=== PATIENT | male | born 1960 | race Caucasian/White ===

== ENCOUNTER 2016-12-31 12:49 | Inpatient (IN) | payer OTHER ==
[2016-12-31 15:49] VITALS: BMI 31.4
--- NOTE | 2016-12-31 18:25 | HP ---
CIWA Score - CIWA Score Nausea/Vomitin-Mild Nausea/No Vomiting Muscle Tremors: 4-Moderate,w/Arms Extend Anxiety: 4-Mod. Anxious/Guarded Agitation: 4-Moderately Restless Paroxysmal Sweats: 1-Minimal Palms Moist Orientation: 0-Oriented Tacttile Disturbances: 0-None Auditory Disturbances: 0-None Visual Disturbances: 0-None Headache: 1-Very Mild CIWA-Ar Total Score: 15 Admission ROS BHS - HPI Chief Complaint: WITHDRAWAL SX Allergies/Adverse Reactions: Allergies Allergy/AdvReac Type Severity Reaction Status Date / Time Penicillins Allergy Severe Rash Verified 12/31/16 17:27 History of Present Illness: 56 YEARS OLD MALE WITH LONG HISTORY OF ALCOHOL NICOTINE DEPENDENCE HAS CHRONIC EARS INFECTION SINCE CHILD, METHADONE 20 MG DAILY, DENTURE UPPER AND LOWER AT HOME, LOST LOWER DENTURE AND DEPRESSION IS ADMITTED TO DETOX Exam Limitations: No Limitations - Ebola screening Have you traveled outside of the country in the last 21 days: No Have you had contact with anyone from an Ebola affected area: No Have you been sick,other than usual withdrawal symptoms: No Do you have a fever: No - Review of Systems Constitutional: Chills, Changes in sleep, Weight Stable EENT: reports: Hearing Loss (BOTH EARS SINCE CHILD), Dental Problems Respiratory: reports: No Symptoms reported Cardiac: reports: No Symptoms Reported GI: reports: Nausea, Poor Fluid Intake, Abdominal cramping : reports: No Symptoms Reported Musculoskeletal: reports: No Symptoms Reported Integumentary: reports: No Symptoms Reported Neuro: reports: Tremors Endocrine: reports: No Symptoms Reported Hematology: reports: No Symptoms Reported Psychiatric: reports: Judgement Intact, Orientated x3, Depressed Other Systems: Reviewed and Negative Patient History - Patient Medical History Hx Anemia: No Hx Asthma: No Hx Chronic Obstructive Pulmonary Disease (COPD): No Hx Cancer: No Hx Cardiac Disorders: No Hx Hypertension: Yes (not on meds.) Hx Hypercholesterolemia: No Hx Pacemaker: No HX Cerebrovascular Accident: No Hx Seizures: No Hx Dementia: No Hx Diabetes: No Hx Gastrointestinal Disorders: No Hx Liver Disease: No Hx Genitourinary Disorders: No Hx Sexually Transmitted Disorders: No Hx Renal Disease (ESRD): No Hx Thyroid Disease: No Hx Human Immunodeficiency Virus (HIV): No Hx Hepatitis C: No Hx Depression: Yes Hx Suicide Attempt: No Hx Bipolar Disorder: No Hx Schizophrenia: No - Patient Surgical History Past Surgical History: Yes Hx Neurologic Surgery: No Hx Cataract Extraction: No Hx Cardiac Surgery: No Hx Lung Surgery: No Hx Breast Surgery: No Hx Breast Biopsy: No Hx Abdominal Surgery: No Hx Appendectomy: No Hx Cholecystectomy: No Hx Genitourinary Surgery: No Hx Orthopedic Surgery: No Other Surgical History: MULTIPLE SX BOTH EARS. Anesthesia Reaction: No - PPD History Previous Implant?: Yes Documented Results: Negative w/o proof Implanted On Prior [facility] Admission?: No PPD to be Administered?: Yes - Smoking Cessation Smoking history: Current every day smoker Have you smoked in the past 12 months: Yes Aproximately how many cigarettes per day: 10 Cigars Per Day: 0 Hx Chewing Tobacco Use: No Initiated information on smoking cessation: Yes 'Breaking Loose' booklet given: 12/31/16 - Substance & Tx. History Hx Alcohol Use: Yes Hx Substance Use: No Substance Use Type: Alcohol Hx Substance Use Treatment: No - Substances Abused Alcohol Route: Oral Frequency: Daily Amount used: 1 PINT RUM/ 2 6PKS BEER Age of first use: 13 Date of Last Use: 12/31/16 Family Disease History - Family Disease History Family Disease History: Diabetes: Brother, Heart Disease: Sister, [place]: Mother ( ), Other: Father () Admission Physical Exam S - Vital Signs Vital Signs: Vital Signs - 24 hr 12/31/16 15:39 Temperature 97.0 F L Pulse Rate 79 Respiratory 20 Rate Blood Pressure 146/81 - Physical General Appearance: Yes: Appropriately Dressed, Mild Distress, Obese, Tremorous , Irritable, Sweating, Anxious HEENTM: Yes: Hearing grossly Normal, Normal ENT Inspection, Normocephalic, Normal Voice, Hearing Decreased (RIGHT EAR), TM Dull Respiratory: Yes: Chest Non-Tender, Lungs Clear, Normal Breath Sounds, No Respiratory Distress, No Accessory Muscle Use Neck: Yes: Supple, Trachea in good position Breast: Yes: Breasts Symetrical Cardiology: Yes: Regular Rhythm, Regular Rate, S1, S2 Abdominal: Yes: Non Tender, Soft Genitourinary: Yes: Within Normal Limits Back: Yes: Normal Inspection Musculoskeletal: Yes: full range of Motion, Gait Steady Extremities: Yes: Normal Inspection, Normal Range of Motion, Non-Tender, Tremors Neurological: Yes: Fully Oriented, Alert, Motor Strength 5/5, Normal Response, Depressed Affect Integumentary: Yes: Warm Lymphatic: Yes: Within Normal Limits - Diagnostic (1) Alcohol dependence with uncomplicated withdrawal Current Visit: Yes Status: Acute (2) Methadone maintenance therapy patient Current Visit: Yes Status: Chronic Comment: 20 MG VERIFICATION PENDING (3) Chronic otitis externa of both ears Current Visit: Yes Status: Chronic Qualifiers: Otitis externa type: other infective Qualified Code(s): H60.393 - Other infective otitis externa, bilateral (4) Nicotine dependence Current Visit: Yes Status: Acute Qualifiers: Nicotine product type: cigarettes Substance use status: in withdrawal Qualified Code(s): F17.213 - Nicotine dependence, cigarettes, with withdrawal (5) Depression (emotion) Current Visit: Yes Status: Resolved Qualifiers: Depression Type: dysthymia Qualified Code(s): F34.1 - Dysthymic disorder Cleared for Admission BHS - Detox or Rehab [facility] Level of Care: Medically Managed Detox Regimen/Protocol: Librium [facility] Breath Alcohol Content Breath Alcohol Content: 0.041 Urine Drug Screen - Results Drug Screen Negative: No Urine Drug Screen Results: MTD-Methadone
[2016-12-31] MEDS ORDERED: guaiFENesin/D-METHORPHAN HB 10 ML UNIT-DOSE CUPS PO PRN (18:32)
[2016-12-31] MEDS ORDERED: LOPERAMIDE HCL 2 MG CAPSULE PO PRN (18:32)
[2016-12-31] MEDS ORDERED: MAGNESIUM HYDROX 2400MG/30ML ORAL SUSPENSION 30 ML CUP PO PRN (18:32)
[2016-12-31] MEDS ORDERED: NICOTINE POLACRILEX 2 MG GUM BC PRN (18:32)
[2016-12-31] MEDS ORDERED: P-EPHED 60MG/TRIPROLIDI 2.5MG TABLET PO PRN (18:32)
[2016-12-31] MEDS ORDERED: MAGNESIUM CITRATE 300 ML BOTTLE PO PRN (18:32)
[2016-12-31] MEDS ORDERED: MAG HYDROX/AL HYDROX/SIMETH 30 ML UNIT-DOSE CUP PO PRN (18:32)
[2016-12-31] MEDS ORDERED: MENTHOL/PHENOL 1 EACH UD MM PRN (18:32)
[2016-12-31] MEDS ORDERED: chlordiazePOXIDE HCL 25 MG CAPSULE PO ONE (19:15)
[2016-12-31] MEDS: ACETAMINOPHEN 325 MG TABLET (FP) PO PRN (21:00)
[2016-12-31] MEDS: chlordiazePOXIDE HCL 25 MG CAPSULE PO SCH (22:10)
[2016-12-31] MEDS: THIAMINE HCL 100 MG TABLET (FP) PO SCH (22:10)
[2016-12-31] MEDS: diphenhydrAMINE HCL 50 MG CAPSULE PO PRN (22:11)
[2016-12-31 23:17] LABS: URINE APPEARANCE CLEAR; URINE BILIRUBIN NEGATIVE (NEGATIVE); URINE BLOOD NEGATIVE (NEGATIVE); URINE COLOR YELLOW; URINE GLUCOSE (UA) NEGATIVE (NEGATIVE); URINE KETONE NEGATIVE (NEGATIVE); URINE LEUK ESTERASE NEGATIVE (NEGATIVE); URINE NITRITE NEGATIVE (NEGATIVE); URINE PROTEIN NEGATIVE (NEGATIVE); URINE UROBILINOGEN NEGATIVE E.U./dl (0.2-1.0)
[2016-12-31] MEDS: CLINDAMYCIN HCL 150 MG CAPSULE (FP) PO SCH (23:24)
[2017-01-01] MEDS ORDERED: CEPHALEXIN MONOHYDRATE 250 MG CAPSULE (FP) PO SCH
[2017-01-01] MEDS: CLINDAMYCIN HCL 150 MG CAPSULE (FP) PO SCH ×4 (05:55→23:25)
[2017-01-01] MEDS: chlordiazePOXIDE HCL 25 MG CAPSULE PO SCH ×4 (05:55→22:02)
[2017-01-01] MEDS ORDERED: METHADONE HCL 10 MG TABLET PO ONE (08:50)
[2017-01-01] MEDS: PRENATAL VITAMINS W/ FOLIC ACID TABLET (FP) PO SCH (09:29)
[2017-01-01] MEDS: NICOTINE 14 MG/24 HOURS TOPICAL PATCH TD SCH (09:43)
[2017-01-01 09:51] LABS: MCH 32.1 pg (25.7-33.7); MCHC 32.7 g/dl (32.0-35.9); MEAN CELL VOLUME 98.1 fl (80-96); MEAN PLT VOLUME 11.3 fl (7.5-11.1); PLATELET COUNT 199 K/MM3 (134-434); RDW 14.8 % (11.9-15.9)
--- NOTE | 2017-01-01 10:09 | CONSULT ---
[facility] Psychiatric Consult - Data Date of interview: 01/01/17 Admission source: [facility] Identifying data: This is 56 years old male with no psychiqatric hospitalization history intoxicated with: Alcohol, Opioids and Nicotine Substance Abuse History: Smoking history: Current every day smoker. Have you smoked in the past 12 months: Yes. Aproximately how many cigarettes per day: 10. Cigars Per Day: 0. Hx Chewing Tobacco Use: No. Initiated information on smoking cessation: Yes. 'Breaking Loose' booklet given: 12/31/16. - Substance & Tx. History. Hx Alcohol Use: Yes. Hx Substance Use: No. Substance Use Type : Alcohol. Hx Substance Use Treatment: No. - Substances Abused. Alcohol. Route: Oral. Frequency: Daily. Amount used: 1 PINT RUM/ 2 6PKS BEER. Age of first use: 13. Date of Last Use: 12/31/16 Medical History: MMJTP 20mg per day, Chronic Otitis history Psychiatric History: Patient reports history of depression, reports long history of Opioid abuse, denies any psychiatric medications usage prior to admission Physical/Sexual Abuse/Trauma History: Denies Additional Comment: Observation. Detox Unit Care Protocol Mental Status Exam - Mental Status Exam Alert and Oriented to: Person Cognitive Function: Fair Patient Appearance: Unkempt Mood: Sad Affect: Flat Patient Behavior: Sedated Speech Pattern: Delayed Voice Loudness: Mildly Soft/Quiet Thought Process: Circumstantial Thought Disorder: Being Controlled Hallucinations: Denies Suicidal Ideation: Denies Homicidal Ideation: Denies Insight/Judgement: Fair Sleep: Difficulty falling asleep Appetite: Weight gain Muscle strength/Tone: Normal Gait/Station: Shuffling Additional Comments: Observation. Detox Unit Care Protocol Psychiatric Findings - Problem List ([place] 1, 2,3) (1) Alcohol dependence with uncomplicated withdrawal Current Visit: Yes Status: Acute (2) Nicotine dependence Current Visit: Yes Status: Acute Qualifiers: Nicotine product type: cigarettes Substance use status: in withdrawal Qualified Code(s): F17.213 - Nicotine dependence, cigarettes, with withdrawal (3) Methadone maintenance therapy patient Current Visit: Yes Status: Chronic Comment: 20 MG VERIFICATION PENDING (4) Drug-induced mood disorder Current Visit: Yes Status: Acute - Initial Treatment Plan Initial Treatment Plan: Observation. Detox Unit Care Protocol
[2017-01-01 10:26] LABS: ALBUMIN 4.2 g/dl (3.4-5.0); ALK PHOS 60 U/L (45-117); ANION GAP 10 (8-16); BILIRUBIN,TOTAL 0.7 mg/dL (0.2-1.0); CALCIUM 9.3 mg/dL (8.5-10.1); CO2 26 mmol/L (21-32); CREATININE 0.7 mg/dL (0.7-1.3); GLUCOSE,RANDOM 135 mg/dL (74-106); SGOT/AST 21 U/L (15-37); SGPT/ALT 24 U/L (12-78); TOT PROT 7.8 g/dl (6.4-8.2)
[2017-01-01 10:48] LABS: HIV 1 & 2 AB NEGATIVE; HIV 1 AGp24 NEGATIVE
[2017-01-01] MEDS: IBUPROFEN 400 MG TABLET (FP) PO PRN (11:21)
--- NOTE | 2017-01-01 14:47 | EKG ---
Test Reason : Blood Pressure : / mmHG Vent. Rate : 056 BPM Atrial Rate : 056 BPM P-R Int : 146 ms QRS Dur : 140 ms QT Int : 432 ms P-R-T Axes : 059 059 047 degrees QTc Int : 416 ms SINUS BRADYCARDIA RIGHT BUNDLE BRANCH BLOCK VOLTAGE CRITERIA FOR LEFT VENTRICULAR HYPERTROPHY ABNORMAL ECG NO PREVIOUS ECGS AVAILABLE Confirmed by CAMI ALBERTS MD ([id number]) on 01/01/2017 2:46:57 PM Referred By: Confirmed By:CAMI ALBERTS MD
--- NOTE | 2017-01-01 14:59 | PN ---
S CIWA - CIWA Score Nausea/Vomitin-No Nausea/No Vomiting Muscle Tremors: 4-Moderate,w/Arms Extend Anxiety: 3 Agitation: 3 Paroxysmal Sweats: 3 Orientation: 0-Oriented Tacttile Disturbances: 0-None Auditory Disturbances: 0-None Visual Disturbances: 0-None Headache: 0-None Present CIWA-Ar Total Score: 13 BHS Progress Note (SOAP) Subjective: Anxiety,tremors,sweating,interrupted sleep,restless.C/O of earache Objective: 01/01/17 14:58 Vital Signs - 8 hr 01/01/17 01/01/17 09:17 13:10 Temperature 96.8 F L 97.1 F L Pulse Rate 58 L 68 Respiratory 18 18 Rate Blood Pressure 146/83 129/83 Laboratory Tests 12/31/16 12/31/16 01/01/17 06:00 23:05 06:00 WBC 7.0 RBC 4.33 Hgb 13.9 Hct 42.5 MCV 98.1 H MCHC 32.7 RDW 14.8 Plt Count 199 MPV 11.3 H Sodium Potassium Chloride Carbon Dioxide Anion Gap BUN Creatinine Creat Clearance w eGFR Random Glucose Calcium Total Bilirubin AST ALT Alkaline Phosphatase Total Protein Albumin Urine Color Yellow Urine Appearance Clear Urine pH 5.0 Ur Specific [place] 1.020 Urine Protein Negative Urine Glucose (UA) Negative Urine Ketones Negative Urine Blood Negative Urine Nitrite Negative Urine Bilirubin Negative Urine Urobilinogen Negative Ur Leukocyte Esterase Negative RPR Titer HIV 1&2 Antibody Screen Negative HIV P24 Antigen Negative 01/01/17 01/01/17 06:00 06:00 WBC RBC Hgb Hct MCV MCHC RDW Plt Count MPV Sodium 139 Potassium 4.3 Chloride 103 Carbon Dioxide 26 Anion Gap 10 BUN 10 Creatinine 0.7 Creat Clearance w eGFR > 60 Random Glucose 135 H Calcium 9.3 Total Bilirubin 0.7 AST 21 ALT 24 Alkaline Phosphatase 60 Total Protein 7.8 Albumin 4.2 Urine Color Urine Appearance Urine pH Ur Specific [place] Urine Protein Urine Glucose (UA) Urine Ketones Urine Blood Urine Nitrite Urine Bilirubin Urine Urobilinogen Ur Leukocyte Esterase RPR Titer Nonreactive HIV 1&2 Antibody Screen HIV P24 Antigen labs noted Ears : External canals are inflamed and hyperemic Assessment: 01/01/17 14:58 Withdrawal sx. Plan: Continue detox Otitis externa start cortisporin otic bee qid
[2017-01-01] MEDS: ACETAMINOPHEN 325 MG TABLET (FP) PO PRN (15:06)
[2017-01-01] MEDS: NEOMYCIN/POLYMYXN/HC OTIC SUSPENSION 10 ML BOTTLE AU SCH ×2 (17:19→22:01)
[2017-01-01] MEDS: THIAMINE HCL 100 MG TABLET (FP) PO SCH (22:01)
[2017-01-01] MEDS: diphenhydrAMINE HCL 50 MG CAPSULE PO PRN (22:02)
[2017-01-02] MEDS: chlordiazePOXIDE HCL 25 MG CAPSULE PO SCH ×3 (05:45→17:15)
[2017-01-02] MEDS: METHADONE HCL 10 MG TABLET PO SCH (05:45)
[2017-01-02] MEDS: CLINDAMYCIN HCL 150 MG CAPSULE (FP) PO SCH ×4 (05:45→23:47)
[2017-01-02] MEDS: NEOMYCIN/POLYMYXN/HC OTIC SUSPENSION 10 ML BOTTLE AU SCH ×4 (10:07→22:47)
[2017-01-02] MEDS: NICOTINE 14 MG/24 HOURS TOPICAL PATCH TD SCH (10:07)
[2017-01-02] MEDS: PRENATAL VITAMINS W/ FOLIC ACID TABLET (FP) PO SCH (10:07)
--- NOTE | 2017-01-02 11:39 | PN ---
S CIWA - CIWA Score Nausea/Vomitin Muscle Tremors: 3 Anxiety: 4-Mod. Anxious/Guarded Agitation: 0-Normal Activity Paroxysmal Sweats: 3 Orientation: 4Disoriented Place/Person Tacttile Disturbances: 0-None Auditory Disturbances: 0-None Visual Disturbances: 0-None Headache: 2-Mild CIWA-Ar Total Score: 21 S Progress Note (SOAP) Subjective: Vomiting, Tremors, H/A, Interrupted sleep, Body Aches, Tremors. Objective: PT. A & O X 2 (DISORIENTED ABOUT DAY/ DATE AND ABOUT CURRENT LOCATION). NO ACUTE DISTRESS. PATIENT DENIES CHEST PAIN. 01/02/17 11:36 Vital Signs Temperature 98.2 F 01/02/17 09:35 Pulse Rate 81 01/02/17 09:35 Respiratory Rate 20 01/02/17 09:35 Blood Pressure 123/77 01/02/17 09:35 O2 Sat by Pulse Oximetry (%) Laboratory Tests 12/31/16 12/31/16 12/31/16 06:00 06:00 23:05 WBC RBC Hgb Hct MCV MCHC RDW Plt Count MPV Sodium Potassium Chloride Carbon Dioxide Anion Gap BUN Creatinine Creat Clearance w eGFR Random Glucose Calcium Total Bilirubin AST ALT Alkaline Phosphatase Total Protein Albumin Urine Color Yellow Urine Appearance Clear Urine pH 5.0 Ur Specific [place] 1.020 Urine Protein Negative Urine Glucose (UA) Negative Urine Ketones Negative Urine Blood Negative Urine Nitrite Negative Urine Bilirubin Negative Urine Urobilinogen Negative Ur Leukocyte Esterase Negative RPR Titer Hepatitis C Antibody 0.1 HIV 1&2 Antibody Screen Negative HIV P24 Antigen Negative 01/01/17 01/01/17 01/01/17 06:00 06:00 06:00 WBC 7.0 RBC 4.33 Hgb 13.9 Hct 42.5 MCV 98.1 H MCHC 32.7 RDW 14.8 Plt Count 199 MPV 11.3 H Sodium 139 Potassium 4.3 Chloride 103 Carbon Dioxide 26 Anion Gap 10 BUN 10 Creatinine 0.7 Creat Clearance w eGFR > 60 Random Glucose 135 H Calcium 9.3 Total Bilirubin 0.7 AST 21 ALT 24 Alkaline Phosphatase 60 Total Protein 7.8 Albumin 4.2 Urine Color Urine Appearance Urine pH Ur Specific [place] Urine Protein Urine Glucose (UA) Urine Ketones Urine Blood Urine Nitrite Urine Bilirubin Urine Urobilinogen Ur Leukocyte Esterase RPR Titer Nonreactive Hepatitis C Antibody HIV 1&2 Antibody Screen HIV P24 Antigen LABS NOTED. Assessment: 01/02/17 11:37 WITHDRAWAL SYMPTOMS. Plan: CONTINUE DETOX.
[2017-01-02] MEDS: chlordiazePOXIDE HCL 25 MG CAPSULE PO PRN (15:40)
[2017-01-02] MEDS: IBUPROFEN 400 MG TABLET (FP) PO PRN (19:12)
[2017-01-02] MEDS: THIAMINE HCL 100 MG TABLET (FP) PO SCH (22:11)
[2017-01-02] MEDS: diphenhydrAMINE HCL 50 MG CAPSULE PO PRN (22:11)
[2017-01-02] MEDS: chlordiazePOXIDE 5 MG CAPSULE PO SCH (22:11)
[2017-01-03] MEDS: CLINDAMYCIN HCL 150 MG CAPSULE (FP) PO SCH ×4 (06:00→23:07)
[2017-01-03] MEDS: METHADONE HCL 10 MG TABLET PO SCH (06:01)
[2017-01-03] MEDS: chlordiazePOXIDE 5 MG CAPSULE PO SCH ×3 (06:01→17:28)
[2017-01-03] MEDS: NEOMYCIN/POLYMYXN/HC OTIC SUSPENSION 10 ML BOTTLE AU SCH ×4 (10:09→22:12)
[2017-01-03] MEDS: PRENATAL VITAMINS W/ FOLIC ACID TABLET (FP) PO SCH (10:09)
[2017-01-03] MEDS: NICOTINE 14 MG/24 HOURS TOPICAL PATCH TD SCH (10:10)
[2017-01-03] MEDS: chlordiazePOXIDE HCL 25 MG CAPSULE PO PRN (12:13)
--- NOTE | 2017-01-03 13:05 | PN ---
BHS Progress Note (SOAP) Subjective: Tremors, anxious, H/A, Interrupted sleep. Objective: PT. A & O X 1 (DISORIENTED ABOUT DAY/ DATE AND ABOUT CURRENT LOCATION). PT. OBSERVED AMBULATING ON UNIT. NO ACUTE DISTRESS. 01/03/17 13:01 Vital Signs Temperature 97.7 F 01/03/17 09:43 Pulse Rate 97 H 01/03/17 09:43 Respiratory Rate 18 01/03/17 09:43 Blood Pressure 136/93 01/03/17 09:43 O2 Sat by Pulse Oximetry (%) Laboratory Tests 12/31/16 12/31/16 12/31/16 06:00 06:00 23:05 WBC RBC Hgb Hct MCV MCHC RDW Plt Count MPV Sodium Potassium Chloride Carbon Dioxide Anion Gap BUN Creatinine Creat Clearance w eGFR Random Glucose Calcium Total Bilirubin AST ALT Alkaline Phosphatase Total Protein Albumin Urine Color Yellow Urine Appearance Clear Urine pH 5.0 Ur Specific [place] 1.020 Urine Protein Negative Urine Glucose (UA) Negative Urine Ketones Negative Urine Blood Negative Urine Nitrite Negative Urine Bilirubin Negative Urine Urobilinogen Negative Ur Leukocyte Esterase Negative RPR Titer Hepatitis C Antibody 0.1 HIV 1&2 Antibody Screen Negative HIV P24 Antigen Negative 01/01/17 01/01/17 01/01/17 06:00 06:00 06:00 WBC 7.0 RBC 4.33 Hgb 13.9 Hct 42.5 MCV 98.1 H MCHC 32.7 RDW 14.8 Plt Count 199 MPV 11.3 H Sodium 139 Potassium 4.3 Chloride 103 Carbon Dioxide 26 Anion Gap 10 BUN 10 Creatinine 0.7 Creat Clearance w eGFR > 60 Random Glucose 135 H Calcium 9.3 Total Bilirubin 0.7 AST 21 ALT 24 Alkaline Phosphatase 60 Total Protein 7.8 Albumin 4.2 Urine Color Urine Appearance Urine pH Ur Specific [place] Urine Protein Urine Glucose (UA) Urine Ketones Urine Blood Urine Nitrite Urine Bilirubin Urine Urobilinogen Ur Leukocyte Esterase RPR Titer Nonreactive Hepatitis C Antibody HIV 1&2 Antibody Screen HIV P24 Antigen LABS NOTED. Assessment: 01/03/17 13:02 WITHDRAWAL SYMPTOMS. Plan: CONTINUE DETOX. ADVISED PATIENT TO FOLLOW-UP WITH DISTRIBUTION AGENT / ENT SPECIALIST AFTER DISCHARGE FROM DETOX FOR GENERAL MEDICAL ASSESSMENT AND FOR REPORTED HISTORY OF CHRONIC HEADACHES AND EAR INFECTIONS AND FOR HISTORY OF SURGERY TO EARS.
[2017-01-03] MEDS ORDERED: hydrOXYzine PAMOATE 50 MG CAPSULE (FP) PO ONE (19:03)
[2017-01-03] MEDS: IBUPROFEN 400 MG TABLET (FP) PO PRN (19:09)
[2017-01-03] MEDS: THIAMINE HCL 100 MG TABLET (FP) PO SCH (22:12)
[2017-01-03] MEDS: chlordiazePOXIDE HCL 10 MG CAPSULE PO SCH (22:12)
[2017-01-03] MEDS: diphenhydrAMINE HCL 50 MG CAPSULE PO PRN (22:13)
[2017-01-04] MEDS: METHADONE HCL 10 MG TABLET PO SCH (06:02)
[2017-01-04] MEDS: CLINDAMYCIN HCL 150 MG CAPSULE (FP) PO SCH ×3 (06:02→17:14)
[2017-01-04] MEDS: chlordiazePOXIDE HCL 10 MG CAPSULE PO SCH ×3 (06:02→17:14)
[2017-01-04] MEDS: NICOTINE 14 MG/24 HOURS TOPICAL PATCH TD SCH (10:08)
[2017-01-04] MEDS: PRENATAL VITAMINS W/ FOLIC ACID TABLET (FP) PO SCH (10:09)
[2017-01-04] MEDS: NEOMYCIN/POLYMYXN/HC OTIC SUSPENSION 10 ML BOTTLE AU SCH ×3 (10:09→17:14)
--- NOTE | 2017-01-04 11:48 | DS ---
[facility] Detox Discharge Summary Admission Date: 12/31/16 Discharge Date: 01/04/17 - History Present History: Alcohol Dependence Additional Comments: ADVISED PATIENT TO FOLLOW-UP WITH CAREER MANAGER / REHAB MEDICAL PROVIDER AFTER DISCHARGE FROM DETOX FOR GENERAL MEDICAL ASSESSMENT AND FOR HISTORY OF CHRONIC EAR INFECTIONS AND EAR SURGERY. Pertinent Past History: HTN, Depression, Chronic Ear Infections, History of Ear Surgery, MMTP. - Physical Exam Results Vital Signs: Vital Signs Temperature 98.5 F 01/04/17 09:46 Pulse Rate 83 01/04/17 09:46 Respiratory Rate 16 01/04/17 09:46 Blood Pressure 124/84 01/04/17 09:46 O2 Sat by Pulse Oximetry (%) Pertinent Admission Physical Exam Findings: WITHDRAWAL SYMPTOMS. Laboratory Tests 12/31/16 12/31/16 12/31/16 06:00 06:00 23:05 WBC RBC Hgb Hct MCV MCHC RDW Plt Count MPV Sodium Potassium Chloride Carbon Dioxide Anion Gap BUN Creatinine Creat Clearance w eGFR Random Glucose Calcium Total Bilirubin AST ALT Alkaline Phosphatase Total Protein Albumin Urine Color Yellow Urine Appearance Clear Urine pH 5.0 Ur Specific [place] 1.020 Urine Protein Negative Urine Glucose (UA) Negative Urine Ketones Negative Urine Blood Negative Urine Nitrite Negative Urine Bilirubin Negative Urine Urobilinogen Negative Ur Leukocyte Esterase Negative RPR Titer Hepatitis C Antibody 0.1 HIV 1&2 Antibody Screen Negative HIV P24 Antigen Negative 01/01/17 01/01/17 01/01/17 06:00 06:00 06:00 WBC 7.0 RBC 4.33 Hgb 13.9 Hct 42.5 MCV 98.1 H MCHC 32.7 RDW 14.8 Plt Count 199 MPV 11.3 H Sodium 139 Potassium 4.3 Chloride 103 Carbon Dioxide 26 Anion Gap 10 BUN 10 Creatinine 0.7 Creat Clearance w eGFR > 60 Random Glucose 135 H Calcium 9.3 Total Bilirubin 0.7 AST 21 ALT 24 Alkaline Phosphatase 60 Total Protein 7.8 Albumin 4.2 Urine Color Urine Appearance Urine pH Ur Specific [place] Urine Protein Urine Glucose (UA) Urine Ketones Urine Blood Urine Nitrite Urine Bilirubin Urine Urobilinogen Ur Leukocyte Esterase RPR Titer Nonreactive Hepatitis C Antibody HIV 1&2 Antibody Screen HIV P24 Antigen LABS NOTED. - Treatment Hospital Course: Detox Protocol Followed, Detoxed Safely, Responded well, Discharged Condition Good, Rehab Referral Accepted Patient has Accepted a Rehab Referral to: [facility]. - Medication Discharge Medications: Ambulatory Orders NK [No Known Home Medication] 12/31/16 - Diagnosis (1) Alcohol dependence with uncomplicated withdrawal Current Visit: Yes Status: Acute (2) Drug-induced mood disorder Current Visit: Yes Status: Acute (3) Nicotine dependence Current Visit: Yes Status: Chronic Qualifiers: Nicotine product type: cigarettes Substance use status: in withdrawal Qualified Code(s): F17.213 - Nicotine dependence, cigarettes, with withdrawal (4) Chronic otitis externa of both ears Current Visit: Yes Status: Chronic Qualifiers: Otitis externa type: other infective Qualified Code(s): H60.393 - Other infective otitis externa, bilateral (5) Methadone maintenance therapy patient Current Visit: Yes Status: Chronic (6) Depression (emotion) Current Visit: Yes Status: Resolved Qualifiers: Depression Type: dysthymia Qualified Code(s): F34.1 - Dysthymic disorder - AMA Did Patient Leave Against Medical Advice: No
[2017-01-04 17:06] VITALS: BP 107/67; PULSE 64; TEMP 95.8
== END 2017-01-04 18:33 | disposition other institution (70) | DRG 773 ==
LOC: YASAS 12:49 → Y3N 18:45 → UNDODISIN 01-04 18:33 → Y3N 01-04 18:43 → Y5N 01-04 18:43
PROVIDERS: ADMIT Internal Medicine; ATTEND Internal Medicine
PROC: HZ2ZZZZ Detoxification Services for Substance Abuse Treatment (ICD-10-PCS; principal; 2017-01-04)
DX: F11.20 Opioid dependence, uncomplicated (principal); F10.230 Alcohol dependence with withdrawal, uncomplicated; F17.213 Nicotine dependence, cigarettes, with withdrawal; F19.24 Other psychoactive substance dependence with psychoactive substance-induced mood disorder; F34.1 Dysthymic disorder; H60.593 Other noninfective acute otitis externa, bilateral; Z59.0 Homelessness
CPT/HCPCS: 36415; 80053; 81003; 85027; 86593; 86803; 87389; 93005; 93010

== ENCOUNTER 2017-01-04 19:35 | Inpatient (IN) | payer OTHER ==
[2017-01-04] MEDS ORDERED: MAG HYDROX/AL HYDROX/SIMETH 30 ML UNIT-DOSE CUP PO PRN (19:43)
[2017-01-04] MEDS ORDERED: LOPERAMIDE HCL 2 MG CAPSULE PO PRN (19:43)
[2017-01-04] MEDS ORDERED: MENTHOL/PHENOL 1 EACH UD MM PRN (19:43)
[2017-01-04] MEDS ORDERED: MAGNESIUM CITRATE 300 ML BOTTLE PO PRN (19:43)
[2017-01-04] MEDS ORDERED: guaiFENesin/D-METHORPHAN HB 10 ML UNIT-DOSE CUPS PO PRN (19:43)
[2017-01-04] MEDS ORDERED: MAGNESIUM HYDROX 2400MG/30ML ORAL SUSPENSION 30 ML CUP PO PRN (19:43)
[2017-01-04] MEDS ORDERED: NICOTINE 14 MG/24 HOURS TOPICAL PATCH TD PRN (19:43)
[2017-01-04] MEDS ORDERED: NICOTINE POLACRILEX 2 MG GUM BUC PRN (19:43)
--- NOTE | 2017-01-04 19:43 | HP ---
[facility] Rehab Assess/Revision - Admission History Admitted to Rehab from: [facility] Date of Admission to Rehab: 01/04/17 - Findings Detox History & Physical reviewed: Yes Concur with findings: Yes Comments/Additional Findings: transferred from detox to rehab admission as per protocol
[2017-01-04] MEDS: THIAMINE HCL 100 MG TABLET (FP) PO SCH (21:34)
[2017-01-04] MEDS: P-EPHED 60MG/TRIPROLIDI 2.5MG TABLET PO PRN (22:45)
[2017-01-04] MEDS: NEOMYCIN/POLYMYXN/HC OTIC SUSPENSION 10 ML BOTTLE AU SCH (23:15)
[2017-01-04] MEDS: CLINDAMYCIN HCL 150 MG CAPSULE (FP) PO SCH (23:15)
[2017-01-05] MEDS: CLINDAMYCIN HCL 150 MG CAPSULE (FP) PO SCH ×3 (06:42→18:53)
[2017-01-05] MEDS: NEOMYCIN/POLYMYXN/HC OTIC SUSPENSION 10 ML BOTTLE AU SCH ×3 (06:43→18:53)
[2017-01-05] MEDS: METHADONE HCL 10 MG TABLET PO SCH (09:07)
[2017-01-05] MEDS: PRENATAL VITAMINS W/ FOLIC ACID TABLET (FP) PO SCH (09:08)
[2017-01-05] MEDS: P-EPHED 60MG/TRIPROLIDI 2.5MG TABLET PO PRN (17:45)
[2017-01-05] MEDS: ACETAMINOPHEN 325 MG TABLET (FP) PO PRN (17:46)
[2017-01-05] MEDS: THIAMINE HCL 100 MG TABLET (FP) PO SCH (21:31)
[2017-01-05] MEDS: diphenhydrAMINE HCL 50 MG CAPSULE PO PRN (21:32)
[2017-01-06] MEDS: NEOMYCIN/POLYMYXN/HC OTIC SUSPENSION 10 ML BOTTLE AU SCH ×5 (00:50→23:40)
[2017-01-06] MEDS: CLINDAMYCIN HCL 150 MG CAPSULE (FP) PO SCH ×5 (00:50→23:40)
[2017-01-06] MEDS: METHADONE HCL 10 MG TABLET PO SCH (06:36)
[2017-01-06] MEDS: PRENATAL VITAMINS W/ FOLIC ACID TABLET (FP) PO SCH (10:46)
[2017-01-06] MEDS: IBUPROFEN 400 MG TABLET (FP) PO PRN (17:42)
[2017-01-06] MEDS: diphenhydrAMINE HCL 50 MG CAPSULE PO PRN (21:12)
[2017-01-06] MEDS: THIAMINE HCL 100 MG TABLET (FP) PO SCH (21:12)
[2017-01-07] MEDS: NEOMYCIN/POLYMYXN/HC OTIC SUSPENSION 10 ML BOTTLE AU SCH ×4 (05:44→23:06)
[2017-01-07] MEDS: METHADONE HCL 10 MG TABLET PO SCH (05:44)
[2017-01-07] MEDS: CLINDAMYCIN HCL 150 MG CAPSULE (FP) PO SCH ×4 (05:44→23:06)
[2017-01-07] MEDS: PRENATAL VITAMINS W/ FOLIC ACID TABLET (FP) PO SCH (10:21)
--- NOTE | 2017-01-07 14:12 | HP ---
Psychiatrist Admission - Data Date of interview: 01/07/17 Admission source: 6N Identifying data: This is the first 5N inpatient rehabilitation admission for this 56 year old single hispnaic male father of 4, unemployed and currently homeless. Medical History: Chronic otitis. On MMTP 20 mg/daily. Psychiatric History: Patient ruddy was seen by a psychiatrist about 20 years ago in the clinic to address depressed mood, states he saw him only once and no treatment recommended. Physical/Sexual Abuse/Trauma History: Patient denies history of sexual, physical and verbal abuse. Vital Signs: Vital Signs - 24 hr 01/07/17 01/07/17 01/07/17 00:30 03:30 06:35 Temperature 97.7 F Pulse Rate 61 Respiratory 18 18 16 Rate Blood Pressure 124/80 Allergies/Adverse Reactions: Allergies Allergy/AdvReac Type Severity Reaction Status Date / Time Penicillins Allergy Severe Rash Verified 12/31/16 17:27 Date of last physical exam: 12/31/16 Concur with the findings of this exam: Yes - Substance Abuse/Tx History Hx Alcohol Use: Yes (1 pint of rum and 2 6pks of beer.) Hx Substance Use: Yes (in the past was using heroin, on MMTP ) Hx Substance Use Treatment: Yes - Admission Criteria Previous failed treatment: Yes Poor recovery environment: Yes Comorbidities: Yes Lacks judgement: Yes Mental Status Exam - Mental Status Exam Alert and Oriented to: Time, Place, Person Cognitive Function: Grossly Intact Patient Appearance: Well Groomed Mood: Sad Affect: Mood Congruent Patient Behavior: Appropriate, Cooperative Speech Pattern: Clear, Appropriate Voice Loudness: Normal Thought Process: Intact Thought Disorder: Not Present Hallucinations: Denies Suicidal Ideation: Denies Homicidal Ideation: Denies Insight/Judgement: Fair Sleep: Fair Appetite: Good Muscle strength/Tone: Normal Gait/Station: Normal Psychiatric Findings - Problem List ([place] 1, 2,3) (1) Chronic otitis externa of both ears Current Visit: No Status: Chronic Qualifiers: Otitis externa type: other infective Qualified Code(s): H60.393 - Other infective otitis externa, bilateral (2) Methadone maintenance therapy patient Current Visit: No Status: Chronic Comment: 20 MG VERIFICATION PENDING (3) Nicotine dependence Current Visit: No Status: Chronic Qualifiers: Nicotine product type: cigarettes Substance use status: in withdrawal Qualified Code(s): F17.213 - Nicotine dependence, cigarettes, with withdrawal (4) Alcohol dependence Current Visit: Yes Status: Acute (5) Alcohol-induced mood disorder Current Visit: Yes Status: Acute - Initial Treatment Plan Initial Treatment Plan: Will monitor progress as needed.
[2017-01-07] MEDS: diphenhydrAMINE HCL 50 MG CAPSULE PO PRN (21:25)
[2017-01-07] MEDS: THIAMINE HCL 100 MG TABLET (FP) PO SCH (21:25)
[2017-01-08] MEDS: CLINDAMYCIN HCL 150 MG CAPSULE (FP) PO SCH ×4 (06:08→23:16)
[2017-01-08] MEDS: METHADONE HCL 10 MG TABLET PO SCH (06:08)
[2017-01-08] MEDS: NEOMYCIN/POLYMYXN/HC OTIC SUSPENSION 10 ML BOTTLE AU SCH ×5 (06:09→23:17)
--- NOTE | 2017-01-08 08:53 | PN ---
BHS Progress Note Note: CHRONIC LOW BACK PAIN,WEARING BACK BRACE ,STATED LEFT BACK BRACE AT HOME,WILL TRY TO OBTAIN BACK BRACE FOR PATIENT ALSO HAS A RASH ON FACE CONTACT DERMATITIS HYDROCORTISONE CREAM 1% BID
--- NOTE | 2017-01-08 09:46 | PN ---
S Progress Note Note: PLEASE DISREGARD THE NOTE ON 01/08/17 08.49 AM,REASON BELONG TO OTHER PATIENT
[2017-01-08] MEDS: PRENATAL VITAMINS W/ FOLIC ACID TABLET (FP) PO SCH (10:09)
[2017-01-08] MEDS: HYDROCORTISONE 0.5% TOPICAL CREAM 30 GM TUBE TP SCH ×2 (10:10→21:10)
--- NOTE | 2017-01-08 12:43 | PN ---
Psychiatric Progress Note Vital Signs: Vital Signs Period Temp Pulse Resp BP Sys/Easley Pulse Ox Last 24 Hr 98.8 F 63 18-18 125/76 Date of Session: 01/08/17 Chief Complaint:: "depressed" HPI: Patient is addressing alcohol , nicotine dependence comorbid Alcohol induced mood disorder. ROS: Chronic otitis medically managed. Current Medications: Active Medications Generic Name Dose Route Start Last Admin Trade Name Freq PRN Reason Stop Dose Admin Acetaminophen 650 mg 01/04/17 19:43 01/05/17 17:46 Tylenol - PO 650 mg Q4H PRN Administration FEVER OR PAIN Al Hydroxide/Mg Hydroxide 30 ml 01/04/17 19:43 Mylanta Oral Suspension - PO Q6H PRN DYSPEPSIA Clindamycin HCl 300 mg 01/05/17 00:00 01/08/17 06:08 Cleocin - PO 01/10/17 00:00 300 mg Q6HPO JESUS Administration Diphenhydramine HCl 50 mg 01/04/17 19:43 01/07/17 21:25 Benadryl - PO 50 mg HSMR1 PRN Administration FOR ITCHING Eucalyptus/Menthol/Phenol/Sorbitol 1 each 01/04/17 19:43 Cepastat Lozenge - MM Q4H PRN SORE THROAT Guaifenesin 10 ml 01/04/17 19:43 Robitussin Dm - PO Q6H PRN COUGH Hydrocortisone 1 applic 01/08/17 10:00 01/08/17 10:10 Hytone 0.5% Cream - TP Not Given BID JESUS Ibuprofen 400 mg 01/04/17 19:43 01/06/17 17:42 Motrin - PO 400 mg Q6H PRN Administration PAIN Loperamide HCl 4 mg 01/04/17 19:43 Imodium - PO Q6H PRN DIARRHEA Magnesium Hydroxide 30 ml 01/04/17 19:43 Milk Of Magnesia - PO DAILY PRN CONSTIPATION Methadone HCl 20 mg 01/05/17 07:30 01/08/17 06:08 Dolophine - PO 20 mg DAILY@0600 JESUS Administration Neomycin/Polymyxin/Hydrocortisone 4 drop 01/05/17 00:00 01/08/17 07:29 Cortisporin Otic Suspenstion - AU 01/12/17 00:00 Not Given Q6HPO JESUS Nicotine 14 mg 01/04/17 19:43 Nicoderm Patch - TD DAILY PRN WITHDRAWAL(CONT SUBST) Nicotine Polacrilex 2 mg 01/04/17 19:43 Nicorette Gum - BUC Q2H PRN NICOTINE REPLACEMENT RX Multivit/Folic Acid/Iron 1 tab 01/05/17 10:00 01/08/17 10:09 Vitamins (Sjr) - PO 1 tab DAILY JESUS Administration Pseudoephedrine/Triprolidine 1 combo 01/04/17 19:43 01/05/17 17:45 Actifed - PO 1 combo TID PRN Administration NASAL CONGESTION Thiamine HCl 100 mg 01/04/17 22:00 01/07/17 21:25 Vitamin B1 - PO 100 mg HS JESUS Administration Current Side Effect: No Lab tests ordered: No Lab tests reviewed: Yes Provider note:: Patient reports he feels depressed, "being lone[place], all family far away, lost apartment, and being homeless", states he drinks beer "to forget all my problems", states has been felling like this a couple of months. Patient reports that his chronic ear pain makes him more depressed and sad. Emotional supports provided, discussed indications and properties of Lexapro and Remeron with the patient, he agreed to start medications. Will add Lexapro 10 mg po am and Remeron 15 mg po hs, continue to monitor progress. Mental Status Exam - Mental Status Exam Alert and Oriented to: Time, Place, Person Cognitive Function: Grossly Intact Patient Appearance: Well Groomed Mood: Depressed, Sad, Anxious Affect: Appropriate, Mood Congruent Patient Behavior: Appropriate, Cooperative Speech Pattern: Clear, Appropriate Voice Loudness: Normal Thought Process: Intact, Goal Oriented Thought Disorder: Not Present Hallucinations: Denies Suicidal Ideation: Denies Homicidal Ideation: Denies Insight/Judgement: Fair Sleep: Poorly, Difficulty falling asleep Appetite: Fair Muscle strength/Tone: Normal Gait/Station: Normal Psychiatric Treatment Plan - Problem List (1) Chronic otitis externa of both ears Current Visit: No Qualifiers: Otitis externa type: other infective Qualified Code(s): H60.393 - Other infective otitis externa, bilateral (2) Methadone maintenance therapy patient Current Visit: No Comment: 20 MG VERIFICATION PENDING (3) Nicotine dependence Current Visit: No Qualifiers: Nicotine product type: cigarettes Substance use status: in withdrawal Qualified Code(s): F17.213 - Nicotine dependence, cigarettes, with withdrawal (4) Alcohol dependence Current Visit: Yes (5) Alcohol-induced mood disorder Current Visit: Yes
[2017-01-08] MEDS: IBUPROFEN 400 MG TABLET (FP) PO PRN (13:17)
[2017-01-08] MEDS: diphenhydrAMINE HCL 50 MG CAPSULE PO PRN (21:09)
[2017-01-08] MEDS: THIAMINE HCL 100 MG TABLET (FP) PO SCH (21:12)
[2017-01-08] MEDS: MIRTAZAPINE 15 MG TABLET (FP) PO SCH (21:12)
[2017-01-09] MEDS: NEOMYCIN/POLYMYXN/HC OTIC SUSPENSION 10 ML BOTTLE AU SCH ×4 (06:23→23:01)
[2017-01-09] MEDS: METHADONE HCL 10 MG TABLET PO SCH (06:23)
[2017-01-09] MEDS: CLINDAMYCIN HCL 150 MG CAPSULE (FP) PO SCH ×4 (06:23→23:01)
[2017-01-09] MEDS: HYDROCORTISONE 0.5% TOPICAL CREAM 30 GM TUBE TP SCH ×2 (09:56→21:17)
[2017-01-09] MEDS: ESCITALOPRAM OXALATE 10 MG TABLET (FP) PO SCH (09:56)
[2017-01-09] MEDS: PRENATAL VITAMINS W/ FOLIC ACID TABLET (FP) PO SCH (09:56)
[2017-01-09] MEDS: THIAMINE HCL 100 MG TABLET (FP) PO SCH (21:17)
[2017-01-09] MEDS: MIRTAZAPINE 15 MG TABLET (FP) PO SCH (21:17)
[2017-01-10] MEDS: METHADONE HCL 10 MG TABLET PO SCH (06:29)
[2017-01-10] MEDS: NEOMYCIN/POLYMYXN/HC OTIC SUSPENSION 10 ML BOTTLE AU SCH ×4 (06:29→23:48)
--- NOTE | 2017-01-10 09:53 | PN ---
[facility] Progress Note (SOAP) Subjective: pain in both ears and hard of hearing left more than right ear wax both ears on examination no erythema both ear drum not visualized due to wax nasal congestion,mucosa impression ear wax both ears nasal congestion treatment ceruminex ear drop flonase nasal spray i spray bid Objective: 01/10/17 09:52 01/10/17 09:52 Vital Signs Temperature 97.9 F 01/10/17 06:15 Pulse Rate 57 L 01/10/17 06:15 Respiratory Rate 16 01/10/17 06:15 Blood Pressure 127/83 01/10/17 06:15 O2 Sat by Pulse Oximetry (%) Assessment: 01/10/17 09:53 ear wax both ears nasal congestion Plan: debrox ear drop,flonase nasal spray
[2017-01-10] MEDS: HYDROCORTISONE 0.5% TOPICAL CREAM 30 GM TUBE TP SCH ×2 (10:06→21:24)
[2017-01-10] MEDS: ESCITALOPRAM OXALATE 10 MG TABLET (FP) PO SCH (10:06)
[2017-01-10] MEDS: PRENATAL VITAMINS W/ FOLIC ACID TABLET (FP) PO SCH (10:06)
[2017-01-10] MEDS: FLUTICASONE PROP 0.05% 16 GM NASAL SPRAY NS SCH ×2 (11:06→21:23)
[2017-01-10] MEDS: CARBAMIDE PEROXIDE 6.5% OTIC 15 ML BOTTLE AU SCH ×2 (11:06→21:23)
[2017-01-10] MEDS: MIRTAZAPINE 15 MG TABLET (FP) PO SCH (21:24)
[2017-01-10] MEDS: THIAMINE HCL 100 MG TABLET (FP) PO SCH (21:24)
[2017-01-10] MEDS: ACETAMINOPHEN 325 MG TABLET (FP) PO PRN (22:16)
[2017-01-11] MEDS: NEOMYCIN/POLYMYXN/HC OTIC SUSPENSION 10 ML BOTTLE AU SCH ×3 (06:33→21:42)
[2017-01-11] MEDS: METHADONE HCL 10 MG TABLET PO SCH (06:34)
[2017-01-11] MEDS: ESCITALOPRAM OXALATE 10 MG TABLET (FP) PO SCH (10:25)
[2017-01-11] MEDS: PRENATAL VITAMINS W/ FOLIC ACID TABLET (FP) PO SCH (10:25)
[2017-01-11] MEDS: FLUTICASONE PROP 0.05% 16 GM NASAL SPRAY NS SCH ×2 (10:25→21:43)
[2017-01-11] MEDS: CARBAMIDE PEROXIDE 6.5% OTIC 15 ML BOTTLE AU SCH ×2 (10:26→21:42)
[2017-01-11] MEDS: HYDROCORTISONE 0.5% TOPICAL CREAM 30 GM TUBE TP SCH ×2 (10:26→21:43)
[2017-01-11] MEDS: MIRTAZAPINE 15 MG TABLET (FP) PO SCH (21:41)
[2017-01-11] MEDS: THIAMINE HCL 100 MG TABLET (FP) PO SCH (21:41)
[2017-01-12] MEDS: NEOMYCIN/POLYMYXN/HC OTIC SUSPENSION 10 ML BOTTLE AU SCH (00:34)
[2017-01-12] MEDS: METHADONE HCL 10 MG TABLET PO SCH (05:47)
[2017-01-12] MEDS: CARBAMIDE PEROXIDE 6.5% OTIC 15 ML BOTTLE AU SCH ×2 (09:11→22:16)
[2017-01-12] MEDS: PRENATAL VITAMINS W/ FOLIC ACID TABLET (FP) PO SCH (09:12)
[2017-01-12] MEDS: FLUTICASONE PROP 0.05% 16 GM NASAL SPRAY NS SCH ×2 (09:12→21:22)
[2017-01-12] MEDS: ESCITALOPRAM OXALATE 10 MG TABLET (FP) PO SCH (09:12)
[2017-01-12] MEDS: IBUPROFEN 400 MG TABLET (FP) PO PRN (09:13)
[2017-01-12] MEDS: HYDROCORTISONE 0.5% TOPICAL CREAM 30 GM TUBE TP SCH ×2 (09:15→22:16)
[2017-01-12] MEDS: THIAMINE HCL 100 MG TABLET (FP) PO SCH (21:21)
[2017-01-12] MEDS: MIRTAZAPINE 15 MG TABLET (FP) PO SCH (21:22)
[2017-01-13] MEDS: METHADONE HCL 10 MG TABLET PO SCH (06:14)
[2017-01-13] MEDS: HYDROCORTISONE 0.5% TOPICAL CREAM 30 GM TUBE TP SCH ×2 (09:47→21:27)
[2017-01-13] MEDS: FLUTICASONE PROP 0.05% 16 GM NASAL SPRAY NS SCH ×2 (09:47→21:26)
[2017-01-13] MEDS: CARBAMIDE PEROXIDE 6.5% OTIC 15 ML BOTTLE AU SCH ×2 (09:48→21:26)
[2017-01-13] MEDS: PRENATAL VITAMINS W/ FOLIC ACID TABLET (FP) PO SCH (09:48)
[2017-01-13] MEDS: ESCITALOPRAM OXALATE 10 MG TABLET (FP) PO SCH (09:48)
[2017-01-13] MEDS: MIRTAZAPINE 15 MG TABLET (FP) PO SCH (21:25)
[2017-01-13] MEDS: THIAMINE HCL 100 MG TABLET (FP) PO SCH (21:26)
[2017-01-14] MEDS: METHADONE HCL 10 MG TABLET PO SCH (06:21)
[2017-01-14] MEDS ORDERED: PT OWN MED DRAWER 7, Y5N ONE (08:28)
[2017-01-14] MEDS: FLUTICASONE PROP 0.05% 16 GM NASAL SPRAY NS SCH ×2 (10:18→21:16)
[2017-01-14] MEDS: PRENATAL VITAMINS W/ FOLIC ACID TABLET (FP) PO SCH (10:18)
[2017-01-14] MEDS: ESCITALOPRAM OXALATE 10 MG TABLET (FP) PO SCH (10:18)
[2017-01-14] MEDS: CARBAMIDE PEROXIDE 6.5% OTIC 15 ML BOTTLE AU SCH ×2 (10:19→21:16)
[2017-01-14] MEDS: HYDROCORTISONE 0.5% TOPICAL CREAM 30 GM TUBE TP SCH ×2 (10:19→21:16)
[2017-01-14] MEDS: hydrOXYzine PAMOATE 50 MG CAPSULE (FP) PO PRN (18:36)
[2017-01-14] MEDS: THIAMINE HCL 100 MG TABLET (FP) PO SCH (21:16)
[2017-01-14] MEDS: MIRTAZAPINE 15 MG TABLET (FP) PO SCH (21:16)
[2017-01-15] MEDS: METHADONE HCL 10 MG TABLET PO SCH (06:08)
[2017-01-15] MEDS: CARBAMIDE PEROXIDE 6.5% OTIC 15 ML BOTTLE AU SCH ×2 (09:51→21:34)
[2017-01-15] MEDS: PRENATAL VITAMINS W/ FOLIC ACID TABLET (FP) PO SCH (09:52)
[2017-01-15] MEDS: ESCITALOPRAM OXALATE 10 MG TABLET (FP) PO SCH (09:52)
[2017-01-15] MEDS: HYDROCORTISONE 0.5% TOPICAL CREAM 30 GM TUBE TP SCH ×2 (09:52→21:35)
[2017-01-15] MEDS: hydrOXYzine PAMOATE 50 MG CAPSULE (FP) PO PRN (09:52)
[2017-01-15] MEDS: FLUTICASONE PROP 0.05% 16 GM NASAL SPRAY NS SCH ×2 (09:52→21:35)
[2017-01-15] MEDS: MIRTAZAPINE 15 MG TABLET (FP) PO SCH (21:19)
[2017-01-15] MEDS: THIAMINE HCL 100 MG TABLET (FP) PO SCH (21:19)
[2017-01-15] MEDS: diphenhydrAMINE HCL 50 MG CAPSULE PO PRN (21:19)
[2017-01-16] MEDS: METHADONE HCL 10 MG TABLET PO SCH (06:19)
[2017-01-16] MEDS: PRENATAL VITAMINS W/ FOLIC ACID TABLET (FP) PO SCH (09:47)
[2017-01-16] MEDS: FLUTICASONE PROP 0.05% 16 GM NASAL SPRAY NS SCH ×2 (09:47→21:17)
[2017-01-16] MEDS: hydrOXYzine PAMOATE 50 MG CAPSULE (FP) PO PRN ×2 (09:47→17:39)
[2017-01-16] MEDS: HYDROCORTISONE 0.5% TOPICAL CREAM 30 GM TUBE TP SCH ×2 (09:48→21:16)
[2017-01-16] MEDS: CARBAMIDE PEROXIDE 6.5% OTIC 15 ML BOTTLE AU SCH ×2 (09:48→21:16)
[2017-01-16] MEDS: ESCITALOPRAM OXALATE 10 MG TABLET (FP) PO SCH (09:48)
[2017-01-16] MEDS: THIAMINE HCL 100 MG TABLET (FP) PO SCH (21:15)
[2017-01-16] MEDS: MIRTAZAPINE 15 MG TABLET (FP) PO SCH (21:15)
[2017-01-17] MEDS: METHADONE HCL 10 MG TABLET PO SCH (06:22)
[2017-01-17] MEDS: ESCITALOPRAM OXALATE 10 MG TABLET (FP) PO SCH (09:40)
[2017-01-17] MEDS: PRENATAL VITAMINS W/ FOLIC ACID TABLET (FP) PO SCH (09:40)
[2017-01-17] MEDS: FLUTICASONE PROP 0.05% 16 GM NASAL SPRAY NS SCH ×2 (09:42→21:17)
[2017-01-17] MEDS: HYDROCORTISONE 0.5% TOPICAL CREAM 30 GM TUBE TP SCH ×2 (09:43→21:15)
[2017-01-17] MEDS: CARBAMIDE PEROXIDE 6.5% OTIC 15 ML BOTTLE AU SCH ×2 (09:43→21:17)
[2017-01-17] MEDS: hydrOXYzine PAMOATE 50 MG CAPSULE (FP) PO PRN (17:29)
[2017-01-17] MEDS: THIAMINE HCL 100 MG TABLET (FP) PO SCH (21:15)
[2017-01-17] MEDS: MIRTAZAPINE 15 MG TABLET (FP) PO SCH (21:15)
[2017-01-17] MEDS: diphenhydrAMINE HCL 50 MG CAPSULE PO PRN (21:18)
[2017-01-18] MEDS: IBUPROFEN 400 MG TABLET (FP) PO PRN (06:57)
[2017-01-18] MEDS: METHADONE HCL 10 MG TABLET PO SCH (06:58)
[2017-01-18] MEDS: ACETAMINOPHEN 325 MG TABLET (FP) PO PRN (10:34)
[2017-01-18] MEDS: PRENATAL VITAMINS W/ FOLIC ACID TABLET (FP) PO SCH (10:34)
[2017-01-18] MEDS: hydrOXYzine PAMOATE 50 MG CAPSULE (FP) PO PRN (10:34)
[2017-01-18] MEDS: ESCITALOPRAM OXALATE 10 MG TABLET (FP) PO SCH (10:34)
[2017-01-18] MEDS: FLUTICASONE PROP 0.05% 16 GM NASAL SPRAY NS SCH ×2 (10:34→21:25)
[2017-01-18] MEDS: CARBAMIDE PEROXIDE 6.5% OTIC 15 ML BOTTLE AU SCH ×2 (10:37→21:25)
[2017-01-18] MEDS: HYDROCORTISONE 0.5% TOPICAL CREAM 30 GM TUBE TP SCH (10:37)
[2017-01-18] MEDS: THIAMINE HCL 100 MG TABLET (FP) PO SCH (21:25)
[2017-01-18] MEDS: MIRTAZAPINE 15 MG TABLET (FP) PO SCH (21:25)
[2017-01-19] MEDS: HYDROCORTISONE 0.5% TOPICAL CREAM 30 GM TUBE TP SCH ×3 (00:03→21:09)
[2017-01-19] MEDS: METHADONE HCL 10 MG TABLET PO SCH (06:24)
[2017-01-19] MEDS: CARBAMIDE PEROXIDE 6.5% OTIC 15 ML BOTTLE AU SCH ×2 (09:18→21:09)
[2017-01-19] MEDS: PRENATAL VITAMINS W/ FOLIC ACID TABLET (FP) PO SCH (09:18)
[2017-01-19] MEDS: FLUTICASONE PROP 0.05% 16 GM NASAL SPRAY NS SCH ×2 (09:18→21:08)
[2017-01-19] MEDS: ESCITALOPRAM OXALATE 10 MG TABLET (FP) PO SCH (09:19)
[2017-01-19] MEDS: MIRTAZAPINE 15 MG TABLET (FP) PO SCH (21:08)
[2017-01-19] MEDS: THIAMINE HCL 100 MG TABLET (FP) PO SCH (21:08)
[2017-01-19] MEDS: diphenhydrAMINE HCL 50 MG CAPSULE PO PRN (21:10)
[2017-01-20] MEDS: METHADONE HCL 10 MG TABLET PO SCH (07:00)
[2017-01-20] MEDS: ESCITALOPRAM OXALATE 10 MG TABLET (FP) PO SCH (09:37)
[2017-01-20] MEDS: CARBAMIDE PEROXIDE 6.5% OTIC 15 ML BOTTLE AU SCH ×2 (09:37→21:07)
[2017-01-20] MEDS: PRENATAL VITAMINS W/ FOLIC ACID TABLET (FP) PO SCH (09:37)
[2017-01-20] MEDS: FLUTICASONE PROP 0.05% 16 GM NASAL SPRAY NS SCH ×2 (09:37→21:06)
[2017-01-20] MEDS: HYDROCORTISONE 0.5% TOPICAL CREAM 30 GM TUBE TP SCH ×2 (09:38→21:07)
[2017-01-20] MEDS: THIAMINE HCL 100 MG TABLET (FP) PO SCH (21:06)
[2017-01-20] MEDS: MIRTAZAPINE 15 MG TABLET (FP) PO SCH (21:06)
[2017-01-20] MEDS: diphenhydrAMINE HCL 50 MG CAPSULE PO PRN (21:06)
[2017-01-21] MEDS: METHADONE HCL 10 MG TABLET PO SCH (07:25)
--- NOTE | 2017-01-21 08:57 | PN ---
Psychiatric Progress Note Vital Signs: Vital Signs Period Temp Pulse Resp BP Sys/Easley Pulse Ox Last 24 Hr 98.5 F 57 18-18 124/87 Date of Session: 01/21/17 Chief Complaint:: Cepression and anxiety HPI: Patient reporots insomnia, reports on and off difficulties to fall asleep, reports compliance with medications, reports Remeron intake improved his sleep hyhiene Current Medications: Active Medications Generic Name Dose Route Start Last Admin Trade Name Freq PRN Reason Stop Dose Admin Acetaminophen 650 mg 01/04/17 19:43 01/18/17 10:34 Tylenol - PO 650 mg Q4H PRN Administration FEVER OR PAIN Al Hydroxide/Mg Hydroxide 30 ml 01/04/17 19:43 Mylanta Oral Suspension - PO Q6H PRN DYSPEPSIA Carbamide Perox/Anhydrous Glycerin 5 drop 01/10/17 10:00 01/20/17 21:07 Debrox - AU 5 drop BID JESUS Administration Diphenhydramine HCl 50 mg 01/04/17 19:43 01/20/17 21:06 Benadryl - PO 50 mg HSMR1 PRN Administration FOR ITCHING Escitalopram Oxalate 10 mg 01/09/17 10:00 01/20/17 09:37 Lexapro - PO 10 mg DAILY JESUS Administration Eucalyptus/Menthol/Phenol/Sorbitol 1 each 01/04/17 19:43 Cepastat Lozenge - MM Q4H PRN SORE THROAT Fluticasone Propionate 1 spray 01/10/17 10:00 01/20/17 21:06 Flonase - NS 1 spray BID JESUS Administration Guaifenesin 10 ml 01/04/17 19:43 Robitussin Dm - PO Q6H PRN COUGH Hydrocortisone 1 applic 01/08/17 10:00 01/20/17 21:07 Hytone 0.5% Cream - TP Not Given BID JESUS Hydroxyzine Pamoate 50 mg 01/14/17 18:19 01/18/17 10:34 Vistaril - PO 50 mg Q4H PRN Administration ANXIETY Ibuprofen 400 mg 01/04/17 19:43 01/18/17 06:57 Motrin - PO 400 mg Q6H PRN Administration PAIN Loperamide HCl 4 mg 01/04/17 19:43 Imodium - PO Q6H PRN DIARRHEA Magnesium Hydroxide 30 ml 01/04/17 19:43 Milk Of Magnesia - PO DAILY PRN CONSTIPATION Methadone HCl 20 mg 01/18/17 07:30 01/21/17 07:25 Dolophine - PO 20 mg DAILY@0600 JESUS Administration Mirtazapine 15 mg 01/08/17 22:00 01/20/17 21:06 Remeron - PO 15 mg HS JESUS Administration Nicotine 14 mg 01/04/17 19:43 Nicoderm Patch - TD DAILY PRN WITHDRAWAL(CONT SUBST) Nicotine Polacrilex 2 mg 01/04/17 19:43 Nicorette Gum - BUC Q2H PRN NICOTINE REPLACEMENT RX Multivit/Folic Acid/Iron 1 tab 01/05/17 10:00 01/20/17 09:37 Vitamins (Sjr) - PO 1 tab DAILY JESUS Administration Pseudoephedrine/Triprolidine 1 combo 01/04/17 19:43 01/05/17 17:45 Actifed - PO 1 combo TID PRN Administration NASAL CONGESTION Thiamine HCl 100 mg 01/04/17 22:00 01/20/17 21:06 Vitamin B1 - PO 100 mg HS JESUS Administration Medication(s) Change(s): Continue current treatment plan Provider note:: Patient engaged in supportive psychotherapy, alcohol abuse issues discussed with patient, patient motivated to continue treatment plan, cooperative and redirectional Mental Status Exam - Mental Status Exam Alert and Oriented to: Time, Place, Person Cognitive Function: Fair Patient Appearance: Well Groomed Mood: Euthymic Affect: Mood Congruent Patient Behavior: Appropriate, Cooperative Speech Pattern: Appropriate Voice Loudness: Mildly Soft/Quiet Thought Process: Goal Oriented Thought Disorder: Being Controlled Hallucinations: Denies Suicidal Ideation: Denies Homicidal Ideation: Denies Insight/Judgement: Fair Sleep: Difficulty falling asleep Appetite: Fair Muscle strength/Tone: Normal Gait/Station: Normal Additional Comments: Observation. Continue tretment plan Psychiatric Treatment Plan - Problem List (1) Alcohol dependence Current Visit: Yes (2) Alcohol-induced mood disorder Current Visit: Yes (3) Low back pain Current Visit: Yes (4) Alcohol dependence with uncomplicated withdrawal Current Visit: No (5) Drug-induced mood disorder Current Visit: No (6) Methadone maintenance therapy patient Current Visit: No Comment: 20 MG VERIFICATION PENDING (7) Nicotine dependence Current Visit: No Qualifiers: Nicotine product type: cigarettes Substance use status: in withdrawal Qualified Code(s): F17.213 - Nicotine dependence, cigarettes, with withdrawal Initial treatment plan: Observation. Continue tretment plan
[2017-01-21] MEDS: CARBAMIDE PEROXIDE 6.5% OTIC 15 ML BOTTLE AU SCH ×2 (09:15→21:31)
[2017-01-21] MEDS: PRENATAL VITAMINS W/ FOLIC ACID TABLET (FP) PO SCH (09:15)
[2017-01-21] MEDS: FLUTICASONE PROP 0.05% 16 GM NASAL SPRAY NS SCH ×2 (09:15→21:32)
[2017-01-21] MEDS: ESCITALOPRAM OXALATE 10 MG TABLET (FP) PO SCH (09:15)
[2017-01-21] MEDS: HYDROCORTISONE 0.5% TOPICAL CREAM 30 GM TUBE TP SCH ×2 (09:16→21:32)
[2017-01-21] MEDS: IBUPROFEN 400 MG TABLET (FP) PO PRN (18:20)
[2017-01-21] MEDS: MIRTAZAPINE 15 MG TABLET (FP) PO SCH (21:31)
[2017-01-21] MEDS: THIAMINE HCL 100 MG TABLET (FP) PO SCH (21:31)
[2017-01-22] MEDS: METHADONE HCL 10 MG TABLET PO SCH (07:01)
[2017-01-22] MEDS: FLUTICASONE PROP 0.05% 16 GM NASAL SPRAY NS SCH ×2 (10:23→21:25)
[2017-01-22] MEDS: ESCITALOPRAM OXALATE 10 MG TABLET (FP) PO SCH (10:23)
[2017-01-22] MEDS: CARBAMIDE PEROXIDE 6.5% OTIC 15 ML BOTTLE AU SCH ×2 (10:23→21:05)
[2017-01-22] MEDS: PRENATAL VITAMINS W/ FOLIC ACID TABLET (FP) PO SCH (10:23)
[2017-01-22] MEDS: HYDROCORTISONE 0.5% TOPICAL CREAM 30 GM TUBE TP SCH ×2 (10:29→21:26)
[2017-01-22] MEDS ORDERED: PT OWN MED DRAWER 7, Y5N ONE (20:27)
[2017-01-22] MEDS: THIAMINE HCL 100 MG TABLET (FP) PO SCH (21:05)
[2017-01-22] MEDS: MIRTAZAPINE 15 MG TABLET (FP) PO SCH (21:05)
[2017-01-22] MEDS: IBUPROFEN 400 MG TABLET (FP) PO PRN (21:06)
[2017-01-23] MEDS: METHADONE HCL 10 MG TABLET PO SCH (06:10)
[2017-01-23] MEDS: FLUTICASONE PROP 0.05% 16 GM NASAL SPRAY NS SCH ×2 (09:33→21:19)
[2017-01-23] MEDS: CARBAMIDE PEROXIDE 6.5% OTIC 15 ML BOTTLE AU SCH (09:34)
[2017-01-23] MEDS: HYDROCORTISONE 0.5% TOPICAL CREAM 30 GM TUBE TP SCH ×2 (09:34→21:20)
[2017-01-23] MEDS: hydrOXYzine PAMOATE 50 MG CAPSULE (FP) PO PRN (09:34)
[2017-01-23] MEDS: ESCITALOPRAM OXALATE 10 MG TABLET (FP) PO SCH (09:34)
[2017-01-23] MEDS: PRENATAL VITAMINS W/ FOLIC ACID TABLET (FP) PO SCH (09:34)
[2017-01-23] MEDS: ACETAMINOPHEN 325 MG TABLET (FP) PO PRN (09:35)
[2017-01-23] MEDS: THIAMINE HCL 100 MG TABLET (FP) PO SCH (21:19)
[2017-01-23] MEDS: MIRTAZAPINE 15 MG TABLET (FP) PO SCH (21:19)
[2017-01-24] MEDS: METHADONE HCL 10 MG TABLET PO SCH (06:17)
--- NOTE | 2017-01-24 07:49 | PN ---
[facility] Progress Note Note: complained of pain in both ears,history of chroinic infection and ear wax both ear with loss of hearing left ear redness of external ear canal right ear ear wax less redness of external ear canal impression otitis externa both earwax right hearing loss chronic s/p multiple surgry both ears treatment cortisporin otic susp both ears advise follow up with dr messina at [facility] after discharge for referral for ent evaluation
[2017-01-24] MEDS: ACETAMINOPHEN 325 MG TABLET (FP) PO PRN (09:40)
[2017-01-24] MEDS: hydrOXYzine PAMOATE 50 MG CAPSULE (FP) PO PRN (09:40)
[2017-01-24] MEDS: ESCITALOPRAM OXALATE 10 MG TABLET (FP) PO SCH ×2 (09:40→11:38)
[2017-01-24] MEDS: PRENATAL VITAMINS W/ FOLIC ACID TABLET (FP) PO SCH (09:40)
[2017-01-24] MEDS: FLUTICASONE PROP 0.05% 16 GM NASAL SPRAY NS SCH ×2 (09:41→21:18)
[2017-01-24] MEDS: HYDROCORTISONE 0.5% TOPICAL CREAM 30 GM TUBE TP SCH ×2 (09:42→21:20)
--- NOTE | 2017-01-24 10:23 | PN ---
Psychiatric Progress Note Vital Signs: Vital Signs Period Temp Pulse Resp BP Sys/Easley Pulse Ox Last 24 Hr 98.6 F 54 18-18 140/83 Date of Session: 01/24/17 Chief Complaint:: "depressed" HPI: Patient is addressing alcohol , nicotine dependence comorbid Alcohol induced mood disorder, MDD(revised). ROS: chronic ears infection medically managed. Current Medications: Active Medications Generic Name Dose Route Start Last Admin Trade Name Freq PRN Reason Stop Dose Admin Acetaminophen 650 mg 01/04/17 19:43 01/24/17 09:40 Tylenol - PO 650 mg Q4H PRN Administration FEVER OR PAIN Al Hydroxide/Mg Hydroxide 30 ml 01/04/17 19:43 Mylanta Oral Suspension - PO Q6H PRN DYSPEPSIA Aripiprazole 2 mg 01/24/17 10:15 Abilify PO DAILY JESUS Diphenhydramine HCl 50 mg 01/04/17 19:43 01/20/17 21:06 Benadryl - PO 50 mg HSMR1 PRN Administration FOR ITCHING Escitalopram Oxalate 20 mg 01/24/17 10:05 Lexapro - PO DAILY JESUS Eucalyptus/Menthol/Phenol/Sorbitol 1 each 01/04/17 19:43 Cepastat Lozenge - MM Q4H PRN SORE THROAT Fluticasone Propionate 1 spray 01/10/17 10:00 01/24/17 09:41 Flonase - NS Not Given BID JESUS Guaifenesin 10 ml 01/04/17 19:43 Robitussin Dm - PO Q6H PRN COUGH Hydrocortisone 1 applic 01/08/17 10:00 01/24/17 09:42 Hytone 0.5% Cream - TP Not Given BID JESUS Hydroxyzine Pamoate 50 mg 01/14/17 18:19 01/24/17 09:40 Vistaril - PO 50 mg Q4H PRN Administration ANXIETY Ibuprofen 400 mg 01/04/17 19:43 01/22/17 21:06 Motrin - PO 400 mg Q6H PRN Administration PAIN Loperamide HCl 4 mg 01/04/17 19:43 Imodium - PO Q6H PRN DIARRHEA Magnesium Hydroxide 30 ml 01/04/17 19:43 Milk Of Magnesia - PO DAILY PRN CONSTIPATION Methadone HCl 20 mg 01/25/17 06:00 Dolophine - PO DAILY@0600 JESUS Mirtazapine 15 mg 01/08/17 22:00 01/23/17 21:19 Remeron - PO 15 mg HS JESUS Administration Neomycin/Polymyxin/Hydrocortisone 4 drop 01/24/17 12:00 Cortisporin Otic Suspenstion - AU 02/03/17 11:59 Q6HPO JESUS Nicotine 14 mg 01/04/17 19:43 Nicoderm Patch - TD DAILY PRN WITHDRAWAL(CONT SUBST) Nicotine Polacrilex 2 mg 01/04/17 19:43 Nicorette Gum - BUC Q2H PRN NICOTINE REPLACEMENT RX Multivit/Folic Acid/Iron 1 tab 01/05/17 10:00 01/24/17 09:40 Vitamins (Sjr) - PO 1 tab DAILY JESUS Administration Pseudoephedrine/Triprolidine 1 combo 01/04/17 19:43 01/05/17 17:45 Actifed - PO 1 combo TID PRN Administration NASAL CONGESTION Thiamine HCl 100 mg 01/04/17 22:00 01/23/17 21:19 Vitamin B1 - PO 100 mg HS JESUS Administration Current Side Effect: No Lab tests ordered: No Lab tests reviewed: Yes Provider note:: Patient was seen today in team meeting and 1:1, due to increased depression as well as anxiety. He reports his is anxious to leave this place and be himself outside, states he feels safe in the hospital and denies any suicidal thoughts or plans, states he has a difficult time to cope with his medical issues, being homeless, reports that drinking alcohol "the way to survive". This session the therapuetic focus was on facilitating communication of feelings. Patient was urged to ask for help and support from the staff or psychiatrist when feeling depressed. Patient was encouraged to ventilate, ways to reduce stress were also discussed with the patient. Will increase Lexapro 20 mg po daily, add Abilify, indications and properties discussed with the patient, will continue to monitor progress. Total face to face time:: 45 Mental Status Exam - Mental Status Exam Alert and Oriented to: Time, Place, Person Cognitive Function: Good Patient Appearance: Well Groomed Mood: Depressed, Sad, Anxious Affect: Appropriate, Mood Congruent Patient Behavior: Appropriate, Cooperative Speech Pattern: Clear, Appropriate Voice Loudness: Normal Thought Process: Intact, Goal Oriented Thought Disorder: Not Present Hallucinations: Denies Suicidal Ideation: Denies Homicidal Ideation: Denies Insight/Judgement: Fair Sleep: Fair Appetite: Fair Muscle strength/Tone: Normal Gait/Station: Normal Psychiatric Treatment Plan - Problem List (1) Chronic otitis externa of both ears Current Visit: No Qualifiers: Otitis externa type: other infective Qualified Code(s): H60.393 - Other infective otitis externa, bilateral (2) Methadone maintenance therapy patient Current Visit: No Comment: 20 MG VERIFICATION PENDING (3) Nicotine dependence Current Visit: No Qualifiers: Nicotine product type: cigarettes Substance use status: in withdrawal Qualified Code(s): F17.213 - Nicotine dependence, cigarettes, with withdrawal (4) Alcohol dependence Current Visit: Yes (5) Alcohol-induced mood disorder Current Visit: Yes (6) MDD (major depressive disorder), recurrent episode Current Visit: Yes
[2017-01-24] MEDS: ARIPiprazole 2 MG TABLET PO SCH (11:38)
[2017-01-24] MEDS: NEOMYCIN/POLYMYXN/HC OTIC SUSPENSION 10 ML BOTTLE AU SCH ×2 (12:50→17:58)
[2017-01-24] MEDS: IBUPROFEN 400 MG TABLET (FP) PO PRN (18:43)
[2017-01-24] MEDS: THIAMINE HCL 100 MG TABLET (FP) PO SCH (21:18)
[2017-01-24] MEDS: MIRTAZAPINE 15 MG TABLET (FP) PO SCH (21:18)
[2017-01-25] MEDS: NEOMYCIN/POLYMYXN/HC OTIC SUSPENSION 10 ML BOTTLE AU SCH ×3 (00:44→11:19)
[2017-01-25] MEDS: METHADONE HCL 10 MG TABLET PO SCH (06:21)
[2017-01-25] MEDS: ACETAMINOPHEN 325 MG TABLET (FP) PO PRN ×2 (08:02→23:14)
[2017-01-25] MEDS: LEVOFLOXACIN 500 MG TABLET (FP) PO SCH (09:50)
[2017-01-25] MEDS: ARIPiprazole 2 MG TABLET PO SCH (09:50)
[2017-01-25] MEDS: ESCITALOPRAM OXALATE 10 MG TABLET (FP) PO SCH (09:50)
[2017-01-25] MEDS: PRENATAL VITAMINS W/ FOLIC ACID TABLET (FP) PO SCH (09:50)
[2017-01-25] MEDS: hydrOXYzine PAMOATE 50 MG CAPSULE (FP) PO PRN (09:50)
[2017-01-25] MEDS: FLUTICASONE PROP 0.05% 16 GM NASAL SPRAY NS SCH ×2 (09:51→21:41)
[2017-01-25] MEDS: HYDROCORTISONE 0.5% TOPICAL CREAM 30 GM TUBE TP SCH ×2 (09:52→21:40)
[2017-01-25] MEDS: THIAMINE HCL 100 MG TABLET (FP) PO SCH (21:40)
[2017-01-25] MEDS: MIRTAZAPINE 15 MG TABLET (FP) PO SCH (21:40)
[2017-01-26] MEDS: LEVOFLOXACIN 500 MG TABLET (FP) PO SCH (06:39)
[2017-01-26] MEDS: METHADONE HCL 10 MG TABLET PO SCH (06:39)
[2017-01-26] MEDS: ESCITALOPRAM OXALATE 10 MG TABLET (FP) PO SCH (09:30)
[2017-01-26] MEDS: hydrOXYzine PAMOATE 50 MG CAPSULE (FP) PO PRN (09:31)
[2017-01-26] MEDS: HYDROCORTISONE 0.5% TOPICAL CREAM 30 GM TUBE TP SCH ×2 (09:31→21:37)
[2017-01-26] MEDS: ARIPiprazole 2 MG TABLET PO SCH (09:31)
[2017-01-26] MEDS: FLUTICASONE PROP 0.05% 16 GM NASAL SPRAY NS SCH ×2 (09:31→21:36)
[2017-01-26] MEDS: PRENATAL VITAMINS W/ FOLIC ACID TABLET (FP) PO SCH (09:31)
[2017-01-26] MEDS: MIRTAZAPINE 15 MG TABLET (FP) PO SCH (21:36)
[2017-01-26] MEDS: THIAMINE HCL 100 MG TABLET (FP) PO SCH (21:36)
[2017-01-27] MEDS: METHADONE HCL 10 MG TABLET PO SCH (06:18)
[2017-01-27] MEDS: LEVOFLOXACIN 500 MG TABLET (FP) PO SCH (06:18)
[2017-01-27] MEDS: hydrOXYzine PAMOATE 50 MG CAPSULE (FP) PO PRN (09:41)
[2017-01-27] MEDS: PRENATAL VITAMINS W/ FOLIC ACID TABLET (FP) PO SCH (09:41)
[2017-01-27] MEDS: HYDROCORTISONE 0.5% TOPICAL CREAM 30 GM TUBE TP SCH ×2 (09:42→21:29)
[2017-01-27] MEDS: ESCITALOPRAM OXALATE 10 MG TABLET (FP) PO SCH (09:42)
[2017-01-27] MEDS: ARIPiprazole 2 MG TABLET PO SCH (09:42)
[2017-01-27] MEDS: FLUTICASONE PROP 0.05% 16 GM NASAL SPRAY NS SCH ×2 (09:42→21:29)
[2017-01-27] MEDS: ACETAMINOPHEN 325 MG TABLET (FP) PO PRN (16:13)
[2017-01-27] MEDS: MIRTAZAPINE 15 MG TABLET (FP) PO SCH (21:28)
[2017-01-27] MEDS: THIAMINE HCL 100 MG TABLET (FP) PO SCH (21:28)
[2017-01-28] MEDS: LEVOFLOXACIN 500 MG TABLET (FP) PO SCH (06:19)
[2017-01-28] MEDS: METHADONE HCL 10 MG TABLET PO SCH (06:19)
[2017-01-28] MEDS: PRENATAL VITAMINS W/ FOLIC ACID TABLET (FP) PO SCH (09:40)
[2017-01-28] MEDS: FLUTICASONE PROP 0.05% 16 GM NASAL SPRAY NS SCH ×2 (09:40→21:10)
[2017-01-28] MEDS: ARIPiprazole 2 MG TABLET PO SCH (09:40)
[2017-01-28] MEDS: ESCITALOPRAM OXALATE 10 MG TABLET (FP) PO SCH (09:40)
[2017-01-28] MEDS: HYDROCORTISONE 0.5% TOPICAL CREAM 30 GM TUBE TP SCH ×2 (09:41→21:08)
[2017-01-28] MEDS: NEOMYCIN/POLYMYXN/HC OTIC SUSPENSION 10 ML BOTTLE AU SCH ×3 (12:30→23:23)
[2017-01-28] MEDS: MIRTAZAPINE 15 MG TABLET (FP) PO SCH (21:07)
[2017-01-28] MEDS: THIAMINE HCL 100 MG TABLET (FP) PO SCH (21:07)
[2017-01-29] MEDS: LEVOFLOXACIN 500 MG TABLET (FP) PO SCH (06:16)
[2017-01-29] MEDS: NEOMYCIN/POLYMYXN/HC OTIC SUSPENSION 10 ML BOTTLE AU SCH ×3 (06:16→18:18)
[2017-01-29] MEDS: METHADONE HCL 10 MG TABLET PO SCH (06:16)
[2017-01-29] MEDS: FLUTICASONE PROP 0.05% 16 GM NASAL SPRAY NS SCH ×2 (09:32→21:28)
[2017-01-29] MEDS: HYDROCORTISONE 0.5% TOPICAL CREAM 30 GM TUBE TP SCH ×2 (09:33→21:28)
[2017-01-29] MEDS: ARIPiprazole 2 MG TABLET PO SCH (09:33)
[2017-01-29] MEDS: ESCITALOPRAM OXALATE 10 MG TABLET (FP) PO SCH (09:33)
[2017-01-29] MEDS: PRENATAL VITAMINS W/ FOLIC ACID TABLET (FP) PO SCH (09:33)
[2017-01-29] MEDS: MIRTAZAPINE 15 MG TABLET (FP) PO SCH (21:27)
[2017-01-29] MEDS: THIAMINE HCL 100 MG TABLET (FP) PO SCH (21:27)
[2017-01-30] MEDS: NEOMYCIN/POLYMYXN/HC OTIC SUSPENSION 10 ML BOTTLE AU SCH ×5 (00:35→23:24)
[2017-01-30] MEDS: LEVOFLOXACIN 500 MG TABLET (FP) PO SCH (06:15)
[2017-01-30] MEDS: METHADONE HCL 10 MG TABLET PO SCH (06:15)
[2017-01-30] MEDS: hydrOXYzine PAMOATE 50 MG CAPSULE (FP) PO PRN (09:44)
[2017-01-30] MEDS: PRENATAL VITAMINS W/ FOLIC ACID TABLET (FP) PO SCH (09:44)
[2017-01-30] MEDS: ESCITALOPRAM OXALATE 10 MG TABLET (FP) PO SCH (09:44)
[2017-01-30] MEDS: ARIPiprazole 2 MG TABLET PO SCH (09:44)
[2017-01-30] MEDS: FLUTICASONE PROP 0.05% 16 GM NASAL SPRAY NS SCH ×2 (09:45→21:54)
[2017-01-30] MEDS: HYDROCORTISONE 0.5% TOPICAL CREAM 30 GM TUBE TP SCH ×2 (09:46→21:52)
[2017-01-30] MEDS: MIRTAZAPINE 15 MG TABLET (FP) PO SCH (21:52)
[2017-01-30] MEDS: THIAMINE HCL 100 MG TABLET (FP) PO SCH (21:52)
[2017-01-30] MEDS: diphenhydrAMINE HCL 50 MG CAPSULE PO PRN (21:53)
[2017-01-31] MEDS: NEOMYCIN/POLYMYXN/HC OTIC SUSPENSION 10 ML BOTTLE AU SCH ×4 (06:14→23:16)
[2017-01-31] MEDS: LEVOFLOXACIN 500 MG TABLET (FP) PO SCH (06:14)
[2017-01-31] MEDS: METHADONE HCL 10 MG TABLET PO SCH (06:14)
[2017-01-31] MEDS: ESCITALOPRAM OXALATE 10 MG TABLET (FP) PO SCH (09:41)
[2017-01-31] MEDS: PRENATAL VITAMINS W/ FOLIC ACID TABLET (FP) PO SCH (09:41)
[2017-01-31] MEDS: hydrOXYzine PAMOATE 50 MG CAPSULE (FP) PO PRN (09:41)
[2017-01-31] MEDS: ARIPiprazole 2 MG TABLET PO SCH (09:41)
[2017-01-31] MEDS: FLUTICASONE PROP 0.05% 16 GM NASAL SPRAY NS SCH ×2 (09:42→21:26)
[2017-01-31] MEDS: HYDROCORTISONE 0.5% TOPICAL CREAM 30 GM TUBE TP SCH ×2 (09:42→21:26)
[2017-01-31] MEDS: THIAMINE HCL 100 MG TABLET (FP) PO SCH (21:26)
[2017-01-31] MEDS: MIRTAZAPINE 15 MG TABLET (FP) PO SCH (21:26)
[2017-02-01] MEDS ORDERED: METHADONE HCL 10 MG TABLET PO SCH (06:00)
[2017-02-01] MEDS: METHADONE HCL 10 MG TABLET PO SCH (06:23)
[2017-02-01] MEDS: LEVOFLOXACIN 500 MG TABLET (FP) PO SCH (06:24)
[2017-02-01] MEDS: NEOMYCIN/POLYMYXN/HC OTIC SUSPENSION 10 ML BOTTLE AU SCH (06:25)
[2017-02-01 06:42] VITALS: BP 133/87; PULSE 54; TEMP 98.1
[2017-02-01] MEDS: ESCITALOPRAM OXALATE 10 MG TABLET (FP) PO SCH (09:56)
[2017-02-01] MEDS: HYDROCORTISONE 0.5% TOPICAL CREAM 30 GM TUBE TP SCH (09:56)
[2017-02-01] MEDS: PRENATAL VITAMINS W/ FOLIC ACID TABLET (FP) PO SCH (09:56)
[2017-02-01] MEDS: FLUTICASONE PROP 0.05% 16 GM NASAL SPRAY NS SCH (09:57)
[2017-02-01] MEDS: ARIPiprazole 2 MG TABLET PO SCH (09:58)
--- NOTE | 2017-02-01 12:50 | PN ---
Psychiatric Progress Note Vital Signs: Vital Signs Period Temp Pulse Resp BP Sys/Easley Pulse Ox Last 24 Hr 98.1 F 54 16-18 133/87 Date of Session: 02/01/17 Chief Complaint:: discharge visit HPI: Patient is addressing alcohol , nicotine dependence comorbid Alcohol induced mood disorder, MDD(revised). ROS: chronic ears infection medically managed. Current Side Effect: No Lab tests ordered: No Lab tests reviewed: Yes Provider note:: Patient has completed his treat,ment today and met his goals, will continue to address hi issues at the next level of care as well referral to housing at [place] [address]. Patient reports has been feeling much better, he verbalized his resolution to continue maintain abstieince and stay away from "people, places and things". Medications well tolerated, patient more hopefull, deneis suicidal and homicidal thoughts, Patient was encouraged to utilize all supports available to prevent relapses. Patient is stable for discharge today. MSE completed. Total face to face time:: 35 Mental Status Exam - Mental Status Exam Alert and Oriented to: Time, Place, Person Cognitive Function: Good Patient Appearance: Well Groomed Mood: Hopeful Affect: Appropriate, Mood Congruent Patient Behavior: Appropriate, Cooperative Speech Pattern: Clear, Appropriate Voice Loudness: Normal Thought Process: Intact, Goal Oriented Thought Disorder: Not Present Hallucinations: Denies Suicidal Ideation: Denies Homicidal Ideation: Denies Insight/Judgement: Fair Sleep: Fair Appetite: Good Muscle strength/Tone: Normal Gait/Station: Normal Psychiatric Treatment Plan - Problem List (1) Chronic otitis externa of both ears Qualifiers: Otitis externa type: other infective Qualified Code(s): H60.393 - Other infective otitis externa, bilateral (2) Methadone maintenance therapy patient Comment: 20 MG VERIFICATION PENDING (3) Nicotine dependence Qualifiers: Nicotine product type: cigarettes Substance use status: in withdrawal Qualified Code(s): F17.213 - Nicotine dependence, cigarettes, with withdrawal
== END 2017-02-01 10:40 | disposition home or self-care (01) | DRG 772 ==
LOC: YASAS 19:35 → UNDOADMIN 19:36 → Y5N 19:36
PROVIDERS: ADMIT Psychiatry & Neurology Psychiatry; ATTEND Psychiatry & Neurology Psychiatry
PROC: HZ42ZZZ Group Counseling for Substance Abuse Treatment, Cognitive-Behavioral (ICD-10-PCS; principal; 2017-02-01)
DX: F10.230 Alcohol dependence with withdrawal, uncomplicated (principal); F17.213 Nicotine dependence, cigarettes, with withdrawal; F10.24 Alcohol dependence with alcohol-induced mood disorder; F33.9 Major depressive disorder, recurrent, unspecified; H60.393 Other infective otitis externa, bilateral; M54.5 Low back pain; Z59.0 Homelessness

== ENCOUNTER 2017-03-27 12:39 | Inpatient (IN) | payer OTHER ==
[2017-03-27 14:36] VITALS: BMI 33.0
--- NOTE | 2017-03-27 17:20 | HP ---
CIWA Score - CIWA Score Nausea/Vomitin Muscle Tremors: 4-Moderate,w/Arms Extend Anxiety: 4-Mod. Anxious/Guarded Agitation: 3 Paroxysmal Sweats: 3 Orientation: 0-Oriented Tacttile Disturbances: 1-Very Mild Itch/Numbness Auditory Disturbances: 2-Mild Harshness/Frighten Visual Disturbances: 0-None Headache: 3-Moderate CIWA-Ar Total Score: 22 Admission ROS [facility] - HPI Chief Complaint: Withdrawal sx. Allergies/Adverse Reactions: Allergies Allergy/AdvReac Type Severity Reaction Status Date / Time Penicillins Allergy Severe Rash Verified 03/27/17 14:45 History of Present Illness: 56 y/o man with a long hx. of alcoholism is admitted for detox. Pt. has been in previous detox, reports significant sobriety while attending drug free program. Exam Limitations: No Limitations - Ebola screening Have you traveled outside of the country in the last 21 days: No Have you had contact with anyone from an Ebola affected area: No Have you been sick,other than usual withdrawal symptoms: No Do you have a fever: No - Review of Systems Constitutional: Diaphoresis EENT: reports: No Symptoms Reported Respiratory: reports: No Symptoms reported Cardiac: reports: No Symptoms Reported GI: reports: Nausea, Abdominal cramping : reports: No Symptoms Reported Musculoskeletal: reports: Back Pain Integumentary: reports: Sweating Neuro: reports: Headache, Tingling, Tremors Endocrine: reports: No Symptoms Reported Hematology: reports: No Symptoms Reported Psychiatric: reports: No Sypmtoms Reported Other Systems: Reviewed and Negative Patient History - Patient Medical History Hx Anemia: No Hx Asthma: No Hx Chronic Obstructive Pulmonary Disease (COPD): No Hx Cancer: No Hx Cardiac Disorders: No Hx Hypertension: No Hx Hypercholesterolemia: No Hx Pacemaker: No HX Cerebrovascular Accident: No Hx Seizures: No Hx Dementia: No Hx Diabetes: No Hx Gastrointestinal Disorders: No Hx Liver Disease: No Hx Genitourinary Disorders: No Hx Sexually Transmitted Disorders: No Hx Renal Disease (ESRD): No Hx Thyroid Disease: No Hx Human Immunodeficiency Virus (HIV): No Hx Hepatitis C: No Hx Depression: Yes Hx Suicide Attempt: No Hx Bipolar Disorder: Yes Hx Schizophrenia: No (not sure) - Patient Surgical History Past Surgical History: Yes Hx Neurologic Surgery: No Hx Cataract Extraction: No Hx Cardiac Surgery: No Hx Lung Surgery: No Hx Breast Surgery: No Hx Breast Biopsy: No Hx Abdominal Surgery: No Hx Appendectomy: No Hx Cholecystectomy: No Hx Genitourinary Surgery: No Hx Orthopedic Surgery: No Other Surgical History: multiple sx on both ears Anesthesia Reaction: No - PPD History Previous Implant?: Yes Documented Results: Negative w/proof Implanted On Prior [facility] Admission?: Yes Date: 01/02/17 Results: 0 mm PPD to be Administered?: No - Smoking Cessation Smoking history: Current every day smoker Have you smoked in the past 12 months: Yes Aproximately how many cigarettes per day: 10 Cigars Per Day: 0 Hx Chewing Tobacco Use: No Initiated information on smoking cessation: Yes 'Breaking Loose' booklet given: 03/27/17 - Substance & Tx. History Hx Alcohol Use: Yes Hx Substance Use: Yes Substance Use Type: Alcohol Hx Substance Use Treatment: Yes (Detox & Rehab at [facility] in 12/2016, OTP) - Substances Abused Alcohol-beer Route: Oral Frequency: Daily Amount used: 1-6 pk. Age of first use: 14 Date of Last Use: 03/27/17 Family Disease History - Family Disease History Family Disease History: Diabetes: Brother, Heart Disease: Sister, [place]: Mother ( ), Other: Father () Admission Physical Exam [facility] - Vital Signs Vital Signs: Vital Signs - 24 hr 03/27/17 14:33 Temperature 96.5 F L Pulse Rate 98 H Respiratory 20 Rate Blood Pressure 128/83 - Physical General Appearance: Yes: Alcohol on Breath, Tremorous, Sweating, Anxious HEENTM: Yes: Within Normal Limits Respiratory: Yes: Chest Non-Tender, Lungs Clear, Normal Breath Sounds Neck: Yes: Supple Breast: Yes: Breast Exam Deferred Cardiology: Yes: Regular Rhythm, Regular Rate, S1, S2 Abdominal: Yes: Normal Bowel Sounds, Non Tender, Soft Genitourinary: Yes: Within Normal Limits Back: Yes: Within Normal Limits Musculoskeletal: Yes: Within Normal Limits Extremities: Yes: Tremors Neurological: Yes: Fully Oriented, Alert Integumentary: Yes: Diaphoresis Lymphatic: Yes: Within Normal Limits - Diagnostic (1) Alcohol dependence with uncomplicated withdrawal Current Visit: No Status: Acute (2) Methadone maintenance therapy patient Current Visit: No Status: Chronic Comment: 20 MG VERIFICATION PENDING Cleared for Admission [facility] - Detox or Rehab [facility] Level of Care: Medically Managed Detox Regimen/Protocol: Librium [facility] Breath Alcohol Content Breath Alcohol Content: 0.234 Urine Drug Screen - Results Drug Screen Negative: Yes Urine Drug Screen Results: MTD-Methadone
[2017-03-27] MEDS ORDERED: MAGNESIUM CITRATE 300 ML BOTTLE PO PRN (17:27)
[2017-03-27] MEDS ORDERED: MENTHOL/PHENOL 1 EACH UD MM PRN (17:27)
[2017-03-27] MEDS ORDERED: MAG HYDROX/AL HYDROX/SIMETH 30 ML UNIT-DOSE CUP PO PRN (17:27)
[2017-03-27] MEDS ORDERED: MAGNESIUM HYDROX 2400MG/30ML ORAL SUSPENSION 30 ML CUP PO PRN (17:27)
[2017-03-27] MEDS ORDERED: chlordiazePOXIDE HCL 25 MG CAPSULE PO PRN (17:27)
[2017-03-27] MEDS ORDERED: ACETAMINOPHEN 325 MG TABLET (FP) PO PRN (17:27)
[2017-03-27] MEDS ORDERED: P-EPHED 60MG/TRIPROLIDI 2.5MG TABLET PO PRN (17:27)
[2017-03-27] MEDS ORDERED: guaiFENesin/D-METHORPHAN HB 10 ML UNIT-DOSE CUPS PO PRN (17:27)
[2017-03-27] MEDS ORDERED: IBUPROFEN 400 MG TABLET (FP) PO PRN (17:27)
[2017-03-27] MEDS ORDERED: LOPERAMIDE HCL 2 MG CAPSULE PO PRN (17:27)
[2017-03-27] MEDS ORDERED: NICOTINE POLACRILEX 2 MG GUM BC PRN (17:27)
[2017-03-27] MEDS ORDERED: chlordiazePOXIDE HCL 25 MG CAPSULE PO ONE (18:00)
[2017-03-27] MEDS: NICOTINE 21 MG/24 HOURS TOPICAL PATCH TD SCH (18:33)
[2017-03-27] MEDS ORDERED: risperiDONE 2 MG TABLET PO ONE (22:00)
[2017-03-27] MEDS: THIAMINE HCL 100 MG TABLET (FP) PO SCH (22:07)
[2017-03-27] MEDS: chlordiazePOXIDE HCL 25 MG CAPSULE PO SCH (22:07)
[2017-03-27] MEDS: diphenhydrAMINE HCL 50 MG CAPSULE PO PRN (22:08)
[2017-03-28 01:33] LABS: URINE APPEARANCE CLEAR; URINE BILIRUBIN NEGATIVE (NEGATIVE); URINE BLOOD NEGATIVE (NEGATIVE); URINE COLOR LTYELLOW; URINE GLUCOSE (UA) NEGATIVE (NEGATIVE); URINE KETONE NEGATIVE (NEGATIVE); URINE LEUK ESTERASE NEGATIVE (NEGATIVE); URINE NITRITE NEGATIVE (NEGATIVE); URINE PROTEIN NEGATIVE (NEGATIVE); URINE UROBILINOGEN NEGATIVE mg/dL (0.2-1.0)
[2017-03-28] MEDS: chlordiazePOXIDE HCL 25 MG CAPSULE PO SCH ×4 (05:26→22:23)
--- NOTE | 2017-03-28 08:39 | CONSULT ---
[facility] Psychiatric Consult - Data Date of interview: 03/28/17 Admission source: [facility] Identifying data: This is 56n years old male with history of psychiatric hospitalization, hisotry of MDD, intoxicated with: Alcohol, Opioids and Nicotine Substance Abuse History: - Smoking Cessation. Smoking history: Current every day smoker. Have you smoked in the past 12 months: Yes. Aproximately how many cigarettes per day: 10. Cigars Per Day: 0. Hx Chewing Tobacco Use: No. Initiated information on smoking cessation: Yes. 'Breaking Loose' booklet given : 03/27/17. - Substance & Tx. History. Hx Alcohol Use: Yes. Hx Substance Use : Yes. Substance Use Type: Alcohol. Hx Substance Use Treatment: Yes (Detox & Rehab at [facility] in 12/2016, OTP). - Substances Abused. Alcohol-beer. Route: Oral. Frequency: Daily. Amount used: 1-6 pk. Age of first use: 14. Date of Last Use: 03/27/17 Medical History: Chronic External Otitis history, LBP, MMTP History Psychiatric History: Patient reports history of depression [facility] most recent psychiatric admission on 2015 at [facility] with depressed mood for safety , denies suicidal history, reports taking prior to admission: Abilify 2mg poqd. Lexapro 20mg poqd. Rispedal 2mg po bid. Remeron 15mg po qhs Physical/Sexual Abuse/Trauma History: Denies Additional Comment: Abilify 2mg poqd. Lexapro 20mg poqd. Rispedal 2mg po bid. Remeron 15mg po qhs Mental Status Exam - Mental Status Exam Alert and Oriented to: Person Cognitive Function: Fair Patient Appearance: Unkempt Mood: Sad Affect: Flat Patient Behavior: Sedated Speech Pattern: Appropriate Voice Loudness: Mildly Soft/Quiet Thought Process: Circumstantial Thought Disorder: Being Controlled Hallucinations: Denies Suicidal Ideation: Denies Homicidal Ideation: Denies Insight/Judgement: Fair Sleep: Difficulty falling asleep Appetite: Fair Muscle strength/Tone: Mild Hypotonicity Gait/Station: Shuffling Additional Comments: Abilify 2mg poqd. Lexapro 20mg poqd. Rispedal 2mg po bid. Remeron 15mg po qhs Psychiatric Findings - Problem List ([place] 1, 2,3) (1) Alcohol dependence with uncomplicated withdrawal Current Visit: Yes Status: Acute (2) Methadone maintenance therapy patient Current Visit: Yes Status: Chronic Comment: 20 MG VERIFICATION PENDING (3) Alcohol dependence Current Visit: No Status: Acute (4) Alcohol-induced mood disorder Current Visit: No Status: Acute (5) Drug-induced mood disorder Current Visit: No Status: Acute (6) MDD (major depressive disorder), recurrent episode Current Visit: No Status: Acute (7) Nicotine dependence Current Visit: No Status: Chronic Qualifiers: Nicotine product type: cigarettes Substance use status: in withdrawal Qualified Code(s): F17.213 - Nicotine dependence, cigarettes, with withdrawal (8) Opioid dependence Current Visit: Yes Status: Acute - Initial Treatment Plan Initial Treatment Plan: Abilify 2mg poqd. Lexapro 20mg poqd. Rispedal 2mg po bid. Remeron 15mg po qhs
[2017-03-28] MEDS: METHADONE HCL 10 MG TABLET PO SCH (08:57)
[2017-03-28 09:44] LABS: MCH 32.1 pg (25.7-33.7); MEAN PLT VOLUME 10.2 fl (7.5-11.1); PLATELET COUNT 220 K/MM3 (134-434); RDW 16.6 % (11.9-15.9); WHITE BLOOD COUNT 8.3 K/mm3 (4.0-10.0)
[2017-03-28 10:10] LABS: ALBUMIN 4.3 g/dl (3.4-5.0); ALK PHOS 72 U/L (45-117); ANION GAP 9 (8-16); BILIRUBIN,TOTAL 0.8 mg/dL (0.2-1.0); CALCIUM 8.9 mg/dL (8.5-10.1); CO2 27 mmol/L (21-32); CREATININE 0.8 mg/dL (0.7-1.3); GLUCOSE,RANDOM 100 mg/dL (74-106); SGOT/AST 29 U/L (15-37); SGPT/ALT 39 U/L (12-78)
[2017-03-28] MEDS: PRENATAL VITAMINS W/ FOLIC ACID TABLET (FP) PO SCH (10:23)
[2017-03-28] MEDS: NICOTINE 21 MG/24 HOURS TOPICAL PATCH TD SCH (10:23)
[2017-03-28] MEDS: ESCITALOPRAM OXALATE 20 MG TABLET (FP) PO SCH (10:25)
[2017-03-28] MEDS: ARIPiprazole 2 MG TABLET PO SCH (10:25)
[2017-03-28] MEDS: risperiDONE 2 MG TABLET PO SCH ×2 (10:26→22:24)
--- NOTE | 2017-03-28 10:42 | PN ---
[facility] CIWA - CIWA Score Nausea/Vomitin-No Nausea/No Vomiting Muscle Tremors: 4-Moderate,w/Arms Extend Anxiety: 4-Mod. Anxious/Guarded Agitation: 4-Moderately Restless Paroxysmal Sweats: 1-Minimal Palms Moist Orientation: 0-Oriented Tacttile Disturbances: 3-Moderate Itch/Numb/Burn Auditory Disturbances: 0-None Visual Disturbances: 0-None Headache: 0-None Present CIWA-Ar Total Score: 16 BHS Progress Note (SOAP) Subjective: TREMORS,SWEATS, INTERMITTENT SLEEP. Objective: 03/28/17 10:40 Vital Signs Temperature 97.1 F L 03/28/17 09:54 Pulse Rate 69 03/28/17 09:54 Respiratory Rate 18 03/28/17 09:54 Blood Pressure 136/89 03/28/17 09:54 O2 Sat by Pulse Oximetry (%) Laboratory Last Values WBC 8.3 K/mm3 (4.0-10.0) 03/28/17 06:15 RBC 4.15 M/mm3 (4.00-5.60) 03/28/17 06:15 Hgb 13.3 GM/dL (11.7-16.9) 03/28/17 06:15 Hct 40.2 % (35.4-49) 03/28/17 06:15 MCV 97.0 fl (80-96) H 03/28/17 06:15 MCH 32.1 pg (25.7-33.7) 03/28/17 06:15 MCHC 33.0 g/dl (32.0-35.9) 03/28/17 06:15 RDW 16.6 % (11.9-15.9) H D 03/28/17 06:15 Plt Count 220 K/MM3 (134-434) 03/28/17 06:15 MPV 10.2 fl (7.5-11.1) 03/28/17 06:15 Sodium 140 mmol/L (136-145) 03/28/17 06:15 Potassium 3.9 mmol/L (3.5-5.1) 03/28/17 06:15 Chloride 104 mmol/L (98-107) 03/28/17 06:15 Carbon Dioxide 27 mmol/L (21-32) 03/28/17 06:15 Anion Gap 9 (8-16) 03/28/17 06:15 BUN 6 mg/dL (7-18) L D 03/28/17 06:15 Creatinine 0.8 mg/dL (0.7-1.3) 03/28/17 06:15 Creat Clearance w eGFR > 60 (>60) 03/28/17 06:15 Random Glucose 100 mg/dL (74-106) D 03/28/17 06:15 Calcium 8.9 mg/dL (8.5-10.1) 03/28/17 06:15 Total Bilirubin 0.8 mg/dL (0.2-1.0) 03/28/17 06:15 AST 29 U/L (15-37) D 03/28/17 06:15 ALT 39 U/L (12-78) D 03/28/17 06:15 Alkaline Phosphatase 72 U/L (45-117) 03/28/17 06:15 Total Protein 8.0 g/dl (6.4-8.2) 03/28/17 06:15 Albumin 4.3 g/dl (3.4-5.0) 03/28/17 06:15 Urine Color Ltyellow 03/27/17 23:37 Urine Appearance Clear 03/27/17 23:37 Urine pH 5.0 (5.0-8.0) 03/27/17 23:37 Ur Specific [place] 1.010 (1.005-1.025) 03/27/17 23:37 Urine Protein Negative (NEGATIVE) 03/27/17 23:37 Urine Glucose (UA) Negative (NEGATIVE) 03/27/17 23:37 Urine Ketones Negative (NEGATIVE) 03/27/17 23:37 Urine Blood Negative (NEGATIVE) 03/27/17 23:37 Urine Nitrite Negative (NEGATIVE) 03/27/17 23:37 Urine Bilirubin Negative (NEGATIVE) 03/27/17 23:37 Urine Urobilinogen Negative mg/dL (0.2-1.0) 03/27/17 23:37 Assessment: 03/28/17 10:41 WITHDRAWAL SX Plan: CONTINUE DETOX
--- NOTE | 2017-03-28 13:25 | EKG ---
Test Reason : Blood Pressure : / mmHG Vent. Rate : 077 BPM Atrial Rate : 077 BPM P-R Int : 144 ms QRS Dur : 144 ms QT Int : 386 ms P-R-T Axes : 067 064 054 degrees QTc Int : 436 ms NORMAL SINUS RHYTHM RIGHT BUNDLE BRANCH BLOCK MODERATE VOLTAGE CRITERIA FOR LVH, MAY BE NORMAL VARIANT ABNORMAL ECG WHEN COMPARED WITH ECG OF 31-DEC-2016 18:56, NO SIGNIFICANT CHANGE WAS FOUND Confirmed by MANJULA ALAN, FLAVIO ([id number]) on 03/28/2017 1:25:29 PM Referred By: Ismael Valle Confirmed By:FLAVIO FAIR MD
[2017-03-28] MEDS: THIAMINE HCL 100 MG TABLET (FP) PO SCH (22:23)
[2017-03-28] MEDS: MIRTAZAPINE 15 MG TABLET (FP) PO SCH (22:23)
[2017-03-28] MEDS: diphenhydrAMINE HCL 50 MG CAPSULE PO PRN (22:24)
[2017-03-29] MEDS: chlordiazePOXIDE HCL 25 MG CAPSULE PO SCH ×3 (05:35→17:21)
[2017-03-29] MEDS: METHADONE HCL 10 MG TABLET PO SCH (05:35)
[2017-03-29 08:47] LABS: HIV 1 & 2 AB NEGATIVE; HIV 1 AGp24 NEGATIVE
[2017-03-29] MEDS: ARIPiprazole 2 MG TABLET PO SCH (10:15)
[2017-03-29] MEDS: PRENATAL VITAMINS W/ FOLIC ACID TABLET (FP) PO SCH (10:16)
[2017-03-29] MEDS: ESCITALOPRAM OXALATE 20 MG TABLET (FP) PO SCH (10:16)
[2017-03-29] MEDS: risperiDONE 2 MG TABLET PO SCH ×2 (10:16→22:13)
[2017-03-29] MEDS: NICOTINE 21 MG/24 HOURS TOPICAL PATCH TD SCH (10:17)
--- NOTE | 2017-03-29 11:08 | PN ---
S CIWA - CIWA Score Nausea/Vomitin-No Nausea/No Vomiting Muscle Tremors: 3 Anxiety: 4-Mod. Anxious/Guarded Agitation: 3 Paroxysmal Sweats: 3 Orientation: 0-Oriented Tacttile Disturbances: 0-None Auditory Disturbances: 0-None Visual Disturbances: 0-None Headache: 0-None Present CIWA-Ar Total Score: 13 BHS Progress Note (SOAP) Subjective: Still c/o anxiety, psych meds started. Tremors,sweating,interrupted sleep, restless Objective: 03/29/17 11:07 Vital Signs - 8 hr 03/29/17 03/29/17 03/29/17 03:30 06:19 10:25 Temperature 98.9 F 98.9 F Pulse Rate 67 120 H Respiratory 20 18 18 Rate Blood Pressure 151/94 125/85 Laboratory Tests 03/27/17 03/28/17 03/28/17 23:37 06:15 06:15 WBC 8.3 RBC 4.15 Hgb 13.3 Hct 40.2 MCV 97.0 H MCH 32.1 MCHC 33.0 RDW 16.6 H D Plt Count 220 MPV 10.2 Sodium 140 Potassium 3.9 Chloride 104 Carbon Dioxide 27 Anion Gap 9 BUN 6 L D Creatinine 0.8 Creat Clearance w eGFR > 60 Random Glucose 100 D Calcium 8.9 Total Bilirubin 0.8 AST 29 D ALT 39 D Alkaline Phosphatase 72 Total Protein 8.0 Albumin 4.3 Urine Color Ltyellow Urine Appearance Clear Urine pH 5.0 Ur Specific [place] 1.010 Urine Protein Negative Urine Glucose (UA) Negative Urine Ketones Negative Urine Blood Negative Urine Nitrite Negative Urine Bilirubin Negative Urine Urobilinogen Negative RPR Titer HIV 1&2 Antibody Screen HIV P24 Antigen 03/28/17 03/28/17 06:15 09:45 WBC RBC Hgb Hct MCV MCH MCHC RDW Plt Count MPV Sodium Potassium Chloride Carbon Dioxide Anion Gap BUN Creatinine Creat Clearance w eGFR Random Glucose Calcium Total Bilirubin AST ALT Alkaline Phosphatase Total Protein Albumin Urine Color Urine Appearance Urine pH Ur Specific [place] Urine Protein Urine Glucose (UA) Urine Ketones Urine Blood Urine Nitrite Urine Bilirubin Urine Urobilinogen RPR Titer Nonreactive HIV 1&2 Antibody Screen Negative HIV P24 Antigen Negative labs noted Assessment: 03/29/17 11:08 Withdrawal sx. Plan: Continue detox
[2017-03-29] MEDS: chlordiazePOXIDE 5 MG CAPSULE PO SCH (22:13)
[2017-03-29] MEDS: MIRTAZAPINE 15 MG TABLET (FP) PO SCH (22:13)
[2017-03-29] MEDS: THIAMINE HCL 100 MG TABLET (FP) PO SCH (22:13)
[2017-03-29] MEDS: diphenhydrAMINE HCL 50 MG CAPSULE PO PRN (22:13)
[2017-03-30] MEDS: chlordiazePOXIDE 5 MG CAPSULE PO SCH ×3 (05:38→16:53)
[2017-03-30] MEDS: METHADONE HCL 10 MG TABLET PO SCH (05:38)
[2017-03-30] MEDS: NICOTINE 21 MG/24 HOURS TOPICAL PATCH TD SCH (10:14)
[2017-03-30] MEDS: PRENATAL VITAMINS W/ FOLIC ACID TABLET (FP) PO SCH (10:14)
[2017-03-30] MEDS: ESCITALOPRAM OXALATE 20 MG TABLET (FP) PO SCH (10:14)
[2017-03-30] MEDS: risperiDONE 2 MG TABLET PO SCH ×2 (10:14→22:08)
[2017-03-30] MEDS: ARIPiprazole 2 MG TABLET PO SCH (10:14)
--- NOTE | 2017-03-30 13:58 | PN ---
BHS Progress Note (SOAP) Subjective: Tremors, Interrupted sleep, Body Aches, Sweating, stomach cramping, Diarrhea. Objective: PT. A & O X 1 (DISORIENTED ABOUT DAY / DATE AND ABOUT CURRENT LOCATION). PT. OBSERVED AMBULATING ON UNIT. NO ACUTE DISTRESS. PT. DENIES CHEST PAIN. 03/30/17 13:56 Vital Signs Temperature 97.0 F L 03/30/17 10:25 Pulse Rate 87 03/30/17 10:25 Respiratory Rate 20 03/30/17 10:25 Blood Pressure 121/80 03/30/17 10:25 O2 Sat by Pulse Oximetry (%) Laboratory Tests 03/27/17 03/28/17 03/28/17 23:37 06:15 06:15 WBC 8.3 RBC 4.15 Hgb 13.3 Hct 40.2 MCV 97.0 H MCH 32.1 MCHC 33.0 RDW 16.6 H D Plt Count 220 MPV 10.2 Sodium 140 Potassium 3.9 Chloride 104 Carbon Dioxide 27 Anion Gap 9 BUN 6 L D Creatinine 0.8 Creat Clearance w eGFR > 60 Random Glucose 100 D Calcium 8.9 Total Bilirubin 0.8 AST 29 D ALT 39 D Alkaline Phosphatase 72 Total Protein 8.0 Albumin 4.3 Urine Color Ltyellow Urine Appearance Clear Urine pH 5.0 Ur Specific [place] 1.010 Urine Protein Negative Urine Glucose (UA) Negative Urine Ketones Negative Urine Blood Negative Urine Nitrite Negative Urine Bilirubin Negative Urine Urobilinogen Negative RPR Titer HIV 1&2 Antibody Screen HIV P24 Antigen 03/28/17 03/28/17 06:15 09:45 WBC RBC Hgb Hct MCV MCH MCHC RDW Plt Count MPV Sodium Potassium Chloride Carbon Dioxide Anion Gap BUN Creatinine Creat Clearance w eGFR Random Glucose Calcium Total Bilirubin AST ALT Alkaline Phosphatase Total Protein Albumin Urine Color Urine Appearance Urine pH Ur Specific [place] Urine Protein Urine Glucose (UA) Urine Ketones Urine Blood Urine Nitrite Urine Bilirubin Urine Urobilinogen RPR Titer Nonreactive HIV 1&2 Antibody Screen Negative HIV P24 Antigen Negative LABS NOTED. Assessment: 03/30/17 13:57 WITHDRAWAL SYMPTOMS. Plan: CONTINUE DETOX.
[2017-03-30] MEDS: THIAMINE HCL 100 MG TABLET (FP) PO SCH (22:08)
[2017-03-30] MEDS: MIRTAZAPINE 15 MG TABLET (FP) PO SCH (22:08)
[2017-03-30] MEDS: chlordiazePOXIDE HCL 10 MG CAPSULE PO SCH (22:08)
[2017-03-30] MEDS: diphenhydrAMINE HCL 50 MG CAPSULE PO PRN (22:09)
[2017-03-31] MEDS: METHADONE HCL 10 MG TABLET PO SCH (06:21)
[2017-03-31] MEDS: chlordiazePOXIDE HCL 10 MG CAPSULE PO SCH ×2 (06:21→10:26)
[2017-03-31 07:03] VITALS: BP 141/94; PULSE 81; TEMP 98.8
[2017-03-31] MEDS: ARIPiprazole 2 MG TABLET PO SCH (10:09)
[2017-03-31] MEDS: ESCITALOPRAM OXALATE 20 MG TABLET (FP) PO SCH (10:09)
[2017-03-31] MEDS: risperiDONE 2 MG TABLET PO SCH (10:09)
[2017-03-31] MEDS: NICOTINE 21 MG/24 HOURS TOPICAL PATCH TD SCH (10:09)
[2017-03-31] MEDS: PRENATAL VITAMINS W/ FOLIC ACID TABLET (FP) PO SCH (10:09)
--- NOTE | 2017-03-31 13:32 | DS ---
[facility] Detox Discharge Summary Admission Date: 03/27/17 Discharge Date: 03/31/17 - History Present History: Alcohol Dependence, Opioid Dependence, MMTP Additional Comments: Noted with elevated b/p 141/94 most likely due to anxiety/excitement of being discharged. Encouraged to relax. F/U with PCP in 1-2 weeks. Pertinent Past History: Denies - Physical Exam Results Vital Signs: Vital Signs Temperature 98.8 F 03/31/17 06:00 Pulse Rate 81 03/31/17 06:00 Respiratory Rate 18 03/31/17 06:00 Blood Pressure 141/94 03/31/17 06:00 O2 Sat by Pulse Oximetry (%) Pertinent Admission Physical Exam Findings: Withdrawal symptoms Laboratory Tests 03/27/17 03/28/17 03/28/17 23:37 06:15 06:15 WBC 8.3 RBC 4.15 Hgb 13.3 Hct 40.2 MCV 97.0 H MCH 32.1 MCHC 33.0 RDW 16.6 H D Plt Count 220 MPV 10.2 Sodium 140 Potassium 3.9 Chloride 104 Carbon Dioxide 27 Anion Gap 9 BUN 6 L D Creatinine 0.8 Creat Clearance w eGFR > 60 Random Glucose 100 D Calcium 8.9 Total Bilirubin 0.8 AST 29 D ALT 39 D Alkaline Phosphatase 72 Total Protein 8.0 Albumin 4.3 Urine Color Ltyellow Urine Appearance Clear Urine pH 5.0 Ur Specific [place] 1.010 Urine Protein Negative Urine Glucose (UA) Negative Urine Ketones Negative Urine Blood Negative Urine Nitrite Negative Urine Bilirubin Negative Urine Urobilinogen Negative RPR Titer HIV 1&2 Antibody Screen HIV P24 Antigen 03/28/17 03/28/17 06:15 09:45 WBC RBC Hgb Hct MCV MCH MCHC RDW Plt Count MPV Sodium Potassium Chloride Carbon Dioxide Anion Gap BUN Creatinine Creat Clearance w eGFR Random Glucose Calcium Total Bilirubin AST ALT Alkaline Phosphatase Total Protein Albumin Urine Color Urine Appearance Urine pH Ur Specific [place] Urine Protein Urine Glucose (UA) Urine Ketones Urine Blood Urine Nitrite Urine Bilirubin Urine Urobilinogen RPR Titer Nonreactive HIV 1&2 Antibody Screen Negative HIV P24 Antigen Negative Labs noted - Treatment Hospital Course: Detox Protocol Followed, Detoxed Safely, Responded well, Discharged Condition Good - Medication Discharge Medications: Ambulatory Orders Aripiprazole [Abilify -] 2 mg PO DAILY #30 tablet 02/01/17 Escitalopram Oxalate [Lexapro -] 20 mg PO DAILY #30 tablet 02/01/17 Mirtazapine [Remeron -] 15 mg PO HS #30 tablet 02/01/17 Risperidone [Risperidone] 2 mg PO BID 03/27/17 Aripiprazole [Abilify -] 2 mg PO DAILY #30 tablet 03/28/17 Escitalopram Oxalate [Lexapro -] 20 mg PO DAILY #30 tablet 03/28/17 Mirtazapine [Remeron -] 15 mg PO HS #30 tablet 03/28/17 Risperidone [Risperdal -] 2 mg PO BID #60 tablet 03/28/17 - Diagnosis (1) Alcohol dependence with uncomplicated withdrawal Status: Acute (2) MDD (major depressive disorder), recurrent episode Status: Chronic (3) Opioid dependence Status: Chronic (4) Methadone maintenance therapy patient Status: Chronic (5) Nicotine dependence Status: Chronic Qualifiers: Nicotine product type: cigarettes Substance use status: in withdrawal Qualified Code(s): F17.213 - Nicotine dependence, cigarettes, with withdrawal - AMA Did Patient Leave Against Medical Advice: No
== END 2017-03-31 12:41 | disposition home or self-care (01) | DRG 773 ==
LOC: YASAS 12:39 → Y3N 16:22
PROVIDERS: ADMIT Internal Medicine; ATTEND Internal Medicine
PROC: HZ2ZZZZ Detoxification Services for Substance Abuse Treatment (ICD-10-PCS; principal; 2017-03-27)
DX: F11.20 Opioid dependence, uncomplicated (principal); F10.230 Alcohol dependence with withdrawal, uncomplicated; F17.213 Nicotine dependence, cigarettes, with withdrawal; F33.1 Major depressive disorder, recurrent, moderate; F10.24 Alcohol dependence with alcohol-induced mood disorder; F19.24 Other psychoactive substance dependence with psychoactive substance-induced mood disorder; Z59.0 Homelessness
CPT/HCPCS: 36415; 80053; 81003; 85027; 86593; 87389; 93005; 93010

== ENCOUNTER 2017-05-11 13:45 | Inpatient (IN) | payer OTHER ==
[2017-05-11 14:01] VITALS: BMI 33.4
--- NOTE | 2017-05-11 14:04 | HP ---
CIWA Score - CIWA Score Nausea/Vomitin-No Nausea/No Vomiting Muscle Tremors: 4-Moderate,w/Arms Extend Anxiety: 4-Mod. Anxious/Guarded Agitation: 1-Slight > Activity Paroxysmal Sweats: 1-Minimal Palms Moist Orientation: 1-Uncertain about Date Tacttile Disturbances: 1-Very Mild Itch/Numbness Auditory Disturbances: 1-Very Mild Visual Disturbances: 1-Very Mild Sensitivity Headache: 1-Very Mild CIWA-Ar Total Score: 15 Admission ROS BHS - HPI Chief Complaint: I want detox Allergies/Adverse Reactions: Allergies Allergy/AdvReac Type Severity Reaction Status Date / Time Penicillins Allergy Severe Rash Verified 03/27/17 14:45 History of Present Illness: 57 yo gentleman here for detox from alcohol, no seizures but does have black outs. Previously here in march. Interested in halfway rehab after detox. Reports being in [facility] last night and given something for his nerves (urine tox + benzo) and sent for detox. In [facility] [place] Methadone Program - 20mg - was dosed today and brought in bottle. Exam Limitations: Clinical Condition - Ebola screening Have you traveled outside of the country in the last 21 days: No Have you had contact with anyone from an Ebola affected area: No Have you been sick,other than usual withdrawal symptoms: No Do you have a fever: No - Review of Systems Constitutional: Loss of Appetite, Malaise, Changes in sleep EENT: reports: Blurred Vision, Nose Congestion Respiratory: reports: No Symptoms reported Cardiac: reports: Chest Tightness GI: reports: No Symptoms Reported : reports: Frequency Musculoskeletal: reports: Back Pain, Muscle Pain Integumentary: reports: No Symptoms Reported Neuro: reports: Headache Endocrine: reports: No Symptoms Reported Hematology: reports: No Symptoms Reported Psychiatric: reports: Judgement Intact, Mood/Affect Appropiate, Anxious Other Systems: Reviewed and Negative Patient History - Patient Medical History Hx Anemia: No Hx Asthma: No Hx Chronic Obstructive Pulmonary Disease (COPD): No Hx Cancer: No Hx Cardiac Disorders: No Hx Hypertension: No Hx Hypercholesterolemia: No Hx Pacemaker: No HX Cerebrovascular Accident: No Hx Seizures: No Hx Dementia: No Hx Diabetes: No Hx Gastrointestinal Disorders: No Hx Liver Disease: No Hx Genitourinary Disorders: No Hx Sexually Transmitted Disorders: No Hx Renal Disease (ESRD): No Hx Thyroid Disease: No Hx Human Immunodeficiency Virus (HIV): No Hx Hepatitis C: No Hx Depression: Yes Hx Suicide Attempt: Yes (march 2017 tried to jump off an overpass) Hx Bipolar Disorder: Yes Hx Schizophrenia: No (not sure) - Patient Surgical History Past Surgical History: Yes Hx Neurologic Surgery: No Hx Cataract Extraction: No Hx Cardiac Surgery: No Hx Lung Surgery: No Hx Breast Surgery: No Hx Breast Biopsy: No Hx Abdominal Surgery: No Hx Appendectomy: No Hx Cholecystectomy: No Hx Genitourinary Surgery: No Hx Orthopedic Surgery: No Other Surgical History: multiple sx on both ears Anesthesia Reaction: No - PPD History Previous Implant?: Yes Documented Results: Negative w/proof Date: 01/02/17 Results: 0 mm PPD to be Administered?: No - Reproductive History Patient is a Female of Child Bearing Age (11 -55 yrs old): No (male) - Smoking Cessation Smoking history: Current every day smoker Have you smoked in the past 12 months: Yes Aproximately how many cigarettes per day: 10 Cigars Per Day: 0 Hx Chewing Tobacco Use: No Initiated information on smoking cessation: Yes 'Breaking Loose' booklet given: 05/11/17 (give on floor) - Substance & Tx. History Hx Alcohol Use: Yes Hx Substance Use: No Substance Use Type: Alcohol Hx Substance Use Treatment: Yes (detox) - Substances Abused Alcohol Route: Oral Frequency: Daily Amount used: six pack 24 oz beer, shot liquor Age of first use: 14 Date of Last Use: 05/11/17 Family Disease History - Family Disease History Family Disease History: Diabetes: Father (living, hx etoh), Brother (three - living - etoh - one with dm), Heart Disease: Sister (four living - etoh), CA: Mother (, hx drugs and etoh), Other: Father, Brother, Sister, Son (two - living -), Daughter (two - living) Admission Physical Exam BHS - Vital Signs Vital Signs: Vital Signs - 24 hr 05/11/17 13:59 Temperature 97 F L Pulse Rate 80 Respiratory 20 Rate Blood Pressure 106/76 - Physical General Appearance: Yes: Nourished, Appropriately Dressed, Moderate Distress, Alcohol on Breath, Obese, Anxious HEENTM: Yes: Hearing grossly Normal, Normocephalic, Normal Voice, Pharynx Normal Respiratory: Yes: Normal Breath Sounds, No Respiratory Distress Neck: Yes: No masses,lesions,Nodules, Supple Breast: Yes: Breast Exam Deferred Cardiology: Yes: Regular Rhythm, Regular Rate Abdominal: Yes: Soft, Protuberent Genitourinary: Yes: Frequency Back: Yes: Normal Inspection Musculoskeletal: Yes: full range of Motion, Gait Steady Extremities: Yes: Normal Inspection, Non-Tender Neurological: Yes: Alert, Normal Mood/Affect, Normal Response Integumentary: Yes: Normal Color, Warm Lymphatic: Yes: Within Normal Limits - Diagnostic (1) Alcohol dependence with uncomplicated withdrawal Current Visit: Yes Status: Chronic (2) Low back pain Current Visit: Yes Status: Chronic Qualifiers: Chronicity: chronic Back pain laterality: unspecified Sciatica presence: without sciatica Qualified Code(s): M54.5 - Low back pain; M54.5 - Low back pain (3) Methadone maintenance therapy patient Current Visit: Yes Status: Chronic Comment: [facility] in [facility], 20mg, brought in bottle, was dosed today (4) Nicotine dependence Current Visit: Yes Status: Chronic Qualifiers: Nicotine product type: cigarettes Substance use status: in withdrawal Qualified Code(s): F17.213 - Nicotine dependence, cigarettes, with withdrawal; F17.213 - Nicotine dependence, cigarettes, with withdrawal Cleared for Admission [facility] - Detox or Rehab [facility] Level of Care: Medically Managed Detox Regimen/Protocol: Librium [facility] Breath Alcohol Content Breath Alcohol Content: 0.164 Urine Drug Screen - Results Drug Screen Negative: No Urine Drug Screen Results: BZO-Benzodiazepines, MTD-Methadone
[2017-05-11] MEDS ORDERED: hydrOXYzine PAMOATE 50 MG CAPSULE (FP) PO PRN (14:17)
[2017-05-11] MEDS ORDERED: guaiFENesin/D-METHORPHAN HB 10 ML UNIT-DOSE CUPS PO PRN (14:17)
[2017-05-11] MEDS ORDERED: chlordiazePOXIDE HCL 25 MG CAPSULE PO PRN (14:17)
[2017-05-11] MEDS ORDERED: MAGNESIUM CITRATE 300 ML BOTTLE PO PRN (14:17)
[2017-05-11] MEDS ORDERED: chlordiazePOXIDE HCL 25 MG CAPSULE PO ONE (14:17)
[2017-05-11] MEDS ORDERED: MENTHOL/PHENOL 1 EACH UD MM PRN (14:17)
[2017-05-11] MEDS ORDERED: MAGNESIUM HYDROX 2400MG/30ML ORAL SUSPENSION 30 ML CUP PO PRN (14:17)
[2017-05-11] MEDS ORDERED: P-EPHED 60MG/TRIPROLIDI 2.5MG TABLET PO PRN (14:17)
[2017-05-11] MEDS ORDERED: LOPERAMIDE HCL 2 MG CAPSULE PO PRN (14:17)
[2017-05-11] MEDS ORDERED: IBUPROFEN 400 MG TABLET (FP) PO PRN (14:17)
[2017-05-11] MEDS ORDERED: MAG HYDROX/AL HYDROX/SIMETH 30 ML UNIT-DOSE CUP PO PRN (14:17)
[2017-05-11] MEDS ORDERED: diphenhydrAMINE HCL 50 MG CAPSULE PO PRN (14:17)
[2017-05-11] MEDS ORDERED: ACETAMINOPHEN 325 MG TABLET (FP) PO PRN (14:17)
[2017-05-11] MEDS: NICOTINE 21 MG/24 HOURS TOPICAL PATCH TD SCH (15:43)
[2017-05-11] MEDS: chlordiazePOXIDE HCL 25 MG CAPSULE PO SCH ×2 (17:37→22:24)
[2017-05-11 19:16] LABS: URINE APPEARANCE CLEAR; URINE BILIRUBIN NEGATIVE (NEGATIVE); URINE BLOOD NEGATIVE (NEGATIVE); URINE COLOR STRAW; URINE GLUCOSE (UA) NEGATIVE (NEGATIVE); URINE KETONE NEGATIVE (NEGATIVE); URINE NITRITE NEGATIVE (NEGATIVE); URINE PROTEIN NEGATIVE (NEGATIVE); URINE UROBILINOGEN NEGATIVE mg/dL (0.2-1.0)
[2017-05-11 22:16] LABS: URINE LEUK ESTERASE Negative (NEGATIVE)
[2017-05-11] MEDS: THIAMINE HCL 100 MG TABLET (FP) PO SCH (22:24)
[2017-05-12] MEDS: chlordiazePOXIDE HCL 25 MG CAPSULE PO SCH ×4 (05:55→22:11)
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
--- NOTE | 2017-05-12 09:13 | EKG ---
Test Reason : Blood Pressure : / mmHG Vent. Rate : 078 BPM Atrial Rate : 078 BPM P-R Int : 140 ms QRS Dur : 138 ms QT Int : 404 ms P-R-T Axes : 057 059 049 degrees QTc Int : 460 ms NORMAL SINUS RHYTHM RIGHT BUNDLE BRANCH BLOCK ABNORMAL ECG WHEN COMPARED WITH ECG OF 27-MAR-2017 18:39, NO SIGNIFICANT CHANGE WAS FOUND Confirmed by CLARK DAWN MD ([id number]) on 05/12/2017 9:13:34 AM Referred By: Confirmed By:CLARK DAWN MD
[2017-05-12] MEDS: NICOTINE 21 MG/24 HOURS TOPICAL PATCH TD SCH (10:29)
[2017-05-12] MEDS: PRENATAL VITAMINS W/ FOLIC ACID TABLET (FP) PO SCH (10:29)
[2017-05-12 11:09] LABS: MCHC 33.9 g/dl (32.0-35.9); MEAN CELL VOLUME 97.3 fl (80-96); MEAN PLT VOLUME 9.2 fl (7.5-11.1); PLATELET COUNT 208 K/MM3 (134-434); RDW 14.4 % (11.9-15.9); WHITE BLOOD COUNT 4.9 K/mm3 (4.0-10.0)
[2017-05-12 11:18] LABS: CALCIUM 8.2 mg/dL (8.5-10.1)
[2017-05-12 11:24] LABS: ALBUMIN 3.3 g/dl (3.4-5.0); ALK PHOS 50 U/L (45-117); ANION GAP 6 (8-16); BILIRUBIN,TOTAL 0.7 mg/dL (0.2-1.0); CO2 28 mmol/L (21-32); CREATININE 0.6 mg/dL (0.7-1.3); GLUCOSE,RANDOM 90 mg/dL (74-106); SGOT/AST 15 U/L (15-37); SGPT/ALT 24 U/L (12-78); TOT PROT 6.4 g/dl (6.4-8.2)
[2017-05-12] MEDS ORDERED: FLU VACCINE QUAD 60 MCG/0.5 ML (MDV 17-18) IM ONE (12:00)
[2017-05-12 12:02] LABS: HIV 1 & 2 AB NEGATIVE; HIV 1 AGp24 NEGATIVE
--- NOTE | 2017-05-12 14:48 | PN ---
S CIWA - CIWA Score Nausea/Vomitin Muscle Tremors: 4-Moderate,w/Arms Extend Anxiety: 4-Mod. Anxious/Guarded Agitation: 4-Moderately Restless Paroxysmal Sweats: 3 Orientation: 0-Oriented Tacttile Disturbances: 1-Very Mild Itch/Numbness Auditory Disturbances: 0-None Visual Disturbances: 0-None Headache: 0-None Present CIWA-Ar Total Score: 18 BHS Progress Note (SOAP) Subjective: Chills, sweating, tremor, nausea, interrupted sleep Objective: 05/12/17 14:46 Last Vital Signs Temp Pulse Resp BP Pulse Ox 98.0 F 54 L 18 133/80 05/12/17 12:45 05/12/17 12:45 05/12/17 12:45 05/12/17 12:45 Laboratory Tests 05/11/17 05/12/17 05/12/17 19:07 07:30 07:30 WBC 4.9 D RBC 3.89 L Hgb 12.9 Hct 37.9 MCV 97.3 H MCH 33.0 MCHC 33.9 RDW 14.4 D Plt Count 208 MPV 9.2 Sodium 141 Potassium 4.1 Chloride 107 Carbon Dioxide 28 Anion Gap 6 L BUN 10 D Creatinine 0.6 L D Creat Clearance w eGFR > 60 Random Glucose 90 Calcium 8.2 L Total Bilirubin 0.7 AST 15 D ALT 24 D Alkaline Phosphatase 50 D Total Protein 6.4 Albumin 3.3 L D Urine Color Straw Urine Appearance Clear Urine pH 5.0 Ur Specific [place] <= 1.005 Urine Protein Negative Urine Glucose (UA) Negative Urine Ketones Negative Urine Blood Negative Urine Nitrite Negative Urine Bilirubin Negative Urine Urobilinogen Negative Ur Leukocyte Esterase Negative RPR Titer HIV 1&2 Antibody Screen HIV P24 Antigen 05/12/17 05/12/17 07:30 07:30 WBC RBC Hgb Hct MCV MCH MCHC RDW Plt Count MPV Sodium Potassium Chloride Carbon Dioxide Anion Gap BUN Creatinine Creat Clearance w eGFR Random Glucose Calcium Total Bilirubin AST ALT Alkaline Phosphatase Total Protein Albumin Urine Color Urine Appearance Urine pH Ur Specific [place] Urine Protein Urine Glucose (UA) Urine Ketones Urine Blood Urine Nitrite Urine Bilirubin Urine Urobilinogen Ur Leukocyte Esterase RPR Titer Nonreactive HIV 1&2 Antibody Screen Negative HIV P24 Antigen Negative Labs noted Assessment: 05/12/17 14:47 Withdrawal symptoms Plan: Continue detox Encouraged to drink lots of water
[2017-05-12] MEDS: THIAMINE HCL 100 MG TABLET (FP) PO SCH (22:11)
[2017-05-12] MEDS: ZOLPIDEM TARTRATE 5 MG TABLET PO PRN (22:11)
[2017-05-13] MEDS: chlordiazePOXIDE HCL 25 MG CAPSULE PO SCH ×2 (05:59→10:12)
[2017-05-13] MEDS: METHADONE HCL 10 MG TABLET PO SCH (10:12)
[2017-05-13] MEDS: PRENATAL VITAMINS W/ FOLIC ACID TABLET (FP) PO SCH (10:12)
[2017-05-13] MEDS: NICOTINE 21 MG/24 HOURS TOPICAL PATCH TD SCH (10:12)
--- NOTE | 2017-05-13 11:30 | PN ---
[facility] CIWA - CIWA Score Nausea/Vomitin-No Nausea/No Vomiting Muscle Tremors: 4-Moderate,w/Arms Extend Anxiety: 4-Mod. Anxious/Guarded Agitation: 2 Paroxysmal Sweats: 3 Orientation: 2-Disoriented Date<2 days Tacttile Disturbances: 2-Mild Itch/Numbness/Burn Auditory Disturbances: 0-None Visual Disturbances: 1-Very Mild Sensitivity Headache: 0-None Present CIWA-Ar Total Score: 18 S Progress Note (SOAP) Subjective: Diarrhea, Tremors, Interrupted sleep, Sweating. Objective: PT. A & O X 2 (DISORIENTED ABOUT DAY / DATE). PT. OBSERVED AMBULATING ON UNIT. NO ACUTE DISTRESS. 05/13/17 11:28 Vital Signs Temperature 97.6 F 05/13/17 09:16 Pulse Rate 59 L 05/13/17 09:16 Respiratory Rate 18 05/13/17 09:16 Blood Pressure 135/82 05/13/17 09:16 O2 Sat by Pulse Oximetry (%) Laboratory Tests 05/11/17 05/12/17 05/12/17 19:07 07:30 07:30 WBC 4.9 D RBC 3.89 L Hgb 12.9 Hct 37.9 MCV 97.3 H MCH 33.0 MCHC 33.9 RDW 14.4 D Plt Count 208 MPV 9.2 Sodium 141 Potassium 4.1 Chloride 107 Carbon Dioxide 28 Anion Gap 6 L BUN 10 D Creatinine 0.6 L D Creat Clearance w eGFR > 60 Random Glucose 90 Calcium 8.2 L Total Bilirubin 0.7 AST 15 D ALT 24 D Alkaline Phosphatase 50 D Total Protein 6.4 Albumin 3.3 L D Urine Color Straw Urine Appearance Clear Urine pH 5.0 Ur Specific [place] <= 1.005 Urine Protein Negative Urine Glucose (UA) Negative Urine Ketones Negative Urine Blood Negative Urine Nitrite Negative Urine Bilirubin Negative Urine Urobilinogen Negative Ur Leukocyte Esterase Negative RPR Titer HIV 1&2 Antibody Screen HIV P24 Antigen 05/12/17 05/12/17 07:30 07:30 WBC RBC Hgb Hct MCV MCH MCHC RDW Plt Count MPV Sodium Potassium Chloride Carbon Dioxide Anion Gap BUN Creatinine Creat Clearance w eGFR Random Glucose Calcium Total Bilirubin AST ALT Alkaline Phosphatase Total Protein Albumin Urine Color Urine Appearance Urine pH Ur Specific [place] Urine Protein Urine Glucose (UA) Urine Ketones Urine Blood Urine Nitrite Urine Bilirubin Urine Urobilinogen Ur Leukocyte Esterase RPR Titer Nonreactive HIV 1&2 Antibody Screen Negative HIV P24 Antigen Negative LABS NOTED. Assessment: 05/13/17 11:29 WITHDRAWAL SYMPTOMS. Plan: CONTINUE DETOX. INCREASE DAILY PO FLUID INTAKE.
[2017-05-13] MEDS: chlordiazePOXIDE 5 MG CAPSULE PO SCH ×2 (17:17→22:21)
[2017-05-13] MEDS: THIAMINE HCL 100 MG TABLET (FP) PO SCH (22:21)
[2017-05-13] MEDS: ZOLPIDEM TARTRATE 5 MG TABLET PO PRN (22:22)
[2017-05-14] MEDS: chlordiazePOXIDE 5 MG CAPSULE PO SCH ×2 (05:49→10:10)
[2017-05-14] MEDS: METHADONE HCL 10 MG TABLET PO SCH (05:49)
[2017-05-14] MEDS: NICOTINE 21 MG/24 HOURS TOPICAL PATCH TD SCH (10:11)
[2017-05-14] MEDS: PRENATAL VITAMINS W/ FOLIC ACID TABLET (FP) PO SCH (10:11)
--- NOTE | 2017-05-14 12:26 | PN ---
[facility] Progress Note (SOAP) Subjective: Interrupted sleep, Stomach Cramping, Constipation, sweating,Tremors. Objective: PT. A & O X 2 (UNCERTAIN ABOUT DAY /DATE). PT. OBSERVED AMBULATING ON UNIT. NO ACUTE DISTRESS. 05/14/17 12:24 Vital Signs Temperature 97.8 F 05/14/17 09:09 Pulse Rate 79 05/14/17 09:09 Respiratory Rate 18 05/14/17 09:09 Blood Pressure 122/76 05/14/17 09:09 O2 Sat by Pulse Oximetry (%) Laboratory Tests 05/11/17 05/12/17 05/12/17 19:07 07:30 07:30 WBC 4.9 D RBC 3.89 L Hgb 12.9 Hct 37.9 MCV 97.3 H MCH 33.0 MCHC 33.9 RDW 14.4 D Plt Count 208 MPV 9.2 Sodium 141 Potassium 4.1 Chloride 107 Carbon Dioxide 28 Anion Gap 6 L BUN 10 D Creatinine 0.6 L D Creat Clearance w eGFR > 60 Random Glucose 90 Calcium 8.2 L Total Bilirubin 0.7 AST 15 D ALT 24 D Alkaline Phosphatase 50 D Total Protein 6.4 Albumin 3.3 L D Urine Color Straw Urine Appearance Clear Urine pH 5.0 Ur Specific [place] <= 1.005 Urine Protein Negative Urine Glucose (UA) Negative Urine Ketones Negative Urine Blood Negative Urine Nitrite Negative Urine Bilirubin Negative Urine Urobilinogen Negative Ur Leukocyte Esterase Negative RPR Titer HIV 1&2 Antibody Screen HIV P24 Antigen 05/12/17 05/12/17 07:30 07:30 WBC RBC Hgb Hct MCV MCH MCHC RDW Plt Count MPV Sodium Potassium Chloride Carbon Dioxide Anion Gap BUN Creatinine Creat Clearance w eGFR Random Glucose Calcium Total Bilirubin AST ALT Alkaline Phosphatase Total Protein Albumin Urine Color Urine Appearance Urine pH Ur Specific [place] Urine Protein Urine Glucose (UA) Urine Ketones Urine Blood Urine Nitrite Urine Bilirubin Urine Urobilinogen Ur Leukocyte Esterase RPR Titer Nonreactive HIV 1&2 Antibody Screen Negative HIV P24 Antigen Negative LABS NOTED. Assessment: 05/14/17 12:25 WITHDRAWAL SYMPTOMS. Plan: CONTINUE DETOX. PRN MOM FOR CONSTIPATION. INCREASE DAILY PO FLUID INTAKE.
[2017-05-14] MEDS: chlordiazePOXIDE HCL 10 MG CAPSULE PO SCH ×2 (17:09→22:16)
[2017-05-14] MEDS: THIAMINE HCL 100 MG TABLET (FP) PO SCH (22:16)
[2017-05-14] MEDS: ZOLPIDEM TARTRATE 5 MG TABLET PO PRN (22:17)
[2017-05-15] MEDS: chlordiazePOXIDE HCL 10 MG CAPSULE PO SCH ×2 (05:56→10:06)
[2017-05-15] MEDS: METHADONE HCL 10 MG TABLET PO SCH (05:56)
[2017-05-15 08:53] VITALS: BP 123/81; PULSE 76; TEMP 97.5
[2017-05-15] MEDS: NICOTINE 21 MG/24 HOURS TOPICAL PATCH TD SCH (10:06)
[2017-05-15] MEDS: PRENATAL VITAMINS W/ FOLIC ACID TABLET (FP) PO SCH (10:06)
--- NOTE | 2017-05-15 11:29 | DS ---
[facility] Detox Discharge Summary Admission Date: 05/11/17 Discharge Date: 05/15/17 - History Present History: Alcohol Dependence, Opioid Dependence, MMTP Additional Comments: PATIENT GOING TO [facility] ([place]) FOR AFTERCARE. PATIENT WILL ALSO RETURN TO [facility] FOR AFTERCARE. PATIENT WAS DISCHARGED FROM DETOX UNIT IN STABLE MEDICAL CONDITION. Pertinent Past History: Depression, Nicotine dependence, Bipolar disorder, Low Back Pain, MMTP. - Physical Exam Results Vital Signs: Vital Signs Temperature 97.5 F L 05/15/17 08:52 Pulse Rate 76 05/15/17 08:52 Respiratory Rate 18 05/15/17 08:52 Blood Pressure 123/81 05/15/17 08:52 O2 Sat by Pulse Oximetry (%) Pertinent Admission Physical Exam Findings: WITHDRAWAL SYMPTOMS. Laboratory Tests 05/11/17 05/12/17 05/12/17 19:07 07:30 07:30 WBC 4.9 D RBC 3.89 L Hgb 12.9 Hct 37.9 MCV 97.3 H MCH 33.0 MCHC 33.9 RDW 14.4 D Plt Count 208 MPV 9.2 Sodium 141 Potassium 4.1 Chloride 107 Carbon Dioxide 28 Anion Gap 6 L BUN 10 D Creatinine 0.6 L D Creat Clearance w eGFR > 60 Random Glucose 90 Calcium 8.2 L Total Bilirubin 0.7 AST 15 D ALT 24 D Alkaline Phosphatase 50 D Total Protein 6.4 Albumin 3.3 L D Urine Color Straw Urine Appearance Clear Urine pH 5.0 Ur Specific [place] <= 1.005 Urine Protein Negative Urine Glucose (UA) Negative Urine Ketones Negative Urine Blood Negative Urine Nitrite Negative Urine Bilirubin Negative Urine Urobilinogen Negative Ur Leukocyte Esterase Negative RPR Titer HIV 1&2 Antibody Screen HIV P24 Antigen 05/12/17 05/12/17 07:30 07:30 WBC RBC Hgb Hct MCV MCH MCHC RDW Plt Count MPV Sodium Potassium Chloride Carbon Dioxide Anion Gap BUN Creatinine Creat Clearance w eGFR Random Glucose Calcium Total Bilirubin AST ALT Alkaline Phosphatase Total Protein Albumin Urine Color Urine Appearance Urine pH Ur Specific [place] Urine Protein Urine Glucose (UA) Urine Ketones Urine Blood Urine Nitrite Urine Bilirubin Urine Urobilinogen Ur Leukocyte Esterase RPR Titer Nonreactive HIV 1&2 Antibody Screen Negative HIV P24 Antigen Negative LABS NOTED. - Treatment Hospital Course: Detox Protocol Followed, Detoxed Safely, Responded well, Discharged Condition Good Patient has Accepted a Rehab Referral to: PATIENT GOING TO [facility]CARE. - Diagnosis (1) Alcohol-induced mood disorder Status: Acute (2) Alcohol-induced sleep disorder Status: Acute (3) Opioid dependence on agonist therapy Status: Chronic (4) Alcohol dependence with uncomplicated withdrawal Status: Acute (5) Low back pain Status: Chronic Qualifiers: Chronicity: chronic Back pain laterality: unspecified Sciatica presence: without sciatica Qualified Code(s): M54.5 - Low back pain; M54.5 - Low back pain (6) Methadone maintenance therapy patient Status: Chronic (7) Nicotine dependence Status: Chronic Qualifiers: Nicotine product type: cigarettes Substance use status: in withdrawal Qualified Code(s): F17.213 - Nicotine dependence, cigarettes, with withdrawal; F17.213 - Nicotine dependence, cigarettes, with withdrawal - AMA Did Patient Leave Against Medical Advice: No
== END 2017-05-15 10:29 | disposition home or self-care (01) | DRG 773 ==
LOC: YASAS 13:45 → Y3N 15:12
PROVIDERS: ADMIT Internal Medicine; ATTEND Internal Medicine
PROC: HZ2ZZZZ Detoxification Services for Substance Abuse Treatment (ICD-10-PCS; principal; 2017-05-11)
DX: F10.230 Alcohol dependence with withdrawal, uncomplicated (principal); F10.24 Alcohol dependence with alcohol-induced mood disorder; F10.282 Alcohol dependence with alcohol-induced sleep disorder; F11.20 Opioid dependence, uncomplicated; F17.213 Nicotine dependence, cigarettes, with withdrawal; M54.5 Low back pain; G89.29 Other chronic pain; Z88.0 Allergy status to penicillin; Z91.5 Personal history of self-harm; Z59.0 Homelessness
CPT/HCPCS: 36415; 80053; 81003; 85027; 86593; 87389; 93005; 93010

== ENCOUNTER 2017-06-03 12:24 | Inpatient (IN) | payer OTHER ==
[2017-06-03 15:25] VITALS: BMI 34.7
--- NOTE | 2017-06-03 17:33 | HP ---
Admission ROS [facility] Chief Complaint: REHAB TX FOR ALCOHOL DEPENDENCE Allergies/Adverse Reactions: Allergies Allergy/AdvReac Type Severity Reaction Status Date / Time Penicillins Allergy Severe Rash Verified 06/03/17 15:49 History of Present Illness: 57 Y/O H/M WITH A HX OF ALCOHOL DEPENDENCE AND ON MMTP SEEKING REHAB TX. PT COMPLETED DETOX HERE ON 05/15/17. Exam Limitations: No Limitations - Ebola screening Have you traveled outside of the country in the last 21 days: No Have you had contact with anyone from an Ebola affected area: No Have you been sick,other than usual withdrawal symptoms: No Do you have a fever: No - Review of Systems Constitutional: Chills, Night Sweats, Changes in sleep EENT: reports: Tearing, Nose Congestion, Dental Problems (NO TEETH) Respiratory: reports: No Symptoms reported Cardiac: reports: Lightheadedness GI: reports: Constipated, Diarrhea, Nausea, Poor Fluid Intake, Vomiting : reports: No Symptoms Reported Musculoskeletal: reports: Back Pain, Joint Pain, Muscle Pain Integumentary: reports: No Symptoms Reported Neuro: reports: Headache, Tremors, Dizziness Endocrine: reports: No Symptoms Reported Hematology: reports: No Symptoms Reported Psychiatric: reports: Orientated x3, Anxious, Depressed Other Systems: Reviewed and Negative Patient History - Patient Medical History Hx Anemia: No Hx Asthma: No Hx Chronic Obstructive Pulmonary Disease (COPD): No Hx Cancer: No Hx Cardiac Disorders: No Hx Hypertension: No Hx Hypercholesterolemia: Yes (NO CURRENT MD) Hx Pacemaker: No HX Cerebrovascular Accident: No Hx Seizures: No Hx Dementia: No Hx Diabetes: No Hx Gastrointestinal Disorders: No Hx Liver Disease: No Hx Genitourinary Disorders: No Hx Sexually Transmitted Disorders: No Hx Renal Disease (ESRD): No Hx Thyroid Disease: No Hx Human Immunodeficiency Virus (HIV): No (NEGATIVE HX) Hx Hepatitis C: No Hx Depression: Yes (NO CURRENT MED) Hx Suicide Attempt: Yes (march 2017 tried to jump off an overpass) Hx Bipolar Disorder: Yes Hx Schizophrenia: No (not sure) - Patient Surgical History Past Surgical History: Yes Hx Neurologic Surgery: No Hx Cataract Extraction: No Hx Cardiac Surgery: No Hx Lung Surgery: No Hx Breast Surgery: No Hx Breast Biopsy: No Hx Abdominal Surgery: No Hx Appendectomy: No Hx Cholecystectomy: No Hx Genitourinary Surgery: No Hx Orthopedic Surgery: No Other Surgical History: multiple sx on both ears Anesthesia Reaction: No - PPD History Previous Implant?: Yes Documented Results: Negative w/proof Implanted On Prior [facility] Admission?: No Date: 01/02/17 Results: 0 mm PPD to be Administered?: No - Reproductive History Patient is a Female of Child Bearing Age (11 -55 yrs old): No (MALE) - Smoking Cessation Smoking history: Current every day smoker Have you smoked in the past 12 months: Yes Aproximately how many cigarettes per day: 10 Cigars Per Day: 0 Hx Chewing Tobacco Use: No Initiated information on smoking cessation: Yes 'Breaking Loose' booklet given: 06/03/17 - Substance & Tx. History Hx Alcohol Use: Yes (BEER) Hx Substance Use: No (DENIES) Hx Substance Use Treatment: Yes (LAST TX AT [facility] DETOX) - Substances Abused Alcohol Route: Oral Frequency: Daily Amount used: 6pk beer and up Age of first use: 13 Date of Last Use: 06/03/17 Family Disease History - Family Disease History Family Disease History: Diabetes: Father (living, hx etoh), Brother (three - living - etoh - one with dm), Heart Disease: Sister (four living - etoh), CA: Mother (, hx drugs and etoh), Other: Father, Brother, Sister, Son (two - living -), Daughter (two - living) Admission Physical Exam S - Vital Signs Vital Signs: Vital Signs - 24 hr 06/03/17 15:22 Temperature 98.2 F Pulse Rate 81 Respiratory 20 Rate Blood Pressure 139/81 - Physical General Appearance: Yes: No Apparent Distress, Alcohol on Breath, Anxious HEENTM: Yes: EOMI, Normocephalic, MONIKA, Pharynx Normal Respiratory: Yes: Chest Non-Tender, Lungs Clear, Normal Breath Sounds, No Respiratory Distress Neck: Yes: No masses,lesions,Nodules, Supple, Trachea in good position Breast: Yes: Breast Exam Deferred Cardiology: Yes: Regular Rhythm, Regular Rate, S1, S2 Abdominal: Yes: Normal Bowel Sounds, Non Tender, Protuberent Genitourinary: Yes: Other (N/C) Musculoskeletal: Yes: full range of Motion, Gait Steady Extremities: Yes: Normal Range of Motion, Non-Tender 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 NML intact, Fully Oriented, Alert Integumentary: Yes: Dry, Warm Lymphatic: Yes: Within Normal Limits - Diagnostic (1) Alcohol dependence with uncomplicated withdrawal Current Visit: Yes Status: Chronic (2) Low back pain Current Visit: Yes Status: Chronic Qualifiers: Chronicity: chronic Back pain laterality: unspecified Sciatica presence: without sciatica Qualified Code(s): M54.5 - Low back pain; G89.29 - Other chronic pain; G89.29 - Other chronic pain (3) Methadone maintenance therapy patient Current Visit: Yes Status: Chronic Comment: [facility] , 20mg, brought in bottle, was dosed today (4) Nicotine dependence Current Visit: Yes Status: Acute Qualifiers: Nicotine product type: cigarettes Substance use status: in withdrawal Qualified Code(s): F17.213 - Nicotine dependence, cigarettes, with withdrawal Cleared for Admission [facility] - Detox or Rehab Claeared for Rehab Admission: Yes [facility] Breath Alcohol Content Breath Alcohol Content: 0.013 Urine Drug Screen - Results Drug Screen Negative: No Urine Drug Screen Results: OPI-Opiates, BZO-Benzodiazepines, MTD-Methadone Inpatient Rehab Admission - Initial Determination Are CD services needed?: Yes Free of communicable disease: Yes Not in need of hospitalization: Yes - Rehab Admission Criteria Lacks judgement: Yes Patient is meeting Inpatient Rehab admission criteria:: Yes
[2017-06-03] MEDS ORDERED: MAGNESIUM HYDROX 2400MG/30ML ORAL SUSPENSION 30 ML CUP PO PRN (17:42)
[2017-06-03] MEDS ORDERED: ACETAMINOPHEN 325 MG TABLET (FP) PO PRN (17:42)
[2017-06-03] MEDS ORDERED: MAGNESIUM CITRATE 300 ML BOTTLE PO PRN (17:42)
[2017-06-03] MEDS ORDERED: NICOTINE POLACRILEX 2 MG GUM BC PRN (17:42)
[2017-06-03] MEDS ORDERED: LOPERAMIDE HCL 2 MG CAPSULE PO PRN (17:42)
[2017-06-03] MEDS ORDERED: MENTHOL/PHENOL 1 EACH UD MM PRN (17:42)
[2017-06-03] MEDS ORDERED: guaiFENesin/D-METHORPHAN HB 10 ML UNIT-DOSE CUPS PO PRN (17:42)
[2017-06-03] MEDS ORDERED: IBUPROFEN 400 MG TABLET (FP) PO PRN (17:42)
[2017-06-03] MEDS ORDERED: P-EPHED 60MG/TRIPROLIDI 2.5MG TABLET PO PRN (17:42)
[2017-06-03] MEDS ORDERED: MAG HYDROX/AL HYDROX/SIMETH 30 ML UNIT-DOSE CUP PO PRN (17:42)
[2017-06-03] MEDS: NICOTINE 14 MG/24 HOURS TOPICAL PATCH TD SCH (21:35)
[2017-06-03] MEDS: THIAMINE HCL 100 MG TABLET (FP) PO SCH (21:35)
[2017-06-03] MEDS: hydrOXYzine PAMOATE 25 MG CAPSULE (FP) PO PRN (21:37)
[2017-06-04 01:50] LABS: URINE APPEARANCE CLEAR; URINE BILIRUBIN NEGATIVE (NEGATIVE); URINE BLOOD NEGATIVE (NEGATIVE); URINE COLOR YELLOW; URINE GLUCOSE (UA) NEGATIVE (NEGATIVE); URINE KETONE NEGATIVE (NEGATIVE); URINE NITRITE NEGATIVE (NEGATIVE); URINE PROTEIN NEGATIVE (NEGATIVE); URINE UROBILINOGEN NEGATIVE mg/dL (0.2-1.0)
[2017-06-04] MEDS ORDERED: METHADONE HCL 10 MG TABLET PO ONE (08:10)
[2017-06-04 10:28] LABS: URINE LEUK ESTERASE Negative (NEGATIVE)
[2017-06-04] MEDS ORDERED: METHADONE HCL 10 MG TABLET ONE (10:48)
[2017-06-04] MEDS: PRENATAL VITAMINS W/ FOLIC ACID TABLET (FP) PO SCH (10:49)
[2017-06-04] MEDS: NICOTINE 14 MG/24 HOURS TOPICAL PATCH TD SCH (10:49)
--- NOTE | 2017-06-04 12:31 | EKG ---
Test Reason : Blood Pressure : / mmHG Vent. Rate : 054 BPM Atrial Rate : 054 BPM P-R Int : 166 ms QRS Dur : 138 ms QT Int : 480 ms P-R-T Axes : 057 064 052 degrees QTc Int : 455 ms SINUS BRADYCARDIA BASELINE ARTIFACT RIGHT BUNDLE BRANCH BLOCK ABNORMAL ECG WHEN COMPARED WITH ECG OF 11-MAY-2017 15:48, NO SIGNIFICANT CHANGE WAS FOUND Confirmed by TERRIE JEAN BAPTISTE MD ([id number]) on 06/04/2017 12:30:24 PM Referred By: [facility] Confirmed By:TERRIE JEAN BAPTISTE MD
--- NOTE | 2017-06-04 13:24 | HP ---
Psychiatrist Admission - Data Date of interview: 06/04/17 Admission source: [facility] Identifying data: This is the second [facility] inpatient rehabilitation admission for this 57 year old single male father of 4, currentlyunemployed and homeless. Medical History: Hypertension, Lower back pain, Difficulty hearing in both ears , chronic otitis , smokes cigarettes 10 a day.On MMTP 20 mg/daily at [facility]. Psychiatric History: Patient reports no history of psychiatric hospitalizations , wjile at [facility] on 12/29 he started treatment for severe depression with Lexapro and Abilify, after completion rehab. he did not continued medications and relapsed to drinking, he currently reports feeling depressed and paranoid and willing to restart his medications. Physical/Sexual Abuse/Trauma History: Denies history of physical, sexual and verbal abuse. Vital Signs: Vital Signs - 24 hr 06/03/17 06/03/17 06/04/17 15:22 22:00 00:34 Temperature 98.2 F 98.7 F Pulse Rate 81 67 Respiratory 20 18 18 Rate Blood Pressure 139/81 138/90 06/04/17 06/04/17 03:30 06:52 Temperature 97.9 F Pulse Rate 55 L Respiratory 18 18 Rate Blood Pressure 131/75 Allergies/Adverse Reactions: Allergies Allergy/AdvReac Type Severity Reaction Status Date / Time Penicillins Allergy Severe Rash Verified 06/03/17 15:49 Date of last physical exam: 06/03/17 Concur with the findings of this exam: Yes - Substance Abuse/Tx History Hx Alcohol Use: Yes Hx Substance Use: No Substance Use Type: Alcohol (started drinking at age of 14, daily consumes 6 x 24 oz beer daily) Hx Substance Use Treatment: Yes (several detox/rehab) Mental Status Exam - Mental Status Exam Alert and Oriented to: Time, Place, Person Cognitive Function: Good Patient Appearance: Well Groomed Mood: Depressed, Sad Affect: Appropriate, Mood Congruent Patient Behavior: Appropriate, Cooperative Speech Pattern: Clear, Appropriate Voice Loudness: Normal Thought Process: Intact, Goal Oriented Thought Disorder: Paranoid Ideation ("people talking about, sometimes I think they want to hurt me") Hallucinations: Denies Suicidal Ideation: Denies Homicidal Ideation: Denies Insight/Judgement: Fair Sleep: Fair Appetite: Fair Muscle strength/Tone: Normal Gait/Station: Normal Psychiatric Findings - Problem List ([place] 1, 2,3) (1) Nicotine dependence Current Visit: Yes Status: Acute Qualifiers: Nicotine product type: cigarettes Substance use status: in withdrawal Qualified Code(s): F17.213 - Nicotine dependence, cigarettes, with withdrawal (2) Low back pain Current Visit: Yes Status: Chronic Qualifiers: Chronicity: chronic Back pain laterality: unspecified Sciatica presence: without sciatica Qualified Code(s): M54.5 - Low back pain; G89.29 - Other chronic pain; G89.29 - Other chronic pain (3) Methadone maintenance therapy patient Current Visit: Yes Status: Chronic Comment: [place] [facility] [employer] [facility] in [facility] , 20mg, brought in bottle, was dosed today (4) Chronic otitis externa of both ears Current Visit: No Status: Chronic Qualifiers: Otitis externa type: other infective Qualified Code(s): H60.393 - Other infective otitis externa, bilateral (5) MDD (major depressive disorder), recurrent episode Current Visit: No Status: Chronic (6) Opioid dependence on agonist therapy Current Visit: No Status: Chronic - Initial Treatment Plan Initial Treatment Plan: Will restart Abilify 2 mg daily and Lexapro 10 mg daily , monitor progress as needed.
[2017-06-04 15:30] LABS: ALBUMIN 3.5 g/dl (3.4-5.0); ALK PHOS 49 U/L (45-117); ANION GAP 8 (8-16); BILIRUBIN,TOTAL 0.6 mg/dL (0.2-1.0); CALCIUM 8.7 mg/dL (8.5-10.1); CO2 29 mmol/L (21-32); CREATININE 0.7 mg/dL (0.7-1.3); GLUCOSE,RANDOM 114 mg/dL (74-106); SGOT/AST 21 U/L (15-37); SGPT/ALT 24 U/L (12-78); TOT PROT 6.7 g/dl (6.4-8.2)
[2017-06-04 15:43] LABS: MCH 31.9 pg (25.7-33.7); MCHC 33.1 g/dl (32.0-35.9); MEAN CELL VOLUME 96.3 fl (80-96); MEAN PLT VOLUME 9.7 fl (7.5-11.1); PLATELET COUNT 196 K/MM3 (134-434); RDW 13.7 % (11.9-15.9); WHITE BLOOD COUNT 6.1 K/mm3 (4.0-10.0)
[2017-06-04] MEDS: THIAMINE HCL 100 MG TABLET (FP) PO SCH (21:20)
[2017-06-04] MEDS: hydrOXYzine PAMOATE 25 MG CAPSULE (FP) PO PRN (21:21)
[2017-06-05] MEDS: METHADONE HCL 10 MG TABLET PO SCH (06:20)
[2017-06-05] MEDS: ESCITALOPRAM OXALATE 10 MG TABLET (FP) PO SCH (10:01)
[2017-06-05] MEDS: PRENATAL VITAMINS W/ FOLIC ACID TABLET (FP) PO SCH (10:01)
[2017-06-05] MEDS: ARIPiprazole 2 MG TABLET PO SCH (10:02)
[2017-06-05] MEDS: NICOTINE 14 MG/24 HOURS TOPICAL PATCH TD SCH (10:03)
[2017-06-05] MEDS: hydrOXYzine PAMOATE 25 MG CAPSULE (FP) PO PRN ×2 (15:15→21:30)
[2017-06-05] MEDS: THIAMINE HCL 100 MG TABLET (FP) PO SCH (21:29)
[2017-06-06] MEDS: METHADONE HCL 10 MG TABLET PO SCH (06:24)
[2017-06-06] MEDS: ARIPiprazole 2 MG TABLET PO SCH (09:57)
[2017-06-06] MEDS: PRENATAL VITAMINS W/ FOLIC ACID TABLET (FP) PO SCH (09:57)
[2017-06-06] MEDS: NICOTINE 14 MG/24 HOURS TOPICAL PATCH TD SCH (09:57)
[2017-06-06] MEDS: ESCITALOPRAM OXALATE 10 MG TABLET (FP) PO SCH (09:57)
[2017-06-06] MEDS: hydrOXYzine PAMOATE 25 MG CAPSULE (FP) PO PRN ×2 (09:57→21:24)
[2017-06-06] MEDS: THIAMINE HCL 100 MG TABLET (FP) PO SCH (21:24)
[2017-06-07] MEDS: METHADONE HCL 10 MG TABLET PO SCH (06:12)
[2017-06-07] MEDS: PRENATAL VITAMINS W/ FOLIC ACID TABLET (FP) PO SCH (10:03)
[2017-06-07] MEDS: ESCITALOPRAM OXALATE 10 MG TABLET (FP) PO SCH (10:03)
[2017-06-07] MEDS: ARIPiprazole 2 MG TABLET PO SCH (10:05)
[2017-06-07] MEDS: NICOTINE 14 MG/24 HOURS TOPICAL PATCH TD SCH (10:05)
[2017-06-07] MEDS: hydrOXYzine PAMOATE 25 MG CAPSULE (FP) PO PRN (21:46)
[2017-06-07] MEDS: THIAMINE HCL 100 MG TABLET (FP) PO SCH (21:47)
[2017-06-08] MEDS: METHADONE HCL 10 MG TABLET PO SCH (06:40)
[2017-06-08] MEDS: hydrOXYzine PAMOATE 25 MG CAPSULE (FP) PO PRN ×3 (10:20→21:25)
[2017-06-08] MEDS: ESCITALOPRAM OXALATE 10 MG TABLET (FP) PO SCH (10:20)
[2017-06-08] MEDS: PRENATAL VITAMINS W/ FOLIC ACID TABLET (FP) PO SCH (10:21)
[2017-06-08] MEDS: NICOTINE 14 MG/24 HOURS TOPICAL PATCH TD SCH (10:22)
[2017-06-08] MEDS: ARIPiprazole 2 MG TABLET PO SCH (10:22)
[2017-06-08] MEDS: THIAMINE HCL 100 MG TABLET (FP) PO SCH (21:25)
[2017-06-09] MEDS: METHADONE HCL 10 MG TABLET PO SCH (06:38)
[2017-06-09] MEDS: hydrOXYzine PAMOATE 25 MG CAPSULE (FP) PO PRN ×2 (10:33→21:55)
[2017-06-09] MEDS: ESCITALOPRAM OXALATE 10 MG TABLET (FP) PO SCH (10:33)
[2017-06-09] MEDS: ARIPiprazole 2 MG TABLET PO SCH (10:34)
[2017-06-09] MEDS: NICOTINE 14 MG/24 HOURS TOPICAL PATCH TD SCH (10:34)
[2017-06-09] MEDS: PRENATAL VITAMINS W/ FOLIC ACID TABLET (FP) PO SCH (10:34)
[2017-06-09] MEDS: THIAMINE HCL 100 MG TABLET (FP) PO SCH (21:55)
[2017-06-10] MEDS: METHADONE HCL 10 MG TABLET PO SCH (06:38)
[2017-06-10] MEDS: PRENATAL VITAMINS W/ FOLIC ACID TABLET (FP) PO SCH (10:11)
[2017-06-10] MEDS: ARIPiprazole 2 MG TABLET PO SCH (10:11)
[2017-06-10] MEDS: ESCITALOPRAM OXALATE 10 MG TABLET (FP) PO SCH (10:11)
[2017-06-10] MEDS: NICOTINE 14 MG/24 HOURS TOPICAL PATCH TD SCH (10:12)
[2017-06-10] MEDS: THIAMINE HCL 100 MG TABLET (FP) PO SCH (22:06)
[2017-06-11] MEDS: ESCITALOPRAM OXALATE 10 MG TABLET (FP) PO SCH (10:04)
[2017-06-11] MEDS: PRENATAL VITAMINS W/ FOLIC ACID TABLET (FP) PO SCH (10:04)
[2017-06-11] MEDS: NICOTINE 14 MG/24 HOURS TOPICAL PATCH TD SCH (10:05)
[2017-06-11] MEDS: ARIPiprazole 2 MG TABLET PO SCH (10:05)
[2017-06-11] MEDS: THIAMINE HCL 100 MG TABLET (FP) PO SCH (21:52)
[2017-06-11] MEDS: hydrOXYzine PAMOATE 25 MG CAPSULE (FP) PO PRN (21:52)
[2017-06-12] MEDS: METHADONE HCL 10 MG TABLET PO SCH (06:29)
[2017-06-12] MEDS: PRENATAL VITAMINS W/ FOLIC ACID TABLET (FP) PO SCH (10:07)
[2017-06-12] MEDS: ESCITALOPRAM OXALATE 10 MG TABLET (FP) PO SCH (10:07)
[2017-06-12] MEDS: NICOTINE 14 MG/24 HOURS TOPICAL PATCH TD SCH (10:07)
[2017-06-12] MEDS: hydrOXYzine PAMOATE 25 MG CAPSULE (FP) PO PRN ×2 (10:07→21:37)
[2017-06-12] MEDS: ARIPiprazole 2 MG TABLET PO SCH (10:07)
[2017-06-12] MEDS: THIAMINE HCL 100 MG TABLET (FP) PO SCH (21:37)
[2017-06-13] MEDS: METHADONE HCL 10 MG TABLET PO SCH (06:19)
[2017-06-13] MEDS: NICOTINE 14 MG/24 HOURS TOPICAL PATCH TD SCH (10:20)
[2017-06-13] MEDS: PRENATAL VITAMINS W/ FOLIC ACID TABLET (FP) PO SCH (10:21)
[2017-06-13] MEDS: ESCITALOPRAM OXALATE 10 MG TABLET (FP) PO SCH (10:21)
[2017-06-13] MEDS: ARIPiprazole 2 MG TABLET PO SCH (10:21)
[2017-06-13] MEDS: hydrOXYzine PAMOATE 25 MG CAPSULE (FP) PO PRN (18:02)
[2017-06-13] MEDS: THIAMINE HCL 100 MG TABLET (FP) PO SCH (21:34)
[2017-06-14] MEDS: METHADONE HCL 10 MG TABLET PO SCH (06:22)
[2017-06-14] MEDS: ARIPiprazole 2 MG TABLET PO SCH (10:00)
[2017-06-14] MEDS: PRENATAL VITAMINS W/ FOLIC ACID TABLET (FP) PO SCH (10:00)
[2017-06-14] MEDS: ESCITALOPRAM OXALATE 10 MG TABLET (FP) PO SCH (10:01)
[2017-06-14] MEDS: hydrOXYzine PAMOATE 25 MG CAPSULE (FP) PO PRN ×3 (10:01→21:30)
[2017-06-14] MEDS: NICOTINE 14 MG/24 HOURS TOPICAL PATCH TD SCH (10:01)
[2017-06-14] MEDS: THIAMINE HCL 100 MG TABLET (FP) PO SCH (21:29)
[2017-06-15] MEDS: METHADONE HCL 10 MG TABLET PO SCH (06:29)
[2017-06-15] MEDS: PRENATAL VITAMINS W/ FOLIC ACID TABLET (FP) PO SCH (10:18)
[2017-06-15] MEDS: hydrOXYzine PAMOATE 25 MG CAPSULE (FP) PO PRN (10:18)
[2017-06-15] MEDS: ESCITALOPRAM OXALATE 10 MG TABLET (FP) PO SCH (10:18)
[2017-06-15] MEDS: ARIPiprazole 2 MG TABLET PO SCH (10:18)
[2017-06-15] MEDS: NICOTINE 14 MG/24 HOURS TOPICAL PATCH TD SCH (10:19)
[2017-06-15] MEDS: THIAMINE HCL 100 MG TABLET (FP) PO SCH (22:06)
[2017-06-16] MEDS: METHADONE HCL 10 MG TABLET PO SCH (06:06)
[2017-06-16] MEDS: ESCITALOPRAM OXALATE 10 MG TABLET (FP) PO SCH (10:27)
[2017-06-16] MEDS: PRENATAL VITAMINS W/ FOLIC ACID TABLET (FP) PO SCH (10:27)
[2017-06-16] MEDS: NICOTINE 14 MG/24 HOURS TOPICAL PATCH TD SCH (10:27)
[2017-06-16] MEDS: ARIPiprazole 2 MG TABLET PO SCH (10:27)
[2017-06-16] MEDS: hydrOXYzine PAMOATE 25 MG CAPSULE (FP) PO PRN ×2 (10:28→14:23)
[2017-06-16] MEDS: THIAMINE HCL 100 MG TABLET (FP) PO SCH (21:51)
[2017-06-17] MEDS: METHADONE HCL 10 MG TABLET PO SCH (06:20)
[2017-06-17] MEDS: ARIPiprazole 2 MG TABLET PO SCH (10:49)
[2017-06-17] MEDS: ESCITALOPRAM OXALATE 10 MG TABLET (FP) PO SCH (10:49)
[2017-06-17] MEDS: NICOTINE 14 MG/24 HOURS TOPICAL PATCH TD SCH (10:49)
[2017-06-17] MEDS: PRENATAL VITAMINS W/ FOLIC ACID TABLET (FP) PO SCH (10:49)
[2017-06-17] MEDS: THIAMINE HCL 100 MG TABLET (FP) PO SCH (21:56)
[2017-06-18] MEDS: METHADONE HCL 10 MG TABLET PO SCH (06:02)
[2017-06-18 06:35] VITALS: BP 126/88; PULSE 56; TEMP 98.6
--- NOTE | 2017-06-18 10:28 | PN ---
Psychiatric Progress Note Vital Signs: Vital Signs Period Temp Pulse Resp BP Sys/Easley Pulse Ox Last 24 Hr 98.6 F 56 18-18 126/88 Date of Session: 06/18/17 Chief Complaint:: discharge visit HPI: Patient has addressed alcohol, nicotine dependence , opiod dependence comorbid MDD. ROS: Hypertension, Lower back pain, Difficulty hearing in both ears, chronic otitis medically managed. Current Medications: Active Medications Generic Name Dose Route Start Last Admin Trade Name Freq PRN Reason Stop Dose Admin Acetaminophen 650 mg 06/03/17 17:42 Tylenol - PO Q4H PRN PAIN Al Hydroxide/Mg Hydroxide 30 ml 06/03/17 17:42 Mylanta Oral Suspension - PO Q6H PRN DYSPEPSIA Aripiprazole 2 mg 06/05/17 10:00 06/17/17 10:49 Abilify PO 2 mg DAILY JESUS Administration Escitalopram Oxalate 10 mg 06/05/17 10:00 06/17/17 10:49 Lexapro - PO 10 mg DAILY JESUS Administration Eucalyptus/Menthol/Phenol/Sorbitol 1 each 06/03/17 17:42 Cepastat Lozenge - MM Q4H PRN SORE THROAT Guaifenesin 10 ml 06/03/17 17:42 Robitussin Dm - PO Q6H PRN COUGH Hydroxyzine Pamoate 25 mg 06/03/17 17:42 06/16/17 14:23 Vistaril - PO 25 mg Q4H PRN Administration AGITATION Ibuprofen 400 mg 06/03/17 17:42 06/15/17 17:55 Motrin - PO 400 mg Q6H PRN Administration SEVERE PAIN Loperamide HCl 4 mg 06/03/17 17:42 Imodium - PO Q6H PRN DIARRHEA Magnesium Citrate 300 ml 06/03/17 17:42 Citroma - PO Q48H PRN CONSTIPATION Magnesium Hydroxide 30 ml 06/03/17 17:42 Milk Of Magnesia - PO DAILY PRN CONSTIPATION Methadone HCl 20 mg 06/12/17 06:00 06/18/17 06:02 Dolophine - PO 06/19/17 05:59 20 mg DAILY@0600 JESUS Administration Nicotine 14 mg 06/03/17 17:45 06/17/17 10:49 Nicoderm Patch - TD Not Given DAILY JESUS Nicotine Polacrilex 2 mg 06/03/17 17:42 Nicorette Gum - BC Q2H PRN NICOTINE REPLACEMENT RX Multivit/Folic Acid/Iron 1 tab 06/04/17 10:00 06/17/17 10:49 Vitamins (Sjr) - PO Not Given DAILY JESUS Pseudoephedrine/Triprolidine 1 combo 06/03/17 17:42 Actifed - PO TID PRN NASAL CONGESTION Thiamine HCl 100 mg 06/03/17 22:00 06/17/17 21:56 Vitamin B1 - PO Not Given HS JESUS Current Side Effect: No Lab tests ordered: No Lab tests reviewed: Yes Provider note:: Patient has completed today his treatment and met his goals, will continue to address his issues at [facility]. He focused on importance of changing attitudes for the utilization of supports available, use alternative ways to cope with the stressors to prevent relapses. Patient continue finding Abilify, Lexapro effective, medications well tolerated, scripts provided for 30 days, stable for discharge today. Total face to face time:: 25 Mental Status Exam - Mental Status Exam Alert and Oriented to: Time, Place, Person Cognitive Function: Good Patient Appearance: Well Groomed Mood: Hopeful Affect: Appropriate, Mood Congruent Patient Behavior: Appropriate, Cooperative Speech Pattern: Clear, Appropriate Voice Loudness: Normal Thought Process: Intact, Goal Oriented Thought Disorder: Not Present Hallucinations: Denies Suicidal Ideation: Denies Homicidal Ideation: Denies Insight/Judgement: Fair Sleep: Fair Appetite: Fair Muscle strength/Tone: Normal Gait/Station: Normal Psychiatric Treatment Plan - Problem List (1) Nicotine dependence Current Visit: Yes Qualifiers: Nicotine product type: cigarettes Substance use status: in withdrawal Qualified Code(s): F17.213 - Nicotine dependence, cigarettes, with withdrawal (2) Low back pain Current Visit: Yes Qualifiers: Chronicity: chronic Back pain laterality: unspecified Sciatica presence: without sciatica Qualified Code(s): M54.5 - Low back pain; G89.29 - Other chronic pain; G89.29 - Other chronic pain (3) Methadone maintenance therapy patient Current Visit: Yes Comment: [employer] [employer] [facility] in [facility], 20mg, brought in bottle, was dosed today (4) Chronic otitis externa of both ears Current Visit: No Qualifiers: Otitis externa type: other infective Qualified Code(s): H60.393 - Other infective otitis externa, bilateral (5) MDD (major depressive disorder), recurrent episode Current Visit: No (6) Opioid dependence on agonist therapy Current Visit: No (7) Alcohol dependence Current Visit: Yes
[2017-06-18] MEDS: NICOTINE 14 MG/24 HOURS TOPICAL PATCH TD SCH (10:46)
[2017-06-18] MEDS: PRENATAL VITAMINS W/ FOLIC ACID TABLET (FP) PO SCH (10:46)
[2017-06-18] MEDS: ARIPiprazole 2 MG TABLET PO SCH (10:46)
[2017-06-18] MEDS: ESCITALOPRAM OXALATE 10 MG TABLET (FP) PO SCH (10:46)
[2017-06-18] MEDS: hydrOXYzine PAMOATE 25 MG CAPSULE (FP) PO PRN (10:47)
== END 2017-06-18 11:35 | disposition home or self-care (01) | DRG 772 ==
LOC: YASAS 12:24 → Y5N 18:58
PROVIDERS: ADMIT Psychiatry & Neurology Psychiatry; ATTEND Psychiatry & Neurology Psychiatry
PROC: HZ42ZZZ Group Counseling for Substance Abuse Treatment, Cognitive-Behavioral (ICD-10-PCS; principal; 2017-06-03)
DX: F10.230 Alcohol dependence with withdrawal, uncomplicated (principal); F17.210 Nicotine dependence, cigarettes, uncomplicated; F33.9 Major depressive disorder, recurrent, unspecified; F10.282 Alcohol dependence with alcohol-induced sleep disorder; F19.24 Other psychoactive substance dependence with psychoactive substance-induced mood disorder; M54.5 Low back pain; G89.29 Other chronic pain; L25.9 Unspecified contact dermatitis, unspecified cause; Z59.0 Homelessness
CPT/HCPCS: 36415; 80053; 81003; 85027; 86593; 93005; 93010

== ENCOUNTER 2017-10-26 11:36 | Inpatient (IN) | payer OTHER ==
[2017-10-26 13:40] VITALS: BMI 36.8
--- NOTE | 2017-10-26 17:03 | HP ---
CIWA Score - CIWA Score Nausea/Vomitin Muscle Tremors: 3 Anxiety: 3 Agitation: 3 Paroxysmal Sweats: 2 Orientation: 0-Oriented Tacttile Disturbances: 2-Mild Itch/Numbness/Burn Auditory Disturbances: 2-Mild Harshness/Frighten Visual Disturbances: 1-Very Mild Sensitivity Headache: 2-Mild CIWA-Ar Total Score: 21 Admission ROS BHS - HPI Chief Complaint: i need help to stop drinking alcohol Allergies/Adverse Reactions: Allergies Allergy/AdvReac Type Severity Reaction Status Date / Time Penicillins Allergy Severe Rash Verified 06/03/17 15:49 History of Present Illness: this 57 years old male with alcohol dependence,seeking detox,withdrawal symptom last detox summer time 2016 unknown facility seen at [facility] receiving [facility] methadone program 20 mgs/day,last medicated today,has bottle to take home for tomorrow 20 mgs for suday 10/27/17 surgery for mastoiditis x 3 since 1998,deafness right ear [place] hearing left 50% hypertension bipolar disorder longest period of sobriety 8 months - Ebola screening Have you traveled outside of the country in the last 21 days: No (N) Have you had contact with anyone from an Ebola affected area: No Have you been sick,other than usual withdrawal symptoms: No Do you have a fever: No - Review of Systems Constitutional: Malaise, Night Sweats, Changes in sleep, Weakness EENT: reports: Nose Congestion, Other (deafness of right ear since 1998 hearing loss left 50% since 1998) Respiratory: reports: No Symptoms reported Cardiac: reports: No Symptoms Reported GI: reports: Nausea, Vomiting, Abdominal cramping : reports: No Symptoms Reported Musculoskeletal: reports: Back Pain, Muscle Pain Integumentary: reports: Dryness Neuro: reports: Headache, Tremors Endocrine: reports: No Symptoms Reported Hematology: reports: No Symptoms Reported Psychiatric: reports: No Sypmtoms Reported, Judgement Intact, Mood/Affect Appropiate, Orientated x3, other (bipolar dsorder) Patient History - Patient Medical History Hx Anemia: No Hx Asthma: No Hx Chronic Obstructive Pulmonary Disease (COPD): No Hx Cancer: No Hx Cardiac Disorders: No Hx Hypertension: No Hx Hypercholesterolemia: Yes (NO CURRENT Med) Hx Pacemaker: No HX Cerebrovascular Accident: No Hx Seizures: No Hx Dementia: No Hx Diabetes: No Hx Gastrointestinal Disorders: No Hx Liver Disease: No Hx Genitourinary Disorders: No Hx Sexually Transmitted Disorders: No Hx Renal Disease (ESRD): No Hx Thyroid Disease: No Hx Human Immunodeficiency Virus (HIV): No (NEGATIVE HX last 04/30 negative) Hx Hepatitis C: No Hx Depression: Yes (NO CURRENT MED) Hx Suicide Attempt: Yes (march 2017 tried to jump off an overpass) Hx Bipolar Disorder: Yes Hx Schizophrenia: No (not sure) Other Medical History: n suicidal,no homicidal,deafness of right ear in 1998, demin[place] hearing left - Patient Surgical History Past Surgical History: Yes Hx Neurologic Surgery: No Hx Cataract Extraction: No Hx Cardiac Surgery: No Hx Lung Surgery: No Hx Breast Surgery: No Hx Breast Biopsy: No Hx Abdominal Surgery: No Hx Appendectomy: No Hx Cholecystectomy: No Hx Genitourinary Surgery: No Hx Orthopedic Surgery: No Other Surgical History: multiple sx on rght ear mastoiditis since 1998,deafness right Anesthesia Reaction: No - PPD History Previous Implant?: Yes Documented Results: Negative w/[facility] Yes Date: 01/02/17 Results: 0 mm PPD to be Administered?: No - Smoking Cessation Smoking history: Current every day smoker Have you smoked in the past 12 months: Yes Aproximately how many cigarettes per day: 10 Cigars Per Day: 0 Hx Chewing Tobacco Use: No Initiated information on smoking cessation: Yes 'Breaking Loose' booklet given: 10/26/17 - Substance & Tx. History Hx Alcohol Use: Yes Hx Substance Use: No Substance Use Type: Alcohol Hx Substance Use Treatment: Yes (2017 unknown facility) - Substances Abused Alcohol Route: Oral Frequency: Daily Amount used: 6 packs of 16 oxs of beer Age of first use: 13 Date of Last Use: 10/26/17 Family Disease History - Family Disease History Family Disease History: Diabetes: Father (living, hx etoh), Brother (three - living - etoh - one with dm), Heart Disease: Sister (four living - etoh), CA: Mother (, hx drugs and etoh), Other: Father, Brother, Sister, Son (two - living -), Daughter (two - living) Admission Physical Exam BHS - Vital Signs Vital Signs: Vital Signs - 24 hr 10/26/17 13:39 Temperature 98.9 F Pulse Rate 78 Respiratory 18 Rate Blood Pressure 132/79 - Physical General Appearance: Yes: Moderate Distress, Tremorous, Irritable, Sweating, Anxious HEENTM: Yes: MONIKA (deafness of right ear 50% hearing loss left) Respiratory: Yes: Within Normal Limits, Lungs Clear, Normal Breath Sounds, No Respiratory Distress Neck: Yes: Within Normal Limits, Supple, Trachea in good position Breast: Yes: Within Normal Limits Cardiology: Yes: Within Normal Limits, Regular Rhythm, Regular Rate, S1, S2 Abdominal: Yes: Within Normal Limits, Normal Bowel Sounds, Non Tender, Soft Genitourinary: Yes: Within Normal Limits Musculoskeletal: Yes: Back pain, Muscle Pain Extremities: Yes: Tremors Neurological: Yes: manager administrative II-XII NML intact, Alert, Motor Strength 5/5 Integumentary: Yes: Dry Lymphatic: Yes: Within Normal Limits - Diagnostic (1) Alcohol dependence with uncomplicated withdrawal Current Visit: No Status: Chronic (2) Deafness in right ear Current Visit: Yes Status: Acute (3) Nicotine dependence Current Visit: No Status: Acute Qualifiers: Nicotine product type: cigarettes Substance use status: in withdrawal Qualified Code(s): F17.213 - Nicotine dependence, cigarettes, with withdrawal (4) Methadone maintenance therapy patient Current Visit: No Status: Chronic Comment: [facility], 20mg, brought in bottle, was dosed today (5) Hearing loss, left Current Visit: Yes Status: Acute (6) Bilateral edema of lower extremity Current Visit: Yes Status: Acute (7) Bipolar disorder Current Visit: Yes Status: Acute Cleared for Admission [facility] - Detox or Rehab [facility] Level of Care: Medically Managed Detox Regimen/Protocol: Librium S Breath Alcohol Content Breath Alcohol Content: 0.108 Urine Drug Screen - Results Drug Screen Negative: No Urine Drug Screen Results: OPI-Opiates, BZO-Benzodiazepines, MTD-Methadone
[2017-10-26] MEDS ORDERED: MAG HYDROX/AL HYDROX/SIMETH 30 ML UNIT-DOSE CUP PO PRN (17:31)
[2017-10-26] MEDS ORDERED: chlordiazePOXIDE HCL 25 MG CAPSULE PO PRN (17:31)
[2017-10-26] MEDS ORDERED: chlordiazePOXIDE HCL 25 MG CAPSULE PO ONE (17:31)
[2017-10-26] MEDS ORDERED: P-EPHED 60MG/TRIPROLIDI 2.5MG TABLET PO PRN (17:31)
[2017-10-26] MEDS ORDERED: IBUPROFEN 400 MG TABLET (FP) PO PRN (17:31)
[2017-10-26] MEDS ORDERED: MAGNESIUM CITRATE 300 ML BOTTLE PO PRN (17:31)
[2017-10-26] MEDS ORDERED: MENTHOL/PHENOL 1 EACH UD MM PRN (17:31)
[2017-10-26] MEDS ORDERED: guaiFENesin/D-METHORPHAN HB 10 ML UNIT-DOSE CUPS PO PRN (17:31)
[2017-10-26] MEDS ORDERED: ACETAMINOPHEN 325 MG TABLET (FP) PO PRN (17:31)
[2017-10-26] MEDS ORDERED: LOPERAMIDE HCL 2 MG CAPSULE PO PRN (17:31)
[2017-10-26] MEDS ORDERED: MAGNESIUM HYDROX 2400MG/30ML ORAL SUSPENSION 30 ML CUP PO PRN (17:31)
[2017-10-26] MEDS: NICOTINE 21 MG/24 HOURS TOPICAL PATCH TD SCH (18:55)
[2017-10-26 20:54] LABS: URINE APPEARANCE CLEAR; URINE BILIRUBIN NEGATIVE (<2.0 mg/dL); URINE BLOOD NEGATIVE (NEGATIVE); URINE COLOR STRAW; URINE GLUCOSE (UA) NEGATIVE (NEGATIVE); URINE KETONE NEGATIVE (NEGATIVE); URINE LEUK ESTERASE NEGATIVE (NEGATIVE); URINE NITRITE NEGATIVE (NEGATIVE); URINE PROTEIN NEGATIVE (NEGATIVE); URINE UROBILINOGEN NEGATIVE mg/dL (0.2-1.0)
[2017-10-26] MEDS: THIAMINE HCL 100 MG TABLET (FP) PO SCH (22:37)
[2017-10-26] MEDS: chlordiazePOXIDE HCL 25 MG CAPSULE PO SCH (22:37)
[2017-10-26] MEDS: MELATONIN 5 MG TABLETS PO PRN (22:38)
[2017-10-27] MEDS: chlordiazePOXIDE HCL 25 MG CAPSULE PO SCH ×4 (05:33→22:35)
[2017-10-27] MEDS ORDERED: METHADONE HCL 10 MG TABLET PO ONE (06:00)
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
[2017-10-27] MEDS: PRENATAL VITAMINS W/ FOLIC ACID TABLET (FP) PO SCH (09:56)
[2017-10-27] MEDS: hydrOXYzine PAMOATE 50 MG CAPSULE (FP) PO PRN (09:56)
[2017-10-27 10:35] LABS: HEMATOCRIT 36.5 % (35.4-49); HEMOGLOBIN 12.3 GM/dL (11.7-16.9); MCH 32.1 pg (25.7-33.7); MCHC 33.6 g/dl (32.0-35.9); MEAN CELL VOLUME 95.6 fl (80-96); MEAN PLT VOLUME 8.9 fl (7.5-11.1); PLATELET COUNT 259 K/MM3 (134-434); RBC 3.82 M/mm3 (4.00-5.60); RDW 15.1 % (11.9-15.9); WHITE BLOOD COUNT 5.5 K/mm3 (4.0-10.0)
[2017-10-27 10:47] LABS: ANION GAP 2 (8-16); BLOOD UREA NITROGEN 8 mg/dL (7-18); CHLORIDE 109 mmol/L (98-107); CO2 29 mmol/L (21-32); GLUCOSE,RANDOM 85 mg/dL (74-106); POTASSIUM 4.7 mmol/L (3.5-5.1); SODIUM 140 mmol/L (136-145)
[2017-10-27 10:53] LABS: ALK PHOS 55 U/L (45-117); BILIRUBIN,TOTAL 0.3 mg/dL (0.2-1.0); CREATININE 0.5 mg/dL (0.7-1.3); SGOT/AST 14 U/L (15-37); SGPT/ALT 14 U/L (12-78); TOT PROT 6.3 g/dl (6.4-8.2)
--- NOTE | 2017-10-27 12:39 | PN ---
S CIWA - CIWA Score Nausea/Vomitin-Mild Nausea/No Vomiting Muscle Tremors: 4-Moderate,w/Arms Extend Anxiety: 4-Mod. Anxious/Guarded Agitation: 4-Moderately Restless Paroxysmal Sweats: 1-Minimal Palms Moist Orientation: 0-Oriented Tacttile Disturbances: 1-Very Mild Itch/Numbness Auditory Disturbances: 0-None Visual Disturbances: 0-None Headache: 1-Very Mild CIWA-Ar Total Score: 16 BHS Progress Note (SOAP) Subjective: sweat tremor gi distress anxiety restlessness Objective: 10/27/17 12:38 Vital Signs Temperature 97.7 F 10/27/17 12:04 Pulse Rate 72 10/27/17 12:04 Respiratory Rate 20 10/27/17 12:04 Blood Pressure 137/72 10/27/17 12:04 O2 Sat by Pulse Oximetry (%) Laboratory Last Values WBC 5.5 K/mm3 (4.0-10.0) 10/27/17 07:30 RBC 3.82 M/mm3 (4.00-5.60) L 10/27/17 07:30 Hgb 12.3 GM/dL (11.7-16.9) 10/27/17 07:30 Hct 36.5 % (35.4-49) 10/27/17 07:30 MCV 95.6 fl (80-96) 10/27/17 07:30 MCH 32.1 pg (25.7-33.7) 10/27/17 07:30 MCHC 33.6 g/dl (32.0-35.9) 10/27/17 07:30 RDW 15.1 % (11.9-15.9) D 10/27/17 07:30 Plt Count 259 K/MM3 (134-434) D 10/27/17 07:30 MPV 8.9 fl (7.5-11.1) 10/27/17 07:30 Sodium 140 mmol/L (136-145) 10/27/17 07:30 Potassium 4.7 mmol/L (3.5-5.1) D 10/27/17 07:30 Chloride 109 mmol/L (98-107) H 10/27/17 07:30 Carbon Dioxide 29 mmol/L (21-32) 10/27/17 07:30 Anion Gap 2 (8-16) L 10/27/17 07:30 BUN 8 mg/dL (7-18) 10/27/17 07:30 Creatinine 0.5 mg/dL (0.7-1.3) L D 10/27/17 07:30 Creat Clearance w eGFR > 60 (>60) 10/27/17 07:30 Random Glucose 85 mg/dL (74-106) D 10/27/17 07:30 Calcium 8.0 mg/dL (8.5-10.1) L 10/27/17 07:30 Total Bilirubin 0.3 mg/dL (0.2-1.0) D 10/27/17 07:30 AST 14 U/L (15-37) L D 10/27/17 07:30 ALT 14 U/L (12-78) D 10/27/17 07:30 Alkaline Phosphatase 55 U/L (45-117) 10/27/17 07:30 Total Protein 6.3 g/dl (6.4-8.2) L 10/27/17 07:30 Albumin 3.0 g/dl (3.4-5.0) L 10/27/17 07:30 Urine Color Straw 10/26/17 20:40 Urine Appearance Clear 10/26/17 20:40 Urine pH 5.0 (5.0-8.0) 10/26/17 20:40 Ur Specific [place] 1.006 (1.001-1.035) 10/26/17 20:40 Urine Protein Negative (NEGATIVE) 10/26/17 20:40 Urine Glucose (UA) Negative (NEGATIVE) 10/26/17 20:40 Urine Ketones Negative (NEGATIVE) 10/26/17 20:40 Urine Blood Negative (NEGATIVE) 10/26/17 20:40 Urine Nitrite Negative (NEGATIVE) 10/26/17 20:40 Urine Bilirubin Negative (<2.0 mg/dL) 10/26/17 20:40 Urine Urobilinogen Negative mg/dL (0.2-1.0) 10/26/17 20:40 Ur Leukocyte Esterase Negative (NEGATIVE) 10/26/17 20:40 RPR Titer Nonreactive (NONREACTIVE) 10/27/17 07:30 lab noted Assessment: 10/27/17 12:38 withdrawal sx Plan: continue detox
[2017-10-27] MEDS: NICOTINE 21 MG/24 HOURS TOPICAL PATCH TD SCH (13:21)
[2017-10-27] MEDS ORDERED: ZOLPIDEM TARTRATE 5 MG TABLET PO PRN (22:00)
[2017-10-27] MEDS: THIAMINE HCL 100 MG TABLET (FP) PO SCH (22:35)
[2017-10-28] MEDS: chlordiazePOXIDE HCL 25 MG CAPSULE PO SCH ×3 (06:26→17:57)
[2017-10-28] MEDS: PRENATAL VITAMINS W/ FOLIC ACID TABLET (FP) PO SCH (10:26)
[2017-10-28] MEDS: NICOTINE 21 MG/24 HOURS TOPICAL PATCH TD SCH (10:27)
[2017-10-28] MEDS: METHADONE HCL 10 MG TABLET PO SCH (10:27)
--- NOTE | 2017-10-28 10:36 | PN ---
S CIWA - CIWA Score Nausea/Vomitin Muscle Tremors: 3 Anxiety: 3 Agitation: 2 Paroxysmal Sweats: 1-Minimal Palms Moist Orientation: 0-Oriented Tacttile Disturbances: 1-Very Mild Itch/Numbness Auditory Disturbances: 1-Very Mild Visual Disturbances: 0-None Headache: 2-Mild CIWA-Ar Total Score: 16 BHS Progress Note (SOAP) Subjective: ALERT,IRRITABLE,ANXIOUS,INTERRUPTED SLEEP,TREMOR Objective: 10/28/17 10:34 Vital Signs Temperature 97.7 F 10/28/17 10:13 Pulse Rate 65 10/28/17 10:13 Respiratory Rate 18 10/28/17 10:13 Blood Pressure 124/81 10/28/17 10:13 O2 Sat by Pulse Oximetry (%) Laboratory Last Values WBC 5.5 K/mm3 (4.0-10.0) 10/27/17 07:30 RBC 3.82 M/mm3 (4.00-5.60) L 10/27/17 07:30 Hgb 12.3 GM/dL (11.7-16.9) 10/27/17 07:30 Hct 36.5 % (35.4-49) 10/27/17 07:30 MCV 95.6 fl (80-96) 10/27/17 07:30 MCH 32.1 pg (25.7-33.7) 10/27/17 07:30 MCHC 33.6 g/dl (32.0-35.9) 10/27/17 07:30 RDW 15.1 % (11.9-15.9) D 10/27/17 07:30 Plt Count 259 K/MM3 (134-434) D 10/27/17 07:30 MPV 8.9 fl (7.5-11.1) 10/27/17 07:30 Sodium 140 mmol/L (136-145) 10/27/17 07:30 Potassium 4.7 mmol/L (3.5-5.1) D 10/27/17 07:30 Chloride 109 mmol/L (98-107) H 10/27/17 07:30 Carbon Dioxide 29 mmol/L (21-32) 10/27/17 07:30 Anion Gap 2 (8-16) L 10/27/17 07:30 BUN 8 mg/dL (7-18) 10/27/17 07:30 Creatinine 0.5 mg/dL (0.7-1.3) L D 10/27/17 07:30 Creat Clearance w eGFR > 60 (>60) 10/27/17 07:30 Random Glucose 85 mg/dL (74-106) D 10/27/17 07:30 Calcium 8.0 mg/dL (8.5-10.1) L 10/27/17 07:30 Total Bilirubin 0.3 mg/dL (0.2-1.0) D 10/27/17 07:30 AST 14 U/L (15-37) L D 10/27/17 07:30 ALT 14 U/L (12-78) D 10/27/17 07:30 Alkaline Phosphatase 55 U/L (45-117) 10/27/17 07:30 Total Protein 6.3 g/dl (6.4-8.2) L 10/27/17 07:30 Albumin 3.0 g/dl (3.4-5.0) L 10/27/17 07:30 Urine Color Straw 10/26/17 20:40 Urine Appearance Clear 10/26/17 20:40 Urine pH 5.0 (5.0-8.0) 10/26/17 20:40 Ur Specific [place] 1.006 (1.001-1.035) 10/26/17 20:40 Urine Protein Negative (NEGATIVE) 10/26/17 20:40 Urine Glucose (UA) Negative (NEGATIVE) 10/26/17 20:40 Urine Ketones Negative (NEGATIVE) 10/26/17 20:40 Urine Blood Negative (NEGATIVE) 10/26/17 20:40 Urine Nitrite Negative (NEGATIVE) 10/26/17 20:40 Urine Bilirubin Negative (<2.0 mg/dL) 10/26/17 20:40 Urine Urobilinogen Negative mg/dL (0.2-1.0) 10/26/17 20:40 Ur Leukocyte Esterase Negative (NEGATIVE) 10/26/17 20:40 RPR Titer Nonreactive (NONREACTIVE) 10/27/17 07:30 Assessment: 10/28/17 10:35 WITHDRAWAL SYMPTOM Plan: CONTINUE DETOX
--- NOTE | 2017-10-28 12:41 | EKG ---
Test Reason : Blood Pressure : / mmHG Vent. Rate : 070 BPM Atrial Rate : 070 BPM P-R Int : 148 ms QRS Dur : 142 ms QT Int : 418 ms P-R-T Axes : 064 067 059 degrees QTc Int : 451 ms NORMAL SINUS RHYTHM RIGHT BUNDLE BRANCH BLOCK ABNORMAL ECG WHEN COMPARED WITH ECG OF 04-JUN-2017 07:38, NO SIGNIFICANT CHANGE WAS FOUND Confirmed by GIORGI MEREDITH MD ([id number]) on 10/28/2017 12:40:49 PM Referred By: Confirmed By:GIORGI MEREDITH MD
[2017-10-28] MEDS: THIAMINE HCL 100 MG TABLET (FP) PO SCH (22:29)
[2017-10-28] MEDS: chlordiazePOXIDE 5 MG CAPSULE PO SCH (22:30)
[2017-10-28] MEDS: MELATONIN 5 MG TABLETS PO PRN (22:30)
[2017-10-29] MEDS: METHADONE HCL 10 MG TABLET PO SCH (05:41)
[2017-10-29] MEDS: chlordiazePOXIDE 5 MG CAPSULE PO SCH ×3 (05:41→18:07)
[2017-10-29] MEDS: hydrOXYzine PAMOATE 50 MG CAPSULE (FP) PO PRN (10:40)
[2017-10-29] MEDS: PRENATAL VITAMINS W/ FOLIC ACID TABLET (FP) PO SCH (10:40)
[2017-10-29] MEDS: NICOTINE 21 MG/24 HOURS TOPICAL PATCH TD SCH (10:41)
--- NOTE | 2017-10-29 13:17 | PN ---
BHS Progress Note (SOAP) Subjective: feeling better less sweat no tremor slept through the night Objective: 10/29/17 13:15 Vital Signs Temperature 98.8 F 10/29/17 10:16 Pulse Rate 66 10/29/17 10:16 Respiratory Rate 18 10/29/17 10:16 Blood Pressure 141/79 10/29/17 10:16 O2 Sat by Pulse Oximetry (%) Laboratory Last Values WBC 5.5 K/mm3 (4.0-10.0) 10/27/17 07:30 RBC 3.82 M/mm3 (4.00-5.60) L 10/27/17 07:30 Hgb 12.3 GM/dL (11.7-16.9) 10/27/17 07:30 Hct 36.5 % (35.4-49) 10/27/17 07:30 MCV 95.6 fl (80-96) 10/27/17 07:30 MCH 32.1 pg (25.7-33.7) 10/27/17 07:30 MCHC 33.6 g/dl (32.0-35.9) 10/27/17 07:30 RDW 15.1 % (11.9-15.9) D 10/27/17 07:30 Plt Count 259 K/MM3 (134-434) D 10/27/17 07:30 MPV 8.9 fl (7.5-11.1) 10/27/17 07:30 Sodium 140 mmol/L (136-145) 10/27/17 07:30 Potassium 4.7 mmol/L (3.5-5.1) D 10/27/17 07:30 Chloride 109 mmol/L (98-107) H 10/27/17 07:30 Carbon Dioxide 29 mmol/L (21-32) 10/27/17 07:30 Anion Gap 2 (8-16) L 10/27/17 07:30 BUN 8 mg/dL (7-18) 10/27/17 07:30 Creatinine 0.5 mg/dL (0.7-1.3) L D 10/27/17 07:30 Creat Clearance w eGFR > 60 (>60) 10/27/17 07:30 Random Glucose 85 mg/dL (74-106) D 10/27/17 07:30 Calcium 8.0 mg/dL (8.5-10.1) L 10/27/17 07:30 Total Bilirubin 0.3 mg/dL (0.2-1.0) D 10/27/17 07:30 AST 14 U/L (15-37) L D 10/27/17 07:30 ALT 14 U/L (12-78) D 10/27/17 07:30 Alkaline Phosphatase 55 U/L (45-117) 10/27/17 07:30 Total Protein 6.3 g/dl (6.4-8.2) L 10/27/17 07:30 Albumin 3.0 g/dl (3.4-5.0) L 10/27/17 07:30 Urine Color Straw 10/26/17 20:40 Urine Appearance Clear 10/26/17 20:40 Urine pH 5.0 (5.0-8.0) 10/26/17 20:40 Ur Specific [place] 1.006 (1.001-1.035) 10/26/17 20:40 Urine Protein Negative (NEGATIVE) 10/26/17 20:40 Urine Glucose (UA) Negative (NEGATIVE) 10/26/17 20:40 Urine Ketones Negative (NEGATIVE) 10/26/17 20:40 Urine Blood Negative (NEGATIVE) 10/26/17 20:40 Urine Nitrite Negative (NEGATIVE) 10/26/17 20:40 Urine Bilirubin Negative (<2.0 mg/dL) 10/26/17 20:40 Urine Urobilinogen Negative mg/dL (0.2-1.0) 10/26/17 20:40 Ur Leukocyte Esterase Negative (NEGATIVE) 10/26/17 20:40 RPR Titer Nonreactive (NONREACTIVE) 10/27/17 07:30 lab noted Assessment: 10/29/17 13:16 mild withdrawal sx Plan: medically supervised detox
[2017-10-29] MEDS: chlordiazePOXIDE HCL 10 MG CAPSULE PO SCH (22:16)
[2017-10-29] MEDS: THIAMINE HCL 100 MG TABLET (FP) PO SCH (22:16)
[2017-10-29] MEDS: MELATONIN 5 MG TABLETS PO PRN (22:17)
[2017-10-30] MEDS: METHADONE HCL 10 MG TABLET PO SCH (06:20)
[2017-10-30] MEDS: chlordiazePOXIDE HCL 10 MG CAPSULE PO SCH ×2 (06:20→10:35)
--- NOTE | 2017-10-30 08:50 | DS ---
[facility] Detox Discharge Summary Admission Date: 10/26/17 Discharge Date: 10/30/17 - History Present History: Alcohol Dependence Additional Comments: 57 years old male admitted on 10/26/17 for alcohol detox completed alcohol detox regimen tolerated well denies alcohol withdrawal sx patient is alert oriented x 3 no acute distress denies suicidal denies homocidal no self destructive behavior wants to [facility] as per counselor arranged health teaching on benefit of healthy life style and stress coping - Physical Exam Results Vital Signs: Vital Signs Temperature 97.7 F 10/30/17 06:00 Pulse Rate 55 L 10/30/17 06:00 Respiratory Rate 18 10/30/17 06:00 Blood Pressure 102/56 10/30/17 06:00 O2 Sat by Pulse Oximetry (%) Pertinent Admission Physical Exam Findings: withdrawal sx Vital Signs Temperature 97.7 F 10/30/17 06:00 Pulse Rate 55 L 10/30/17 06:00 Respiratory Rate 18 10/30/17 06:00 Blood Pressure 102/56 10/30/17 06:00 O2 Sat by Pulse Oximetry (%) Laboratory Last Values WBC 5.5 K/mm3 (4.0-10.0) 10/27/17 07:30 RBC 3.82 M/mm3 (4.00-5.60) L 10/27/17 07:30 Hgb 12.3 GM/dL (11.7-16.9) 10/27/17 07:30 Hct 36.5 % (35.4-49) 10/27/17 07:30 MCV 95.6 fl (80-96) 10/27/17 07:30 MCH 32.1 pg (25.7-33.7) 10/27/17 07:30 MCHC 33.6 g/dl (32.0-35.9) 10/27/17 07:30 RDW 15.1 % (11.9-15.9) D 10/27/17 07:30 Plt Count 259 K/MM3 (134-434) D 10/27/17 07:30 MPV 8.9 fl (7.5-11.1) 10/27/17 07:30 Sodium 140 mmol/L (136-145) 10/27/17 07:30 Potassium 4.7 mmol/L (3.5-5.1) D 10/27/17 07:30 Chloride 109 mmol/L (98-107) H 10/27/17 07:30 Carbon Dioxide 29 mmol/L (21-32) 10/27/17 07:30 Anion Gap 2 (8-16) L 10/27/17 07:30 BUN 8 mg/dL (7-18) 10/27/17 07:30 Creatinine 0.5 mg/dL (0.7-1.3) L D 10/27/17 07:30 Creat Clearance w eGFR > 60 (>60) 10/27/17 07:30 Random Glucose 85 mg/dL (74-106) D 10/27/17 07:30 Calcium 8.0 mg/dL (8.5-10.1) L 10/27/17 07:30 Total Bilirubin 0.3 mg/dL (0.2-1.0) D 10/27/17 07:30 AST 14 U/L (15-37) L D 10/27/17 07:30 ALT 14 U/L (12-78) D 10/27/17 07:30 Alkaline Phosphatase 55 U/L (45-117) 10/27/17 07:30 Total Protein 6.3 g/dl (6.4-8.2) L 10/27/17 07:30 Albumin 3.0 g/dl (3.4-5.0) L 10/27/17 07:30 Urine Color Straw 10/26/17 20:40 Urine Appearance Clear 10/26/17 20:40 Urine pH 5.0 (5.0-8.0) 10/26/17 20:40 Ur Specific [place] 1.006 (1.001-1.035) 10/26/17 20:40 Urine Protein Negative (NEGATIVE) 10/26/17 20:40 Urine Glucose (UA) Negative (NEGATIVE) 10/26/17 20:40 Urine Ketones Negative (NEGATIVE) 10/26/17 20:40 Urine Blood Negative (NEGATIVE) 10/26/17 20:40 Urine Nitrite Negative (NEGATIVE) 10/26/17 20:40 Urine Bilirubin Negative (<2.0 mg/dL) 10/26/17 20:40 Urine Urobilinogen Negative mg/dL (0.2-1.0) 10/26/17 20:40 Ur Leukocyte Esterase Negative (NEGATIVE) 10/26/17 20:40 RPR Titer Nonreactive (NONREACTIVE) 10/27/17 07:30 lab noted - Treatment Hospital Course: Detox Protocol Followed, Detoxed Safely, Responded well, Discharged Condition Good, Rehab Referral Accepted Patient has Accepted a Rehab Referral to: [facility] - Medication Discharge Medications: Ambulatory Orders Aripiprazole [Abilify -] 2 mg PO DAILY #30 tablet 06/18/17 Escitalopram Oxalate [Lexapro -] 10 mg PO DAILY #30 tablet 06/18/17 Methadone [Dolophine -] 20 mg PO DAILY 10/30/17 - Diagnosis (1) Nicotine dependence Current Visit: Yes Status: Acute Qualifiers: Nicotine product type: cigarettes Substance use status: in withdrawal Qualified Code(s): F17.213 - Nicotine dependence, cigarettes, with withdrawal (2) Alcohol dependence with uncomplicated withdrawal Current Visit: Yes Status: Acute (3) Methadone maintenance therapy patient Current Visit: Yes Status: Chronic - AMA Did Patient Leave Against Medical Advice: No
[2017-10-30 10:31] VITALS: BP 136/75; PULSE 85; TEMP 97.9
[2017-10-30] MEDS: NICOTINE 21 MG/24 HOURS TOPICAL PATCH TD SCH (10:33)
[2017-10-30] MEDS: PRENATAL VITAMINS W/ FOLIC ACID TABLET (FP) PO SCH (10:35)
== END 2017-10-30 12:40 | disposition other institution (70) | DRG 773 ==
LOC: YASAS 11:36 → Y6N 16:29
PROVIDERS: ADMIT Internal Medicine; ATTEND Internal Medicine
PROC: HZ2ZZZZ Detoxification Services for Substance Abuse Treatment (ICD-10-PCS; principal; 2017-10-26)
PROC: HZ2ZZZZ Detoxification Services for Substance Abuse Treatment (ICD-10-PCS; 2017-10-26)
DX: F11.20 Opioid dependence, uncomplicated (principal); F10.230 Alcohol dependence with withdrawal, uncomplicated; F17.213 Nicotine dependence, cigarettes, with withdrawal; F10.980 Alcohol use, unspecified with alcohol-induced anxiety disorder; F10.982 Alcohol use, unspecified with alcohol-induced sleep disorder; F31.9 Bipolar disorder, unspecified; R60.0 Localized edema; I10 Essential (primary) hypertension; H91.93 Unspecified hearing loss, bilateral; H60.393 Other infective otitis externa, bilateral; M54.5 Low back pain; Z91.5 Personal history of self-harm; Z59.0 Homelessness; Z88.0 Allergy status to penicillin
CPT/HCPCS: 36415; 80053; 81003; 85027; 86593; 93005; 93010

== ENCOUNTER 2017-10-30 12:56 | Inpatient (IN) | payer OTHER ==
[2017-10-30 14:07] VITALS: BMI 36.5
[2017-10-30] MEDS ORDERED: MAG HYDROX/AL HYDROX/SIMETH 30 ML UNIT-DOSE CUP PO PRN (14:16)
[2017-10-30] MEDS ORDERED: MAGNESIUM HYDROX 2400MG/30ML ORAL SUSPENSION 30 ML CUP PO PRN (14:16)
[2017-10-30] MEDS ORDERED: MAGNESIUM CITRATE 300 ML BOTTLE PO PRN (14:16)
[2017-10-30] MEDS ORDERED: LOPERAMIDE HCL 2 MG CAPSULE PO PRN (14:16)
[2017-10-30] MEDS ORDERED: ACETAMINOPHEN 325 MG TABLET (FP) PO PRN (14:16)
[2017-10-30] MEDS ORDERED: MENTHOL/PHENOL 1 EACH UD MM PRN (14:16)
[2017-10-30] MEDS ORDERED: P-EPHED 60MG/TRIPROLIDI 2.5MG TABLET PO PRN (14:16)
[2017-10-30] MEDS ORDERED: guaiFENesin/D-METHORPHAN HB 10 ML UNIT-DOSE CUPS PO PRN (14:16)
[2017-10-30] MEDS: THIAMINE HCL 100 MG TABLET (FP) PO SCH (21:40)
[2017-10-30] MEDS: MELATONIN 5 MG TABLETS PO PRN (21:40)
[2017-10-31] MEDS: METHADONE HCL 10 MG TABLET PO SCH (06:23)
[2017-10-31] MEDS: PRENATAL VITAMINS W/ FOLIC ACID TABLET (FP) PO SCH (10:32)
--- NOTE | 2017-10-31 13:55 | HP ---
Psychiatrist Admission - Data Date of interview: 10/31/17 Admission source: [facility] Identifying data: This is one of the several [facility] inpatient rehabilitation admission for this 57 years old single male, father of 4 children, unemployed and homeless. Medical History: Hypertension, Lower back pain, Difficulty hearing in both ears , chronic otitis , smokes cigarettes 10 a day.[facility].Smokes cigarettes 1/2 PPD. Psychiatric History: Patient denies history of psychiatric hospitalizations, reports was in the treatment for depression in outpatient setting, states first contact with a psychiatrist about 30 years ago. He was treated for severe depression with Lexapro 10 mg po daily and Abilify 2 mg po daily while at [facility] summer of last year, non-scompliant with aftecare and medications, reports he wants to restart treatment feels that medications were effective. Vital Signs: Vital Signs - 24 hr 10/30/17 10/30/17 10/31/17 14:05 14:07 00:40 Temperature 99.0 F 99.0 F Pulse Rate 70 70 Respiratory 20 20 18 Rate Blood Pressure 124/78 124/78 10/31/17 06:57 Temperature 97.8 F Pulse Rate 56 L Respiratory 18 Rate Blood Pressure 115/73 Allergies/Adverse Reactions: Allergies Allergy/AdvReac Type Severity Reaction Status Date / Time Penicillins Allergy Severe Rash Verified 06/03/17 15:49 Date of last physical exam: 10/27/17 Concur with the findings of this exam: Yes - Substance Abuse/Tx History Hx Alcohol Use: Yes (started drinking at age of 13, daily 6 x 16 oz of beer) Hx Substance Use: No Hx Substance Use Treatment: Yes (several detox/rehab. tx.) Mental Status Exam - Mental Status Exam Alert and Oriented to: Time, Place, Person Cognitive Function: Good Patient Appearance: Well Groomed Mood: Depressed, Sad, Anxious Affect: Appropriate, Mood Congruent Patient Behavior: Appropriate, Cooperative Speech Pattern: Clear, Appropriate Voice Loudness: Normal Thought Process: Intact, Goal Oriented Thought Disorder: Not Present Hallucinations: Denies Suicidal Ideation: Denies Homicidal Ideation: Denies Insight/Judgement: Fair Sleep: Fair Appetite: Fair Muscle strength/Tone: Normal Gait/Station: Normal Psychiatric Findings - Problem List ([place] 1, 2,3) (1) Alcohol dependence Current Visit: No Status: Acute (2) Nicotine dependence Current Visit: No Status: Acute Qualifiers: Nicotine product type: cigarettes Substance use status: in withdrawal Qualified Code(s): F17.213 - Nicotine dependence, cigarettes, with withdrawal (3) MDD (major depressive disorder), recurrent episode Current Visit: No Status: Chronic (4) Opioid dependence Current Visit: No Status: Chronic (5) Opioid dependence on agonist therapy Current Visit: No Status: Chronic - Initial Treatment Plan Initial Treatment Plan: will restart his medications, monitor progress as needed.
[2017-10-31] MEDS: hydrOXYzine PAMOATE 50 MG CAPSULE (FP) PO PRN (16:57)
[2017-10-31] MEDS: MELATONIN 5 MG TABLETS PO PRN (21:48)
[2017-10-31] MEDS: THIAMINE HCL 100 MG TABLET (FP) PO SCH (21:48)
[2017-11-01] MEDS: METHADONE HCL 10 MG TABLET PO SCH (06:07)
[2017-11-01] MEDS: ARIPiprazole 2 MG TABLET PO SCH (10:12)
[2017-11-01] MEDS: PRENATAL VITAMINS W/ FOLIC ACID TABLET (FP) PO SCH (10:13)
[2017-11-01] MEDS: ESCITALOPRAM OXALATE 10 MG TABLET (FP) PO SCH (10:13)
[2017-11-01] MEDS: IBUPROFEN 400 MG TABLET (FP) PO PRN (12:44)
[2017-11-01] MEDS: MELATONIN 5 MG TABLETS PO PRN (21:42)
[2017-11-01] MEDS: THIAMINE HCL 100 MG TABLET (FP) PO SCH (21:42)
[2017-11-02] MEDS: METHADONE HCL 10 MG TABLET PO SCH (06:18)
[2017-11-02] MEDS: ARIPiprazole 2 MG TABLET PO SCH (10:09)
[2017-11-02] MEDS: PRENATAL VITAMINS W/ FOLIC ACID TABLET (FP) PO SCH (10:09)
[2017-11-02] MEDS: ESCITALOPRAM OXALATE 10 MG TABLET (FP) PO SCH (10:09)
[2017-11-02] MEDS: IBUPROFEN 400 MG TABLET (FP) PO PRN (14:17)
[2017-11-02] MEDS: THIAMINE HCL 100 MG TABLET (FP) PO SCH (21:41)
[2017-11-02] MEDS: MELATONIN 5 MG TABLETS PO PRN (21:41)
[2017-11-03] MEDS: METHADONE HCL 10 MG TABLET PO SCH (06:44)
[2017-11-03] MEDS: PRENATAL VITAMINS W/ FOLIC ACID TABLET (FP) PO SCH (10:16)
[2017-11-03] MEDS: ESCITALOPRAM OXALATE 10 MG TABLET (FP) PO SCH (10:16)
[2017-11-03] MEDS: ARIPiprazole 2 MG TABLET PO SCH (10:16)
[2017-11-03] MEDS: THIAMINE HCL 100 MG TABLET (FP) PO SCH (21:16)
[2017-11-03] MEDS: MELATONIN 5 MG TABLETS PO PRN (21:16)
[2017-11-04] MEDS: METHADONE HCL 10 MG TABLET PO SCH (06:14)
[2017-11-04] MEDS: ESCITALOPRAM OXALATE 10 MG TABLET (FP) PO SCH (09:49)
[2017-11-04] MEDS: ARIPiprazole 2 MG TABLET PO SCH (09:49)
[2017-11-04] MEDS: PRENATAL VITAMINS W/ FOLIC ACID TABLET (FP) PO SCH (09:49)
[2017-11-04] MEDS: MELATONIN 5 MG TABLETS PO PRN (21:47)
[2017-11-04] MEDS: THIAMINE HCL 100 MG TABLET (FP) PO SCH (21:47)
[2017-11-05] MEDS: METHADONE HCL 10 MG TABLET PO SCH (06:03)
[2017-11-05] MEDS: ESCITALOPRAM OXALATE 10 MG TABLET (FP) PO SCH (10:32)
[2017-11-05] MEDS: ARIPiprazole 2 MG TABLET PO SCH (10:32)
[2017-11-05] MEDS: PRENATAL VITAMINS W/ FOLIC ACID TABLET (FP) PO SCH (10:32)
[2017-11-05] MEDS: hydrOXYzine PAMOATE 50 MG CAPSULE (FP) PO PRN (11:58)
[2017-11-05] MEDS: THIAMINE HCL 100 MG TABLET (FP) PO SCH (21:44)
[2017-11-05] MEDS: MELATONIN 5 MG TABLETS PO PRN (21:44)
[2017-11-06] MEDS: METHADONE HCL 10 MG TABLET PO SCH (06:42)
[2017-11-06] MEDS: PRENATAL VITAMINS W/ FOLIC ACID TABLET (FP) PO SCH (09:54)
[2017-11-06] MEDS: ESCITALOPRAM OXALATE 10 MG TABLET (FP) PO SCH (09:54)
[2017-11-06] MEDS: ARIPiprazole 2 MG TABLET PO SCH (09:54)
[2017-11-06] MEDS: hydrOXYzine PAMOATE 50 MG CAPSULE (FP) PO PRN (11:44)
[2017-11-06] MEDS: MELATONIN 5 MG TABLETS PO PRN (21:40)
[2017-11-06] MEDS: THIAMINE HCL 100 MG TABLET (FP) PO SCH (21:41)
[2017-11-07] MEDS: METHADONE HCL 10 MG TABLET PO SCH (06:45)
[2017-11-07] MEDS: PRENATAL VITAMINS W/ FOLIC ACID TABLET (FP) PO SCH (09:49)
[2017-11-07] MEDS: ESCITALOPRAM OXALATE 10 MG TABLET (FP) PO SCH (09:49)
[2017-11-07] MEDS: ARIPiprazole 2 MG TABLET PO SCH (09:49)
[2017-11-07] MEDS: THIAMINE HCL 100 MG TABLET (FP) PO SCH (21:51)
[2017-11-07] MEDS: MELATONIN 5 MG TABLETS PO PRN (21:52)
[2017-11-08] MEDS: METHADONE HCL 10 MG TABLET PO SCH (06:29)
[2017-11-08] MEDS: ARIPiprazole 2 MG TABLET PO SCH (10:12)
[2017-11-08] MEDS: ESCITALOPRAM OXALATE 10 MG TABLET (FP) PO SCH (10:12)
[2017-11-08] MEDS: PRENATAL VITAMINS W/ FOLIC ACID TABLET (FP) PO SCH (10:12)
[2017-11-08] MEDS: hydrOXYzine PAMOATE 50 MG CAPSULE (FP) PO PRN (10:12)
[2017-11-08] MEDS: THIAMINE HCL 100 MG TABLET (FP) PO SCH (22:03)
[2017-11-08] MEDS: MELATONIN 5 MG TABLETS PO PRN (22:03)
[2017-11-09] MEDS: METHADONE HCL 10 MG TABLET PO SCH (06:25)
[2017-11-09] MEDS: ESCITALOPRAM OXALATE 10 MG TABLET (FP) PO SCH (10:31)
[2017-11-09] MEDS: PRENATAL VITAMINS W/ FOLIC ACID TABLET (FP) PO SCH (10:32)
[2017-11-09] MEDS: ARIPiprazole 2 MG TABLET PO SCH (10:32)
[2017-11-09] MEDS: hydrOXYzine PAMOATE 50 MG CAPSULE (FP) PO PRN (14:35)
[2017-11-09] MEDS: MELATONIN 5 MG TABLETS PO PRN (21:54)
[2017-11-09] MEDS: THIAMINE HCL 100 MG TABLET (FP) PO SCH (21:55)
[2017-11-10] MEDS: METHADONE HCL 10 MG TABLET PO SCH (06:44)
[2017-11-10] MEDS: ARIPiprazole 2 MG TABLET PO SCH (10:22)
[2017-11-10] MEDS: PRENATAL VITAMINS W/ FOLIC ACID TABLET (FP) PO SCH (10:22)
[2017-11-10] MEDS: ESCITALOPRAM OXALATE 10 MG TABLET (FP) PO SCH (10:22)
[2017-11-10] MEDS: THIAMINE HCL 100 MG TABLET (FP) PO SCH (21:47)
[2017-11-10] MEDS: MELATONIN 5 MG TABLETS PO PRN (21:47)
[2017-11-11] MEDS: METHADONE HCL 10 MG TABLET PO SCH (06:17)
[2017-11-11] MEDS: ESCITALOPRAM OXALATE 10 MG TABLET (FP) PO SCH (10:45)
[2017-11-11] MEDS: PRENATAL VITAMINS W/ FOLIC ACID TABLET (FP) PO SCH (10:45)
[2017-11-11] MEDS: ARIPiprazole 2 MG TABLET PO SCH (10:45)
[2017-11-11] MEDS: THIAMINE HCL 100 MG TABLET (FP) PO SCH (21:35)
[2017-11-11] MEDS: MELATONIN 5 MG TABLETS PO PRN (21:36)
[2017-11-12] MEDS: METHADONE HCL 10 MG TABLET PO SCH (05:59)
[2017-11-12] MEDS: PRENATAL VITAMINS W/ FOLIC ACID TABLET (FP) PO SCH (10:11)
[2017-11-12] MEDS: ESCITALOPRAM OXALATE 10 MG TABLET (FP) PO SCH (10:11)
[2017-11-12] MEDS: ARIPiprazole 2 MG TABLET PO SCH (10:11)
[2017-11-12] MEDS: THIAMINE HCL 100 MG TABLET (FP) PO SCH (21:33)
[2017-11-12] MEDS: MELATONIN 5 MG TABLETS PO PRN (21:33)
[2017-11-13] MEDS: METHADONE HCL 10 MG TABLET PO SCH (06:31)
[2017-11-13] MEDS: ARIPiprazole 2 MG TABLET PO SCH (10:03)
[2017-11-13] MEDS: ESCITALOPRAM OXALATE 10 MG TABLET (FP) PO SCH (10:03)
[2017-11-13] MEDS: PRENATAL VITAMINS W/ FOLIC ACID TABLET (FP) PO SCH (10:03)
[2017-11-13] MEDS: THIAMINE HCL 100 MG TABLET (FP) PO SCH (21:43)
[2017-11-13] MEDS: MELATONIN 5 MG TABLETS PO PRN (21:43)
[2017-11-14] MEDS: METHADONE HCL 10 MG TABLET PO SCH (06:28)
[2017-11-14 07:07] VITALS: BP 125/74; PULSE 50; TEMP 98.3
[2017-11-14] MEDS: PRENATAL VITAMINS W/ FOLIC ACID TABLET (FP) PO SCH (10:14)
[2017-11-14] MEDS: ESCITALOPRAM OXALATE 10 MG TABLET (FP) PO SCH (10:14)
[2017-11-14] MEDS: ARIPiprazole 2 MG TABLET PO SCH (10:14)
--- NOTE | 2017-11-14 10:22 | PN ---
Psychiatric Progress Note Vital Signs: Vital Signs Period Temp Pulse Resp BP Sys/Easley Pulse Ox Last 24 Hr 98.3 F 50 18-20 125/74 Date of Session: 11/14/17 Chief Complaint:: discharge visit HPI: Patient has addressed alcohol, nicotine, opioid dependence comorbid MDD. ROS: WNL Current Medications: Active Medications Generic Name Dose Route Start Last Admin Trade Name Freq PRN Reason Stop Dose Admin Acetaminophen 650 mg 10/30/17 14:16 Tylenol - PO Q4H PRN FEVER Al Hydroxide/Mg Hydroxide 30 ml 10/30/17 14:16 Mylanta Oral Suspension - PO Q6H PRN DYSPEPSIA Aripiprazole 2 mg 11/01/17 10:00 11/14/17 10:14 Abilify PO 2 mg DAILY JESUS Administration Escitalopram Oxalate 10 mg 11/01/17 10:00 11/14/17 10:14 Lexapro - PO 10 mg DAILY JESUS Administration Eucalyptus/Menthol/Phenol/Sorbitol 1 each 10/30/17 14:16 Cepastat Lozenge - MM Q4H PRN SORE THROAT Guaifenesin 10 ml 10/30/17 14:16 Robitussin Dm - PO Q6H PRN COUGH Hydroxyzine Pamoate 50 mg 10/30/17 14:16 11/09/17 14:35 Vistaril - PO 50 mg Q4H PRN Administration AGITATION Ibuprofen 400 mg 10/30/17 14:16 11/02/17 14:17 Motrin - PO 400 mg Q6H PRN Administration Pain Level 4-6 Loperamide HCl 4 mg 10/30/17 14:16 Imodium - PO Q6H PRN DIARRHEA Magnesium Citrate 300 ml 10/30/17 14:16 Citroma - PO Q48H PRN CONSTIPATION Magnesium Hydroxide 30 ml 10/30/17 14:16 Milk Of Magnesia - PO DAILY PRN CONSTIPATION Melatonin 5 mg 10/30/17 22:00 11/13/17 21:43 Melatonin PO 5 mg HS PRN Administration INSOMNIA Multivit/Folic Acid/Iron 1 tab 10/31/17 10:00 11/14/17 10:14 Vitamins (Sjr) - PO 1 tab DAILY JESUS Administration Pseudoephedrine/Triprolidine 1 combo 10/30/17 14:16 Actifed - PO TID PRN NASAL CONGESTION Thiamine HCl 100 mg 10/30/17 22:00 11/13/17 21:43 Vitamin B1 - PO 100 mg HS JESUS Administration Current Side Effect: No Lab tests ordered: No Lab tests reviewed: Yes Provider note:: Patient has completed his treatment today and met his identified goals, will continue to address his issues at his [facility]. Patient verbalized resolution to continue maintain abstinence and stay away from "people, places and things". Medications(Abilify and Lexapro) well tolerated, patient is hopefull and denies suicidal/homicidal thoughts, Patient was encouraged to utilize all supports available to prevent relapses. Patient is stable for discharge today. MSE completed. Total face to face time:: 20 Mental Status Exam - Mental Status Exam Alert and Oriented to: Time, Place, Person Cognitive Function: Good Patient Appearance: Well Groomed Mood: Hopeful Affect: Appropriate, Mood Congruent Patient Behavior: Appropriate, Cooperative Speech Pattern: Clear, Appropriate Voice Loudness: Normal Thought Process: Intact, Goal Oriented Thought Disorder: Not Present Hallucinations: Denies Suicidal Ideation: Denies Homicidal Ideation: Denies Insight/Judgement: Good Sleep: Well Appetite: Good Muscle strength/Tone: Normal Gait/Station: Normal Psychiatric Treatment Plan - Problem List (1) Alcohol dependence Current Visit: No (2) Nicotine dependence Current Visit: No Qualifiers: Nicotine product type: cigarettes Substance use status: in withdrawal Qualified Code(s): F17.213 - Nicotine dependence, cigarettes, with withdrawal (3) MDD (major depressive disorder), recurrent episode Current Visit: No (4) Opioid dependence Current Visit: No (5) Opioid dependence on agonist therapy Current Visit: No
== END 2017-11-14 10:40 | disposition home or self-care (01) | DRG 772 ==
LOC: YASAS 12:56 → Y5N 12:57
PROVIDERS: ADMIT Psychiatry & Neurology Psychiatry; ATTEND Psychiatry & Neurology Psychiatry
PROC: HZ42ZZZ Group Counseling for Substance Abuse Treatment, Cognitive-Behavioral (ICD-10-PCS; principal; 2017-10-30)
DX: F11.20 Opioid dependence, uncomplicated (principal); F10.20 Alcohol dependence, uncomplicated; F17.210 Nicotine dependence, cigarettes, uncomplicated; F33.1 Major depressive disorder, recurrent, moderate; I10 Essential (primary) hypertension; M54.5 Low back pain; H91.8X3 Other specified hearing loss, bilateral; Z88.0 Allergy status to penicillin; Z59.0 Homelessness

== ENCOUNTER 2017-12-17 14:32 | Inpatient (IN) | payer OTHER ==
[2017-12-17 16:56] VITALS: BMI 36.1
--- NOTE | 2017-12-17 17:09 | HP ---
CIWA Score - CIWA Score Nausea/Vomitin-Mild Nausea/No Vomiting Muscle Tremors: 4-Moderate,w/Arms Extend Anxiety: 4-Mod. Anxious/Guarded Agitation: 4-Moderately Restless Paroxysmal Sweats: 3 Orientation: 0-Oriented Tacttile Disturbances: 0-None Auditory Disturbances: 0-None Visual Disturbances: 0-None Headache: 0-None Present CIWA-Ar Total Score: 16 Admission ROS BHS - HPI Chief Complaint: I need to get it right this time. Allergies/Adverse Reactions: Allergies Allergy/AdvReac Type Severity Reaction Status Date / Time Penicillins Allergy Severe Rash Verified 06/03/17 15:49 History of Present Illness: pt is a 57yr old male with a history of alcohol dependence seeking detox for treatment. Pt is also on a MMTP program takes 30mg of methadone, last dosed today. Pending verification. Exam Limitations: No Limitations - Ebola screening Have you traveled outside of the country in the last 21 days: No Have you had contact with anyone from an Ebola affected area: No Have you been sick,other than usual withdrawal symptoms: No Do you have a fever: No - Review of Systems Constitutional: Chills, Diaphoresis, Night Sweats EENT: reports: Hearing Loss (to left ear chronic) Respiratory: reports: No Symptoms reported Cardiac: reports: Syncope GI: reports: Constipated, Poor Appetite, Poor Fluid Intake, Vomiting : reports: No Symptoms Reported Musculoskeletal: reports: Back Pain Integumentary: reports: Flushing, Sweating Neuro: reports: Headache, Tingling, Tremors Endocrine: reports: Excessive Sweating, Flushing, Intolerance to Cold, Intolerance to Heat Hematology: reports: No Symptoms Reported Psychiatric: reports: Judgement Intact, Orientated x3, Agitated, Anxious Other Systems: Reviewed and Negative Patient History - Patient Medical History Hx Anemia: No Hx Asthma: No Hx Chronic Obstructive Pulmonary Disease (COPD): No Hx Cancer: No Hx Cardiac Disorders: No Hx Hypertension: Yes (N O TREATMENT) Hx Hypercholesterolemia: Yes (NO CURRENT Med) Hx Pacemaker: No HX Cerebrovascular Accident: No Hx Seizures: No Hx Dementia: No Hx Diabetes: No Hx Gastrointestinal Disorders: No Hx Liver Disease: No Hx Genitourinary Disorders: No Hx Sexually Transmitted Disorders: No Hx Renal Disease (ESRD): No Hx Thyroid Disease: No Hx Human Immunodeficiency Virus (HIV): No (NEGATIVE HX last 04/30 negative) Hx Hepatitis C: No Hx Depression: Yes Hx Suicide Attempt: Yes (IN THE PAST/ no S/H ideation recent) Hx Bipolar Disorder: Yes Hx Schizophrenia: No Other Medical History: gallbladder removal 2 months ago. - Patient Surgical History Past Surgical History: Yes Hx Neurologic Surgery: No Hx Cataract Extraction: No Hx Cardiac Surgery: No Hx Lung Surgery: No Hx Breast Surgery: No Hx Breast Biopsy: No Hx Abdominal Surgery: No Hx Appendectomy: No Hx Cholecystectomy: No Hx Genitourinary Surgery: No Hx Orthopedic Surgery: No Other Surgical History: multiple sx on rght ear mastoiditis since 1998,deafness right Anesthesia Reaction: No - PPD History Previous Implant?: Yes Documented Results: Negative w/proof Date: 01/02/17 Results: 0MM PPD to be Administered?: No - Reproductive History Patient is a Female of Child Bearing Age (11 -55 yrs old): No - Smoking Cessation Smoking history: Current every day smoker Have you smoked in the past 12 months: Yes Aproximately how many cigarettes per day: 10 Cigars Per Day: 0 Hx Chewing Tobacco Use: No Initiated information on smoking cessation: Yes 'Breaking Loose' booklet given: 12/17/17 - Substance & Tx. History Hx Alcohol Use: Yes Hx Substance Use: No Substance Use Type: Alcohol Hx Substance Use Treatment: Yes (last detox 10/2017) - Substances Abused Alcohol Route: Oral Frequency: Daily Amount used: 6-9 12 OZ CANS 14 Age of first use: 13 Date of Last Use: 12/17/17 Family Disease History - Family Disease History Family Disease History: Diabetes: Father (living, hx etoh), Brother (three - living - etoh - one with dm), Heart Disease: Sister (four living - etoh), CA: Mother (, hx drugs and etoh), Other: Father, Brother, Sister, Son (two - living -), Daughter (two - living) Admission Physical Exam BHS - Vital Signs Vital Signs: Vital Signs - 24 hr 12/17/17 16:53 Temperature 97.4 F L Pulse Rate 54 L Respiratory 18 Rate Blood Pressure 136/82 - Physical General Appearance: Yes: Severe Distress, Tremorous, Irritable, Sweating, Anxious HEENTM: Yes: Normal Voice, Nasal Congestion, Rhinorrhea Respiratory: Yes: Lungs Clear, Normal Breath Sounds, No Respiratory Distress Neck: Yes: Within Normal Limits Breast: Yes: Within Normal Limits Cardiology: Yes: Regular Rhythm, Regular Rate, S1, S2 Abdominal: Yes: Normal Bowel Sounds, Non Tender, Soft Genitourinary: Yes: Within Normal Limits Back: Yes: Normal Inspection Musculoskeletal: Yes: full range of Motion, Gait Steady Extremities: Yes: Normal Capillary Refill, Normal Inspection, Non-Tender, Tremors Neurological: Yes: Fully Oriented, Alert, Normal Response Integumentary: Yes: Normal Color, Diaphoresis Lymphatic: Yes: Within Normal Limits - Diagnostic (1) Alcohol dependence with uncomplicated withdrawal Current Visit: Yes Status: Chronic (2) Nicotine dependence Current Visit: Yes Status: Chronic Qualifiers: Nicotine product type: cigarettes Substance use status: uncomplicated Qualified Code(s): F17.210 - Nicotine dependence, cigarettes, uncomplicated (3) Low back pain Current Visit: No Status: Chronic Qualifiers: Chronicity: chronic (4) MDD (major depressive disorder), recurrent episode Current Visit: Yes Status: Chronic (5) Methadone maintenance therapy patient Current Visit: Yes Status: Chronic Comment: pending verification. last dose received today with 30mg. (6) Hearing loss in left ear Current Visit: Yes Status: Chronic Qualifiers: Hearing loss type: unspecified Qualified Code(s): H91.92 - Unspecified hearing loss, left ear Cleared for Admission [facility] - Detox or Rehab [facility] Level of Care: Medically Managed Detox Regimen/Protocol: Librium [facility] Breath Alcohol Content Breath Alcohol Content: 0 Urine Drug Screen - Results Drug Screen Negative: No Urine Drug Screen Results: BZO-Benzodiazepines, MTD-Methadone
[2017-12-17] MEDS ORDERED: NICOTINE POLACRILEX 4 MG GUM BC PRN (17:17)
[2017-12-17] MEDS ORDERED: chlordiazePOXIDE HCL 25 MG CAPSULE PO PRN (17:17)
[2017-12-17] MEDS ORDERED: MAG HYDROX/AL HYDROX/SIMETH 30 ML UNIT-DOSE CUP PO PRN (17:17)
[2017-12-17] MEDS ORDERED: MAGNESIUM HYDROX 2400MG/30ML ORAL SUSPENSION 30 ML CUP PO PRN (17:17)
[2017-12-17] MEDS ORDERED: LOPERAMIDE HCL 2 MG CAPSULE PO PRN (17:17)
[2017-12-17] MEDS ORDERED: guaiFENesin/D-METHORPHAN HB 10 ML UNIT-DOSE CUPS PO PRN (17:17)
[2017-12-17] MEDS ORDERED: P-EPHED 60MG/TRIPROLIDI 2.5MG TABLET PO PRN (17:17)
[2017-12-17] MEDS ORDERED: ACETAMINOPHEN 325 MG TABLET (FP) PO PRN (17:17)
[2017-12-17] MEDS ORDERED: MENTHOL/PHENOL 1 EACH UD MM PRN (17:17)
[2017-12-17] MEDS ORDERED: IBUPROFEN 400 MG TABLET (FP) PO PRN (17:17)
[2017-12-17] MEDS ORDERED: MAGNESIUM CITRATE 300 ML BOTTLE PO PRN (17:17)
[2017-12-17] MEDS ORDERED: hydrOXYzine PAMOATE 50 MG CAPSULE (FP) PO PRN (17:17)
[2017-12-17] MEDS ORDERED: chlordiazePOXIDE HCL 25 MG CAPSULE PO ONE (18:00)
[2017-12-17] MEDS: chlordiazePOXIDE HCL 25 MG CAPSULE PO SCH (22:13)
[2017-12-17] MEDS: MELATONIN 5 MG TABLETS PO PRN (22:13)
[2017-12-17] MEDS: THIAMINE HCL 100 MG TABLET (FP) PO SCH (22:13)
[2017-12-18] MEDS: chlordiazePOXIDE HCL 25 MG CAPSULE PO SCH ×4 (05:56→22:08)
[2017-12-18 10:16] LABS: HEMOGLOBIN 11.9 GM/dL (11.7-16.9); MCH 31.3 pg (25.7-33.7); MCHC 33.1 g/dl (32.0-35.9); MEAN CELL VOLUME 94.3 fl (80-96); MEAN PLT VOLUME 8.7 fl (7.5-11.1); PLATELET COUNT 271 K/MM3 (134-434); RBC 3.81 M/mm3 (4.00-5.60); RDW 16.5 % (11.9-15.9); WHITE BLOOD COUNT 6.5 K/mm3 (4.0-10.0)
[2017-12-18] MEDS: METHADONE HCL 10 MG TABLET PO SCH (10:31)
[2017-12-18] MEDS: NICOTINE 21 MG/24 HOURS TOPICAL PATCH TD SCH (10:31)
[2017-12-18] MEDS: PRENATAL VITAMINS W/ FOLIC ACID TABLET (FP) PO SCH (10:31)
--- NOTE | 2017-12-18 11:25 | PN ---
S CIWA - CIWA Score Nausea/Vomitin-No Nausea/No Vomiting Muscle Tremors: 4-Moderate,w/Arms Extend Anxiety: 4-Mod. Anxious/Guarded Agitation: 4-Moderately Restless Paroxysmal Sweats: 1-Minimal Palms Moist Orientation: 0-Oriented Tacttile Disturbances: 0-None Auditory Disturbances: 0-None Visual Disturbances: 0-None Headache: 0-None Present CIWA-Ar Total Score: 13 BHS Progress Note (SOAP) Subjective: ANXIETY,SWEATS,FATIGUE. Objective: 12/18/17 11:24 Laboratory Tests 12/18/17 07:30 WBC 6.5 RBC 3.81 L Hgb 11.9 Hct 36.0 MCV 94.3 MCH 31.3 MCHC 33.1 RDW 16.5 H Plt Count 271 MPV 8.7 Vital Signs 12/18/17 12/18/17 12/18/17 03:30 06:13 06:30 Temperature 97.1 F L Pulse Rate 59 L Respiratory 18 20 18 Rate Blood Pressure 106/70 12/18/17 09:20 Temperature 97.2 F L Pulse Rate 59 L Respiratory 18 Rate Blood Pressure 98/61 OTHER LABS PENDING Assessment: 12/18/17 11:24 WITHDRAWAL SX Plan: CONTINUE DETOX INCREASE PO FLUIDS
[2017-12-18 11:28] LABS: CHLORIDE 103 mmol/L (98-107); POTASSIUM 4.4 mmol/L (3.5-5.1); SODIUM 140 mmol/L (136-145)
[2017-12-18 11:36] LABS: ALBUMIN 3.2 g/dl (3.4-5.0); ALK PHOS 71 U/L (45-117); ANION GAP 6 (8-16); BILIRUBIN,TOTAL 0.4 mg/dL (0.2-1.0); BLOOD UREA NITROGEN 10 mg/dL (7-18); CALCIUM 8.4 mg/dL (8.5-10.1); CO2 31 mmol/L (21-32); CREATININE 0.8 mg/dL (0.7-1.3); GLUCOSE,RANDOM 127 mg/dL (74-106); SGOT/AST 17 U/L (15-37); SGPT/ALT 35 U/L (12-78); TOT PROT 6.6 g/dl (6.4-8.2)
--- NOTE | 2017-12-18 11:54 | EKG ---
Test Reason : Blood Pressure : / mmHG Vent. Rate : 053 BPM Atrial Rate : 053 BPM P-R Int : 154 ms QRS Dur : 136 ms QT Int : 472 ms P-R-T Axes : 061 068 060 degrees QTc Int : 442 ms SINUS BRADYCARDIA RIGHT BUNDLE BRANCH BLOCK MODERATE VOLTAGE CRITERIA FOR LVH, MAY BE NORMAL VARIANT ABNORMAL ECG WHEN COMPARED WITH ECG OF 26-OCT-2017 19:01, NO SIGNIFICANT CHANGE WAS FOUND Confirmed by CLARK DAWN MD ([id number]) on 12/18/2017 11:54:00 AM Referred By: Confirmed By:CLARK DAWN MD
[2017-12-18 15:36] LABS: URINE APPEARANCE CLEAR; URINE BILIRUBIN NEGATIVE (<2.0 mg/dL); URINE BLOOD NEGATIVE (NEGATIVE); URINE COLOR YELLOW; URINE GLUCOSE (UA) NEGATIVE (NEGATIVE); URINE KETONE NEGATIVE (NEGATIVE); URINE LEUK ESTERASE NEGATIVE (NEGATIVE); URINE NITRITE NEGATIVE (NEGATIVE); URINE PROTEIN NEGATIVE (NEGATIVE)
--- NOTE | 2017-12-18 18:52 | CONSULT ---
[facility] Psychiatric Consult - Data Date of interview: 12/18/17 Admission source: [facility] Identifying data: Readmission to [facility] for this 57 y/o male seeking detox treatment on for alcohol dependence.Patient is single,a father of four,homeless,unemployed and supported on food stamps. Substance Abuse History: Confirmed by patient in this session.Smoking history: Current every day smoker. Have you smoked in the past 12 months: Yes. Aproximately how many cigarettes per day: 10. Cigars Per Day: 0. Hx Chewing Tobacco Use: No. Initiated information on smoking cessation: Yes. 'Breaking Loose' booklet given: 12/17/17. - Substance & Tx. History. Hx Alcohol Use: Yes. Hx Substance Use: No. Substance Use Type: Alcohol. Hx Substance Use Treatment: Yes (last detox 10/2017). - Substances Abused. Alcohol. Route: Oral. Frequency: Daily. Amount used: 6-9 12 OZ CANS 14. Age of first use: 13. Date of Last Use: 12/17/17 Medical History: Significant for hypotension,dyslipidemia,hearing impediment ( antecedent of mastoiditis in 1998) and recent history of cholecystectomy. Psychiatric History: Difficult historian to follow due to deafness.Patient is able, however, to indicate no prior history of psychiatric hospitalizations,no current use of psychotropic medications with the exception of methadone (on maintenance - 30 mg/day - at the [facility] in [facility]).Diagnosed in the past with MDD and prescribed various drugs (lexapro,risperdal, aripriprazole,mirtazapine,zolpidem).Non-adherent to medications for months.Lost to psychiatric OPD care.In this interview, the patient denies history of suicide attempts. Physical/Sexual Abuse/Trauma History: Patient denies history of abuse.Stressors : hearing impediment,poverty,homelessness,lack of familiy support,lack of vocational skills,financial constraints and substance abuse. Additional Comment: Urine Drug Screen Results: BZO-Benzodiazepines, MTD- Methadone.On admission.Noted. Mental Status Exam - Mental Status Exam Alert and Oriented to: Time, Place, Person Cognitive Function: Grossly Intact Patient Appearance: Unkempt, Disheveled (obese) Mood: Nervous, Withdrawn, Anxious Affect: Mood Congruent, Constricted Patient Behavior: Sedated (mildly sedated but conversant ), Fatigued Speech Pattern: Appropriate, Delayed Voice Loudness: Moderately Soft/Quiet Thought Process: Goal Oriented Thought Disorder: Not Present Hallucinations: Denies Suicidal Ideation: Denies Homicidal Ideation: Denies Insight/Judgement: Poor Sleep: Well Appetite: Good Muscle strength/Tone: Normal Gait/Station: Normal Psychiatric Findings - Problem List ([place] 1, 2,3) (1) Alcohol dependence with uncomplicated withdrawal Current Visit: Yes Status: Acute (2) Alcohol-induced mood disorder Current Visit: Yes Status: Suspected (3) Nicotine dependence Current Visit: Yes Status: Acute Qualifiers: Nicotine product type: cigarettes Substance use status: in withdrawal Qualified Code(s): F17.213 - Nicotine dependence, cigarettes, with withdrawal (4) History of depression Current Visit: Yes Status: Acute - Initial Treatment Plan Initial Treatment Plan: Psychoeducation.Sleep hygiene.Detoxification in progress.Patient declines to resume any drugs other than medications related to his alcohol detoxification protocol.Observation.
[2017-12-18] MEDS: MELATONIN 5 MG TABLETS PO PRN (22:08)
[2017-12-18] MEDS: THIAMINE HCL 100 MG TABLET (FP) PO SCH (22:08)
[2017-12-19] MEDS: METHADONE HCL 10 MG TABLET PO SCH (05:06)
[2017-12-19] MEDS: chlordiazePOXIDE HCL 25 MG CAPSULE PO SCH ×2 (05:06→10:07)
[2017-12-19] MEDS: PRENATAL VITAMINS W/ FOLIC ACID TABLET (FP) PO SCH (10:06)
[2017-12-19] MEDS: NICOTINE 21 MG/24 HOURS TOPICAL PATCH TD SCH (10:07)
--- NOTE | 2017-12-19 12:23 | PN ---
[facility] CIWA - CIWA Score Nausea/Vomitin-No Nausea/No Vomiting Muscle Tremors: 4-Moderate,w/Arms Extend Anxiety: 4-Mod. Anxious/Guarded Agitation: 4-Moderately Restless Paroxysmal Sweats: 1-Minimal Palms Moist Orientation: 0-Oriented Tacttile Disturbances: 0-None Auditory Disturbances: 0-None Visual Disturbances: 0-None Headache: 0-None Present CIWA-Ar Total Score: 13 S Progress Note (SOAP) Subjective: DECREASED ANXIETY,SWEATS. ALERT O X 3. OOB AMBULATING WITH STEADY GAIT. Objective: 12/19/17 12:25 Vital Signs 12/19/17 12/19/17 12/19/17 06:02 06:30 10:09 Temperature 96.9 F L 97.6 F Pulse Rate 48 L 59 L Respiratory 20 18 18 Rate Blood Pressure 124/74 103/63 Laboratory Tests 12/18/17 12/18/17 12/18/17 07:30 07:30 07:30 WBC 6.5 RBC 3.81 L Hgb 11.9 Hct 36.0 MCV 94.3 MCH 31.3 MCHC 33.1 RDW 16.5 H Plt Count 271 MPV 8.7 Sodium 140 Potassium 4.4 Chloride 103 Carbon Dioxide 31 Anion Gap 6 L BUN 10 D Creatinine 0.8 D Creat Clearance w eGFR > 60 Random Glucose 127 H D Calcium 8.4 L Total Bilirubin 0.4 D AST 17 D ALT 35 D Alkaline Phosphatase 71 D Total Protein 6.6 Albumin 3.2 L Urine Color Urine Appearance Urine pH Ur Specific [place] Urine Protein Urine Glucose (UA) Urine Ketones Urine Blood Urine Nitrite Urine Bilirubin Urine Urobilinogen Ur Leukocyte Esterase RPR Titer HIV 1&2 Antibody Screen Negative HIV P24 Antigen Negative 12/18/17 12/18/17 07:30 11:20 WBC RBC Hgb Hct MCV MCH MCHC RDW Plt Count MPV Sodium Potassium Chloride Carbon Dioxide Anion Gap BUN Creatinine Creat Clearance w eGFR Random Glucose Calcium Total Bilirubin AST ALT Alkaline Phosphatase Total Protein Albumin Urine Color Yellow Urine Appearance Clear Urine pH 6.0 Ur Specific [place] 1.014 Urine Protein Negative Urine Glucose (UA) Negative Urine Ketones Negative Urine Blood Negative Urine Nitrite Negative Urine Bilirubin Negative Urine Urobilinogen 2.0 Ur Leukocyte Esterase Negative RPR Titer Nonreactive HIV 1&2 Antibody Screen HIV P24 Antigen Assessment: 12/19/17 12:25 DECREASED WITHDRAWAL SX Plan: CONTINUE DETOX POSSIBLE [facility] TOMORROW IF BED AVAILABLE PER COUNSELOR.
[2017-12-19] MEDS: chlordiazePOXIDE 5 MG CAPSULE PO SCH ×2 (17:25→22:10)
[2017-12-19] MEDS: THIAMINE HCL 100 MG TABLET (FP) PO SCH (22:12)
[2017-12-19] MEDS ORDERED: chlordiazePOXIDE 5 MG CAPSULE PO SCH (23:00)
[2017-12-20] MEDS: chlordiazePOXIDE HCL 10 MG CAPSULE PO SCH ×2 (05:33→10:05)
[2017-12-20] MEDS: METHADONE HCL 10 MG TABLET PO SCH (05:33)
[2017-12-20 09:03] VITALS: BP 138/94; PULSE 84; TEMP 99.1
[2017-12-20] MEDS: NICOTINE 21 MG/24 HOURS TOPICAL PATCH TD SCH (10:04)
[2017-12-20] MEDS: PRENATAL VITAMINS W/ FOLIC ACID TABLET (FP) PO SCH (10:05)
--- NOTE | 2017-12-20 16:38 | PN ---
BHS Progress Note (SOAP) Subjective: Patient denies current Detox symptoms and reports that he feels well overall. Objective: PATIENT A & O X 3, OBSERVED AMBULATING ON UNIT. NO ACUTE DISTRESS. 12/20/17 16:38 Vital Signs Temperature 99.1 F 12/20/17 09:03 Pulse Rate 84 12/20/17 09:03 Respiratory Rate 18 12/20/17 09:03 Blood Pressure 138/94 12/20/17 09:03 O2 Sat by Pulse Oximetry (%) Laboratory Tests 12/18/17 12/18/17 12/18/17 07:30 07:30 07:30 WBC 6.5 RBC 3.81 L Hgb 11.9 Hct 36.0 MCV 94.3 MCH 31.3 MCHC 33.1 RDW 16.5 H Plt Count 271 MPV 8.7 Sodium 140 Potassium 4.4 Chloride 103 Carbon Dioxide 31 Anion Gap 6 L BUN 10 D Creatinine 0.8 D Creat Clearance w eGFR > 60 Random Glucose 127 H D Calcium 8.4 L Total Bilirubin 0.4 D AST 17 D ALT 35 D Alkaline Phosphatase 71 D Total Protein 6.6 Albumin 3.2 L Urine Color Urine Appearance Urine pH Ur Specific [place] Urine Protein Urine Glucose (UA) Urine Ketones Urine Blood Urine Nitrite Urine Bilirubin Urine Urobilinogen Ur Leukocyte Esterase RPR Titer HIV 1&2 Antibody Screen Negative HIV P24 Antigen Negative 12/18/17 12/18/17 07:30 11:20 WBC RBC Hgb Hct MCV MCH MCHC RDW Plt Count MPV Sodium Potassium Chloride Carbon Dioxide Anion Gap BUN Creatinine Creat Clearance w eGFR Random Glucose Calcium Total Bilirubin AST ALT Alkaline Phosphatase Total Protein Albumin Urine Color Yellow Urine Appearance Clear Urine pH 6.0 Ur Specific [place] 1.014 Urine Protein Negative Urine Glucose (UA) Negative Urine Ketones Negative Urine Blood Negative Urine Nitrite Negative Urine Bilirubin Negative Urine Urobilinogen 2.0 Ur Leukocyte Esterase Negative RPR Titer Nonreactive HIV 1&2 Antibody Screen HIV P24 Antigen LABS NOTED. Assessment: 12/20/17 16:38 COMPLETION OF DETOX REGIMEN. Plan: PATIENT SCHEDULED FOR DISCHARGE FROM DETOX UNIT TODAY.
--- NOTE | 2017-12-20 16:45 | DS ---
[facility] Admission Date: 12/17/17 Discharge Date: 12/20/17 - History Present History: Alcohol Dependence Additional Comments: PATIENT DENIES CURRENT DETOX SYMPTOMS AND REPORTS THAT HE IS FEELING WELL OVERALL AT TIME OF DISCHARGE FROM DETOX UNIT. PATIENT RETURNING TO [facility] ([place] AND TO [facility] ([place] FOR AFTERCARE. PATIENT WAS DISCHARGED FROM DETOX UNIT IN STABLE MEDICAL CONDITION. Pertinent Past History: Depression, MMTP, Nicotine Dependence, HTN (No treatment), Hypercholesterolemia , Hearing Loss in Left Ear, Low Back Pain, History of Cholecystectomy. - Physical Exam Results Vital Signs: Vital Signs Temperature 99.1 F 12/20/17 09:03 Pulse Rate 84 12/20/17 09:03 Respiratory Rate 18 12/20/17 09:03 Blood Pressure 138/94 12/20/17 09:03 O2 Sat by Pulse Oximetry (%) Pertinent Admission Physical Exam Findings: WITHDRAWAL SYMPTOMS. Laboratory Tests 12/18/17 12/18/17 12/18/17 07:30 07:30 07:30 WBC 6.5 RBC 3.81 L Hgb 11.9 Hct 36.0 MCV 94.3 MCH 31.3 MCHC 33.1 RDW 16.5 H Plt Count 271 MPV 8.7 Sodium 140 Potassium 4.4 Chloride 103 Carbon Dioxide 31 Anion Gap 6 L BUN 10 D Creatinine 0.8 D Creat Clearance w eGFR > 60 Random Glucose 127 H D Calcium 8.4 L Total Bilirubin 0.4 D AST 17 D ALT 35 D Alkaline Phosphatase 71 D Total Protein 6.6 Albumin 3.2 L Urine Color Urine Appearance Urine pH Ur Specific [place] Urine Protein Urine Glucose (UA) Urine Ketones Urine Blood Urine Nitrite Urine Bilirubin Urine Urobilinogen Ur Leukocyte Esterase RPR Titer HIV 1&2 Antibody Screen Negative HIV P24 Antigen Negative 12/18/17 12/18/17 07:30 11:20 WBC RBC Hgb Hct MCV MCH MCHC RDW Plt Count MPV Sodium Potassium Chloride Carbon Dioxide Anion Gap BUN Creatinine Creat Clearance w eGFR Random Glucose Calcium Total Bilirubin AST ALT Alkaline Phosphatase Total Protein Albumin Urine Color Yellow Urine Appearance Clear Urine pH 6.0 Ur Specific [place] 1.014 Urine Protein Negative Urine Glucose (UA) Negative Urine Ketones Negative Urine Blood Negative Urine Nitrite Negative Urine Bilirubin Negative Urine Urobilinogen 2.0 Ur Leukocyte Esterase Negative RPR Titer Nonreactive HIV 1&2 Antibody Screen HIV P24 Antigen LABS NOTED. - Treatment Hospital Course: Detox Protocol Followed, Detoxed Safely, Responded well, Discharged Condition Good Patient has Accepted a Rehab Referral to: PT RETURNING TO [facility] Medication Discharge Medications: Ambulatory Orders NK [No Known Home Medication] 12/17/17 - Diagnosis (1) Alcohol dependence with uncomplicated withdrawal Status: Acute (2) History of depression Status: Chronic (3) Nicotine dependence Status: Acute Qualifiers: Nicotine product type: cigarettes Substance use status: in withdrawal Qualified Code(s): F17.213 - Nicotine dependence, cigarettes, with withdrawal (4) Hearing loss in left ear Status: Chronic Qualifiers: Hearing loss type: unspecified Qualified Code(s): H91.92 - Unspecified hearing loss, left ear (5) Low back pain Status: Chronic Qualifiers: Chronicity: chronic Back pain laterality: unspecified Sciatica presence: unspecified whether sciatica present Qualified Code(s): M54.5 - Low back pain ; G89.29 - Other chronic pain (6) MDD (major depressive disorder), recurrent episode Status: Chronic Qualifiers: Major depression episode severity: unspecified Qualified Code(s): F33.9 - Major depressive disorder, recurrent, unspecified (7) Methadone maintenance therapy patient Status: Chronic (8) Alcohol-induced mood disorder Status: Suspected - AMA Did Patient Leave Against Medical Advice: No
[2017-12-20] MEDS ORDERED: chlordiazePOXIDE HCL 10 MG CAPSULE PO SCH (23:00)
== END 2017-12-20 11:13 | disposition home or self-care (01) | DRG 773 ==
LOC: YASAS 14:32 → Y3N 17:33
PROVIDERS: ADMIT Surgery; ATTEND Surgery
PROC: HZ2ZZZZ Detoxification Services for Substance Abuse Treatment (ICD-10-PCS; principal; 2017-12-17)
DX: F10.230 Alcohol dependence with withdrawal, uncomplicated (principal); F10.24 Alcohol dependence with alcohol-induced mood disorder; F11.20 Opioid dependence, uncomplicated; F17.213 Nicotine dependence, cigarettes, with withdrawal; F33.9 Major depressive disorder, recurrent, unspecified; H91.92 Unspecified hearing loss, left ear; M54.5 Low back pain; G89.29 Other chronic pain; Z88.0 Allergy status to penicillin; Z91.5 Personal history of self-harm; Z59.0 Homelessness
CPT/HCPCS: 36415; 80053; 81003; 85027; 86593; 87389; 93005; 93010

== ENCOUNTER 2018-02-12 12:31 | Inpatient (IN) | payer OTHER ==
[2018-02-12 14:12] VITALS: BMI 34.3
--- NOTE | 2018-02-12 15:29 | HP ---
CIWA Score - CIWA Score Nausea/Vomitin-No Nausea/No Vomiting Muscle Tremors: 4-Moderate,w/Arms Extend Anxiety: 4-Mod. Anxious/Guarded Agitation: 3 Paroxysmal Sweats: 1-Minimal Palms Moist Orientation: 0-Oriented Tacttile Disturbances: 0-None Auditory Disturbances: 0-None Visual Disturbances: 0-None Headache: 0-None Present CIWA-Ar Total Score: 12 Admission ROS BHS - HPI Chief Complaint: ALCOHOL WITHDRAWAL SX Allergies/Adverse Reactions: Allergies Allergy/AdvReac Type Severity Reaction Status Date / Time Penicillins Allergy Severe Rash Verified 02/12/18 13:59 History of Present Illness: 57 Y/O H/MALE WITH A HX OF ALCOHOL DEPENDENCE ON MMTP SEEKING DETOX [place]. PT REPORTS DRANK ALCOHOL "EARLIER TODAY". Exam Limitations: No Limitations - Ebola screening Have you traveled outside of the country in the last 21 days: No Have you had contact with anyone from an Ebola affected area: No Have you been sick,other than usual withdrawal symptoms: No Do you have a fever: No - Review of Systems Constitutional: Chills, Night Sweats, Changes in sleep EENT: reports: Blurred Vision, Tearing, Hearing Loss (DUE TO HX PERFORATED EAR DRUM), Nose Congestion, Dental Problems (TETH) Respiratory: reports: No Symptoms reported Cardiac: reports: Lightheadedness GI: reports: Diarrhea, Nausea, Vomiting, Abdominal cramping : reports: No Symptoms Reported Musculoskeletal: reports: No Symptoms Reported Integumentary: reports: No Symptoms Reported Neuro: reports: Headache, Tremors, Unsteady Gait Endocrine: reports: No Symptoms Reported Hematology: reports: No Symptoms Reported Psychiatric: reports: Orientated x3, Anxious, Depressed Other Systems: Reviewed and Negative Patient History - Patient Medical History Hx Anemia: No Hx Asthma: No Hx Chronic Obstructive Pulmonary Disease (COPD): No Hx Cancer: No Hx Cardiac Disorders: No Hx Hypertension: No Hx Hypercholesterolemia: Yes (NO CURRENT Med) Hx Pacemaker: No HX Cerebrovascular Accident: No Hx Seizures: No Hx Dementia: No Hx Diabetes: No Hx Gastrointestinal Disorders: No Hx Liver Disease: No Hx Genitourinary Disorders: No Hx Sexually Transmitted Disorders: No Hx Renal Disease (ESRD): No Hx Thyroid Disease: No Hx Human Immunodeficiency Virus (HIV): No (NEGATIVE HX ) Hx Hepatitis C: No Hx Depression: Yes Hx Suicide Attempt: No (DENIES S/I) Hx Bipolar Disorder: Yes Hx Schizophrenia: No Other Medical History: HX PERFORATED RIGHT EAR DRUM WITH SX - Patient Surgical History Past Surgical History: Yes Hx Neurologic Surgery: No Hx Cataract Extraction: No Hx Cardiac Surgery: No Hx Lung Surgery: No Hx Breast Surgery: No Hx Breast Biopsy: No Hx Abdominal Surgery: No Hx Appendectomy: No Hx Cholecystectomy: No Hx Genitourinary Surgery: No Hx Orthopedic Surgery: No Other Surgical History: multiple sx on rght ear mastoiditis since 1998,deafness right Anesthesia Reaction: No - PPD History Previous Implant?: Yes Documented Results: Negative w/proof Implanted On Prior R Admission?: Yes Date: 01/02/17 Results: 0 mm PPD to be Administered?: Yes - Reproductive History Patient is a Female of Child Bearing Age (11 -55 yrs old): No (MALE) - Smoking Cessation Smoking history: Current every day smoker Have you smoked in the past 12 months: Yes Aproximately how many cigarettes per day: 10 Cigars Per Day: 0 Hx Chewing Tobacco Use: No Initiated information on smoking cessation: Yes 'Breaking Loose' booklet given: 02/12/18 - Substance & Tx. History Hx Alcohol Use: Yes (BEER) Substance Use Type: Alcohol, Heroin Hx Substance Use Treatment: Yes (ON [facility]) - Substances Abused Alcohol--beer Route: Oral Frequency: Daily Amount used: 1-6 pk. Age of first use: 13 Date of Last Use: 02/12/18 Family Disease History - Family Disease History Family Disease History: Diabetes: Father (living, hx etoh), Brother (three - living - etoh - one with dm), Heart Disease: Sister (four living - etoh), CA: Mother (, hx drugs and etoh), Other: Father, Brother, Sister, Son (two - living -), Daughter (two - living) Admission Physical Exam BHS - Vital Signs Vital Signs: Vital Signs - 24 hr 02/12/18 14:02 Temperature 98.5 F Pulse Rate 77 Respiratory 19 Rate Blood Pressure 147/83 - Physical General Appearance: Yes: Moderate Distress, Alcohol on Breath, Irritable, Anxious HEENTM: Yes: EOMI, Normocephalic, MONIKA, Pharynx Normal Respiratory: Yes: Chest Non-Tender, Lungs Clear, Normal Breath Sounds, No Respiratory Distress Neck: Yes: No masses,lesions,Nodules, Supple, Trachea in good position Breast: Yes: Breast Exam Deferred Cardiology: Yes: Regular Rhythm, Regular Rate, S1, S2 Abdominal: Yes: Normal Bowel Sounds, Non Tender, Soft Genitourinary: Yes: Other (N/C) Back: Yes: Within Normal Limits Musculoskeletal: Yes: full range of Motion, Gait Steady Extremities: Yes: Normal Range of Motion, Non-Tender, Tremors (SLIGHT) Neurological: 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: 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 NML intact, Fully Oriented, Alert, Motor Strength 5/5 Integumentary: Yes: Dry, Warm Lymphatic: Yes: Within Normal Limits - Diagnostic (1) Alcohol dependence with uncomplicated withdrawal Current Visit: Yes Status: Acute (2) Nicotine dependence Current Visit: Yes Status: Acute Qualifiers: Nicotine product type: cigarettes Substance use status: in withdrawal Qualified Code(s): F17.213 - Nicotine dependence, cigarettes, with withdrawal (3) Hearing loss in left ear Current Visit: Yes Status: Chronic Qualifiers: Hearing loss type: unspecified Qualified Code(s): H91.92 - Unspecified hearing loss, left ear (4) Methadone maintenance therapy patient Current Visit: Yes Status: Chronic Comment: pending verification. last dose received today with 30mg. Cleared for Admission [facility] - Detox or Rehab Detox Regimen/Protocol: Librium S Breath Alcohol Content Breath Alcohol Content: 0 Urine Drug Screen - Results Drug Screen Negative: No Urine Drug Screen Results: BZO-Benzodiazepines, MTD-Methadone
[2018-02-12] MEDS ORDERED: MAG HYDROX/AL HYDROX/SIMETH 30 ML UNIT-DOSE CUP PO PRN (15:50)
[2018-02-12] MEDS ORDERED: guaiFENesin/D-METHORPHAN HB 10 ML UNIT-DOSE CUPS PO PRN (15:50)
[2018-02-12] MEDS ORDERED: MAGNESIUM HYDROX 2400MG/30ML ORAL SUSPENSION 30 ML CUP PO PRN (15:50)
[2018-02-12] MEDS ORDERED: MAGNESIUM CITRATE 300 ML BOTTLE PO PRN (15:50)
[2018-02-12] MEDS ORDERED: P-EPHED 60MG/TRIPROLIDI 2.5MG TABLET PO PRN (15:50)
[2018-02-12] MEDS ORDERED: MENTHOL/PHENOL 1 EACH UD MM PRN (15:50)
[2018-02-12] MEDS ORDERED: IBUPROFEN 400 MG TABLET (FP) PO PRN (15:50)
[2018-02-12] MEDS ORDERED: ACETAMINOPHEN 325 MG TABLET (FP) PO PRN (15:50)
[2018-02-12] MEDS ORDERED: LOPERAMIDE HCL 2 MG CAPSULE PO PRN (15:50)
[2018-02-12] MEDS: chlordiazePOXIDE HCL 25 MG CAPSULE PO SCH ×2 (17:19→22:13)
[2018-02-12] MEDS: NICOTINE 14 MG/24 HOURS TOPICAL PATCH TD SCH (17:19)
[2018-02-12] MEDS: NICOTINE POLACRILEX 2 MG GUM BC PRN (17:21)
[2018-02-12] MEDS: THIAMINE HCL 100 MG TABLET (FP) PO SCH (22:12)
[2018-02-12] MEDS: MELATONIN 5 MG TABLETS PO PRN (22:13)
[2018-02-12 22:15] LABS: URINE APPEARANCE CLEAR; URINE BILIRUBIN NEGATIVE (<2.0 mg/dL); URINE COLOR STRAW; URINE GLUCOSE (UA) NEGATIVE (NEGATIVE); URINE KETONE NEGATIVE (NEGATIVE); URINE LEUK ESTERASE NEGATIVE (NEGATIVE); URINE NITRITE NEGATIVE (NEGATIVE); URINE PROTEIN NEGATIVE (NEGATIVE); URINE UROBILINOGEN NEGATIVE mg/dL (0.2-1.0)
[2018-02-13] MEDS: chlordiazePOXIDE HCL 25 MG CAPSULE PO SCH ×4 (06:29→22:14)
[2018-02-13] MEDS: METHADONE HCL 10 MG TABLET PO SCH (06:29)
--- NOTE | 2018-02-13 07:45 | CONSULT ---
[facility] Psychiatric Consult - Data Date of interview: 02/13/18 Admission source: [facility] Identifying data: This is 57 years old male , single, father of four, homeless, on PA, with history of Bipolar Disorder, woth no psychiatric hospitalization history, reports withdrawal symptoms from Alcohol and seeking for detox. Patient reports long historyn of Alcohol and Nicotine dependence. Substance Abuse History: - Smoking Cessation. Smoking history: Current every day smoker. Have you smoked in the past 12 months: Yes. Aproximately how many cigarettes per day: 10. Cigars Per Day: 0. Hx Chewing Tobacco Use: No. Initiated information on smoking cessation: Yes. 'Breaking Loose' booklet given : 02/12/18. - Substance & Tx. History. Hx Alcohol Use: Yes (BEER). Substance Use Type: Alcohol, Heroin. Hx Substance Use Treatment: Yes (ON [facility]). - Substances Abused. Alcohol--beer. Route: Oral. Frequency: Daily. Amount used: 1-6 pk. Age of first use: 13. Date of Last Use: 02/12/18 Medical History: MMTP 30mg poqd,Left ear heariong problem. Psychiatric History: Patient reports Bipolar Disorder history, reports depression and insomnia, reports no medications taking prior to admission, reports no psychiatric hospitalization hgistory Physical/Sexual Abuse/Trauma History: Denies Additional Comment: Observation. Detox Unit Care Protocol. Mental Status Exam - Mental Status Exam Alert and Oriented to: Person Cognitive Function: Fair Patient Appearance: Unkempt Mood: Sad Affect: Mood Congruent Patient Behavior: Cooperative Speech Pattern: Delayed Voice Loudness: Mildly Soft/Quiet Thought Process: Goal Oriented Thought Disorder: Being Controlled Hallucinations: Denies Suicidal Ideation: Denies Homicidal Ideation: Denies Insight/Judgement: Fair Sleep: Difficulty falling asleep Appetite: Weight gain Muscle strength/Tone: Mild Hypotonicity Gait/Station: Normal Additional Comments: Observation. Detox Unit Care Protocol. Psychiatric Findings - Problem List ([place] 1, 2,3) (1) Alcohol dependence with uncomplicated withdrawal Current Visit: Yes Status: Acute (2) Nicotine dependence Current Visit: Yes Status: Acute Qualifiers: Nicotine product type: cigarettes Substance use status: in withdrawal Qualified Code(s): F17.213 - Nicotine dependence, cigarettes, with withdrawal (3) Hearing loss in left ear Current Visit: Yes Status: Chronic Qualifiers: Hearing loss type: unspecified Qualified Code(s): H91.92 - Unspecified hearing loss, left ear (4) Methadone maintenance therapy patient Current Visit: Yes Status: Chronic Comment: pending verification. last dose received today with 30mg. (5) Low back pain Current Visit: No Status: Chronic Qualifiers: Chronicity: chronic Back pain laterality: unspecified Sciatica presence: unspecified whether sciatica present Qualified Code(s): M54.5 - Low back pain ; G89.29 - Other chronic pain (6) MDD (major depressive disorder), recurrent episode Current Visit: No Status: Chronic Qualifiers: Major depression episode severity: unspecified Qualified Code(s): F33.9 - Major depressive disorder, recurrent, unspecified (7) Alcohol-induced mood disorder Current Visit: No Status: Suspected - Initial Treatment Plan Initial Treatment Plan: Observation. Detox Unit Care Protocol.
[2018-02-13 09:55] LABS: CHLORIDE 106 mmol/L (98-107); POTASSIUM 4.5 mmol/L (3.5-5.1); SODIUM 140 mmol/L (136-145)
[2018-02-13 09:56] LABS: HEMATOCRIT 38.1 % (35.4-49); HEMOGLOBIN 12.9 GM/dL (11.7-16.9); MCH 31.4 pg (25.7-33.7); MCHC 33.8 g/dl (32.0-35.9); MEAN PLT VOLUME 8.7 fl (7.5-11.1); PLATELET COUNT 237 K/MM3 (134-434); RBC 4.09 M/mm3 (4.00-5.60); RDW 15.5 % (11.9-15.9); WHITE BLOOD COUNT 6.7 K/mm3 (4.0-10.0)
[2018-02-13] MEDS: PRENATAL VITAMINS W/ FOLIC ACID TABLET (FP) PO SCH (10:05)
[2018-02-13 10:06] LABS: ALBUMIN 3.3 g/dl (3.4-5.0); ALK PHOS 82 U/L (45-117); ANION GAP 6 (8-16); BILIRUBIN,TOTAL 0.6 mg/dL (0.2-1.0); BLOOD UREA NITROGEN 11 mg/dL (7-18); CALCIUM 8.8 mg/dL (8.5-10.1); CO2 28 mmol/L (21-32); CREATININE 0.7 mg/dL (0.7-1.3); GLUCOSE,RANDOM 114 mg/dL (74-106); SGOT/AST 31 U/L (15-37); SGPT/ALT 83 U/L (12-78); TOT PROT 6.8 g/dl (6.4-8.2)
[2018-02-13] MEDS: NICOTINE 14 MG/24 HOURS TOPICAL PATCH TD SCH (10:06)
--- NOTE | 2018-02-13 10:39 | PN ---
[facility] CIWA - CIWA Score Nausea/Vomitin-No Nausea/No Vomiting Muscle Tremors: 4-Moderate,w/Arms Extend Anxiety: 4-Mod. Anxious/Guarded Agitation: 3 Paroxysmal Sweats: 1-Minimal Palms Moist Orientation: 0-Oriented Tacttile Disturbances: 0-None Auditory Disturbances: 0-None Visual Disturbances: 0-None Headache: 0-None Present CIWA-Ar Total Score: 12 BHS Progress Note (SOAP) Subjective: sweat tremor restlessness irritable anxiety trouble sleep at night Objective: 02/13/18 10:38 Vital Signs Temperature 98 F 02/13/18 09:24 Pulse Rate 63 02/13/18 09:24 Respiratory Rate 18 02/13/18 09:24 Blood Pressure 133/76 02/13/18 09:24 O2 Sat by Pulse Oximetry (%) Laboratory Last Values WBC 6.7 K/mm3 (4.0-10.0) 02/13/18 07:30 RBC 4.09 M/mm3 (4.00-5.60) 02/13/18 07:30 Hgb 12.9 GM/dL (11.7-16.9) 02/13/18 07:30 Hct 38.1 % (35.4-49) 02/13/18 07:30 MCV 93.0 fl (80-96) 02/13/18 07:30 MCH 31.4 pg (25.7-33.7) 02/13/18 07:30 MCHC 33.8 g/dl (32.0-35.9) 02/13/18 07:30 RDW 15.5 % (11.9-15.9) 02/13/18 07:30 Plt Count 237 K/MM3 (134-434) 02/13/18 07:30 MPV 8.7 fl (7.5-11.1) 02/13/18 07:30 Sodium 140 mmol/L (136-145) 02/13/18 07:30 Potassium 4.5 mmol/L (3.5-5.1) 02/13/18 07:30 Chloride 106 mmol/L (98-107) 02/13/18 07:30 Carbon Dioxide 28 mmol/L (21-32) 02/13/18 07:30 Anion Gap 6 (8-16) L 02/13/18 07:30 BUN 11 mg/dL (7-18) 02/13/18 07:30 Creatinine 0.7 mg/dL (0.7-1.3) 02/13/18 07:30 Creat Clearance w eGFR > 60 (>60) 02/13/18 07:30 Random Glucose 114 mg/dL (74-106) H 02/13/18 07:30 Calcium 8.8 mg/dL (8.5-10.1) 02/13/18 07:30 Total Bilirubin 0.6 mg/dL (0.2-1.0) 02/13/18 07:30 AST 31 U/L (15-37) D 02/13/18 07:30 ALT 83 U/L (12-78) H D 02/13/18 07:30 Alkaline Phosphatase 82 U/L (45-117) 02/13/18 07:30 Total Protein 6.8 g/dl (6.4-8.2) 02/13/18 07:30 Albumin 3.3 g/dl (3.4-5.0) L 02/13/18 07:30 Urine Color Straw 02/12/18 20:30 Urine Appearance Clear 02/12/18 20:30 Urine pH 5.0 (5.0-8.0) 02/12/18 20:30 Ur Specific [place] 1.005 (1.001-1.035) 02/12/18 20:30 Urine Protein Negative (NEGATIVE) 02/12/18 20:30 Urine Glucose (UA) Negative (NEGATIVE) 02/12/18 20:30 Urine Ketones Negative (NEGATIVE) 02/12/18 20:30 Urine Blood Negative (NEGATIVE) 02/12/18 20:30 Urine Nitrite Negative (NEGATIVE) 02/12/18 20:30 Urine Bilirubin Negative (<2.0 mg/dL) 02/12/18 20:30 Urine Urobilinogen Negative mg/dL (0.2-1.0) 02/12/18 20:30 Ur Leukocyte Esterase Negative (NEGATIVE) 02/12/18 20:30 lab noted Assessment: 02/13/18 10:38 withdrawal sx Plan: continue detox
--- NOTE | 2018-02-13 12:50 | EKG ---
Test Reason : Blood Pressure : / mmHG Vent. Rate : 059 BPM Atrial Rate : 059 BPM P-R Int : 144 ms QRS Dur : 140 ms QT Int : 458 ms P-R-T Axes : 061 062 061 degrees QTc Int : 453 ms SINUS BRADYCARDIA RIGHT BUNDLE BRANCH BLOCK ABNORMAL ECG WHEN COMPARED WITH ECG OF 17-DEC-2017 21:04, NO SIGNIFICANT CHANGE WAS FOUND Confirmed by FLAVIO FAIR MD ([id number]) on 02/13/2018 12:49:40 PM Referred By: Confirmed By:FALVIO FAIR MD
[2018-02-13] MEDS: chlordiazePOXIDE HCL 25 MG CAPSULE PO PRN ×2 (13:01→18:44)
[2018-02-13] MEDS: THIAMINE HCL 100 MG TABLET (FP) PO SCH (22:13)
[2018-02-13] MEDS: MELATONIN 5 MG TABLETS PO PRN (22:14)
[2018-02-14] MEDS: chlordiazePOXIDE HCL 25 MG CAPSULE PO SCH ×2 (05:06→10:28)
[2018-02-14] MEDS: METHADONE HCL 10 MG TABLET PO SCH (05:06)
--- NOTE | 2018-02-14 10:08 | PN ---
S CIWA - CIWA Score Nausea/Vomitin Muscle Tremors: 3 Anxiety: 2 Agitation: 1-Slight > Activity Paroxysmal Sweats: 3 Orientation: 0-Oriented Tacttile Disturbances: 1-Very Mild Itch/Numbness Auditory Disturbances: 0-None Visual Disturbances: 0-None Headache: 0-None Present CIWA-Ar Total Score: 12 BHS Progress Note (SOAP) Subjective: interrupted sleep, sweats , shakes Objective: 02/14/18 10:05 Vital Signs Temperature 97.7 F 02/14/18 09:49 Pulse Rate 61 02/14/18 09:49 Respiratory Rate 18 02/14/18 09:49 Blood Pressure 108/58 02/14/18 09:49 O2 Sat by Pulse Oximetry (%) Laboratory Tests 02/12/18 02/13/18 02/13/18 20:30 07:30 07:30 WBC 6.7 RBC 4.09 Hgb 12.9 Hct 38.1 MCV 93.0 MCH 31.4 MCHC 33.8 RDW 15.5 Plt Count 237 MPV 8.7 Sodium 140 Potassium 4.5 Chloride 106 Carbon Dioxide 28 Anion Gap 6 L BUN 11 Creatinine 0.7 Creat Clearance w eGFR > 60 Random Glucose 114 H Calcium 8.8 Total Bilirubin 0.6 AST 31 D ALT 83 H D Alkaline Phosphatase 82 Total Protein 6.8 Albumin 3.3 L Urine Color Straw Urine Appearance Clear Urine pH 5.0 Ur Specific [place] 1.005 Urine Protein Negative Urine Glucose (UA) Negative Urine Ketones Negative Urine Blood Negative Urine Nitrite Negative Urine Bilirubin Negative Urine Urobilinogen Negative Ur Leukocyte Esterase Negative RPR Titer 02/13/18 07:30 WBC RBC Hgb Hct MCV MCH MCHC RDW Plt Count MPV Sodium Potassium Chloride Carbon Dioxide Anion Gap BUN Creatinine Creat Clearance w eGFR Random Glucose Calcium Total Bilirubin AST ALT Alkaline Phosphatase Total Protein Albumin Urine Color Urine Appearance Urine pH Ur Specific [place] Urine Protein Urine Glucose (UA) Urine Ketones Urine Blood Urine Nitrite Urine Bilirubin Urine Urobilinogen Ur Leukocyte Esterase RPR Titer Nonreactive pt aox3 in nad, hard of hearing , coperative Assessment: 02/14/18 10:06 withdrawal sx's decreased hearing on left methadone maintenance elevated glucose 114 02/14/18 10:08 Plan: cont. detox increase fluids bgm daily fasting
[2018-02-14] MEDS: NICOTINE 14 MG/24 HOURS TOPICAL PATCH TD SCH (10:28)
[2018-02-14] MEDS: PRENATAL VITAMINS W/ FOLIC ACID TABLET (FP) PO SCH (10:28)
[2018-02-14] MEDS: chlordiazePOXIDE HCL 25 MG CAPSULE PO PRN (15:33)
[2018-02-14] MEDS: chlordiazePOXIDE 5 MG CAPSULE PO SCH ×2 (18:14→22:30)
[2018-02-14] MEDS: THIAMINE HCL 100 MG TABLET (FP) PO SCH (22:30)
[2018-02-14] MEDS: MELATONIN 5 MG TABLETS PO PRN (22:30)
[2018-02-15] MEDS: chlordiazePOXIDE 5 MG CAPSULE PO SCH ×2 (05:52→10:42)
[2018-02-15] MEDS: METHADONE HCL 10 MG TABLET PO SCH (05:52)
[2018-02-15] MEDS: PRENATAL VITAMINS W/ FOLIC ACID TABLET (FP) PO SCH (10:42)
[2018-02-15] MEDS: NICOTINE 14 MG/24 HOURS TOPICAL PATCH TD SCH (10:43)
--- NOTE | 2018-02-15 12:53 | PN ---
S Progress Note (SOAP) Subjective: alert,irritable,anxious,interrupted sleep Objective: 02/15/18 12:52 Vital Signs Temperature 98.6 F 02/15/18 10:00 Pulse Rate 68 02/15/18 10:00 Respiratory Rate 18 02/15/18 10:00 Blood Pressure 114/67 02/15/18 10:00 O2 Sat by Pulse Oximetry (%) Assessment: 02/15/18 12:52 withdrawal symptom Plan: continue detox,discharge in am
[2018-02-15] MEDS: chlordiazePOXIDE HCL 10 MG CAPSULE PO SCH ×2 (16:46→22:22)
[2018-02-15] MEDS: NICOTINE POLACRILEX 2 MG GUM BC PRN (18:17)
[2018-02-15] MEDS: MELATONIN 5 MG TABLETS PO PRN (22:22)
[2018-02-15] MEDS: THIAMINE HCL 100 MG TABLET (FP) PO SCH (22:22)
[2018-02-16] MEDS: chlordiazePOXIDE HCL 10 MG CAPSULE PO SCH ×2 (05:50→10:05)
[2018-02-16] MEDS: METHADONE HCL 10 MG TABLET PO SCH (05:50)
--- NOTE | 2018-02-16 09:35 | DS ---
[facility] Detox Discharge Summary Admission Date: 02/12/18 Discharge Date: 02/16/18 - History Present History: Alcohol Dependence Additional Comments: 57 years old male admitted on 02/12/18 for alcohol withdrawal sx completed alcohol detox regimen tolerated well denies alcohol withdrawal sx alert oriented x 3 no acute distress aftercare [facility] patient wants to continue methadone maintenance program for medical mental and addiction issues - Physical Exam Results Vital Signs: Vital Signs Temperature 97.2 F L 02/16/18 07:44 Pulse Rate 49 L 02/16/18 07:44 Respiratory Rate 18 02/16/18 07:44 Blood Pressure 108/54 02/16/18 07:44 O2 Sat by Pulse Oximetry (%) Pertinent Admission Physical Exam Findings: alcohol withdrawal sx Vital Signs Temperature 97.2 F L 02/16/18 07:44 Pulse Rate 49 L 02/16/18 07:44 Respiratory Rate 18 02/16/18 07:44 Blood Pressure 108/54 02/16/18 07:44 O2 Sat by Pulse Oximetry (%) Laboratory Last Values WBC 6.7 K/mm3 (4.0-10.0) 02/13/18 07:30 RBC 4.09 M/mm3 (4.00-5.60) 02/13/18 07:30 Hgb 12.9 GM/dL (11.7-16.9) 02/13/18 07:30 Hct 38.1 % (35.4-49) 02/13/18 07:30 MCV 93.0 fl (80-96) 02/13/18 07:30 MCH 31.4 pg (25.7-33.7) 02/13/18 07:30 MCHC 33.8 g/dl (32.0-35.9) 02/13/18 07:30 RDW 15.5 % (11.9-15.9) 02/13/18 07:30 Plt Count 237 K/MM3 (134-434) 02/13/18 07:30 MPV 8.7 fl (7.5-11.1) 02/13/18 07:30 Sodium 140 mmol/L (136-145) 02/13/18 07:30 Potassium 4.5 mmol/L (3.5-5.1) 02/13/18 07:30 Chloride 106 mmol/L (98-107) 02/13/18 07:30 Carbon Dioxide 28 mmol/L (21-32) 02/13/18 07:30 Anion Gap 6 (8-16) L 02/13/18 07:30 BUN 11 mg/dL (7-18) 02/13/18 07:30 Creatinine 0.7 mg/dL (0.7-1.3) 02/13/18 07:30 Creat Clearance w eGFR > 60 (>60) 02/13/18 07:30 POC Glucometer 96 UNITS (80-120) 02/16/18 05:53 Random Glucose 114 mg/dL (74-106) H 02/13/18 07:30 Calcium 8.8 mg/dL (8.5-10.1) 02/13/18 07:30 Total Bilirubin 0.6 mg/dL (0.2-1.0) 02/13/18 07:30 AST 31 U/L (15-37) D 02/13/18 07:30 ALT 83 U/L (12-78) H D 02/13/18 07:30 Alkaline Phosphatase 82 U/L (45-117) 02/13/18 07:30 Total Protein 6.8 g/dl (6.4-8.2) 02/13/18 07:30 Albumin 3.3 g/dl (3.4-5.0) L 02/13/18 07:30 Urine Color Straw 02/12/18 20:30 Urine Appearance Clear 02/12/18 20:30 Urine pH 5.0 (5.0-8.0) 02/12/18 20:30 Ur Specific [place] 1.005 (1.001-1.035) 02/12/18 20:30 Urine Protein Negative (NEGATIVE) 02/12/18 20:30 Urine Glucose (UA) Negative (NEGATIVE) 02/12/18 20:30 Urine Ketones Negative (NEGATIVE) 02/12/18 20:30 Urine Blood Negative (NEGATIVE) 02/12/18 20:30 Urine Nitrite Negative (NEGATIVE) 02/12/18 20:30 Urine Bilirubin Negative (<2.0 mg/dL) 02/12/18 20:30 Urine Urobilinogen Negative mg/dL (0.2-1.0) 02/12/18 20:30 Ur Leukocyte Esterase Negative (NEGATIVE) 02/12/18 20:30 RPR Titer Nonreactive (NONREACTIVE) 02/13/18 07:30 lab noted - Treatment Hospital Course: Detox Protocol Followed, Detoxed Safely, Responded well, Discharged Condition Good, Rehab Referral Accepted Patient has Accepted a Rehab Referral to: [facility] - Medication Discharge Medications: Ambulatory Orders NK [No Known Home Medication] 12/17/17 - Diagnosis (1) Alcohol dependence with uncomplicated withdrawal Current Visit: Yes Status: Acute (2) Hearing loss in left ear Current Visit: No Status: Chronic Qualifiers: Hearing loss type: unspecified Qualified Code(s): H91.92 - Unspecified hearing loss, left ear (3) Methadone maintenance therapy patient Current Visit: Yes Status: Chronic (4) Nicotine dependence Current Visit: Yes Status: Acute Qualifiers: Nicotine product type: cigarettes Substance use status: in withdrawal Qualified Code(s): F17.213 - Nicotine dependence, cigarettes, with withdrawal - AMA Did Patient Leave Against Medical Advice: No
[2018-02-16] MEDS: PRENATAL VITAMINS W/ FOLIC ACID TABLET (FP) PO SCH (10:04)
[2018-02-16] MEDS: NICOTINE 14 MG/24 HOURS TOPICAL PATCH TD SCH (10:04)
[2018-02-16 10:47] VITALS: BP 118/68; PULSE 73; TEMP 97.7
== END 2018-02-16 14:54 | disposition other institution (70) | DRG 773 ==
LOC: YASAS 12:31 → Y6N 16:22
PROVIDERS: ADMIT Surgery; ATTEND Surgery
PROC: HZ2ZZZZ Detoxification Services for Substance Abuse Treatment (ICD-10-PCS; principal; 2018-02-12)
DX: F10.230 Alcohol dependence with withdrawal, uncomplicated (principal); F10.24 Alcohol dependence with alcohol-induced mood disorder; F11.20 Opioid dependence, uncomplicated; F17.213 Nicotine dependence, cigarettes, with withdrawal; F33.9 Major depressive disorder, recurrent, unspecified; M54.5 Low back pain; G89.29 Other chronic pain; H91.92 Unspecified hearing loss, left ear; R73.9 Hyperglycemia, unspecified; Z88.0 Allergy status to penicillin; Z59.0 Homelessness
CPT/HCPCS: 36415; 80053; 81003; 82962; 85027; 86593; 93005; 93010

== ENCOUNTER 2018-08-18 12:33 | Inpatient (IN) | payer OTHER ==
--- NOTE | 2018-08-18 14:09 | HP ---
CIWA Score Nausea/Vomitin Muscle Tremors: 3 Anxiety: 2 Agitation: 3 Paroxysmal Sweats: 1-Minimal Palms Moist Orientation: 0-Oriented Tacttile Disturbances: 2-Mild Itch/Numbness/Burn Auditory Disturbances: 0-None Visual Disturbances: 0-None Headache: 3-Moderate CIWA-Ar Total Score: 17 - Admission Criteria OASAS Guidelines: Admission for Medically Managed Detox: Requires at least one of the followin. CIWA greater than 12 2. Seizures within the past 24 hours 3. Delirium tremens within the past 24 hours 4. Hallucinations within the past 24 hours 5. Acute intervention needed for co occurring medical disorder 6. Acute intervention needed for co occurring psychiatric disorder 7. Severe withdrawal that cannot be handled at a lower level of care (continued vomiting, continued diarrhea, abnormal vital signs) requiring intravenous medication and/or fluids 8. Admission ROS [facility] - [facility] Chief Complaint: ETOH WITHDRAWAL SX Allergies/Adverse Reactions: Allergies Allergy/AdvReac Type Severity Reaction Status Date / Time Penicillins Allergy Severe Rash Verified 08/18/18 13:25 History of Present Illness: PATIENT IS KNOWN TO [facility]. LAST ADMISSION TO DETOX 02/2018. PATIENT STARTED DRINKING AT AGE 14 AND DRINKS 72 OUNCES OF BEER DAILY. LAST DRINK THIS MORNING. PATIENT DENIES SEIZURES, + H/O BLACKOUTS AND EYE PILLOWCASE CLEANER TO STEADY NERVES. PATIENT IS ALSO ON MTD PROGRAM AT [facility]. RN DOSE VERIFICATION COMPLETED. LAST DOSE TODAY OF MTD 30MG DAILY. PMH INCLUDES HTN, ANXIETY AND BIPOLAR DISORDER. NON-COMPLIANT WITH MEDICATION. DENIES SI/HI AND SUICIDE ATTEMPTS. Exam Limitations: Other ([place] LEFT EAR, DEAF IN RIGHT EAR) - Ebola screening Have you traveled outside of the country in the last 21 days: No Have you had contact with anyone from an Ebola affected area: No Have you been sick,other than usual withdrawal symptoms: No Do you have a fever: No - Review of Systems Constitutional: Night Sweats, Changes in sleep EENT: reports: Hearing Loss, Other (RIGHT EAR DEAFNESS, [place] LEFT EAR) Respiratory: reports: No Symptoms reported Cardiac: reports: No Symptoms Reported GI: reports: Diarrhea, Nausea, Poor Appetite, Poor Fluid Intake, Abdominal cramping : reports: Frequency (DUE TO ETOH INTAKE) Musculoskeletal: reports: Back Pain, Muscle Pain Integumentary: reports: Sweating Neuro: reports: Headache, Numbness, Tingling, Tremors Endocrine: reports: No Symptoms Reported Hematology: reports: No Symptoms Reported Psychiatric: reports: Orientated x3, Anxious, Depressed Patient History - Patient Medical History Hx Anemia: No Hx Asthma: No Hx Chronic Obstructive Pulmonary Disease (COPD): No Hx Cancer: No Hx Cardiac Disorders: No Hx Hypertension: No Hx Hypercholesterolemia: Yes (NO CURRENT Med) Hx Pacemaker: No HX Cerebrovascular Accident: No Hx Seizures: No Hx Dementia: No Hx Diabetes: No Hx Gastrointestinal Disorders: No Hx Liver Disease: No Hx Genitourinary Disorders: No Hx Sexually Transmitted Disorders: No Hx Renal Disease (ESRD): No Hx Thyroid Disease: No Hx Human Immunodeficiency Virus (HIV): No (NEGATIVE HX ) Hx Hepatitis C: No Hx Depression: No Hx Suicide Attempt: No Hx Bipolar Disorder: Yes Hx Schizophrenia: No - Patient Surgical History Past Surgical History: Yes Hx Neurologic Surgery: No Hx Cataract Extraction: No Hx Cardiac Surgery: No Hx Lung Surgery: No Hx Breast Surgery: No Hx Breast Biopsy: No Hx Abdominal Surgery: No Hx Appendectomy: No Hx Cholecystectomy: No Hx Genitourinary Surgery: No Hx Orthopedic Surgery: No Other Surgical History: multiple surgeries on both ears Anesthesia Reaction: No - PPD History Previous Implant?: Yes Documented Results: Negative w/proof Implanted On Prior R Admission?: Yes Date: 02/14/18 Results: 0 mm PPD to be Administered?: No - Smoking Cessation Smoking history: Current every day smoker Have you smoked in the past 12 months: Yes Aproximately how many cigarettes per day: 8 Cigars Per Day: 0 Hx Chewing Tobacco Use: No Initiated information on smoking cessation: Yes 'Breaking Loose' booklet given: 08/18/18 - Substance & Tx. History Hx Alcohol Use: Yes Hx Substance Use: Yes Substance Use Type: Alcohol, Prescribed Hx Substance Use Treatment: Yes - Substances Abused Alcohol-beer Route: Oral Frequency: Daily Amount used: 1-6 pk. (16 oz.) Age of first use: 13 Date of Last Use: 08/18/18 Family Disease History - Family Disease History Family Disease History: Diabetes: Father (living, hx etoh), Brother (three - living - etoh - one with dm), Heart Disease: Sister (four living - etoh), CA: Mother (, hx drugs and etoh), Other: Father, Brother, Sister, Son (two - living -), Daughter (two - living) Admission Physical Exam [facility] - Vital Signs Vital Signs: Vital Signs - 24 hr 08/18/18 13:06 Temperature 98.3 F Pulse Rate 90 Respiratory 18 Rate Blood Pressure 134/76 - Physical General Appearance: Yes: Nourished, Disheveled, Tremorous, Anxious HEENTM: Yes: EOMI, Normocephalic, Normal Voice, MONIKA, Hearing Decreased (RIGHT EAR DEAFNESS, LEFT EAR [place]) Respiratory: Yes: Chest Non-Tender, Normal Breath Sounds, No Respiratory Distress, No Accessory Muscle Use, Wheezing Neck: Yes: No masses,lesions,Nodules, Supple, Trachea in good position Breast: Yes: Breast Exam Deferred Cardiology: Yes: Regular Rhythm, Regular Rate, S1, S2 Abdominal: Yes: Normal Bowel Sounds, Non Tender, Soft Genitourinary: Yes: Frequency (dependent on ETOH intake) Back: Yes: Muscle Spasm Musculoskeletal: Yes: full range of Motion, Gait Steady, Back pain Extremities: Yes: Normal Inspection, Normal Range of Motion, Tremors Neurological: Yes: process safety specialist II-XII NML intact, Fully Oriented, Alert, Motor Strength 5/5, Normal Response, Other (anxiety) Integumentary: Yes: Normal Color, Warm, Moist Lymphatic: Yes: Within Normal Limits Cleared for Admission [facility] - Detox or Rehab [facility] Level of Care: Medically Managed Detox Regimen/Protocol: Librium [facility] Breath Alcohol Content Breath Alcohol Content: 0.234 Urine Drug Screen - Results Drug Screen Negative: No Urine Drug Screen Results: MTD-Methadone
[2018-08-18] MEDS ORDERED: IBUPROFEN 400 MG TABLET (FP) PO PRN (14:15)
[2018-08-18] MEDS ORDERED: ACETAMINOPHEN 325 MG TABLET (FP) PO PRN (14:15)
[2018-08-18] MEDS ORDERED: MENTHOL/PHENOL 1 EACH UD MM PRN (14:15)
[2018-08-18] MEDS ORDERED: P-EPHED 60MG/TRIPROLIDI 2.5MG TABLET PO PRN (14:15)
[2018-08-18] MEDS ORDERED: MAG HYDROX/AL HYDROX/SIMETH 30 ML UNIT-DOSE CUP PO PRN (14:15)
[2018-08-18] MEDS ORDERED: MAGNESIUM HYDROX 2400MG/30ML ORAL SUSPENSION 30 ML CUP PO PRN (14:15)
[2018-08-18] MEDS ORDERED: LOPERAMIDE HCL 2 MG CAPSULE PO PRN (14:15)
[2018-08-18] MEDS ORDERED: NICOTINE POLACRILEX 2 MG GUM BUC PRN (14:15)
[2018-08-18] MEDS ORDERED: guaiFENesin/D-METHORPHAN HB 10 ML UNIT-DOSE CUPS PO PRN (14:15)
[2018-08-18] MEDS ORDERED: MAGNESIUM CITRATE 300 ML BOTTLE PO PRN (14:15)
[2018-08-18] MEDS ORDERED: chlordiazePOXIDE HCL 25 MG CAPSULE PO PRN (14:18)
[2018-08-18 14:33] VITALS: BMI 31.7
[2018-08-18] MEDS ORDERED: ALBUTEROL SO4 8 GM HFA INHALER IH PRN (14:49)
--- NOTE | 2018-08-18 17:14 | PN ---
S Progress Note Note: Psychiatry Attending's note : Patient is approached at bedside. For psychiatric interview. Found asleep. Examination deferred.
[2018-08-18] MEDS: chlordiazePOXIDE HCL 25 MG CAPSULE PO SCH ×2 (17:25→22:46)
[2018-08-18] MEDS: THIAMINE HCL 100 MG TABLET (FP) PO SCH (22:46)
[2018-08-19 02:03] LABS: URINE APPEARANCE CLEAR; URINE BILIRUBIN NEGATIVE (<2.0 mg/dL); URINE COLOR LTYELLOW; URINE GLUCOSE (UA) NEGATIVE (NEGATIVE); URINE KETONE NEGATIVE (NEGATIVE); URINE LEUK ESTERASE NEGATIVE (NEGATIVE); URINE NITRITE NEGATIVE (NEGATIVE); URINE PROTEIN NEGATIVE (NEGATIVE); URINE UROBILINOGEN NEGATIVE mg/dL (0.2-1.0)
[2018-08-19] MEDS: METHADONE HCL 10 MG TABLET PO SCH (05:46)
[2018-08-19] MEDS: chlordiazePOXIDE HCL 25 MG CAPSULE PO SCH ×2 (05:46→10:36)
--- NOTE | 2018-08-19 09:48 | CONSULT ---
[facility] Psychiatric Consult - Data Date of interview: 08/19/18 Admission source: [facility] Identifying data: Patient is a 58 year old single male, father of four, unemployed, homeless, and is not receiving financial assistance. This is one of multiple admissions for patient. Patient admitted to for alcohol dependence. Substance Abuse History: Smoking Cessation. Smoking history: Current every day smoker. Have you smoked in the past 12 months: Yes. Aproximately how many cigarettes per day: 8. Cigars Per Day: 0. Hx Chewing Tobacco Use: No. Initiated information on smoking cessation: Yes. 'Breaking Loose' booklet given : 08/18/18. - Substance & Tx. History. Hx Alcohol Use: Yes. Hx Substance Use : Yes. Substance Use Type: Alcohol, Prescribed. Hx Substance Use Treatment: Yes. - Substances Abused. Alcohol-beer. Route: Oral. Frequency: Daily. Amount used: 1-6 pk. (16 oz.). Age of first use: 13. Date of Last Use: Medical History: Hypercholesterolemia, multiple surguries on both ears. Psychiatric History: Patient denies h/o psychiatric hospitalization. Mr. Fierro states he was diagnosed with Bipolar disorder 1.5 years ago by a private psychiatrist. States he was prescribed medications (can't recall) but was noncompliant with his medication regiman. As per Dr. Delatorre note on 12/18/17 patient reported history of being prescribed lexapro,risperdal,aripriprazole, mirtazapine,zolpidem. Patient denies h/o suicide attempt. At present he reports feeling sad secondary to his history of alcohol dependence. Physical/Sexual Abuse/Trauma History: denies. Mental Status Exam - Mental Status Exam Alert and Oriented to: Time, Place, Person Cognitive Function: Good Patient Appearance: Well Groomed Mood: Sad Affect: Appropriate Patient Behavior: Appropriate, Cooperative Speech Pattern: Appropriate Voice Loudness: Normal Thought Process: Intact, Goal Oriented Thought Disorder: Not Present Hallucinations: Denies Suicidal Ideation: Denies Homicidal Ideation: Denies Insight/Judgement: Poor Sleep: Fair Appetite: Fair Muscle strength/Tone: Normal Gait/Station: Normal Psychiatric Findings - Problem List ([place] 1, 2,3) (1) Alcohol dependence with uncomplicated withdrawal Current Visit: Yes Status: Acute (2) Substance induced mood disorder Current Visit: Yes Status: Acute (3) Nicotine dependence Current Visit: Yes Status: Acute Qualifiers: Nicotine product type: cigarettes Substance use status: uncomplicated Qualified Code(s): F17.210 - Nicotine dependence, cigarettes, uncomplicated - Initial Treatment Plan Initial Treatment Plan: Psychoeducation provided. Detoxification in progress. Observation.
[2018-08-19 10:18] LABS: HEMOGLOBIN 12.6 GM/dL (11.7-16.9); MCH 32.7 pg (25.7-33.7); MCHC 34.1 g/dl (32.0-35.9); MEAN PLT VOLUME 9.3 fl (7.5-11.1); PLATELET COUNT 225 K/MM3 (134-434); RBC 3.85 M/mm3 (4.00-5.60); RDW 13.6 % (11.9-15.9); WHITE BLOOD COUNT 6.5 K/mm3 (4.0-10.0)
[2018-08-19 10:33] LABS: ALBUMIN 3.9 g/dl (3.4-5.0); ALK PHOS 138 U/L (45-117); ANION GAP 8 MMOL/L (8-16); BILIRUBIN,TOTAL 0.6 mg/dL (0.2-1); BLOOD UREA NITROGEN 9 mg/dL (7-18); CALCIUM 8.4 mg/dL (8.5-10.1); CHLORIDE 102 mmol/L (98-107); CO2 25 mmol/L (21-32); CREATININE 0.9 mg/dL (0.55-1.3); GLUCOSE,RANDOM 93 mg/dL (74-106); POTASSIUM 4.3 mmol/L (3.5-5.1); SGOT/AST 155 U/L (15-37); SGPT/ALT 178 U/L (13-61); SODIUM 136 mmol/L (136-145); TOT PROT 7.3 g/dl (6.4-8.2)
[2018-08-19] MEDS: NICOTINE 14 MG/24 HOURS TOPICAL PATCH TD SCH (10:35)
[2018-08-19] MEDS: hydrOXYzine PAMOATE 50 MG CAPSULE (FP) PO PRN ×2 (10:36→17:32)
[2018-08-19] MEDS: PRENATAL VITAMINS W/ FOLIC ACID TABLET (FP) PO SCH (10:36)
--- NOTE | 2018-08-19 12:49 | PN ---
S CIWA - CIWA Score Nausea/Vomitin-Mild Nausea/No Vomiting Muscle Tremors: 3 Anxiety: 2 Agitation: 2 Paroxysmal Sweats: 1-Minimal Palms Moist Orientation: 1-Uncertain about Date Tacttile Disturbances: 0-None Auditory Disturbances: 0-None Visual Disturbances: 0-None Headache: 2-Mild CIWA-Ar Total Score: 12 S Progress Note (SOAP) Subjective: tremor sweating restlessness trouble sleep at night Objective: 08/19/18 12:47 Vital Signs Temperature 99.2 F 08/19/18 09:15 Pulse Rate 81 08/19/18 12:00 Respiratory Rate 16 08/19/18 12:00 Blood Pressure 127/81 08/19/18 09:15 O2 Sat by Pulse Oximetry (%) Laboratory Last Values WBC 6.5 K/mm3 (4.0-10.0) 08/19/18 06:00 RBC 3.85 M/mm3 (4.00-5.60) L 08/19/18 06:00 Hgb 12.6 GM/dL (11.7-16.9) 08/19/18 06:00 Hct 37.0 % (35.4-49) 08/19/18 06:00 MCV 96.0 fl (80-96) 08/19/18 06:00 MCH 32.7 pg (25.7-33.7) 08/19/18 06:00 MCHC 34.1 g/dl (32.0-35.9) 08/19/18 06:00 RDW 13.6 % (11.9-15.9) D 08/19/18 06:00 Plt Count 225 K/MM3 (134-434) 08/19/18 06:00 MPV 9.3 fl (7.5-11.1) 08/19/18 06:00 Sodium 136 mmol/L (136-145) 08/19/18 06:00 Potassium 4.3 mmol/L (3.5-5.1) 08/19/18 06:00 Chloride 102 mmol/L (98-107) 08/19/18 06:00 Carbon Dioxide 25 mmol/L (21-32) 08/19/18 06:00 Anion Gap 8 MMOL/L (8-16) 08/19/18 06:00 BUN 9 mg/dL (7-18) 08/19/18 06:00 Creatinine 0.9 mg/dL (0.55-1.3) 08/19/18 06:00 Creat Clearance w eGFR > 60 (>60) 08/19/18 06:00 Random Glucose 93 mg/dL (74-106) 08/19/18 06:00 Calcium 8.4 mg/dL (8.5-10.1) L 08/19/18 06:00 Total Bilirubin 0.6 mg/dL (0.2-1) 08/19/18 06:00 AST 155 U/L (15-37) H 08/19/18 06:00 ALT 178 U/L (13-61) H 08/19/18 06:00 Alkaline Phosphatase 138 U/L (45-117) H 08/19/18 06:00 Total Protein 7.3 g/dl (6.4-8.2) 08/19/18 06:00 Albumin 3.9 g/dl (3.4-5.0) 08/19/18 06:00 Urine Color Ltyellow 08/18/18 22:50 Urine Appearance Clear 08/18/18 22:50 Urine pH 5.0 (5.0-8.0) 08/18/18 22:50 Ur Specific [place] 1.004 (1.010-1.035) L 08/18/18 22:50 Urine Protein Negative (NEGATIVE) 08/18/18 22:50 Urine Glucose (UA) Negative (NEGATIVE) 08/18/18 22:50 Urine Ketones Negative (NEGATIVE) 08/18/18 22:50 Urine Blood Negative (NEGATIVE) 08/18/18 22:50 Urine Nitrite Negative (NEGATIVE) 08/18/18 22:50 Urine Bilirubin Negative (<2.0 mg/dL) 08/18/18 22:50 Urine Urobilinogen Negative mg/dL (0.2-1.0) 08/18/18 22:50 Ur Leukocyte Esterase Negative (NEGATIVE) 08/18/18 22:50 lab noted elevation liver enzyme discontinue tylenal discontinue librium begin ativan alcohol detox regimen repeat ast 08/19/18 13:01 Assessment: 08/19/18 12:47 alcohol withdrawal sx 08/19/18 13:02 liver "not so good" x months Plan: continue detox patient is follow up with methadone maintenance provider for his liver issues
[2018-08-19] MEDS ORDERED: LORazepam 1 MG TABLET PO PRN (12:59)
[2018-08-19] MEDS ORDERED: chlordiazePOXIDE HCL 25 MG CAPSULE PO SCH (17:00)
[2018-08-19] MEDS: LORazepam 1 MG TABLET PO SCH ×2 (17:32→23:44)
[2018-08-19] MEDS: THIAMINE HCL 100 MG TABLET (FP) PO SCH (22:24)
[2018-08-19] MEDS: MELATONIN 5 MG TABLETS PO PRN (22:24)
[2018-08-20] MEDS: METHADONE HCL 10 MG TABLET PO SCH (05:26)
[2018-08-20] MEDS: LORazepam 1 MG TABLET PO SCH ×4 (05:27→23:10)
[2018-08-20] MEDS: NICOTINE 14 MG/24 HOURS TOPICAL PATCH TD SCH (10:21)
[2018-08-20] MEDS: PRENATAL VITAMINS W/ FOLIC ACID TABLET (FP) PO SCH (10:21)
--- NOTE | 2018-08-20 13:27 | PN ---
[facility] CIWA - CIWA Score Nausea/Vomitin-No Nausea/No Vomiting Muscle Tremors: 3 Anxiety: 1-Mildly Anxious Agitation: 2 Paroxysmal Sweats: 1-Minimal Palms Moist Orientation: 1-Uncertain about Date Tacttile Disturbances: 0-None Auditory Disturbances: 0-None Visual Disturbances: 0-None Headache: 1-Very Mild CIWA-Ar Total Score: 9 S Progress Note (SOAP) Subjective: tremor sweating otherwise feeling ok social with peers in day room Objective: 08/20/18 15:37 Vital Signs Temperature 96.9 F L 08/20/18 13:22 Pulse Rate 68 08/20/18 13:22 Respiratory Rate 16 08/20/18 13:22 Blood Pressure 115/66 08/20/18 13:22 O2 Sat by Pulse Oximetry (%) Laboratory Last Values WBC 6.5 K/mm3 (4.0-10.0) 08/19/18 06:00 RBC 3.85 M/mm3 (4.00-5.60) L 08/19/18 06:00 Hgb 12.6 GM/dL (11.7-16.9) 08/19/18 06:00 Hct 37.0 % (35.4-49) 08/19/18 06:00 MCV 96.0 fl (80-96) 08/19/18 06:00 MCH 32.7 pg (25.7-33.7) 08/19/18 06:00 MCHC 34.1 g/dl (32.0-35.9) 08/19/18 06:00 RDW 13.6 % (11.9-15.9) D 08/19/18 06:00 Plt Count 225 K/MM3 (134-434) 08/19/18 06:00 MPV 9.3 fl (7.5-11.1) 08/19/18 06:00 Sodium 136 mmol/L (136-145) 08/19/18 06:00 Potassium 4.3 mmol/L (3.5-5.1) 08/19/18 06:00 Chloride 102 mmol/L (98-107) 08/19/18 06:00 Carbon Dioxide 25 mmol/L (21-32) 08/19/18 06:00 Anion Gap 8 MMOL/L (8-16) 08/19/18 06:00 BUN 9 mg/dL (7-18) 08/19/18 06:00 Creatinine 0.9 mg/dL (0.55-1.3) 08/19/18 06:00 Creat Clearance w eGFR > 60 (>60) 08/19/18 06:00 Random Glucose 93 mg/dL (74-106) 08/19/18 06:00 Calcium 8.4 mg/dL (8.5-10.1) L 08/19/18 06:00 Total Bilirubin 0.6 mg/dL (0.2-1) 08/19/18 06:00 AST 155 U/L (15-37) H 08/19/18 06:00 ALT 178 U/L (13-61) H 08/19/18 06:00 Alkaline Phosphatase 138 U/L (45-117) H 08/19/18 06:00 Total Protein 7.3 g/dl (6.4-8.2) 08/19/18 06:00 Albumin 3.9 g/dl (3.4-5.0) 08/19/18 06:00 Urine Color Ltyellow 08/18/18 22:50 Urine Appearance Clear 08/18/18 22:50 Urine pH 5.0 (5.0-8.0) 08/18/18 22:50 Ur Specific [place] 1.004 (1.010-1.035) L 08/18/18 22:50 Urine Protein Negative (NEGATIVE) 08/18/18 22:50 Urine Glucose (UA) Negative (NEGATIVE) 08/18/18 22:50 Urine Ketones Negative (NEGATIVE) 08/18/18 22:50 Urine Blood Negative (NEGATIVE) 08/18/18 22:50 Urine Nitrite Negative (NEGATIVE) 08/18/18 22:50 Urine Bilirubin Negative (<2.0 mg/dL) 08/18/18 22:50 Urine Urobilinogen Negative mg/dL (0.2-1.0) 08/18/18 22:50 Ur Leukocyte Esterase Negative (NEGATIVE) 08/18/18 22:50 RPR Titer Nonreactive (NONREACTIVE) 08/19/18 06:00 ast repeat 08/21/18 lab noted 08/20/18 15:38 Assessment: 08/20/18 15:37 withdrawal sx Plan: continue detox
[2018-08-20] MEDS ORDERED: chlordiazePOXIDE 5 MG CAPSULE PO SCH (17:00)
[2018-08-20] MEDS ORDERED: cloNIDine HCL 0.1 MG TABLET PO ONE (17:44)
[2018-08-20] MEDS: MELATONIN 5 MG TABLETS PO PRN (22:19)
[2018-08-20] MEDS: THIAMINE HCL 100 MG TABLET (FP) PO SCH (22:19)
[2018-08-21] MEDS: LORazepam 1 MG TABLET PO SCH ×4 (05:33→23:35)
[2018-08-21] MEDS: METHADONE HCL 10 MG TABLET PO SCH (05:33)
[2018-08-21] MEDS: NICOTINE 14 MG/24 HOURS TOPICAL PATCH TD SCH (10:30)
[2018-08-21] MEDS: PRENATAL VITAMINS W/ FOLIC ACID TABLET (FP) PO SCH (10:30)
--- NOTE | 2018-08-21 13:43 | PN ---
[facility] Progress Note (SOAP) Subjective: feeling better less tremor mild sweating discuss aftercare with staff Objective: 08/21/18 13:46 Vital Signs Temperature 97.9 F 08/21/18 13:26 Pulse Rate 77 08/21/18 13:26 Respiratory Rate 18 08/21/18 13:26 Blood Pressure 133/86 08/21/18 13:26 O2 Sat by Pulse Oximetry (%) Laboratory Last Values WBC 6.5 K/mm3 (4.0-10.0) 08/19/18 06:00 RBC 3.85 M/mm3 (4.00-5.60) L 08/19/18 06:00 Hgb 12.6 GM/dL (11.7-16.9) 08/19/18 06:00 Hct 37.0 % (35.4-49) 08/19/18 06:00 MCV 96.0 fl (80-96) 08/19/18 06:00 MCH 32.7 pg (25.7-33.7) 08/19/18 06:00 MCHC 34.1 g/dl (32.0-35.9) 08/19/18 06:00 RDW 13.6 % (11.9-15.9) D 08/19/18 06:00 Plt Count 225 K/MM3 (134-434) 08/19/18 06:00 MPV 9.3 fl (7.5-11.1) 08/19/18 06:00 Sodium 136 mmol/L (136-145) 08/19/18 06:00 Potassium 4.3 mmol/L (3.5-5.1) 08/19/18 06:00 Chloride 102 mmol/L (98-107) 08/19/18 06:00 Carbon Dioxide 25 mmol/L (21-32) 08/19/18 06:00 Anion Gap 8 MMOL/L (8-16) 08/19/18 06:00 BUN 9 mg/dL (7-18) 08/19/18 06:00 Creatinine 0.9 mg/dL (0.55-1.3) 08/19/18 06:00 Creat Clearance w eGFR > 60 (>60) 08/19/18 06:00 Random Glucose 93 mg/dL (74-106) 08/19/18 06:00 Calcium 8.4 mg/dL (8.5-10.1) L 08/19/18 06:00 Total Bilirubin 0.6 mg/dL (0.2-1) 08/19/18 06:00 AST 24 U/L (15-37) 08/21/18 08:47 ALT 178 U/L (13-61) H 08/19/18 06:00 Alkaline Phosphatase 138 U/L (45-117) H 08/19/18 06:00 Total Protein 7.3 g/dl (6.4-8.2) 08/19/18 06:00 Albumin 3.9 g/dl (3.4-5.0) 08/19/18 06:00 Urine Color Ltyellow 08/18/18 22:50 Urine Appearance Clear 08/18/18 22:50 Urine pH 5.0 (5.0-8.0) 08/18/18 22:50 Ur Specific [place] 1.004 (1.010-1.035) L 08/18/18 22:50 Urine Protein Negative (NEGATIVE) 08/18/18 22:50 Urine Glucose (UA) Negative (NEGATIVE) 08/18/18 22:50 Urine Ketones Negative (NEGATIVE) 08/18/18 22:50 Urine Blood Negative (NEGATIVE) 08/18/18 22:50 Urine Nitrite Negative (NEGATIVE) 08/18/18 22:50 Urine Bilirubin Negative (<2.0 mg/dL) 08/18/18 22:50 Urine Urobilinogen Negative mg/dL (0.2-1.0) 08/18/18 22:50 Ur Leukocyte Esterase Negative (NEGATIVE) 08/18/18 22:50 RPR Titer Nonreactive (NONREACTIVE) 08/19/18 06:00 lab noted Assessment: 08/21/18 13:47 mild withdrawal sx Plan: contiue detox
[2018-08-21] MEDS ORDERED: chlordiazePOXIDE HCL 10 MG CAPSULE PO SCH (17:00)
[2018-08-21] MEDS: THIAMINE HCL 100 MG TABLET (FP) PO SCH (22:21)
[2018-08-21] MEDS: MELATONIN 5 MG TABLETS PO PRN (22:22)
[2018-08-22] MEDS ORDERED: LORazepam 2 MG TABLET PO ONE (06:00)
[2018-08-22] MEDS: METHADONE HCL 10 MG TABLET PO SCH (06:12)
[2018-08-22] MEDS: hydrOXYzine PAMOATE 50 MG CAPSULE (FP) PO PRN (09:46)
[2018-08-22] MEDS: PRENATAL VITAMINS W/ FOLIC ACID TABLET (FP) PO SCH (09:46)
[2018-08-22] MEDS: NICOTINE 14 MG/24 HOURS TOPICAL PATCH TD SCH (09:46)
[2018-08-22 13:16] VITALS: BP 143/92; PULSE 89; TEMP 96.7
--- NOTE | 2018-08-22 15:11 | DS ---
[facility] Detox Discharge Summary Admission Date: 08/18/18 Discharge Date: 08/22/18 - History Present History: Alcohol Dependence, Opioid Dependence, MMTP Additional Comments: PATIENT GOING TO [facility] ([place], [place]) FOR AFTERCARE. PATIENT WAS DISCHARGED FROM DETOX UNIT TO BE TAKEN OVER TO REHAB UNIT IN STABLE MEDICAL CONDITION. Pertinent Past History: History of Depression, M.M.T.P., Nicotine Dependence, History of Hearing Loss in Left Ear, History of Hypercholesterolemia. - Physical Exam Results Vital Signs: Vital Signs Temperature 96.7 F L 08/22/18 13:16 Pulse Rate 89 08/22/18 13:16 Respiratory Rate 20 08/22/18 13:16 Blood Pressure 143/92 08/22/18 13:16 O2 Sat by Pulse Oximetry (%) Pertinent Admission Physical Exam Findings: WITHDRAWAL SYMPTOMS. Laboratory Tests 08/18/18 08/19/18 08/19/18 22:50 06:00 06:00 WBC 6.5 RBC 3.85 L Hgb 12.6 Hct 37.0 MCV 96.0 MCH 32.7 MCHC 34.1 RDW 13.6 D Plt Count 225 MPV 9.3 Sodium 136 Potassium 4.3 Chloride 102 Carbon Dioxide 25 Anion Gap 8 BUN 9 Creatinine 0.9 Creat Clearance w eGFR > 60 Random Glucose 93 Calcium 8.4 L Total Bilirubin 0.6 AST 155 H ALT 178 H Alkaline Phosphatase 138 H Total Protein 7.3 Albumin 3.9 Urine Color Ltyellow Urine Appearance Clear Urine pH 5.0 Ur Specific [place] 1.004 L Urine Protein Negative Urine Glucose (UA) Negative Urine Ketones Negative Urine Blood Negative Urine Nitrite Negative Urine Bilirubin Negative Urine Urobilinogen Negative Ur Leukocyte Esterase Negative RPR Titer 08/19/18 08/21/18 06:00 08:47 WBC RBC Hgb Hct MCV MCH MCHC RDW Plt Count MPV Sodium Potassium Chloride Carbon Dioxide Anion Gap BUN Creatinine Creat Clearance w eGFR Random Glucose Calcium Total Bilirubin AST 24 ALT Alkaline Phosphatase Total Protein Albumin Urine Color Urine Appearance Urine pH Ur Specific [place] Urine Protein Urine Glucose (UA) Urine Ketones Urine Blood Urine Nitrite Urine Bilirubin Urine Urobilinogen Ur Leukocyte Esterase RPR Titer Nonreactive LABS NOTED. - Treatment Hospital Course: Detox Protocol Followed, Detoxed Safely, Responded well, Discharged Condition Good, Rehab Referral Accepted Patient has Accepted a Rehab Referral to: [facility] ([place], [place]). - Medication Discharge Medications: Ambulatory Orders Methadone [Dolophine -] 30 mg PO DAILY 08/18/18 - Diagnosis (1) Alcohol dependence with uncomplicated withdrawal Status: Acute (2) Nicotine dependence Status: Acute Qualifiers: Nicotine product type: cigarettes Substance use status: uncomplicated Qualified Code(s): F17.210 - Nicotine dependence, cigarettes, uncomplicated (3) Hearing loss in left ear Status: Chronic Qualifiers: Hearing loss type: unspecified Qualified Code(s): H91.92 - Unspecified hearing loss, left ear (4) Nicotine dependence Status: Chronic Qualifiers: Nicotine product type: cigarettes Substance use status: uncomplicated Qualified Code(s): F17.210 - Nicotine dependence, cigarettes, uncomplicated (5) Opioid dependence on agonist therapy Status: Chronic (6) Substance induced mood disorder Status: Acute - AMA Did Patient Leave Against Medical Advice: No
== END 2018-08-22 14:35 | disposition other institution (70) | DRG 775 ==
LOC: YASAS 12:33 → Y3N 14:33
PROVIDERS: ADMIT Neuromusculoskeletal Medicine & OMM; ATTEND Neuromusculoskeletal Medicine & OMM
PROC: HZ2ZZZZ Detoxification Services for Substance Abuse Treatment (ICD-10-PCS; principal; 2018-08-18)
DX: F10.230 Alcohol dependence with withdrawal, uncomplicated (principal); F17.210 Nicotine dependence, cigarettes, uncomplicated; F19.24 Other psychoactive substance dependence with psychoactive substance-induced mood disorder; H91.92 Unspecified hearing loss, left ear; R94.5 Abnormal results of liver function studies; Z88.0 Allergy status to penicillin; Z59.0 Homelessness
CPT/HCPCS: 36415; 80053; 81003; 84450; 85027; 86593; J0735

== ENCOUNTER 2018-08-22 14:49 | Inpatient (IN) | payer OTHER ==
[2018-08-22] MEDS ORDERED: NICOTINE POLACRILEX 2 MG GUM BUC PRN (15:14)
[2018-08-22] MEDS ORDERED: MAGNESIUM HYDROX 2400MG/30ML ORAL SUSPENSION 30 ML CUP PO PRN (15:14)
[2018-08-22] MEDS ORDERED: LOPERAMIDE HCL 2 MG CAPSULE PO PRN (15:14)
[2018-08-22] MEDS ORDERED: P-EPHED 60MG/TRIPROLIDI 2.5MG TABLET PO PRN (15:14)
[2018-08-22] MEDS ORDERED: MAG HYDROX/AL HYDROX/SIMETH 30 ML UNIT-DOSE CUP PO PRN (15:14)
[2018-08-22] MEDS ORDERED: guaiFENesin/D-METHORPHAN HB 10 ML UNIT-DOSE CUPS PO PRN (15:14)
[2018-08-22] MEDS ORDERED: MENTHOL/PHENOL 1 EACH UD MM PRN (15:14)
[2018-08-22] MEDS ORDERED: MAGNESIUM CITRATE 300 ML BOTTLE PO PRN (15:14)
[2018-08-22] MEDS ORDERED: ALBUTEROL SO4 8 GM HFA INHALER IH PRN (15:18)
--- NOTE | 2018-08-22 15:20 | HP ---
[facility] Rehab Assess/Revision - Admission History Admitted to Rehab from: [facility] Date of Admission to Rehab: 08/22/2018 - Vital signs Vital Signs: NOTED; STABLE. - Findings Detox History & Physical reviewed: Yes Concur with findings: Yes Comments/Additional Findings: PATIENT'S MEDICAL / MEDICATION HISTORY REVIEWED PRIOR TO DISCHARGE FROM DETOX UNIT. PATIENT WAS DISCHARGED FROM DETOX UNIT TO BE TAKEN TO REHAB UNIT IN STABLE MEDICAL CONDITION. Inpatient Rehab Admission - Rehab Decision to Admit Inpatient rehab admission?: Yes - Initial Determination Are CD services needed?: Yes Free of communicable disease: Yes Not in need of hospitalization: Yes - Rehab Admission Criteria Previous failed treatment: Yes Poor recovery environment: No Comorbidities: Yes Lacks judgement: Yes Patient is meeting Inpatient Rehab admission criteria:: Yes
[2018-08-22 15:43] VITALS: BMI 32.6
--- NOTE | 2018-08-22 16:22 | CONSULT ---
[facility] Psychiatric Consult - Data Date of interview: 08/22/18 Admission source: [address] [place] [address] Psychiatric Findings - Problem List ([place] 1, 2,3) (1) Nicotine dependence Current Visit: Yes Status: Chronic Qualifiers: (2) Alcohol dependence Current Visit: Yes Status: Chronic (3) Hearing loss in left ear Current Visit: Yes Status: Chronic Qualifiers: (4) Low back pain Current Visit: Yes Status: Chronic Qualifiers: (5) MDD (major depressive disorder), recurrent episode Current Visit: Yes Status: Chronic Qualifiers: (6) Methadone maintenance therapy patient Current Visit: Yes Status: Chronic Comment: pending verification. last dose received today with 30mg.
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
[2018-08-22] MEDS ORDERED: hydrOXYzine PAMOATE 50 MG CAPSULE (FP) PO PRN (16:44)
[2018-08-22] MEDS: SERTRALINE HCL 50 MG TABLET (FP) PO SCH (18:21)
[2018-08-22] MEDS: THIAMINE HCL 100 MG TABLET (FP) PO SCH (21:19)
[2018-08-22] MEDS: MELATONIN 5 MG TABLETS PO PRN (21:20)
[2018-08-22] MEDS: traZODone HCL 50 MG TABLET (FP) PO SCH (21:21)
[2018-08-23] MEDS: METHADONE HCL 10 MG TABLET PO SCH (06:31)
[2018-08-23] MEDS: SERTRALINE HCL 50 MG TABLET (FP) PO SCH (09:59)
[2018-08-23] MEDS: PRENATAL VITAMINS W/ FOLIC ACID TABLET (FP) PO SCH (09:59)
[2018-08-23] MEDS: NICOTINE 14 MG/24 HOURS TOPICAL PATCH TD SCH (10:00)
[2018-08-23] MEDS: traZODone HCL 50 MG TABLET (FP) PO SCH (21:15)
[2018-08-23] MEDS: THIAMINE HCL 100 MG TABLET (FP) PO SCH (21:15)
[2018-08-23] MEDS: MELATONIN 5 MG TABLETS PO PRN (21:16)
[2018-08-24] MEDS: METHADONE HCL 10 MG TABLET PO SCH (06:40)
[2018-08-24] MEDS: SERTRALINE HCL 50 MG TABLET (FP) PO SCH (10:12)
[2018-08-24] MEDS: NICOTINE 14 MG/24 HOURS TOPICAL PATCH TD SCH (10:12)
[2018-08-24] MEDS: IBUPROFEN 400 MG TABLET (FP) PO PRN (10:12)
[2018-08-24] MEDS: PRENATAL VITAMINS W/ FOLIC ACID TABLET (FP) PO SCH (10:12)
[2018-08-24] MEDS: traZODone HCL 50 MG TABLET (FP) PO SCH (21:29)
[2018-08-24] MEDS: MELATONIN 5 MG TABLETS PO PRN (21:29)
[2018-08-24] MEDS: THIAMINE HCL 100 MG TABLET (FP) PO SCH (21:29)
[2018-08-25] MEDS: METHADONE HCL 10 MG TABLET PO SCH (06:38)
[2018-08-25] MEDS: PRENATAL VITAMINS W/ FOLIC ACID TABLET (FP) PO SCH (10:24)
[2018-08-25] MEDS: SERTRALINE HCL 50 MG TABLET (FP) PO SCH (10:24)
[2018-08-25] MEDS: NICOTINE 14 MG/24 HOURS TOPICAL PATCH TD SCH (10:25)
[2018-08-25] MEDS: MELATONIN 5 MG TABLETS PO PRN (21:37)
[2018-08-25] MEDS: traZODone HCL 50 MG TABLET (FP) PO SCH (21:37)
[2018-08-25] MEDS: THIAMINE HCL 100 MG TABLET (FP) PO SCH (21:37)
[2018-08-26] MEDS: METHADONE HCL 10 MG TABLET PO SCH (06:43)
[2018-08-26] MEDS: NICOTINE 14 MG/24 HOURS TOPICAL PATCH TD SCH (09:53)
[2018-08-26] MEDS: SERTRALINE HCL 50 MG TABLET (FP) PO SCH (09:53)
[2018-08-26] MEDS: PRENATAL VITAMINS W/ FOLIC ACID TABLET (FP) PO SCH (09:53)
--- NOTE | 2018-08-26 12:12 | PN ---
[facility] Progress Note Note: PT C/O LEFT EAR PAIN WITH YELLOWISH, PUS DRAINAGE X 3 DAYS. REPORTS CHRONIC HX OF EAR INFECTIONS. DENIES FEVER,NAUSEA OR VOMITING. S/P DETOX AND REFERRAL TO REHAB 08/22/18. PT ALSO REPORTS RIGHT EAR SX AND [place] ON RIGHT EAR. Vital Signs - 24 hr 08/26/18 08/26/18 08/26/18 00:30 03:30 07:08 Temperature 98.1 F Pulse Rate 66 Respiratory 18 18 18 Rate Blood Pressure 110/78 Laboratory Tests 08/23/18 08:00 HIV 1&2 Antibody Screen Negative HIV P24 Antigen Negative EAR EXAM: RIGHT EAR WITH CERUMEN. NO DRAINAGE, REDNESS OR SWELLING. LEFT EAR WITH YELLOWISH DRAINAGE ON OUTER CANAL. TM RED AND SLIGHTLY BULGING. R/O SUPPURATIVE OM OE CERUMEN PLAN:CLINDAMYCIN 300 MG PO Q6H X 7 DAYS
[2018-08-26] MEDS: CLINDAMYCIN HCL 150 MG CAPSULE (FP) PO SCH ×2 (14:11→17:22)
[2018-08-26] MEDS: MELATONIN 5 MG TABLETS PO PRN (21:34)
[2018-08-26] MEDS: traZODone HCL 50 MG TABLET (FP) PO SCH (21:35)
[2018-08-26] MEDS: THIAMINE HCL 100 MG TABLET (FP) PO SCH (21:35)
[2018-08-27] MEDS: CLINDAMYCIN HCL 150 MG CAPSULE (FP) PO SCH ×5 (00:13→23:57)
[2018-08-27] MEDS: METHADONE HCL 10 MG TABLET PO SCH (06:44)
[2018-08-27] MEDS: NICOTINE 14 MG/24 HOURS TOPICAL PATCH TD SCH (09:52)
[2018-08-27] MEDS: PRENATAL VITAMINS W/ FOLIC ACID TABLET (FP) PO SCH (09:52)
[2018-08-27] MEDS: SERTRALINE HCL 50 MG TABLET (FP) PO SCH (09:52)
[2018-08-27] MEDS: traZODone HCL 50 MG TABLET (FP) PO SCH (21:27)
[2018-08-27] MEDS: THIAMINE HCL 100 MG TABLET (FP) PO SCH (21:27)
[2018-08-27] MEDS: MELATONIN 5 MG TABLETS PO PRN (21:27)
[2018-08-28] MEDS: METHADONE HCL 10 MG TABLET PO SCH (06:28)
[2018-08-28] MEDS: CLINDAMYCIN HCL 150 MG CAPSULE (FP) PO SCH ×4 (06:28→23:34)
[2018-08-28] MEDS: NICOTINE 14 MG/24 HOURS TOPICAL PATCH TD SCH (10:20)
[2018-08-28] MEDS: PRENATAL VITAMINS W/ FOLIC ACID TABLET (FP) PO SCH (10:20)
[2018-08-28] MEDS: SERTRALINE HCL 50 MG TABLET (FP) PO SCH (10:20)
[2018-08-28] MEDS: THIAMINE HCL 100 MG TABLET (FP) PO SCH (22:02)
[2018-08-28] MEDS: traZODone HCL 50 MG TABLET (FP) PO SCH (22:02)
[2018-08-28] MEDS: MELATONIN 5 MG TABLETS PO PRN (22:03)
[2018-08-29] MEDS: METHADONE HCL 10 MG TABLET PO SCH (06:39)
[2018-08-29] MEDS: CLINDAMYCIN HCL 150 MG CAPSULE (FP) PO SCH ×3 (06:40→17:52)
[2018-08-29] MEDS: PRENATAL VITAMINS W/ FOLIC ACID TABLET (FP) PO SCH (10:31)
[2018-08-29] MEDS: SERTRALINE HCL 50 MG TABLET (FP) PO SCH (10:31)
[2018-08-29] MEDS: NICOTINE 14 MG/24 HOURS TOPICAL PATCH TD SCH (10:32)
[2018-08-29] MEDS: traZODone HCL 50 MG TABLET (FP) PO SCH (21:51)
[2018-08-29] MEDS: THIAMINE HCL 100 MG TABLET (FP) PO SCH (21:51)
[2018-08-29] MEDS: MELATONIN 5 MG TABLETS PO PRN (21:51)
[2018-08-30] MEDS: CLINDAMYCIN HCL 150 MG CAPSULE (FP) PO SCH ×4 (00:52→17:55)
[2018-08-30] MEDS: METHADONE HCL 10 MG TABLET PO SCH (06:45)
[2018-08-30] MEDS: SERTRALINE HCL 50 MG TABLET (FP) PO SCH (10:12)
[2018-08-30] MEDS: NICOTINE 14 MG/24 HOURS TOPICAL PATCH TD SCH (10:12)
[2018-08-30] MEDS: PRENATAL VITAMINS W/ FOLIC ACID TABLET (FP) PO SCH (10:12)
[2018-08-30] MEDS: IBUPROFEN 400 MG TABLET (FP) PO PRN (16:33)
[2018-08-30] MEDS: traZODone HCL 50 MG TABLET (FP) PO SCH (21:31)
[2018-08-30] MEDS: MELATONIN 5 MG TABLETS PO PRN (21:31)
[2018-08-30] MEDS: THIAMINE HCL 100 MG TABLET (FP) PO SCH (21:31)
[2018-08-31] MEDS: CLINDAMYCIN HCL 150 MG CAPSULE (FP) PO SCH ×4 (00:56→17:08)
[2018-08-31] MEDS: METHADONE HCL 10 MG TABLET PO SCH (06:06)
[2018-08-31] MEDS: NICOTINE 14 MG/24 HOURS TOPICAL PATCH TD SCH (10:04)
[2018-08-31] MEDS: PRENATAL VITAMINS W/ FOLIC ACID TABLET (FP) PO SCH (10:04)
[2018-08-31] MEDS: SERTRALINE HCL 50 MG TABLET (FP) PO SCH (10:04)
[2018-08-31] MEDS: ACETAMINOPHEN 325 MG TABLET (FP) PO PRN (14:27)
[2018-08-31] MEDS: THIAMINE HCL 100 MG TABLET (FP) PO SCH (21:27)
[2018-08-31] MEDS: traZODone HCL 50 MG TABLET (FP) PO SCH (21:27)
[2018-08-31] MEDS: IBUPROFEN 400 MG TABLET (FP) PO PRN (21:28)
[2018-09-01] MEDS: CLINDAMYCIN HCL 150 MG CAPSULE (FP) PO SCH ×5 (00:53→23:19)
[2018-09-01] MEDS: METHADONE HCL 10 MG TABLET PO SCH (06:20)
[2018-09-01] MEDS: NICOTINE 14 MG/24 HOURS TOPICAL PATCH TD SCH (09:44)
[2018-09-01] MEDS: SERTRALINE HCL 50 MG TABLET (FP) PO SCH (09:44)
[2018-09-01] MEDS: PRENATAL VITAMINS W/ FOLIC ACID TABLET (FP) PO SCH (09:44)
[2018-09-01] MEDS: traZODone HCL 50 MG TABLET (FP) PO SCH (21:34)
[2018-09-01] MEDS: MELATONIN 5 MG TABLETS PO PRN (21:34)
[2018-09-01] MEDS: THIAMINE HCL 100 MG TABLET (FP) PO SCH (21:34)
[2018-09-02] MEDS: CLINDAMYCIN HCL 150 MG CAPSULE (FP) PO SCH (06:33)
[2018-09-02] MEDS: METHADONE HCL 10 MG TABLET PO SCH (06:33)
[2018-09-02] MEDS: NICOTINE 14 MG/24 HOURS TOPICAL PATCH TD SCH (11:09)
[2018-09-02] MEDS: PRENATAL VITAMINS W/ FOLIC ACID TABLET (FP) PO SCH (11:09)
[2018-09-02] MEDS: SERTRALINE HCL 50 MG TABLET (FP) PO SCH (11:09)
[2018-09-02] MEDS: IBUPROFEN 400 MG TABLET (FP) PO PRN (17:55)
[2018-09-02] MEDS: traZODone HCL 50 MG TABLET (FP) PO SCH (21:37)
[2018-09-02] MEDS: MELATONIN 5 MG TABLETS PO PRN (21:37)
[2018-09-02] MEDS: THIAMINE HCL 100 MG TABLET (FP) PO SCH (21:37)
[2018-09-02] MEDS: ACETAMINOPHEN 325 MG TABLET (FP) PO PRN (21:38)
[2018-09-03] MEDS: METHADONE HCL 10 MG TABLET PO SCH (06:47)
[2018-09-03] MEDS: ACETAMINOPHEN 325 MG TABLET (FP) PO PRN (06:51)
[2018-09-03 06:59] VITALS: BP 125/82; PULSE 59; TEMP 97.6
--- NOTE | 2018-09-03 10:21 | PN ---
[facility] Progress Note Note: PT COMPLETED REHAB AND DISCHARGING TODAY. PT MET WITH HIS COUNSELOR AND REFERRED TO [facility] FOR FOLLOW UP. [facility] WILL [facility] THERE AFTER DISCHARGE. Vital Signs - 24 hr 09/03/18 09/03/18 09/03/18 00:30 03:30 06:58 Temperature 97.6 F Pulse Rate 59 L Respiratory 18 18 16 Rate Blood Pressure 125/82 Laboratory Tests 08/23/18 08:00 HIV 1&2 Antibody Screen Negative HIV P24 Antigen Negative NAD MEDICALLY STABLE PLAN:FOLLOW UP WITH CD AFTERCARE AND MEDICAL MANAGEMENT RECOMMENDED. [facility]
== END 2018-09-03 11:30 | disposition home or self-care (01) | DRG 772 ==
LOC: YASAS 14:49 → Y5N 14:50
PROVIDERS: ADMIT Neuromusculoskeletal Medicine & OMM; ATTEND Neuromusculoskeletal Medicine & OMM
PROC: HZ42ZZZ Group Counseling for Substance Abuse Treatment, Cognitive-Behavioral (ICD-10-PCS; principal; 2018-08-22)
DX: F10.20 Alcohol dependence, uncomplicated (principal); F11.20 Opioid dependence, uncomplicated; F17.210 Nicotine dependence, cigarettes, uncomplicated; F33.9 Major depressive disorder, recurrent, unspecified; I10 Essential (primary) hypertension; H66.42 Suppurative otitis media, unspecified, left ear; H60.92 Unspecified otitis externa, left ear; H61.21 Impacted cerumen, right ear; H91.92 Unspecified hearing loss, left ear; M54.5 Low back pain; G89.29 Other chronic pain; Z59.0 Homelessness
CPT/HCPCS: 36415; 87389

== ENCOUNTER 2018-09-26 16:43 | Inpatient (IN) | payer OTHER ==
[2018-09-26 17:55] VITALS: BMI 31.9
--- NOTE | 2018-09-26 22:28 | HP ---
CIWA Score Nausea/Vomitin-Mild Nausea/No Vomiting Muscle Tremors: 1-None Visible, but [place] Anxiety: 3 Agitation: 1-Slight > Activity Paroxysmal Sweats: No Perspiration Orientation: 1-Uncertain about Date Tacttile Disturbances: 2-Mild Itch/Numbness/Burn Auditory Disturbances: 0-None Visual Disturbances: 0-None Headache: 0-None Present CIWA-Ar Total Score: 9 - Admission Criteria OASAS Guidelines: Admission for Medically Managed Detox: Requires at least one of the followin. CIWA greater than 12 2. Seizures within the past 24 hours 3. Delirium tremens within the past 24 hours 4. Hallucinations within the past 24 hours 5. Acute intervention needed for co occurring medical disorder 6. Acute intervention needed for co occurring psychiatric disorder 7. Severe withdrawal that cannot be handled at a lower level of care (continued vomiting, continued diarrhea, abnormal vital signs) requiring intravenous medication and/or fluids 8. Patient presents the following: Acute intervention needed for co-occurring med or psych disorder (HTN, BIPOLAR) Admission Criteria Met: Admission criteria met Admission ROS [facility] Chief Complaint: C/O WORSENING WITHDRAWAL SX'S Allergies/Adverse Reactions: Allergies Allergy/AdvReac Type Severity Reaction Status Date / Time Penicillins Allergy Severe Rash Verified 09/26/18 21:27 History of Present Illness: 58 Y.O. MALE WITH CHRONIC HX/O ALCOHOLISM AND OPIOID DEPENDENCE HERE FOR DETOX. CLIENT IS SELF REFERRED. HE IS KNOWN TO THIS PROGRAM. LAST HERE A MONTH AGO FOR DETOX/REHAB. PRESENTS TO DAY WITH C/O WITHDRAWAL SX'S. CIWA 9 WITH HX/O HTN, BIPOLAR, . [place] .024. UTOX + MTD, BZO. CLIENT REPORTS HE IS ON MMTP 30 MG AT [facility] TODAY PENDING VERIFICATION. HE REPORTS DRINKING APPROX 2 QUARTS OF BEER DAILY. LAST DRINK EARLIER TODAY. HE REPORTS HE CONSTANTLY DRINKS NOT TO GET SICK/WITHDRAWAL SX'S. CLIENT IS ALSO JAMUL. REPORTS LONGEST CLEAN TIME ABOUT A MONTH. DENIES HX/O SEIZURE D/O, DT'S, SI/HI, AVH. HOMELESS, UNEMPLOYED, DENIES LEGALS. Exam Limitations: Other (JAMUL R EAR L EAR) - Ebola screening Have you traveled outside of the country in the last 21 days: No (N) Have you had contact with anyone from an Ebola affected area: No Have you been sick,other than usual withdrawal symptoms: No Do you have a fever: No - Review of Systems Constitutional: Malaise (CHRONIC BACK PAIN), Changes in sleep EENT: reports: Dental Problems (EDENTULOUS) Respiratory: reports: No Symptoms reported Cardiac: reports: No Symptoms Reported GI: reports: No Symptoms Reported : reports: No Symptoms Reported Musculoskeletal: reports: Back Pain (CHRONIC) Integumentary: reports: No Symptoms Reported Neuro: reports: Tremors Endocrine: reports: No Symptoms Reported Hematology: reports: No Symptoms Reported Psychiatric: reports: Orientated x3, Agitated (IRRITABLE), Anxious, Depressed Other Systems: Reviewed and Negative Patient History - Patient Medical History Hx Anemia: No Hx Asthma: No Hx Chronic Obstructive Pulmonary Disease (COPD): No Hx Cancer: No Hx Cardiac Disorders: No Hx Congestive Heart Failure: No Hx Hypertension: Yes Hx Hypercholesterolemia: Yes Hx Pacemaker: No HX Cerebrovascular Accident: No Hx Seizures: No Hx Dementia: No Hx Diabetes: No Hx Gastrointestinal Disorders: No Hx Liver Disease: No Hx Genitourinary Disorders: No Hx Sexually Transmitted Disorders: No Hx Renal Disease (ESRD): No Hx Thyroid Disease: No Hx Human Immunodeficiency Virus (HIV): No Hx Hepatitis C: No Hx Depression: Yes Hx Suicide Attempt: No Hx Bipolar Disorder: Yes Hx Schizophrenia: No Other Medical History: JAMUL LEFT EAR. DEAF R EAR - Patient Surgical History Past Surgical History: Yes Hx Neurologic Surgery: No Hx Cataract Extraction: No Hx Cardiac Surgery: No Hx Lung Surgery: No Hx Breast Surgery: No Hx Breast Biopsy: No Hx Abdominal Surgery: No Hx Appendectomy: No Hx Cholecystectomy: No Hx Genitourinary Surgery: No Hx Orthopedic Surgery: No Other Surgical History: multiple surgeries on both ears Anesthesia Reaction: No - PPD History Previous Implant?: Yes Documented Results: Negative w/proof Implanted On Prior R Admission?: Yes Date: 02/14/18 Results: 0 mm PPD to be Administered?: No - Smoking Cessation Smoking history: Current every day smoker Have you smoked in the past 12 months: Yes Aproximately how many cigarettes per day: 10 Cigars Per Day: 0 Hx Chewing Tobacco Use: No Initiated information on smoking cessation: Yes 'Breaking Loose' booklet given: 09/26/18 - Substance & Tx. History Hx Alcohol Use: Yes Hx Substance Use: Yes Substance Use Type: Alcohol, Prescribed (METHADONE) Hx Substance Use Treatment: Yes ([facility]) - Substances Abused Alcohol Route: Oral Frequency: Daily Amount used: 2 QUARTS-BEER Age of first use: 13 Date of Last Use: 09/26/18 Family Disease History - Family Disease History Family Disease History: Diabetes: Father (living, hx etoh), Brother (three - living - etoh - one with dm), Heart Disease: Sister (four living - etoh), CA: Mother (, hx drugs and etoh), Other: Father, Brother, Sister, Son (two - living -), Daughter (two - living) Admission Physical Exam S - Vital Signs Vital Signs: Vital Signs - 24 hr 09/26/18 17:54 Temperature 98.8 F Pulse Rate 93 H Respiratory 18 Rate Blood Pressure 121/80 - Physical General Appearance: Yes: Appropriately Dressed, Sweating (MOIST SKIN), Anxious, Other (JAMUL) HEENTM: Yes: EOMI, Normocephalic, Normal Voice, MONIKA, Pharynx Normal, Nasal Congestion, Other (EDENTULOUS) Respiratory: Yes: Chest Non-Tender, Lungs Clear, Normal Breath Sounds, No Respiratory Distress, No Accessory Muscle Use Neck: Yes: No masses,lesions,Nodules, Supple, Trachea in good position Breast: Yes: Other (GYNECOMASTIA) Cardiology: Yes: Regular Rhythm, S1, S2, Tachycardia Abdominal: Yes: Soft, Increased Bowel Sounds, Protuberent Genitourinary: Yes: Other (NO C/O OFFERED) Back: Yes: Normal Inspection Musculoskeletal: Yes: Gait Steady Extremities: Yes: Normal Capillary Refill, Normal Range of Motion, Non-Tender, Pedal Edema (BLE PITTING EDEMA) Neurological: Yes: Fully Oriented, Alert, Motor Strength 5/5, Depressed Affect Integumentary: Yes: Clammy Lymphatic: Yes: Within Normal Limits - Diagnostic (1) Deafness in left ear Current Visit: Yes Status: Chronic (2) HTN (hypertension) Current Visit: Yes Status: Chronic Qualifiers: Hypertension type: essential hypertension Qualified Code(s): I10 - Essential (primary) hypertension (3) Bipolar 1 disorder Current Visit: Yes Status: Chronic (4) Bilateral lower extremity edema Current Visit: Yes Status: Acute (5) At risk for dehydration due to poor fluid intake Current Visit: Yes Status: Acute (6) Alcohol dependence with uncomplicated withdrawal Current Visit: Yes Status: Acute (7) Substance induced mood disorder Current Visit: Yes Status: Chronic (8) Hearing loss in left ear Current Visit: Yes Status: Chronic Qualifiers: (9) Methadone maintenance therapy patient Current Visit: Yes Status: Chronic Comment: pending verification. last dose received today with 30mg. (10) Nicotine dependence Current Visit: Yes Status: Chronic Qualifiers: Nicotine product type: cigarettes Substance use status: uncomplicated Qualified Code(s): F17.210 - Nicotine dependence, cigarettes, uncomplicated Cleared for Admission [facility] - Detox or Rehab [facility] Level of Care: Medically Managed Detox Regimen/Protocol: Librium Claeared for Rehab Admission: No S Breath Alcohol Content Breath Alcohol Content: 0.024 Urine Drug Screen - Results Drug Screen Negative: No Urine Drug Screen Results: BZO-Benzodiazepines, MTD-Methadone Inpatient Rehab Admission - Rehab Decision to Admit Inpatient rehab admission?: No
[2018-09-26] MEDS ORDERED: NICOTINE POLACRILEX 2 MG GUM BUC PRN (22:33)
[2018-09-26] MEDS ORDERED: METHOCARBAMOL 500 MG TABLET PO PRN (22:33)
[2018-09-26] MEDS ORDERED: ACETAMINOPHEN 325 MG TABLET (FP) PO PRN (22:33)
[2018-09-26] MEDS ORDERED: guaiFENesin 200 MG/10 ML 10 ML UNIT-DOSE CUPS PO PRN (22:33)
[2018-09-26] MEDS ORDERED: IBUPROFEN 400 MG TABLET (FP) PO PRN (22:33)
[2018-09-26] MEDS ORDERED: MELATONIN 5 MG TABLETS PO PRN (22:33)
[2018-09-26] MEDS ORDERED: ONDANSETRON *ODT* 4 MG TABLET SL PRN (22:33)
[2018-09-26] MEDS ORDERED: MAG HYDROX/AL HYDROX/SIMETH 30 ML UNIT-DOSE CUP PO PRN (22:33)
[2018-09-26] MEDS ORDERED: BISMUTH SUBSALICYLATE 524 MG/30 ML UD PO PRN (22:33)
[2018-09-26] MEDS ORDERED: MAGNESIUM HYDROX 2400MG/30ML ORAL SUSPENSION 30 ML CUP PO PRN (22:33)
[2018-09-26] MEDS ORDERED: chlordiazePOXIDE HCL 10 MG CAPSULE PO PRN (22:33)
[2018-09-26] MEDS ORDERED: P-EPHED 60MG/TRIPROLIDI 2.5MG TABLET PO PRN (22:33)
[2018-09-26] MEDS ORDERED: MAGNESIUM CITRATE 300 ML BOTTLE PO PRN (22:33)
[2018-09-26] MEDS ORDERED: hydrOXYzine PAMOATE 25 MG CAPSULE (FP) PO PRN (22:33)
[2018-09-26] MEDS ORDERED: MENTHOL/PHENOL 1 EACH UD MM PRN (22:33)
[2018-09-26] MEDS ORDERED: chlordiazePOXIDE HCL 25 MG CAPSULE PO ONE (23:00)
[2018-09-26] MEDS: chlordiazePOXIDE HCL 25 MG CAPSULE PO SCH ×3 (23:52→23:55)
[2018-09-27] MEDS: chlordiazePOXIDE 5 MG CAPSULE PO SCH ×3 (06:29→22:12)
[2018-09-27] MEDS: NICOTINE 14 MG/24 HOURS TOPICAL PATCH TD SCH (10:12)
[2018-09-27] MEDS: PRENATAL VITAMINS W/ FOLIC ACID TABLET (FP) PO SCH (10:12)
[2018-09-27] MEDS: METHADONE HCL 10 MG TABLET PO SCH (10:30)
[2018-09-27 10:41] LABS: HEMOGLOBIN 10.9 GM/dL (11.7-16.9); RBC 3.37 M/mm3 (4.00-5.60); WHITE BLOOD COUNT 9.3 K/mm3 (4.0-10.0)
[2018-09-27 10:42] LABS: HEMATOCRIT 32.2 % (35.4-49); MCH 32.4 pg (25.7-33.7); MCHC 33.9 g/dl (32.0-35.9); MEAN CELL VOLUME 95.6 fl (80-96); MEAN PLT VOLUME 8.9 fl (7.5-11.1); PLATELET COUNT 240 K/MM3 (134-434); RDW 14.2 % (11.9-15.9)
[2018-09-27 11:01] LABS: ALBUMIN 3.3 g/dl (3.4-5.0); ALK PHOS 75 U/L (45-117); ANION GAP 6 MMOL/L (8-16); BILIRUBIN,TOTAL 1.3 mg/dL (0.2-1); BLOOD UREA NITROGEN 14 mg/dL (7-18); CALCIUM 7.9 mg/dL (8.5-10.1); CHLORIDE 107 mmol/L (98-107); CO2 27 mmol/L (21-32); CREATININE 0.8 mg/dL (0.55-1.3); GLUCOSE,RANDOM 80 mg/dL (74-106); POTASSIUM 4.6 mmol/L (3.5-5.1); SGOT/AST 50 U/L (15-37); SGPT/ALT 82 U/L (13-61); SODIUM 140 mmol/L (136-145); TOT PROT 6.5 g/dl (6.4-8.2)
--- NOTE | 2018-09-27 13:37 | PN ---
[facility] CIWA - CIWA Score Nausea/Vomitin-No Nausea/No Vomiting Muscle Tremors: 2 Anxiety: 3 Agitation: 0-Normal Activity Paroxysmal Sweats: 3 Orientation: 0-Oriented Tacttile Disturbances: 2-Mild Itch/Numbness/Burn Auditory Disturbances: 0-None Visual Disturbances: 3-Moderate Sensitivity Headache: 0-None Present CIWA-Ar Total Score: 13 [facility] Progress Note (SOAP) Subjective: Sweating, Anxious, Fatigue, Interrupted Sleep, Tremors. Objective: PATIENT A & O X 3. IN NO ACUTE DISTRESS. 09/27/18 13:35 Vital Signs Temperature 97.6 F 09/27/18 09:09 Pulse Rate 65 09/27/18 09:09 Respiratory Rate 20 09/27/18 09:09 Blood Pressure 130/81 09/27/18 09:09 O2 Sat by Pulse Oximetry (%) Laboratory Tests 09/27/18 09/27/18 09/27/18 07:50 07:50 07:50 WBC 9.3 RBC 3.37 L Hgb 10.9 L Hct 32.2 L MCV 95.6 MCH 32.4 MCHC 33.9 RDW 14.2 Plt Count 240 MPV 8.9 Sodium 140 Potassium 4.6 Chloride 107 Carbon Dioxide 27 Anion Gap 6 L BUN 14 Creatinine 0.8 Creat Clearance w eGFR 98.94 Random Glucose 80 Calcium 7.9 L Total Bilirubin 1.3 H AST 50 H ALT 82 H Alkaline Phosphatase 75 Total Protein 6.5 Albumin 3.3 L RPR Titer Nonreactive LABS NOTED. Assessment: 09/27/18 13:36 WITHDRAWAL SYMPTOMS. ANEMIA. ELEVATED LIVER ENZYMES. Plan: CONTINUE DETOX. INCREASE DAILY PO FLUID INTAKE. PATIENT IS CURRENTLY RECEIVING DAILY MVI CONTAINING B VITAMINS AND IRON WHILE ADMITTED FOR DETOX.
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
[2018-09-27] MEDS: THIAMINE HCL 100 MG TABLET (FP) PO SCH (22:12)
[2018-09-28] MEDS ORDERED: chlordiazePOXIDE HCL 10 MG CAPSULE PO PRN (05:00)
[2018-09-28] MEDS: METHADONE HCL 10 MG TABLET PO SCH (05:49)
[2018-09-28] MEDS: chlordiazePOXIDE 5 MG CAPSULE PO SCH ×3 (05:50→22:47)
--- NOTE | 2018-09-28 09:28 | PN ---
S CIWA - CIWA Score Nausea/Vomitin-No Nausea/No Vomiting Muscle Tremors: 2 Anxiety: 1-Mildly Anxious Agitation: 2 Paroxysmal Sweats: 1-Minimal Palms Moist Orientation: 0-Oriented Tacttile Disturbances: 0-None Auditory Disturbances: 1-Very Mild Visual Disturbances: 0-None Headache: 1-Very Mild CIWA-Ar Total Score: 8 S Progress Note (SOAP) Subjective: 58 years old male admitted on 09/26 for alcohol withdrawal stabilization feeling better less tremor mild sweating sleep better at night Objective: 09/28/18 09:26 Vital Signs Temperature 99.2 F 09/28/18 09:13 Pulse Rate 72 09/28/18 09:13 Respiratory Rate 18 09/28/18 09:13 Blood Pressure 118/76 09/28/18 09:13 O2 Sat by Pulse Oximetry (%) Laboratory Last Values WBC 9.3 K/mm3 (4.0-10.0) 09/27/18 07:50 RBC 3.37 M/mm3 (4.00-5.60) L 09/27/18 07:50 Hgb 10.9 GM/dL (11.7-16.9) L 09/27/18 07:50 Hct 32.2 % (35.4-49) L 09/27/18 07:50 MCV 95.6 fl (80-96) 09/27/18 07:50 MCH 32.4 pg (25.7-33.7) 09/27/18 07:50 MCHC 33.9 g/dl (32.0-35.9) 09/27/18 07:50 RDW 14.2 % (11.9-15.9) 09/27/18 07:50 Plt Count 240 K/MM3 (134-434) 09/27/18 07:50 MPV 8.9 fl (7.5-11.1) 09/27/18 07:50 Sodium 140 mmol/L (136-145) 09/27/18 07:50 Potassium 4.6 mmol/L (3.5-5.1) 09/27/18 07:50 Chloride 107 mmol/L (98-107) 09/27/18 07:50 Carbon Dioxide 27 mmol/L (21-32) 09/27/18 07:50 Anion Gap 6 MMOL/L (8-16) L 09/27/18 07:50 BUN 14 mg/dL (7-18) 09/27/18 07:50 Creatinine 0.8 mg/dL (0.55-1.3) 09/27/18 07:50 Creat Clearance w eGFR 98.94 (>60) 09/27/18 07:50 Random Glucose 80 mg/dL (74-106) 09/27/18 07:50 Calcium 7.9 mg/dL (8.5-10.1) L 09/27/18 07:50 Total Bilirubin 1.3 mg/dL (0.2-1) H 09/27/18 07:50 AST 50 U/L (15-37) H 09/27/18 07:50 ALT 82 U/L (13-61) H 09/27/18 07:50 Alkaline Phosphatase 75 U/L (45-117) 09/27/18 07:50 Total Protein 6.5 g/dl (6.4-8.2) 09/27/18 07:50 Albumin 3.3 g/dl (3.4-5.0) L 09/27/18 07:50 RPR Titer Nonreactive (NONREACTIVE) 09/27/18 07:50 lab noted low calcium Assessment: 09/28/18 09:27 mild withdrawal sx hypocalcemia Plan: continue detox oscal supplement
[2018-09-28] MEDS: NICOTINE 14 MG/24 HOURS TOPICAL PATCH TD SCH (10:01)
[2018-09-28] MEDS: PRENATAL VITAMINS W/ FOLIC ACID TABLET (FP) PO SCH (10:01)
[2018-09-28 11:12] LABS: URINE APPEARANCE CLEAR; URINE BILIRUBIN NEGATIVE (<2.0 mg/dL); URINE COLOR LTYELLOW; URINE GLUCOSE (UA) NEGATIVE (NEGATIVE); URINE KETONE NEGATIVE (NEGATIVE); URINE LEUK ESTERASE NEGATIVE (NEGATIVE); URINE NITRITE NEGATIVE (NEGATIVE); URINE PROTEIN NEGATIVE (NEGATIVE); URINE UROBILINOGEN NEGATIVE mg/dL (0.2-1.0)
[2018-09-28] MEDS: CALCIUM 250MG/VIT-D 125 UNITS 1 COMBO TABLET PO SCH ×2 (11:33→22:47)
[2018-09-28] MEDS: THIAMINE HCL 100 MG TABLET (FP) PO SCH (22:47)
[2018-09-29] MEDS: METHADONE HCL 10 MG TABLET PO SCH (05:09)
[2018-09-29] MEDS: chlordiazePOXIDE 5 MG CAPSULE PO SCH (05:10)
[2018-09-29] MEDS: PRENATAL VITAMINS W/ FOLIC ACID TABLET (FP) PO SCH (10:14)
[2018-09-29] MEDS: CALCIUM 250MG/VIT-D 125 UNITS 1 COMBO TABLET PO SCH (10:14)
[2018-09-29] MEDS: NICOTINE 14 MG/24 HOURS TOPICAL PATCH TD SCH (10:14)
[2018-09-29 13:29] VITALS: BP 109/75; PULSE 62; TEMP 98.5
--- NOTE | 2018-09-29 16:18 | DS ---
[facility] Detox Discharge Summary Admission Date: 09/26/18 Discharge Date: 09/29/18 - History Present History: Alcohol Dependence Additional Comments: 58 years old male admitted for alcohol withdrawal stabilization completed alcohol detox regimen aftercare methadone program - Physical Exam Results Vital Signs: Vital Signs Temperature 98.5 F 09/29/18 13:28 Pulse Rate 62 09/29/18 13:28 Respiratory Rate 17 09/29/18 13:28 Blood Pressure 109/75 09/29/18 13:28 O2 Sat by Pulse Oximetry (%) Pertinent Admission Physical Exam Findings: alcohol withdrawal sx Laboratory Last Values WBC 9.3 K/mm3 (4.0-10.0) 09/27/18 07:50 RBC 3.37 M/mm3 (4.00-5.60) L 09/27/18 07:50 Hgb 10.9 GM/dL (11.7-16.9) L 09/27/18 07:50 Hct 32.2 % (35.4-49) L 09/27/18 07:50 MCV 95.6 fl (80-96) 09/27/18 07:50 MCH 32.4 pg (25.7-33.7) 09/27/18 07:50 MCHC 33.9 g/dl (32.0-35.9) 09/27/18 07:50 RDW 14.2 % (11.9-15.9) 09/27/18 07:50 Plt Count 240 K/MM3 (134-434) 09/27/18 07:50 MPV 8.9 fl (7.5-11.1) 09/27/18 07:50 Sodium 140 mmol/L (136-145) 09/27/18 07:50 Potassium 4.6 mmol/L (3.5-5.1) 09/27/18 07:50 Chloride 107 mmol/L (98-107) 09/27/18 07:50 Carbon Dioxide 27 mmol/L (21-32) 09/27/18 07:50 Anion Gap 6 MMOL/L (8-16) L 09/27/18 07:50 BUN 14 mg/dL (7-18) 09/27/18 07:50 Creatinine 0.8 mg/dL (0.55-1.3) 09/27/18 07:50 Creat Clearance w eGFR 98.94 (>60) 09/27/18 07:50 Random Glucose 80 mg/dL (74-106) 09/27/18 07:50 Calcium 7.9 mg/dL (8.5-10.1) L 09/27/18 07:50 Total Bilirubin 1.3 mg/dL (0.2-1) H 09/27/18 07:50 AST 50 U/L (15-37) H 09/27/18 07:50 ALT 82 U/L (13-61) H 09/27/18 07:50 Alkaline Phosphatase 75 U/L (45-117) 09/27/18 07:50 Total Protein 6.5 g/dl (6.4-8.2) 09/27/18 07:50 Albumin 3.3 g/dl (3.4-5.0) L 09/27/18 07:50 Urine Color Ltyellow 09/28/18 08:30 Urine Appearance Clear 09/28/18 08:30 Urine pH 5.0 (5.0-8.0) 09/28/18 08:30 Ur Specific [place] 1.011 (1.010-1.035) 09/28/18 08:30 Urine Protein Negative (NEGATIVE) 09/28/18 08:30 Urine Glucose (UA) Negative (NEGATIVE) 09/28/18 08:30 Urine Ketones Negative (NEGATIVE) 09/28/18 08:30 Urine Blood Negative (NEGATIVE) 09/28/18 08:30 Urine Nitrite Negative (NEGATIVE) 09/28/18 08:30 Urine Bilirubin Negative (<2.0 mg/dL) 09/28/18 08:30 Urine Urobilinogen Negative mg/dL (0.2-1.0) 09/28/18 08:30 Ur Leukocyte Esterase Negative (NEGATIVE) 09/28/18 08:30 RPR Titer Nonreactive (NONREACTIVE) 09/27/18 07:50 lab noted encourage calcium supplement calcium rich food - Treatment Hospital Course: Detox Protocol Followed, Detoxed Safely, Responded well, Discharged Condition Good, Rehab Referral Accepted Patient has Accepted a Rehab Referral to: return to methadone maintenance treatment program - Medication Discharge Medications: Ambulatory Orders Methadone [Dolophine -] 30 mg PO DAILY 08/18/18 Sertraline HCl [Zoloft -] 50 mg PO DAILY #30 tablet 09/03/18 Risperidone [Risperdal] 3 mg PO DAILY 09/26/18 - Diagnosis (1) Alcohol dependence with uncomplicated withdrawal Status: Acute (2) Anemia Status: Chronic Qualifiers: Anemia type: iron deficiency (3) HTN (hypertension) Status: Chronic Qualifiers: Hypertension type: essential hypertension Qualified Code(s): I10 - Essential (primary) hypertension (4) Methadone maintenance therapy patient Status: Chronic (5) Nicotine dependence Status: Acute Qualifiers: Nicotine product type: cigarettes Substance use status: in withdrawal Qualified Code(s): F17.213 - Nicotine dependence, cigarettes, with withdrawal (6) Substance induced mood disorder Status: Suspected - AMA Did Patient Leave Against Medical Advice: No
== END 2018-09-29 15:12 | disposition home or self-care (01) | DRG 773 ==
LOC: YASAS 16:43 → Y3N 22:53
PROVIDERS: ADMIT Surgery; ATTEND Surgery
PROC: HZ2ZZZZ Detoxification Services for Substance Abuse Treatment (ICD-10-PCS; principal; 2018-09-26)
DX: F10.230 Alcohol dependence with withdrawal, uncomplicated (principal); F11.20 Opioid dependence, uncomplicated; F17.213 Nicotine dependence, cigarettes, with withdrawal; F19.24 Other psychoactive substance dependence with psychoactive substance-induced mood disorder; F31.89 Other bipolar disorder; I10 Essential (primary) hypertension; D50.9 Iron deficiency anemia, unspecified; E83.51 Hypocalcemia; E78.5 Hyperlipidemia, unspecified; R94.5 Abnormal results of liver function studies; H91.8X3 Other specified hearing loss, bilateral; R00.0 Tachycardia, unspecified; R60.0 Localized edema; R63.8 Other symptoms and signs concerning food and fluid intake; Z88.0 Allergy status to penicillin; Z91.19 Patient's noncompliance with other medical treatment and regimen; Z59.0 Homelessness
CPT/HCPCS: 36415; 80053; 81003; 85027; 86593

== ENCOUNTER 2018-10-14 08:26 | Inpatient (IN) | payer OTHER ==
--- NOTE | 2018-10-14 09:26 | HP ---
"CIWA Score Nausea/Vomitin Muscle Tremors: 4-Moderate,w/Arms Extend Anxiety: 0-No Anxiety, at Ease Agitation: 0-Normal Activity Paroxysmal Sweats: No Perspiration Orientation: 0-Oriented Tacttile Disturbances: 0-None Auditory Disturbances: 0-None Visual Disturbances: 0-None Headache: 5-Severe CIWA-Ar Total Score: 11 - Admission Criteria OASAS Guidelines: Admission for Medically Managed Detox: Requires at least one of the followin. CIWA greater than 12 2. Seizures within the past 24 hours 3. Delirium tremens within the past 24 hours 4. Hallucinations within the past 24 hours 5. Acute intervention needed for co occurring medical disorder 6. Acute intervention needed for co occurring psychiatric disorder 7. Severe withdrawal that cannot be handled at a lower level of care (continued vomiting, continued diarrhea, abnormal vital signs) requiring intravenous medication and/or fluids 8. Admission ROS [facility] Allergies/Adverse Reactions: Allergies Allergy/AdvReac Type Severity Reaction Status Date / Time Penicillins Allergy Severe Rash Verified 10/14/18 08:53 History of Present Illness: pt here requesting detox from etoh use , reports 6-pk beer/day , latest use today , current symptoms as above . Denies seizures, blackouts , reports tremors if not drinking . PMHX : decreased hearing , htn PShx : denies meds ; on MMTP since 15 years ago , current daily 30 mg. Search Terms: leo zhang, 1960 Search Date: 10/14/2018 11:16:51 AM The Drug Utilization Report below displays all of the controlled substance prescriptions, if any, that your patient has filled in the last twelve months. The information displayed on this report is compiled from pharmacy submissions to the Department, and accurately reflects the information as submitted by the pharmacies. This report was requested by: Kylah Perkins | Reference #: [id number] Others' Prescriptions Patient Name: Leo Zhang Date: 1960 Address: [address] [place] [address] Sex: Male Rx Written Rx Dispensed Drug Quantity Days Supply Prescriber Name 12/28/2017 12/29/2017 chlordiazepoxide 25 mg capsule 8 2 Kerwin Clarke (BRIJESH) Exam Limitations: Intoxication - Ebola screening Have you traveled outside of the country in the last 21 days: No Have you had contact with anyone from an Ebola affected area: No Do you have a fever: No - Review of Systems Constitutional: See HPI EENT: reports: See HPI, Hearing Loss Respiratory: reports: No Symptoms reported Cardiac: reports: No Symptoms Reported GI: reports: See HPI : reports: No Symptoms Reported Musculoskeletal: reports: Back Pain (chronic) Integumentary: reports: No Symptoms Reported Neuro: reports: Headache Endocrine: reports: No Symptoms Reported Psychiatric: reports: Orientated x3 Patient History - Patient Medical History Hx Anemia: No Hx Asthma: No Hx Chronic Obstructive Pulmonary Disease (COPD): No Hx Cancer: No Hx Cardiac Disorders: No Hx Congestive Heart Failure: No Hx Hypertension: Yes Hx Hypercholesterolemia: Yes Hx Pacemaker: No HX Cerebrovascular Accident: No Hx Seizures: No Hx Dementia: No Hx Diabetes: No Hx Gastrointestinal Disorders: No Hx Liver Disease: No Hx Genitourinary Disorders: No Hx Sexually Transmitted Disorders: No Hx Renal Disease (ESRD): No Hx Thyroid Disease: No Hx Human Immunodeficiency Virus (HIV): No Hx Hepatitis C: No Hx Depression: Yes Hx Suicide Attempt: No Hx Bipolar Disorder: Yes Hx Schizophrenia: No - Patient Surgical History Past Surgical History: Yes Hx Neurologic Surgery: No Hx Cataract Extraction: No Hx Cardiac Surgery: No Hx Lung Surgery: No Hx Breast Surgery: No Hx Breast Biopsy: No Hx Abdominal Surgery: No Hx Appendectomy: No Hx Cholecystectomy: No Hx Genitourinary Surgery: No Hx Orthopedic Surgery: No Other Surgical History: multiple surgeries on both ears Anesthesia Reaction: No - PPD History Date: 02/14/18 Results: 0 mm - Smoking Cessation Smoking history: Current every day smoker Have you smoked in the past 12 months: Yes Aproximately how many cigarettes per day: 10 Cigars Per Day: 0 Hx Chewing Tobacco Use: No Initiated information on smoking cessation: No Family Disease History - Family Disease History Family Disease History: Diabetes: Father (living, hx etoh), Brother (three - living - etoh - one with dm), Heart Disease: Sister (four living - etoh), CA: Mother (, hx drugs and etoh), Other: Father, Brother, Sister, Son (two - living -), Daughter (two - living) Admission Physical Exam BHS - Physical General Appearance: Yes: Mild Distress, Alcohol on Breath, Intoxicated HEENTM: Yes: EOMI, Hearing grossly Normal, Normocephalic, Normal Voice, Hearing Decreased Respiratory: Yes: Chest Non-Tender, Lungs Clear, Normal Breath Sounds Neck: Yes: No masses,lesions,Nodules, Trachea in good position Cardiology: Yes: Regular Rhythm, Regular Rate, S1, S2 Abdominal: Yes: Normal Bowel Sounds, Non Tender Back: Yes: Normal Inspection Extremities: Yes: Normal Capillary Refill, Non-Tender Neurological: Yes: Motor Strength 5/5, Normal Mood/Affect - Diagnostic (1) Nicotine dependence Current Visit: Yes Status: Chronic Qualifiers: Nicotine product type: cigarettes (2) Alcohol dependence Current Visit: Yes Status: Acute Qualifiers: Substance use status: in withdrawal (3) Hearing loss in left ear Current Visit: No Status: Chronic Qualifiers: (4) Opioid dependence on agonist therapy Current Visit: Yes Status: Chronic Inpatient Rehab Admission - Rehab Decision to Admit Inpatient rehab admission?: No"
[2018-10-14] MEDS ORDERED: MENTHOL/PHENOL 1 EACH UD MM PRN (10:32)
[2018-10-14] MEDS ORDERED: IBUPROFEN 400 MG TABLET (FP) PO PRN (10:32)
[2018-10-14] MEDS ORDERED: MAGNESIUM CITRATE 300 ML BOTTLE PO PRN (10:32)
[2018-10-14] MEDS ORDERED: BISMUTH SUBSALICYLATE 262 MG/15 ML BTL PO PRN (10:32)
[2018-10-14] MEDS ORDERED: MAGNESIUM HYDROX 2400MG/30ML ORAL SUSPENSION 30 ML CUP PO PRN (10:32)
[2018-10-14] MEDS ORDERED: MAG HYDROX/AL HYDROX/SIMETH 30 ML UNIT-DOSE CUP PO PRN (10:32)
[2018-10-14] MEDS ORDERED: chlordiazePOXIDE HCL 10 MG CAPSULE PO PRN (10:32)
[2018-10-14] MEDS ORDERED: ACETAMINOPHEN 325 MG TABLET (FP) PO PRN ×2 (10:32)
[2018-10-14] MEDS: METHADONE HCL 10 MG TABLET PO SCH (12:50)
[2018-10-14] MEDS: chlordiazePOXIDE HCL 25 MG CAPSULE PO SCH ×2 (12:50→21:04)
[2018-10-14] MEDS: THIAMINE HCL 100 MG TABLET (FP) PO SCH (21:04)
[2018-10-14] MEDS: MELATONIN 5 MG TABLETS PO PRN (21:06)
[2018-10-15] MEDS: chlordiazePOXIDE HCL 25 MG CAPSULE PO SCH (06:37)
[2018-10-15] MEDS: METHADONE HCL 10 MG TABLET PO SCH (10:32)
[2018-10-15] MEDS: PRENATAL VITAMINS W/ FOLIC ACID TABLET (FP) PO SCH (10:32)
--- NOTE | 2018-10-15 11:34 | PN ---
S CIWA - CIWA Score Nausea/Vomitin-No Nausea/No Vomiting Muscle Tremors: 3 Anxiety: 3 Agitation: 3 Paroxysmal Sweats: 3 Orientation: 0-Oriented Tacttile Disturbances: 0-None Auditory Disturbances: 0-None Visual Disturbances: 0-None Headache: 0-None Present CIWA-Ar Total Score: 12 BHS Progress Note (SOAP) Subjective: body aches sweats shakes interrupted sleep Objective: 10/15/18 11:33 Vital Signs Temperature 98.3 F 10/15/18 09:14 Pulse Rate 67 10/15/18 09:14 Respiratory Rate 16 10/15/18 09:14 Blood Pressure 120/59 L 10/15/18 09:14 O2 Sat by Pulse Oximetry (%) labs pending aaox3 ambulating no acute distress Assessment: 10/15/18 11:33 withdrawal sx Plan: continue detox increase fluids labs pending
[2018-10-15] MEDS: chlordiazePOXIDE 5 MG CAPSULE PO SCH ×2 (13:21→22:00)
[2018-10-15] MEDS: THIAMINE HCL 100 MG TABLET (FP) PO SCH (22:20)
[2018-10-15] MEDS: MELATONIN 5 MG TABLETS PO PRN (22:21)
[2018-10-16] MEDS: chlordiazePOXIDE 5 MG CAPSULE PO SCH (06:14)
--- NOTE | 2018-10-16 09:49 | PN ---
S CIWA - CIWA Score Nausea/Vomitin-No Nausea/No Vomiting Muscle Tremors: 3 Anxiety: 2 Agitation: 3 Paroxysmal Sweats: 2 Orientation: 0-Oriented Tacttile Disturbances: 0-None Auditory Disturbances: 0-None Visual Disturbances: 0-None Headache: 0-None Present CIWA-Ar Total Score: 10 BHS Progress Note (SOAP) Subjective: tired sweats Objective: Vital Signs Temperature 97.2 F L 10/16/18 07:45 Pulse Rate 50 L 10/16/18 07:45 Respiratory Rate 18 10/16/18 07:45 Blood Pressure 147/77 10/16/18 07:45 O2 Sat by Pulse Oximetry (%) labs from recent visit noted no need to further testing aaox3 ambulating no acute distress Assessment: 10/16/18 09:48 withdrawal sx Plan: continue detox increase fluids d/c in am
[2018-10-16] MEDS: PRENATAL VITAMINS W/ FOLIC ACID TABLET (FP) PO SCH (10:16)
[2018-10-16] MEDS: METHADONE HCL 10 MG TABLET PO SCH (10:17)
[2018-10-16] MEDS: chlordiazePOXIDE HCL 10 MG CAPSULE PO SCH ×2 (12:33→21:57)
[2018-10-16] MEDS ORDERED: chlordiazePOXIDE HCL 10 MG CAPSULE PO PRN (13:00)
[2018-10-16] MEDS: MELATONIN 5 MG TABLETS PO PRN (21:57)
[2018-10-16] MEDS: THIAMINE HCL 100 MG TABLET (FP) PO SCH (21:57)
[2018-10-17] MEDS: chlordiazePOXIDE HCL 10 MG CAPSULE PO SCH (06:18)
--- NOTE | 2018-10-17 09:24 | DS ---
[facility] Detox Discharge Summary Admission Date: 10/14/18 Discharge Date: 10/17/18 - History Present History: Alcohol Dependence, MMTP - Physical Exam Results Vital Signs: Vital Signs Temperature 98.4 F 10/17/18 06:42 Pulse Rate 79 10/17/18 06:42 Respiratory Rate 18 10/17/18 06:42 Blood Pressure 145/89 10/17/18 06:42 O2 Sat by Pulse Oximetry (%) - Treatment Hospital Course: Detox Protocol Followed, Detoxed Safely, Responded well, Discharged Condition Good, Rehab Referral Accepted - Medication Discharge Medications: Ambulatory Orders Methadone [Dolophine -] 30 mg PO DAILY 08/18/18 Sertraline HCl [Zoloft -] 50 mg PO DAILY #30 tablet 09/03/18 - Diagnosis (1) Nicotine dependence Current Visit: Yes Status: Chronic Qualifiers: Nicotine product type: cigarettes Substance use status: uncomplicated Qualified Code(s): F17.210 - Nicotine dependence, cigarettes, uncomplicated (2) Opioid dependence on agonist therapy Current Visit: Yes Status: Chronic (3) Alcohol dependence with uncomplicated withdrawal Current Visit: Yes Status: Chronic (4) At risk for dehydration due to poor fluid intake Current Visit: Yes Status: Acute (5) Bilateral lower extremity edema Current Visit: No Status: Acute (6) Elevated liver enzymes Current Visit: No Status: Acute (7) Otitis externa Current Visit: No Status: Acute (8) Anemia Current Visit: No Status: Chronic Qualifiers: Anemia type: iron deficiency (9) Bipolar 1 disorder Current Visit: No Status: Chronic (10) Deafness in left ear Current Visit: No Status: Chronic (11) HTN (hypertension) Current Visit: No Status: Chronic Qualifiers: Hypertension type: essential hypertension Qualified Code(s): I10 - Essential (primary) hypertension (12) Hearing loss in left ear Current Visit: No Status: Chronic Qualifiers: (13) Low back pain Current Visit: No Status: Chronic Qualifiers: (14) MDD (major depressive disorder), recurrent episode Current Visit: No Status: Chronic Qualifiers: (15) Methadone maintenance therapy patient Current Visit: Yes Status: Chronic (16) Nicotine dependence Current Visit: Yes Status: Chronic Qualifiers: Nicotine product type: cigarettes Substance use status: uncomplicated Qualified Code(s): F17.210 - Nicotine dependence, cigarettes, uncomplicated (17) Non-compliant patient Current Visit: No Status: Chronic (18) Alcohol-induced mood disorder Current Visit: No Status: Suspected (19) History of depression Current Visit: No Status: Suspected (20) Substance induced mood disorder Current Visit: No Status: Suspected - AMA Did Patient Leave Against Medical Advice: No (referred to [facility])
[2018-10-17] MEDS: METHADONE HCL 10 MG TABLET PO SCH (10:46)
[2018-10-17] MEDS: PRENATAL VITAMINS W/ FOLIC ACID TABLET (FP) PO SCH (10:46)
[2018-10-17 11:05] VITALS: BP 149/83; PULSE 61; TEMP 96.8
== END 2018-10-17 12:00 | disposition home or self-care (01) | DRG 773 ==
LOC: YASAS 08:26 → Y6N 11:36
PROVIDERS: ADMIT Surgery; ATTEND Surgery
PROC: HZ2ZZZZ Detoxification Services for Substance Abuse Treatment (ICD-10-PCS; principal; 2018-10-14)
DX: F10.230 Alcohol dependence with withdrawal, uncomplicated (principal); F11.20 Opioid dependence, uncomplicated; F17.210 Nicotine dependence, cigarettes, uncomplicated; F33.1 Major depressive disorder, recurrent, moderate; F19.24 Other psychoactive substance dependence with psychoactive substance-induced mood disorder; F10.24 Alcohol dependence with alcohol-induced mood disorder; F31.9 Bipolar disorder, unspecified; I10 Essential (primary) hypertension; B50.9 Plasmodium falciparum malaria, unspecified; R60.0 Localized edema; H91.92 Unspecified hearing loss, left ear; Z91.89 Other specified personal risk factors, not elsewhere classified; Z91.19 Patient's noncompliance with other medical treatment and regimen; Z59.0 Homelessness

== ENCOUNTER 2018-11-04 08:46 | Inpatient (IN) | payer OTHER ==
[2018-11-04 09:02] VITALS: BMI 33.4
--- NOTE | 2018-11-04 09:33 | HP ---
CIWA Score Nausea/Vomitin Muscle Tremors: 2 Anxiety: 2 Agitation: 2 Paroxysmal Sweats: 1-Minimal Palms Moist Orientation: 0-Oriented Tacttile Disturbances: 1-Very Mild Itch/Numbness Auditory Disturbances: 1-Very Mild Visual Disturbances: 0-None Headache: 2-Mild CIWA-Ar Total Score: 13 - Admission Criteria OASAS Guidelines: Admission for Medically Managed Detox: Requires at least one of the followin. CIWA greater than 12 2. Seizures within the past 24 hours 3. Delirium tremens within the past 24 hours 4. Hallucinations within the past 24 hours 5. Acute intervention needed for co occurring medical disorder 6. Acute intervention needed for co occurring psychiatric disorder 7. Severe withdrawal that cannot be handled at a lower level of care (continued vomiting, continued diarrhea, abnormal vital signs) requiring intravenous medication and/or fluids 8. Admission ROS BHS - HPI Chief Complaint: i need help to stop drinking of alcohol Allergies/Adverse Reactions: Allergies Allergy/AdvReac Type Severity Reaction Status Date / Time Penicillins Allergy Severe Rash Verified 11/04/18 08:55 History of Present Illness: this 58 years old male with alcohol dependence seeking detox,withdrawal symptom, multiple admissions in detox but keep relapsing last detox [facility] 10/14/18 to 10/17/18 history of hypertension,no medication mmtp 30 mgs/day,last medicated yesterday nicotine dependence 1/2 pack/day,requesting bipolar disorder no significant period of sobriety Exam Limitations: No Limitations - Ebola screening Have you traveled outside of the country in the last 21 days: No Have you had contact with anyone from an Ebola affected area: No Do you have a fever: No - Review of Systems Constitutional: Loss of Appetite, Malaise, Changes in sleep EENT: reports: Nose Congestion Respiratory: reports: No Symptoms reported Cardiac: reports: No Symptoms Reported GI: reports: Nausea, Vomiting, Indigestion : reports: No Symptoms Reported Musculoskeletal: reports: Back Pain, Joint Pain, Muscle Pain Integumentary: reports: Dryness Neuro: reports: Headache, Tremors Endocrine: reports: No Symptoms Reported Hematology: reports: No Symptoms Reported Psychiatric: reports: No Sypmtoms Reported, Judgement Intact, Mood/Affect Appropiate, Orientated x3, other (ipolar disorder) Other Systems: Reviewed and Negative Patient History - Patient Medical History Hx Anemia: No Hx Asthma: No Hx Chronic Obstructive Pulmonary Disease (COPD): No Hx Cancer: No Hx Cardiac Disorders: No Hx Congestive Heart Failure: No Hx Hypertension: Yes (no med) Hx Hypercholesterolemia: Yes (no med) Hx Pacemaker: No HX Cerebrovascular Accident: No Hx Seizures: No Hx Dementia: No Hx Diabetes: No Hx Gastrointestinal Disorders: No Hx Liver Disease: No Hx Genitourinary Disorders: No Hx Sexually Transmitted Disorders: No Hx Renal Disease (ESRD): No Hx Thyroid Disease: No Hx Human Immunodeficiency Virus (HIV): No (05/01 negative) Hx Hepatitis C: No Hx Depression: Yes Hx Suicide Attempt: No Hx Bipolar Disorder: Yes (non compliance) Hx Schizophrenia: No Other Medical History: no sucidal,no homicidal - Patient Surgical History Past Surgical History: Yes Hx Neurologic Surgery: No Hx Cataract Extraction: No Hx Cardiac Surgery: No Hx Lung Surgery: No Hx Breast Surgery: No Hx Breast Biopsy: No Hx Abdominal Surgery: No Hx Appendectomy: No Hx Cholecystectomy: No Hx Genitourinary Surgery: No Hx Orthopedic Surgery: No Other Surgical History: multiple surgeries on both ears Anesthesia Reaction: No - PPD History Previous Implant?: Yes Documented Results: Negative w/proof Date: 02/14/18 Results: 0 mm PPD to be Administered?: No - Smoking Cessation Smoking history: Current every day smoker Have you smoked in the past 12 months: Yes Aproximately how many cigarettes per day: 10 Cigars Per Day: 0 Hx Chewing Tobacco Use: No Initiated information on smoking cessation: Yes 'Breaking Loose' booklet given: 11/04/18 - Substance & Tx. History Hx Alcohol Use: Yes Hx Substance Use: No Substance Use Type: Alcohol Hx Substance Use Treatment: Yes ([facility] 10/14/18 to 10/17/18) - Substances abused Alcohol Substance route: Oral Frequency: Daily Amount used: 1 six beers ( 16 oz cans) Age of first use: 13 Date of last use: 10/28/18 Family Disease History - Family Disease History Family Disease History: Diabetes: Father (living, hx etoh), Brother (three - living - etoh - one with dm), Heart Disease: Sister (four living - etoh), CA: Mother (, hx drugs and etoh), Other: Father, Brother, Sister, Son (two - living -), Daughter (two - living) Admission Physical Exam BHS - Vital Signs Vital Signs: Vital Signs - 24 hr 11/04/18 11/04/18 08:55 09:14 Temperature 98.4 F 98.4 F Pulse Rate 79 79 Respiratory 18 18 Rate Blood Pressure 131/83 131/83 - Physical General Appearance: Yes: Moderate Distress, Tremorous, Irritable, Sweating, Anxious HEENTM: Yes: Normocephalic, MONIKA, Pharynx Normal (hard of hearing both ears) Respiratory: Yes: Within Normal Limits, Lungs Clear, Normal Breath Sounds Neck: Yes: Within Normal Limits, Supple, Trachea in good position Breast: Yes: Within Normal Limits Cardiology: Yes: Within Normal Limits, Regular Rhythm, Regular Rate, S1, S2 Abdominal: Yes: Within Normal Limits, Normal Bowel Sounds, Non Tender, Flat, Soft Genitourinary: Yes: Within Normal Limits Back: Yes: Muscle Spasm Extremities: Yes: Tremors, Other (varicose vein both legs left more than right) Neurological: Yes: [place] II-XII NML intact, Fully Oriented, Alert, Motor Strength 5/5 Integumentary: Yes: Dry Lymphatic: Yes: Within Normal Limits - Diagnostic (1) Alcohol dependence with uncomplicated withdrawal Current Visit: Yes Status: Acute (2) Hearing loss in left ear Current Visit: No Status: Chronic Qualifiers: (3) Low back pain Current Visit: No Status: Chronic Qualifiers: (4) Methadone maintenance therapy patient Current Visit: No Status: Chronic Comment: pending verification. last dose received today with 30mg. (5) Nicotine dependence Current Visit: Yes Status: Chronic Qualifiers: Nicotine product type: cigarettes Substance use status: uncomplicated Qualified Code(s): F17.210 - Nicotine dependence, cigarettes, uncomplicated (6) Bipolar disorder Current Visit: Yes Status: Acute Cleared for Admission [facility] - Detox or Rehab [facility] Level of Care: Medically Managed Detox Regimen/Protocol: Librium Breathalyzer - Breathalyzer Breathalyzer: 0.068 Urine Drug Screen - Test Device Lot number: [id number] Expiration date: 06/13/20 - Control Is test valid?: Yes - Results Drug screen NEGATIVE: No Urine drug screen results: MTD-Methadone, BZO-Benzodiazepines Inpatient Rehab Admission - Rehab Decision to Admit Inpatient rehab admission?: No
[2018-11-04] MEDS ORDERED: MAGNESIUM HYDROX 2400MG/30ML ORAL SUSPENSION 30 ML CUP PO PRN (09:44)
[2018-11-04] MEDS ORDERED: ACETAMINOPHEN 325 MG TABLET (FP) PO PRN ×2 (09:44)
[2018-11-04] MEDS ORDERED: METHOCARBAMOL 500 MG TABLET PO PRN (09:44)
[2018-11-04] MEDS ORDERED: chlordiazePOXIDE HCL 25 MG CAPSULE PO PRN (09:44)
[2018-11-04] MEDS ORDERED: MELATONIN 5 MG TABLETS PO PRN (09:44)
[2018-11-04] MEDS ORDERED: MENTHOL/PHENOL 1 EACH UD MM PRN (09:44)
[2018-11-04] MEDS ORDERED: MAGNESIUM CITRATE 300 ML BOTTLE PO PRN (09:44)
[2018-11-04] MEDS ORDERED: IBUPROFEN 400 MG TABLET (FP) PO PRN (09:44)
[2018-11-04] MEDS ORDERED: MAG HYDROX/AL HYDROX/SIMETH 30 ML UNIT-DOSE CUP PO PRN (09:44)
[2018-11-04] MEDS ORDERED: BISMUTH SUBSALICYLATE 262 MG/15 ML BTL PO PRN (09:44)
[2018-11-04] MEDS ORDERED: hydrOXYzine PAMOATE 25 MG CAPSULE (FP) PO PRN (09:44)
[2018-11-04] MEDS: METHADONE HCL 10 MG TABLET PO SCH (10:41)
[2018-11-04] MEDS: NICOTINE 21 MG/24 HOURS TOPICAL PATCH TD SCH (10:42)
[2018-11-04] MEDS: chlordiazePOXIDE HCL 25 MG CAPSULE PO SCH ×3 (10:42→22:32)
[2018-11-04] MEDS: PRENATAL VITAMINS W/ FOLIC ACID TABLET (FP) PO SCH (10:42)
[2018-11-04 12:15] LABS: ALBUMIN 4.2 g/dl (3.4-5.0); ALK PHOS 83 U/L (45-117); ANION GAP 6 MMOL/L (8-16); BILIRUBIN,TOTAL 0.6 mg/dL (0.2-1); BLOOD UREA NITROGEN 11 mg/dL (7-18); CALCIUM 8.4 mg/dL (8.5-10.1); CHLORIDE 105 mmol/L (98-107); CO2 28 mmol/L (21-32); CREATININE 0.7 mg/dL (0.55-1.3); GLUCOSE,RANDOM 89 mg/dL (74-106); HEMATOCRIT 38.3 % (35.4-49); HEMOGLOBIN 13.1 GM/dL (11.7-16.9); MCH 32.3 pg (25.7-33.7); MCHC 34.1 g/dl (32.0-35.9); MEAN CELL VOLUME 94.8 fl (80-96); PLATELET COUNT 294 K/MM3 (134-434); POTASSIUM 4.5 mmol/L (3.5-5.1); RBC 4.04 M/mm3 (4.00-5.60); RDW 14.8 % (11.9-15.9); SGOT/AST 47 U/L (15-37); SGPT/ALT 66 U/L (13-61); SODIUM 139 mmol/L (136-145); TOT PROT 8.4 g/dl (6.4-8.2); WHITE BLOOD COUNT 5.4 K/mm3 (4.0-10.0)
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
[2018-11-04] MEDS: THIAMINE HCL 100 MG TABLET (FP) PO SCH (22:32)
[2018-11-05] MEDS: chlordiazePOXIDE HCL 25 MG CAPSULE PO SCH ×4 (05:39→22:21)
[2018-11-05] MEDS: METHADONE HCL 10 MG TABLET PO SCH (05:39)
[2018-11-05] MEDS: NICOTINE 21 MG/24 HOURS TOPICAL PATCH TD SCH (10:11)
[2018-11-05] MEDS: PRENATAL VITAMINS W/ FOLIC ACID TABLET (FP) PO SCH (10:12)
--- NOTE | 2018-11-05 13:15 | PN ---
[facility] CIWA - CIWA Score Nausea/Vomitin-Mild Nausea/No Vomiting Muscle Tremors: 3 Anxiety: 1-Mildly Anxious Agitation: 3 Paroxysmal Sweats: 1-Minimal Palms Moist Orientation: 2-Disoriented Date<2 days Tacttile Disturbances: 0-None Auditory Disturbances: 0-None Visual Disturbances: 0-None Headache: 1-Very Mild CIWA-Ar Total Score: 12 S Progress Note (SOAP) Subjective: tremor muscle cramping received methadone 30 mg today as maintenance dose feeling better Objective: 11/05/18 13:18 Vital Signs Temperature 98.9 F 11/05/18 09:42 Pulse Rate 74 11/05/18 09:42 Respiratory Rate 18 11/05/18 09:42 Blood Pressure 138/88 11/05/18 09:42 O2 Sat by Pulse Oximetry (%) Laboratory Last Values WBC 5.4 K/mm3 (4.0-10.0) 11/04/18 09:30 RBC 4.04 M/mm3 (4.00-5.60) 11/04/18 09:30 Hgb 13.1 GM/dL (11.7-16.9) 11/04/18 09:30 Hct 38.3 % (35.4-49) D 11/04/18 09:30 MCV 94.8 fl (80-96) 11/04/18 09:30 MCH 32.3 pg (25.7-33.7) 11/04/18 09:30 MCHC 34.1 g/dl (32.0-35.9) 11/04/18 09:30 RDW 14.8 % (11.9-15.9) 11/04/18 09:30 Plt Count 294 K/MM3 (134-434) D 11/04/18 09:30 MPV 9.0 fl (7.5-11.1) 11/04/18 09:30 Sodium 139 mmol/L (136-145) 11/04/18 09:30 Potassium 4.5 mmol/L (3.5-5.1) 11/04/18 09:30 Chloride 105 mmol/L (98-107) 11/04/18 09:30 Carbon Dioxide 28 mmol/L (21-32) 11/04/18 09:30 Anion Gap 6 MMOL/L (8-16) L 11/04/18 09:30 BUN 11 mg/dL (7-18) 11/04/18 09:30 Creatinine 0.7 mg/dL (0.55-1.3) 11/04/18 09:30 Creat Clearance w eGFR 115.43 (>60) 11/04/18 09:30 Random Glucose 89 mg/dL (74-106) 11/04/18 09:30 Calcium 8.4 mg/dL (8.5-10.1) L 11/04/18 09:30 Total Bilirubin 0.6 mg/dL (0.2-1) 11/04/18 09:30 AST 47 U/L (15-37) H 11/04/18 09:30 ALT 66 U/L (13-61) H 11/04/18 09:30 Alkaline Phosphatase 83 U/L (45-117) 11/04/18 09:30 Total Protein 8.4 g/dl (6.4-8.2) H 11/04/18 09:30 Albumin 4.2 g/dl (3.4-5.0) 11/04/18 09:30 RPR Titer Nonreactive (NONREACTIVE) 11/04/18 09:30 HIV 1&2 Antibody Screen Negative 11/04/18 09:30 HIV P24 Antigen Negative 11/04/18 09:30 lab noted Assessment: 11/05/18 13:18 withdrawal sx Plan: continue detox
[2018-11-05] MEDS: THIAMINE HCL 100 MG TABLET (FP) PO SCH (22:21)
[2018-11-06] MEDS: chlordiazePOXIDE HCL 25 MG CAPSULE PO SCH (05:35)
[2018-11-06] MEDS: METHADONE HCL 10 MG TABLET PO SCH (05:35)
[2018-11-06] MEDS: NICOTINE 21 MG/24 HOURS TOPICAL PATCH TD SCH (10:16)
[2018-11-06] MEDS: PRENATAL VITAMINS W/ FOLIC ACID TABLET (FP) PO SCH (10:16)
[2018-11-06] MEDS: chlordiazePOXIDE HCL 10 MG CAPSULE PO SCH ×3 (10:16→22:07)
[2018-11-06] MEDS ORDERED: chlordiazePOXIDE HCL 10 MG CAPSULE PO PRN (11:00)
--- NOTE | 2018-11-06 12:20 | PN ---
S CIWA - CIWA Score Nausea/Vomitin-Mild Nausea/No Vomiting Muscle Tremors: 3 Anxiety: 2 Agitation: 2 Paroxysmal Sweats: 1-Minimal Palms Moist Orientation: 0-Oriented Tacttile Disturbances: 0-None Auditory Disturbances: 0-None Visual Disturbances: 0-None Headache: 1-Very Mild CIWA-Ar Total Score: 10 S Progress Note (SOAP) Subjective: feeling better today social with peers in day room Objective: 11/06/18 12:19 Vital Signs Temperature 98.1 F 11/06/18 09:11 Pulse Rate 84 11/06/18 09:11 Respiratory Rate 18 11/06/18 09:11 Blood Pressure 128/86 11/06/18 09:11 O2 Sat by Pulse Oximetry (%) Laboratory Last Values WBC 5.4 K/mm3 (4.0-10.0) 11/04/18 09:30 RBC 4.04 M/mm3 (4.00-5.60) 11/04/18 09:30 Hgb 13.1 GM/dL (11.7-16.9) 11/04/18 09:30 Hct 38.3 % (35.4-49) D 11/04/18 09:30 MCV 94.8 fl (80-96) 11/04/18 09:30 MCH 32.3 pg (25.7-33.7) 11/04/18 09:30 MCHC 34.1 g/dl (32.0-35.9) 11/04/18 09:30 RDW 14.8 % (11.9-15.9) 11/04/18 09:30 Plt Count 294 K/MM3 (134-434) D 11/04/18 09:30 MPV 9.0 fl (7.5-11.1) 11/04/18 09:30 Sodium 139 mmol/L (136-145) 11/04/18 09:30 Potassium 4.5 mmol/L (3.5-5.1) 11/04/18 09:30 Chloride 105 mmol/L (98-107) 11/04/18 09:30 Carbon Dioxide 28 mmol/L (21-32) 11/04/18 09:30 Anion Gap 6 MMOL/L (8-16) L 11/04/18 09:30 BUN 11 mg/dL (7-18) 11/04/18 09:30 Creatinine 0.7 mg/dL (0.55-1.3) 11/04/18 09:30 Creat Clearance w eGFR 115.43 (>60) 11/04/18 09:30 Random Glucose 89 mg/dL (74-106) 11/04/18 09:30 Calcium 8.4 mg/dL (8.5-10.1) L 11/04/18 09:30 Total Bilirubin 0.6 mg/dL (0.2-1) 11/04/18 09:30 AST 47 U/L (15-37) H 11/04/18 09:30 ALT 66 U/L (13-61) H 11/04/18 09:30 Alkaline Phosphatase 83 U/L (45-117) 11/04/18 09:30 Total Protein 8.4 g/dl (6.4-8.2) H 11/04/18 09:30 Albumin 4.2 g/dl (3.4-5.0) 11/04/18 09:30 RPR Titer Nonreactive (NONREACTIVE) 11/04/18 09:30 HIV 1&2 Antibody Screen Negative 11/04/18 09:30 HIV P24 Antigen Negative 11/04/18 09:30 lab noted Assessment: 11/06/18 12:19 withdrawal sx Plan: continue detox
[2018-11-06] MEDS: THIAMINE HCL 100 MG TABLET (FP) PO SCH (22:07)
[2018-11-07] MEDS: METHADONE HCL 10 MG TABLET PO SCH (06:14)
[2018-11-07] MEDS: chlordiazePOXIDE HCL 10 MG CAPSULE PO SCH (06:15)
[2018-11-07 09:12] VITALS: BP 106/72; PULSE 86; TEMP 98.4
[2018-11-07] MEDS ORDERED: chlordiazePOXIDE HCL 10 MG CAPSULE PO SCH (11:00)
--- NOTE | 2018-11-07 18:11 | DS ---
[facility] Detox Discharge Summary Admission Date: 11/04/18 Discharge Date: 11/07/18 - History Present History: Alcohol Dependence, Opioid Dependence, MMTP Additional Comments: PATIENT RETURNING TO [facility] ([place], [place]) FOR AFTERCARE. PATIENT ALSO ADVISED TO CONSIDER LOCAL 12-STEP / NA / AA OUTPATIENT SUPPORT GROUP PROGRAM FOR AFTERCARE. PATIENT ALSO ADVISED TO FOLLOW-UP WITH RAYON CONER AFTER DISSCHARGE FROM DETOX UNIT FOR GENERAL MEDICAL ASSESSMENTA DN FOR [place] [employer] ENZY[employer] VALUES NOTED ON DETOX ADMISSION LABORATORY ASSESSMENT. PATIENT VERBALIZED UNDERSTANDING OF ALL RECOMMENDATIONS PRESENTED TO HIM AT TIME OF DISCHARGE FROM DETOX UNIT. COPIES OF RESULTS OF ALL LABS DRAWN WHILE ADMITTED FOR DETOX GIVEN TO PATIENT AT TIME OF DISCHARGE FROM DETOX UNIT. PATIENT WAS DISCHARGED FROM DETOX UNIT IN STABLE MEDICAL CONDITION. Pertinent Past History: HTN, Depression, Bipolar Disorder, Hypercholesterolemia, M.M.T.P., History Of Hearing Loss In Left Ear, Nicotine Dependence, History Of lower Back Pain, Elevated Liver Enzymes. - Physical Exam Results Vital Signs: Vital Signs Temperature 98.4 F 11/07/18 09:11 Pulse Rate 86 11/07/18 09:11 Respiratory Rate 18 11/07/18 09:11 Blood Pressure 106/72 11/07/18 09:11 O2 Sat by Pulse Oximetry (%) Pertinent Admission Physical Exam Findings: WITHDRAWAL SYMPTOMS. Laboratory Tests 11/04/18 11/04/18 11/04/18 09:30 09:30 09:30 WBC 5.4 RBC 4.04 Hgb 13.1 Hct 38.3 D MCV 94.8 MCH 32.3 MCHC 34.1 RDW 14.8 Plt Count 294 D MPV 9.0 Sodium 139 Potassium 4.5 Chloride 105 Carbon Dioxide 28 Anion Gap 6 L BUN 11 Creatinine 0.7 Creat Clearance w eGFR 115.43 Random Glucose 89 Calcium 8.4 L Total Bilirubin 0.6 AST 47 H ALT 66 H Alkaline Phosphatase 83 Total Protein 8.4 H Albumin 4.2 RPR Titer Nonreactive HIV 1&2 Antibody Screen HIV P24 Antigen 11/04/18 09:30 WBC RBC Hgb Hct MCV MCH MCHC RDW Plt Count MPV Sodium Potassium Chloride Carbon Dioxide Anion Gap BUN Creatinine Creat Clearance w eGFR Random Glucose Calcium Total Bilirubin AST ALT Alkaline Phosphatase Total Protein Albumin RPR Titer HIV 1&2 Antibody Screen Negative HIV P24 Antigen Negative LABS NOTED. - Treatment Hospital Course: Detox Protocol Followed, Detoxed Safely, Responded well, Discharged Condition Good Patient has Accepted a Rehab Referral to: PT. YANG TO [facility] ([place], [place]) FOR AFTERCARE. - Medication Discharge Medications: Ambulatory Orders Sertraline HCl [Zoloft -] 50 mg PO DAILY #30 tablet 09/03/18 - Diagnosis (1) Alcohol dependence with uncomplicated withdrawal Status: Acute (2) Bipolar disorder Status: Acute Qualifiers: Active/Remission status: remission status unspecified Qualified Code(s): F31.9 - Bipolar disorder, unspecified (3) Hearing loss in left ear Status: Chronic Qualifiers: Hearing loss type: unspecified (4) Low back pain Status: Chronic Qualifiers: Chronicity: chronic Back pain laterality: unspecified Sciatica presence: unspecified whether sciatica present Qualified Code(s): M54.5 - Low back pain ; G89.29 - Other chronic pain (5) Methadone maintenance therapy patient Status: Chronic (6) Nicotine dependence Status: Chronic Qualifiers: Nicotine product type: cigarettes Substance use status: uncomplicated Qualified Code(s): F17.210 - Nicotine dependence, cigarettes, uncomplicated (7) Non-compliance Status: Chronic (8) Opioid dependence on agonist therapy Status: Chronic (9) Substance induced mood disorder Status: Chronic - AMA Did Patient Leave Against Medical Advice: No
== END 2018-11-07 10:12 | disposition home or self-care (01) | DRG 773 ==
LOC: YASAS 08:46 → Y3N 09:53
PROVIDERS: ADMIT Surgery; ATTEND Surgery
PROC: HZ2ZZZZ Detoxification Services for Substance Abuse Treatment (ICD-10-PCS; principal; 2018-11-04)
DX: F10.230 Alcohol dependence with withdrawal, uncomplicated (principal); F11.20 Opioid dependence, uncomplicated; F17.210 Nicotine dependence, cigarettes, uncomplicated; F19.24 Other psychoactive substance dependence with psychoactive substance-induced mood disorder; F32.9 Major depressive disorder, single episode, unspecified; I10 Essential (primary) hypertension; E78.5 Hyperlipidemia, unspecified; M54.5 Low back pain; H91.92 Unspecified hearing loss, left ear; Z88.0 Allergy status to penicillin; Z59.0 Homelessness
CPT/HCPCS: 36415; 80053; 85027; 86593; 87389

== ENCOUNTER 2018-12-24 08:26 | Inpatient (IN) | payer OTHER ==
[2018-12-24 09:54] VITALS: BMI 35.4
--- NOTE | 2018-12-24 10:42 | HP ---
CIWA Score Nausea/Vomitin Muscle Tremors: 2 Anxiety: 2 Agitation: 2 Paroxysmal Sweats: 1-Minimal Palms Moist Orientation: 0-Oriented Tacttile Disturbances: 1-Very Mild Itch/Numbness Auditory Disturbances: 1-Very Mild Visual Disturbances: 0-None Headache: 2-Mild CIWA-Ar Total Score: 13 - Admission Criteria OASAS Guidelines: Admission for Medically Managed Detox: Requires at least one of the followin. CIWA greater than 12 2. Seizures within the past 24 hours 3. Delirium tremens within the past 24 hours 4. Hallucinations within the past 24 hours 5. Acute intervention needed for co occurring medical disorder 6. Acute intervention needed for co occurring psychiatric disorder 7. Severe withdrawal that cannot be handled at a lower level of care (continued vomiting, continued diarrhea, abnormal vital signs) requiring intravenous medication and/or fluids 8. Admission ROS S - HPI Chief Complaint: i need help to stop drinking alcohol,heroin abused,mmtp 30 mgs/day,last medicated 12/23/18 Allergies/Adverse Reactions: Allergies Allergy/AdvReac Type Severity Reaction Status Date / Time Penicillins Allergy Severe Rash Verified 12/24/18 09:29 History of Present Illness: this 58 years old male with alcohol dependence,heroin abused,mmtp 30 mgs/day, last medicated 12/23/18 syncope alcohol related alcohol related seizure 10/31 history of hypertension,non compliance hypercholeserolemia hard of hearing no significant period of sobriety bipolar disorder,no med Exam Limitations: No Limitations - Ebola screening Have you traveled outside of the country in the last 21 days: No (N) Have you had contact with anyone from an Ebola affected area: No Do you have a fever: No - Review of Systems Constitutional: Loss of Appetite, Malaise, Night Sweats, Changes in sleep, Weakness EENT: reports: Nose Congestion, Other (hard of hearing) Respiratory: reports: No Symptoms reported Cardiac: reports: No Symptoms Reported GI: reports: Nausea, Poor Appetite, Abdominal cramping Musculoskeletal: reports: Back Pain, Muscle Pain Integumentary: reports: Dryness Neuro: reports: Headache, Tremors Endocrine: reports: No Symptoms Reported Hematology: reports: No Symptoms Reported Psychiatric: reports: No Sypmtoms Reported, Judgement Intact, Mood/Affect Appropiate, Orientated x3 Other Systems: Reviewed and Negative Patient History - Patient Medical History Hx Anemia: No Hx Asthma: No Hx Chronic Obstructive Pulmonary Disease (COPD): No Hx Cancer: No Hx Cardiac Disorders: No Hx Congestive Heart Failure: No Hx Hypertension: Yes (no med) Hx Hypercholesterolemia: Yes (no med) Hx Pacemaker: No HX Cerebrovascular Accident: No Hx Seizures: Yes (last 10/31) Hx Dementia: No Hx Diabetes: No Hx Gastrointestinal Disorders: No Hx Liver Disease: No Hx Genitourinary Disorders: No Hx Sexually Transmitted Disorders: No Hx Renal Disease (ESRD): No Hx Thyroid Disease: No Hx Human Immunodeficiency Virus (HIV): No (05/01 negative) Hx Hepatitis C: No Hx Depression: Yes Hx Suicide Attempt: No Hx Bipolar Disorder: Yes (non compliance) Hx Schizophrenia: No Other Medical History: no suicidal,no homicidal - Patient Surgical History Past Surgical History: Yes Hx Neurologic Surgery: No Hx Cataract Extraction: No Hx Cardiac Surgery: No Hx Lung Surgery: No Hx Breast Surgery: No Hx Breast Biopsy: No Hx Abdominal Surgery: No Hx Appendectomy: No Hx Cholecystectomy: No Hx Genitourinary Surgery: No Hx Section: No Hx Orthopedic Surgery: No Other Surgical History: multiple surgeries on both ears Anesthesia Reaction: No - PPD History Previous Implant?: Yes Documented Results: Negative w/proof Implanted On Prior R Admission?: Yes Date: 02/14/18 Results: 0 mm PPD to be Administered?: No - Smoking Cessation Smoking history: Current every day smoker Have you smoked in the past 12 months: Yes Aproximately how many cigarettes per day: 10 Cigars Per Day: 0 Hx Chewing Tobacco Use: No Initiated information on smoking cessation: Yes 'Breaking Loose' booklet given: 12/24/18 - Substance & Tx. History Hx Alcohol Use: Yes Hx Substance Use: No Substance Use Type: Alcohol Hx Substance Use Treatment: Yes ([facility] 11/04/18 to 11/07/18) - Substances abused Alcohol Substance route: Oral Frequency: Daily Amount used: 1 six beers ( 16 oz cans),1/2 pint of vodka Age of first use: 13 Date of last use: 12/24/18 Family Disease History - Family Disease History Family Disease History: Diabetes: Father (living, hx etoh), Brother (three - living - etoh - one with dm), Heart Disease: Sister (four living - etoh), CA: Mother (, hx drugs and etoh), Other: Father, Brother, Sister, Son (two - living -), Daughter (two - living) Admission Physical Exam [facility] - Vital Signs Vital Signs: Vital Signs - 24 hr 12/24/18 09:33 Temperature 98.5 F Pulse Rate 70 Respiratory 18 Rate Blood Pressure 145/90 - Physical General Appearance: Yes: Moderate Distress, Tremorous, Irritable, Sweating, Anxious HEENTM: Yes: Normal ENT Inspection, [place], Pharynx Normal, Other (hard of hearing both ears) Respiratory: Yes: Lungs Clear, Normal Breath Sounds, No Respiratory Distress Neck: Yes: Within Normal Limits, Supple, Trachea in good position Breast: Yes: Within Normal Limits Cardiology: Yes: Within Normal Limits, Regular Rhythm, Regular Rate, S1, S2 Abdominal: Yes: Within Normal Limits, Normal Bowel Sounds, Non Tender, Flat, Soft Genitourinary: Yes: Within Normal Limits Back: Yes: Muscle Spasm Musculoskeletal: Yes: Back pain, Muscle Pain Extremities: Yes: Tremors Neurological: Yes: sanding machine tender automatic II-XII NML intact, Fully Oriented, Alert, Motor Strength 5/5 Integumentary: Yes: Dry Lymphatic: Yes: Within Normal Limits - Diagnostic (1) Alcohol dependence with uncomplicated withdrawal Current Visit: No Status: Acute (2) Nicotine dependence Current Visit: No Status: Chronic Qualifiers: Nicotine product type: cigarettes Substance use status: uncomplicated Qualified Code(s): F17.210 - Nicotine dependence, cigarettes, uncomplicated (3) Opioid dependence on agonist therapy Current Visit: No Status: Chronic (4) Alcohol related seizure Current Visit: Yes Status: Acute (5) Syncope Current Visit: Yes Status: Acute (6) [place] (hard of hearing) Current Visit: Yes Status: Acute Cleared for Admission [facility] - Detox or Rehab [facility] Level of Care: Medically Managed Detox Regimen/Protocol: Librium Breathalyzer - Breathalyzer Breathalyzer: 0 Urine Drug Screen - Test Device Lot number: [id number] Expiration date: 09/11/20 - Control Is test valid?: Yes - Results Drug screen NEGATIVE: No Urine drug screen results: MOP-Opiates, MTD-Methadone, BZO-Benzodiazepines Inpatient Rehab Admission - Rehab Decision to Admit Inpatient rehab admission?: No
[2018-12-24] MEDS ORDERED: MAGNESIUM CITRATE 300 ML BOTTLE PO PRN (10:52)
[2018-12-24] MEDS ORDERED: ACETAMINOPHEN 325 MG TABLET (FP) PO PRN ×2 (10:52)
[2018-12-24] MEDS ORDERED: MAGNESIUM HYDROX 2400MG/30ML ORAL SUSPENSION 30 ML CUP PO PRN (10:52)
[2018-12-24] MEDS ORDERED: IBUPROFEN 400 MG TABLET (FP) PO PRN (10:52)
[2018-12-24] MEDS ORDERED: chlordiazePOXIDE HCL 25 MG CAPSULE PO PRN (10:52)
[2018-12-24] MEDS ORDERED: MAG HYDROX/AL HYDROX/SIMETH 30 ML UNIT-DOSE CUP PO PRN (10:52)
[2018-12-24] MEDS ORDERED: METHOCARBAMOL 500 MG TABLET PO PRN (10:52)
[2018-12-24] MEDS ORDERED: MENTHOL/PHENOL 1 EACH UD MM PRN (10:52)
[2018-12-24] MEDS ORDERED: BISMUTH SUBSALICYLATE 262 MG/15 ML BTL PO PRN (10:52)
[2018-12-24] MEDS ORDERED: METHADONE HCL 10 MG TABLET PO ONE (11:20)
[2018-12-24] MEDS: NICOTINE 21 MG/24 HOURS TOPICAL PATCH TD SCH (11:43)
[2018-12-24 14:45] LABS: HEMATOCRIT 41.7 % (35.4-49); MCH 32.1 pg (25.7-33.7); MCHC 33.5 g/dl (32.0-35.9); MEAN CELL VOLUME 95.7 fl (80-96); MEAN PLT VOLUME 9.3 fl (7.5-11.1); PLATELET COUNT 226 K/MM3 (134-434); RBC 4.36 M/mm3 (4.00-5.60); RDW 15.3 % (11.9-15.9); WHITE BLOOD COUNT 6.1 K/mm3 (4.0-10.0)
[2018-12-24 14:47] LABS: ALBUMIN 4.2 g/dl (3.4-5.0); BILIRUBIN,TOTAL 0.6 mg/dL (0.2-1); CALCIUM 9.2 mg/dL (8.5-10.1); CREATININE 0.8 mg/dL (0.55-1.3); POTASSIUM 4.5 mmol/L (3.5-5.1); TOT PROT 8.2 g/dl (6.4-8.2)
[2018-12-24] MEDS: chlordiazePOXIDE HCL 25 MG CAPSULE PO SCH ×2 (17:24→22:23)
[2018-12-24] MEDS: MELATONIN 5 MG TABLETS PO PRN (22:23)
[2018-12-24] MEDS: THIAMINE HCL 100 MG TABLET (FP) PO SCH (22:23)
[2018-12-25] MEDS: METHADONE HCL 10 MG TABLET PO SCH (05:49)
[2018-12-25] MEDS: chlordiazePOXIDE HCL 25 MG CAPSULE PO SCH ×4 (05:50→22:01)
[2018-12-25] MEDS: NICOTINE 21 MG/24 HOURS TOPICAL PATCH TD SCH (10:51)
[2018-12-25] MEDS: PRENATAL VITAMINS W/ FOLIC ACID TABLET (FP) PO SCH (10:51)
--- NOTE | 2018-12-25 11:07 | PN ---
S CIWA - CIWA Score Nausea/Vomitin-No Nausea/No Vomiting Muscle Tremors: 3 Anxiety: 3 Agitation: 3 Paroxysmal Sweats: 3 Orientation: 0-Oriented Tacttile Disturbances: 0-None Auditory Disturbances: 0-None Visual Disturbances: 0-None Headache: 0-None Present CIWA-Ar Total Score: 12 BHS Progress Note (SOAP) Subjective: body aches sweats mild shakes interrupted sleep Objective: 12/25/18 11:06 Vital Signs Temperature 98.1 F 12/25/18 09:31 Pulse Rate 74 12/25/18 09:31 Respiratory Rate 16 12/25/18 09:31 Blood Pressure 143/90 12/25/18 09:31 O2 Sat by Pulse Oximetry (%) Laboratory Tests 12/24/18 12/24/18 12/24/18 11:00 11:00 11:00 WBC 6.1 RBC 4.36 Hgb 14.0 Hct 41.7 MCV 95.7 MCH 32.1 MCHC 33.5 RDW 15.3 Plt Count 226 D MPV 9.3 Sodium 140 Potassium 4.5 Chloride 106 Carbon Dioxide 28 Anion Gap 6 L BUN 9.0 Creatinine 0.8 Est GFR (CKD-EPI)AfAm 113.33 Est GFR (CKD-EPI)NonAf 97.78 Random Glucose 95 Calcium 9.2 Total Bilirubin 0.6 AST 17 ALT 35 Alkaline Phosphatase 74 Total Protein 8.2 Albumin 4.2 RPR Titer HIV 1&2 Antibody Screen Negative HIV P24 Antigen Negative 12/24/18 11:00 WBC RBC Hgb Hct MCV MCH MCHC RDW Plt Count MPV Sodium Potassium Chloride Carbon Dioxide Anion Gap BUN Creatinine Est GFR (CKD-EPI)AfAm Est GFR (CKD-EPI)NonAf Random Glucose Calcium Total Bilirubin AST ALT Alkaline Phosphatase Total Protein Albumin RPR Titer Nonreactive HIV 1&2 Antibody Screen HIV P24 Antigen labs noted aaox3 ambulating no acute distress Assessment: 12/25/18 11:07 withdrawal sx Plan: continue detox increase fluids melatonin prn
[2018-12-25] MEDS: THIAMINE HCL 100 MG TABLET (FP) PO SCH (22:01)
[2018-12-25] MEDS: MELATONIN 5 MG TABLETS PO PRN (22:01)
[2018-12-26] MEDS: METHADONE HCL 10 MG TABLET PO SCH (05:57)
[2018-12-26] MEDS: chlordiazePOXIDE HCL 25 MG CAPSULE PO SCH ×2 (05:57→10:50)
[2018-12-26] MEDS: PRENATAL VITAMINS W/ FOLIC ACID TABLET (FP) PO SCH (10:49)
[2018-12-26] MEDS: NICOTINE 21 MG/24 HOURS TOPICAL PATCH TD SCH (10:49)
--- NOTE | 2018-12-26 12:24 | PN ---
S CIWA - CIWA Score Nausea/Vomitin Muscle Tremors: 2 Anxiety: 1-Mildly Anxious Agitation: 1-Slight > Activity Paroxysmal Sweats: 3 Orientation: 0-Oriented Tacttile Disturbances: 2-Mild Itch/Numbness/Burn Auditory Disturbances: 0-None Visual Disturbances: 0-None Headache: 0-None Present CIWA-Ar Total Score: 11 BHS Progress Note (SOAP) Subjective: i feel lousy , interrupted sleep, sweats, shakes Objective: 12/26/18 12:23 Vital Signs Temperature 98.5 F 12/26/18 09:43 Pulse Rate 66 12/26/18 09:43 Respiratory Rate 18 12/26/18 09:43 Blood Pressure 147/97 12/26/18 09:43 O2 Sat by Pulse Oximetry (%) Laboratory Tests 12/24/18 12/24/18 12/24/18 11:00 11:00 11:00 WBC 6.1 RBC 4.36 Hgb 14.0 Hct 41.7 MCV 95.7 MCH 32.1 MCHC 33.5 RDW 15.3 Plt Count 226 D MPV 9.3 Sodium 140 Potassium 4.5 Chloride 106 Carbon Dioxide 28 Anion Gap 6 L BUN 9.0 Creatinine 0.8 Est GFR (CKD-EPI)AfAm 113.33 Est GFR (CKD-EPI)NonAf 97.78 Random Glucose 95 Calcium 9.2 Total Bilirubin 0.6 AST 17 ALT 35 Alkaline Phosphatase 74 Total Protein 8.2 Albumin 4.2 RPR Titer HIV 1&2 Antibody Screen Negative HIV P24 Antigen Negative 12/24/18 11:00 WBC RBC Hgb Hct MCV MCH MCHC RDW Plt Count MPV Sodium Potassium Chloride Carbon Dioxide Anion Gap BUN Creatinine Est GFR (CKD-EPI)AfAm Est GFR (CKD-EPI)NonAf Random Glucose Calcium Total Bilirubin AST ALT Alkaline Phosphatase Total Protein Albumin RPR Titer Nonreactive HIV 1&2 Antibody Screen HIV P24 Antigen pt aox3 in nad lying in bed Assessment: 12/26/18 12:23 withdrawal sx;;s Plan: cont. detox increase fluids
[2018-12-26] MEDS ORDERED: chlordiazePOXIDE HCL 10 MG CAPSULE PO PRN (17:00)
[2018-12-26] MEDS: chlordiazePOXIDE HCL 10 MG CAPSULE PO SCH ×2 (17:37→22:43)
[2018-12-26] MEDS: THIAMINE HCL 100 MG TABLET (FP) PO SCH (22:43)
[2018-12-26] MEDS: MELATONIN 5 MG TABLETS PO PRN (22:45)
[2018-12-27] MEDS: chlordiazePOXIDE HCL 10 MG CAPSULE PO SCH ×3 (06:46→17:49)
[2018-12-27] MEDS: METHADONE HCL 10 MG TABLET PO SCH (06:46)
[2018-12-27] MEDS: PRENATAL VITAMINS W/ FOLIC ACID TABLET (FP) PO SCH (10:45)
[2018-12-27] MEDS: NICOTINE 21 MG/24 HOURS TOPICAL PATCH TD SCH (10:45)
[2018-12-27] MEDS: hydrOXYzine PAMOATE 25 MG CAPSULE (FP) PO PRN (17:48)
--- NOTE | 2018-12-27 18:10 | PN ---
S CIWA - CIWA Score Nausea/Vomitin-Mild Nausea/No Vomiting Muscle Tremors: 3 Anxiety: 1-Mildly Anxious Agitation: 0-Normal Activity Paroxysmal Sweats: 3 Orientation: 0-Oriented Tacttile Disturbances: 0-None Auditory Disturbances: 0-None Visual Disturbances: 0-None Headache: 0-None Present CIWA-Ar Total Score: 8 BHS Progress Note (SOAP) Subjective: States feel okay Denies any complaints Objective: 12/27/18 18:09 Skin flushed Slight tremors to arms A & XO x 3 Vital Signs Temperature 98.4 F 12/27/18 17:54 Pulse Rate 71 12/27/18 17:54 Respiratory Rate 20 12/27/18 17:54 Blood Pressure 149/79 12/27/18 17:54 O2 Sat by Pulse Oximetry (%) Assessment: 12/27/18 18:09 withdrawal sx Plan: continue detox
[2018-12-27] MEDS: MELATONIN 5 MG TABLETS PO PRN (22:38)
[2018-12-27] MEDS: THIAMINE HCL 100 MG TABLET (FP) PO SCH (22:38)
[2018-12-28] MEDS: METHADONE HCL 10 MG TABLET PO SCH (06:19)
[2018-12-28] MEDS: chlordiazePOXIDE HCL 10 MG CAPSULE PO SCH ×2 (06:19→17:23)
[2018-12-28] MEDS: NICOTINE 21 MG/24 HOURS TOPICAL PATCH TD SCH (10:19)
[2018-12-28] MEDS: PRENATAL VITAMINS W/ FOLIC ACID TABLET (FP) PO SCH (10:19)
--- NOTE | 2018-12-28 14:32 | PN ---
S CIWA - CIWA Score Nausea/Vomitin-No Nausea/No Vomiting Muscle Tremors: 3 Anxiety: 2 Agitation: 1-Slight > Activity Paroxysmal Sweats: 1-Minimal Palms Moist Orientation: 0-Oriented Tacttile Disturbances: 0-None Auditory Disturbances: 0-None Visual Disturbances: 0-None Headache: 0-None Present CIWA-Ar Total Score: 7 BHS Progress Note (SOAP) Subjective: sleepy little sweats Objective: 12/28/18 14:31 Vital Signs Temperature 98.0 F 12/28/18 14:05 Pulse Rate 80 12/28/18 14:05 Respiratory Rate 20 12/28/18 14:05 Blood Pressure 108/61 12/28/18 14:05 O2 Sat by Pulse Oximetry (%) Laboratory Tests 12/24/18 12/24/18 12/24/18 11:00 11:00 11:00 WBC 6.1 RBC 4.36 Hgb 14.0 Hct 41.7 MCV 95.7 MCH 32.1 MCHC 33.5 RDW 15.3 Plt Count 226 D MPV 9.3 Sodium 140 Potassium 4.5 Chloride 106 Carbon Dioxide 28 Anion Gap 6 L BUN 9.0 Creatinine 0.8 Est GFR (CKD-EPI)AfAm 113.33 Est GFR (CKD-EPI)NonAf 97.78 Random Glucose 95 Calcium 9.2 Total Bilirubin 0.6 AST 17 ALT 35 Alkaline Phosphatase 74 Total Protein 8.2 Albumin 4.2 RPR Titer HIV 1&2 Antibody Screen Negative HIV P24 Antigen Negative 12/24/18 11:00 WBC RBC Hgb Hct MCV MCH MCHC RDW Plt Count MPV Sodium Potassium Chloride Carbon Dioxide Anion Gap BUN Creatinine Est GFR (CKD-EPI)AfAm Est GFR (CKD-EPI)NonAf Random Glucose Calcium Total Bilirubin AST ALT Alkaline Phosphatase Total Protein Albumin RPR Titer Nonreactive HIV 1&2 Antibody Screen HIV P24 Antigen aaox3 ambulating no acute distress Assessment: 12/28/18 14:32 mild withdrawal sx Plan: continue detox increase fluids d/c in am
[2018-12-28] MEDS: hydrOXYzine PAMOATE 25 MG CAPSULE (FP) PO PRN (19:10)
[2018-12-28] MEDS: THIAMINE HCL 100 MG TABLET (FP) PO SCH (22:17)
[2018-12-28] MEDS: MELATONIN 5 MG TABLETS PO PRN (22:17)
[2018-12-29] MEDS: METHADONE HCL 10 MG TABLET PO SCH (05:33)
[2018-12-29 06:15] VITALS: TEMP 98.1
--- NOTE | 2018-12-29 09:03 | DS ---
[facility] Detox Discharge Summary Admission Date: 12/24/18 Discharge Date: 12/29/18 - History Present History: Alcohol Dependence, MMTP - Physical Exam Results Vital Signs: Vital Signs Temperature 98.1 F 12/29/18 06:14 Pulse Rate 60 12/29/18 06:14 Respiratory Rate 20 12/29/18 06:14 Blood Pressure 112/67 12/29/18 06:14 O2 Sat by Pulse Oximetry (%) - Treatment Hospital Course: Detox Protocol Followed, Detoxed Safely, Responded well, Discharged Condition Good, Rehab Referral Accepted - Medication Discharge Medications: Ambulatory Orders NK [No Known Home Medication] 12/24/18 - Diagnosis (1) Alcohol related seizure Current Visit: Yes Status: Acute (2) [place] (hard of hearing) Current Visit: Yes Status: Chronic Qualifiers: Hearing loss type: unspecified Laterality: unspecified laterality Qualified Code(s): H91.90 - Unspecified hearing loss, unspecified ear (3) Alcohol dependence with uncomplicated withdrawal Current Visit: Yes Status: Chronic (4) Bilateral lower extremity edema Current Visit: No Status: Acute (5) Bipolar 1 disorder Current Visit: No Status: Chronic (6) HTN (hypertension) Current Visit: Yes Status: Chronic Qualifiers: Hypertension type: essential hypertension Qualified Code(s): I10 - Essential (primary) hypertension (7) MDD (major depressive disorder), recurrent episode Current Visit: No Status: Chronic Qualifiers: (8) Methadone maintenance therapy patient Current Visit: Yes Status: Chronic (9) Nicotine dependence Current Visit: Yes Status: Chronic Qualifiers: Nicotine product type: cigarettes Substance use status: uncomplicated Qualified Code(s): F17.210 - Nicotine dependence, cigarettes, uncomplicated (10) Substance induced mood disorder Current Visit: No Status: Chronic (11) Alcohol-induced mood disorder Current Visit: No Status: Suspected (12) History of depression Current Visit: No Status: Suspected - AMA Did Patient Leave Against Medical Advice: No ([facility])
[2018-12-29 09:22] VITALS: BP 140/83; PULSE 83
[2018-12-29] MEDS: NICOTINE 21 MG/24 HOURS TOPICAL PATCH TD SCH (10:18)
[2018-12-29] MEDS: PRENATAL VITAMINS W/ FOLIC ACID TABLET (FP) PO SCH (10:19)
== END 2018-12-29 12:40 | disposition home or self-care (01) | DRG 773 ==
LOC: YASAS 08:26 → Y6N 10:48
PROVIDERS: ADMIT Surgery; ATTEND Surgery
PROC: HZ2ZZZZ Detoxification Services for Substance Abuse Treatment (ICD-10-PCS; principal; 2018-12-24)
DX: F10.230 Alcohol dependence with withdrawal, uncomplicated (principal); F11.20 Opioid dependence, uncomplicated; F17.210 Nicotine dependence, cigarettes, uncomplicated; F10.24 Alcohol dependence with alcohol-induced mood disorder; F19.24 Other psychoactive substance dependence with psychoactive substance-induced mood disorder; F31.89 Other bipolar disorder; R33.9 Retention of urine, unspecified; G40.509 Epileptic seizures related to external causes, not intractable, without status epilepticus; I10 Essential (primary) hypertension; E78.00 Pure hypercholesterolemia, unspecified; R60.0 Localized edema; H91.90 Unspecified hearing loss, unspecified ear; Z88.0 Allergy status to penicillin; Z59.0 Homelessness
CPT/HCPCS: 36415; 80053; 85027; 86593; 87389

== ENCOUNTER 2019-04-10 09:33 | Inpatient (IN) | payer OTHER ==
[2019-04-10 09:46] VITALS: BMI 36.9
--- NOTE | 2019-04-10 10:26 | HP ---
CIWA Score Nausea/Vomitin Muscle Tremors: 2 Anxiety: 3 Agitation: 3 Paroxysmal Sweats: 1-Minimal Palms Moist Orientation: 0-Oriented Tacttile Disturbances: 1-Very Mild Itch/Numbness Auditory Disturbances: 0-None Visual Disturbances: 0-None Headache: 2-Mild CIWA-Ar Total Score: 14 - Admission Criteria OASAS Guidelines: Admission for Medically Managed Detox: Requires at least one of the followin. CIWA greater than 12 2. Seizures within the past 24 hours 3. Delirium tremens within the past 24 hours 4. Hallucinations within the past 24 hours 5. Acute intervention needed for co occurring medical disorder 6. Acute intervention needed for co occurring psychiatric disorder 7. Severe withdrawal that cannot be handled at a lower level of care (continued vomiting, continued diarrhea, abnormal vital signs) requiring intravenous medication and/or fluids 8. Admission ROS S - HPI Chief Complaint: i need help to stop drinking alcohol Allergies/Adverse Reactions: Allergies Allergy/AdvReac Type Severity Reaction Status Date / Time Penicillins Allergy Severe Rash Verified 04/10/19 09:43 History of Present Illness: this 58 years old male with alcohol dependence seeking detox ,withdrawal symptom ,seen in er at [facility] on 03/30/19, multiple admissions in detox,last admission to this facility 12/24/18 to but keep relapsing had seizure last 10/31 syncope hard of hearing left,hearing loss right history of hypertension,no med nicotine dependence 1/2 pack/day no significant period of sobriety mmtp 30 mgs/day, plan for rehab after detox homeless history of bipolar disorder,non compliance,nomed Exam Limitations: No Limitations - Ebola screening Have you traveled outside of the country in the last 21 days: No Have you had contact with anyone from an Ebola affected area: No Do you have a fever: No - Review of Systems Constitutional: Loss of Appetite, Malaise, Night Sweats, Changes in sleep, Weakness EENT: reports: Nose Congestion, Other (deafness right,haearing loss left) Respiratory: reports: No Symptoms reported Cardiac: reports: No Symptoms Reported GI: reports: Nausea, Poor Appetite, Abdominal cramping : reports: No Symptoms Reported Musculoskeletal: reports: Back Pain, Muscle Pain Integumentary: reports: Dryness Neuro: reports: Headache, Tremors Endocrine: reports: No Symptoms Reported Hematology: reports: No Symptoms Reported Psychiatric: reports: No Sypmtoms Reported, Judgement Intact, Mood/Affect Appropiate, Orientated x3, other (bipolar disorder,no med) Other Systems: Reviewed and Negative Patient History - Patient Medical History Hx Anemia: No Hx Asthma: No Hx Chronic Obstructive Pulmonary Disease (COPD): No Hx Cancer: No Hx Cardiac Disorders: No Hx Congestive Heart Failure: No Hx Hypertension: Yes (no med) Hx Hypercholesterolemia: Yes (no med) Hx Pacemaker: No HX Cerebrovascular Accident: No Hx Seizures: Yes (last 10/31) Hx Dementia: No Hx Diabetes: No Hx Gastrointestinal Disorders: No Hx Liver Disease: No Hx Genitourinary Disorders: No Hx Sexually Transmitted Disorders: No Hx Renal Disease (ESRD): No Hx Thyroid Disease: No Hx Human Immunodeficiency Virus (HIV): No (09/02 negative) Hx Hepatitis C: No Hx Depression: Yes Hx Suicide Attempt: No Hx Bipolar Disorder: Yes (non compliance) Hx Schizophrenia: No Other Medical History: no suicidal,no homicidal - Patient Surgical History Past Surgical History: Yes Hx Neurologic Surgery: No Hx Cataract Extraction: No Hx Cardiac Surgery: No Hx Lung Surgery: No Hx Breast Surgery: No Hx Breast Biopsy: No Hx Abdominal Surgery: No Hx Appendectomy: No Hx Cholecystectomy: No Hx Genitourinary Surgery: No Hx Section: No Hx Orthopedic Surgery: No Other Surgical History: multiple surgeries on both ears Anesthesia Reaction: No - PPD History Previous Implant?: Yes Documented Results: Negative w/o proof Implanted On Prior [facility] Admission?: Yes Date: 02/14/18 Results: 0 mm PPD to be Administered?: No - Smoking Cessation Smoking history: Current every day smoker Have you smoked in the past 12 months: Yes Aproximately how many cigarettes per day: 10 Cigars Per Day: 0 Hx Chewing Tobacco Use: No Initiated information on smoking cessation: Yes 'Breaking Loose' booklet given: 04/10/19 - Substance & Tx. History Hx Alcohol Use: Yes Hx Substance Use: No Substance Use Type: Alcohol Hx Substance Use Treatment: Yes ([facility] 12/24/18 to 12/29/18) - Substances abused Alcohol Substance route: Oral Frequency: Daily Amount used: 1 six beers ( 16 oz cans),1/2 pint of vodka Age of first use: 13 Date of last use: 04/10/19 Admission Physical Exam BHS - Vital Signs Vital Signs: Vital Signs - 24 hr 04/10/19 09:38 Temperature 97.2 F L Pulse Rate 75 Respiratory 20 Rate Blood Pressure 147/95 - Physical General Appearance: Yes: Moderate Distress, Tremorous, Irritable, Sweating, Anxious HEENTM: Yes: Normocephalic, MONIKA, Pharynx Normal, Other (deafness of right ear, hearing loss left ear) Respiratory: Yes: Lungs Clear, Normal Breath Sounds, No Respiratory Distress Neck: Yes: Within Normal Limits, Supple, Trachea in good position Breast: Yes: Within Normal Limits Cardiology: Yes: Within Normal Limits, Regular Rhythm, Regular Rate, S1, S2 Abdominal: Yes: Within Normal Limits, Normal Bowel Sounds, Non Tender, Flat, Soft Genitourinary: Yes: Within Normal Limits Back: Yes: Muscle Spasm Musculoskeletal: Yes: Back pain, Muscle Pain Extremities: Yes: Tremors 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 last dose received today with 30mg. (4) Nicotine dependence Current Visit: No Status: Chronic Qualifiers: Nicotine product type: cigarettes Substance use status: uncomplicated Qualified Code(s): F17.210 - Nicotine dependence, cigarettes, uncomplicated (5) Bipolar disorder Current Visit: Yes Status: Acute (6) Alcohol related seizure Current Visit: No Status: Acute Cleared for Admission [facility] - Detox or Rehab [facility] Level of Care: Medically Managed Detox Regimen/Protocol: Librium Breathalyzer - Breathalyzer Breathalyzer: 0 Urine Drug Screen - Test Device Lot number: [id number] Expiration date: 12/12/20 - Control Is test valid?: Yes - Results Drug screen NEGATIVE: No Urine drug screen results: MTD-Methadone, BZO-Benzodiazepines Inpatient Rehab Admission - Rehab Decision to Admit Inpatient rehab admission?: No
[2019-04-10] MEDS ORDERED: hydrOXYzine PAMOATE 25 MG CAPSULE (FP) PO PRN (10:37)
[2019-04-10] MEDS ORDERED: chlordiazePOXIDE HCL 25 MG CAPSULE PO PRN (10:37)
[2019-04-10] MEDS ORDERED: BISMUTH SUBSALICYLATE 524 MG/30 ML UD PO PRN (10:37)
[2019-04-10] MEDS ORDERED: MAGNESIUM CITRATE 300 ML BOTTLE PO PRN (10:37)
[2019-04-10] MEDS ORDERED: METHOCARBAMOL 500 MG TABLET PO PRN (10:37)
[2019-04-10] MEDS ORDERED: MAGNESIUM HYDROX 2400MG/30ML ORAL SUSPENSION 30 ML CUP PO PRN (10:37)
[2019-04-10] MEDS ORDERED: ACETAMINOPHEN 325 MG TABLET (FP) PO PRN (10:37)
[2019-04-10] MEDS ORDERED: MENTHOL/PHENOL 1 EACH UD MM PRN (10:37)
[2019-04-10] MEDS ORDERED: MAG HYDROX/AL HYDROX/SIMETH 30 ML UNIT-DOSE CUP PO PRN (10:37)
[2019-04-10] MEDS ORDERED: METHADONE HCL 10 MG TABLET PO ONE ×2 (12:45)
[2019-04-10] MEDS: NICOTINE 21 MG/24 HOURS TOPICAL PATCH TD SCH (13:23)
[2019-04-10 14:34] LABS: ALBUMIN 3.9 g/dl (3.4-5.0); BLOOD UREA NITROGEN 9.2 mg/dL (7-18); CALCIUM 8.9 mg/dL (8.5-10.1); CREATININE 0.7 mg/dL (0.55-1.3); POTASSIUM 4.4 mmol/L (3.5-5.1); TOT PROT 7.7 g/dl (6.4-8.2)
[2019-04-10 14:35] LABS: HEMOGLOBIN 12.7 GM/dL (11.7-16.9); MCH 31.4 pg (25.7-33.7); MCHC 33.4 g/dl (32.0-35.9); MEAN CELL VOLUME 94.1 fl (80-96); PLATELET COUNT 305 K/MM3 (134-434); RBC 4.04 M/mm3 (4.00-5.60); RDW 15.9 % (11.9-15.9); WHITE BLOOD COUNT 7.9 K/mm3 (4.0-10.0)
[2019-04-10] MEDS: chlordiazePOXIDE HCL 25 MG CAPSULE PO SCH ×2 (17:41→22:15)
[2019-04-10] MEDS: THIAMINE HCL 100 MG TABLET (FP) PO SCH (22:14)
[2019-04-10] MEDS: MELATONIN 5 MG TABLETS PO PRN (22:15)
[2019-04-11] MEDS: METHADONE HCL 10 MG TABLET PO SCH (06:03)
[2019-04-11] MEDS: chlordiazePOXIDE HCL 25 MG CAPSULE PO SCH ×4 (06:03→22:12)
[2019-04-11] MEDS: PRENATAL VITAMINS W/ FOLIC ACID TABLET (FP) PO SCH (10:24)
[2019-04-11] MEDS: NICOTINE 21 MG/24 HOURS TOPICAL PATCH TD SCH (11:56)
[2019-04-11] MEDS ORDERED: FLU VACCINE QUAD 60 MCG/0.5 ML (MDV 19-20) IM ONE (12:00)
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
--- NOTE | 2019-04-11 17:50 | PN ---
[facility] CIWA - CIWA Score Nausea/Vomitin-No Nausea/No Vomiting Muscle Tremors: 2 Anxiety: 4-Mod. Anxious/Guarded Agitation: 2 Paroxysmal Sweats: 3 Orientation: 2-Disoriented Date<2 days Tacttile Disturbances: 2-Mild Itch/Numbness/Burn Auditory Disturbances: 0-None Visual Disturbances: 0-None Headache: 0-None Present CIWA-Ar Total Score: 15 BHS Progress Note (SOAP) Subjective: Anxious, Sweating, Tremors. Objective: PATIENT A & O X 2 (UNCERTAIN ABOUT CURRENT DAY/ DATE). PATIENT OBSERVED AMBULATING ON DETOX UNIT UNASSISTED. IN NO ACUTE DISTRESS. 04/11/19 17:47 Vital Signs Temperature 99.9 F H 04/11/19 17:36 Pulse Rate 63 04/11/19 17:36 Respiratory Rate 18 04/11/19 17:36 Blood Pressure 130/82 04/11/19 17:36 O2 Sat by Pulse Oximetry (%) Laboratory Tests 04/10/19 04/10/19 04/10/19 11:00 11:00 11:00 WBC 7.9 RBC 4.04 Hgb 12.7 Hct 38.0 MCV 94.1 MCH 31.4 MCHC 33.4 RDW 15.9 Plt Count 305 D MPV 9.0 Sodium 140 Potassium 4.4 Chloride 105 Carbon Dioxide 27 Anion Gap 9 BUN 9.2 Creatinine 0.7 Est GFR (CKD-EPI)AfAm 119.72 Est GFR (CKD-EPI)NonAf 103.30 Random Glucose 106 Calcium 8.9 Total Bilirubin 1.0 AST 28 ALT 71 H Alkaline Phosphatase 87 Total Protein 7.7 Albumin 3.9 RPR Titer Nonreactive LABS NOTED. PATIENT HAS HAD ELEVATED ALT LEVELS ON PREVIOUS ADMISSIONS. RESULTS OF DETOX ADMISSION QFT / TB TEST PENDING. 04/11/19 17:48 Assessment: 04/11/19 17:48 WITHDRAWAL SYMPTOMS. ELEVATED ALT LEVEL. 04/11/19 17:50 Plan: CONTINUE DETOX. INCREASE DAILY PO WATER INTAKE.
[2019-04-11] MEDS: THIAMINE HCL 100 MG TABLET (FP) PO SCH (22:12)
[2019-04-11] MEDS: ACETAMINOPHEN 325 MG TABLET (FP) PO PRN (22:13)
[2019-04-11] MEDS: MELATONIN 5 MG TABLETS PO PRN (22:13)
[2019-04-12] MEDS: chlordiazePOXIDE HCL 25 MG CAPSULE PO SCH ×4 (05:19→22:16)
[2019-04-12] MEDS: METHADONE HCL 10 MG TABLET PO SCH (05:19)
[2019-04-12] MEDS: NICOTINE 21 MG/24 HOURS TOPICAL PATCH TD SCH (10:21)
[2019-04-12] MEDS: PRENATAL VITAMINS W/ FOLIC ACID TABLET (FP) PO SCH (10:21)
--- NOTE | 2019-04-12 12:49 | PN ---
[facility] CIWA - CIWA Score Nausea/Vomitin-Mild Nausea/No Vomiting Muscle Tremors: 3 Anxiety: 4-Mod. Anxious/Guarded Agitation: 2 Paroxysmal Sweats: 1-Minimal Palms Moist Orientation: 0-Oriented Tacttile Disturbances: 0-None Auditory Disturbances: 0-None Visual Disturbances: 0-None Headache: 0-None Present CIWA-Ar Total Score: 11 S Progress Note (SOAP) Subjective: doing well with librium detox regimen ambulating on hallway social with peers in day room sleep better at night Objective: 04/12/19 12:48 Vital Signs Temperature 97.7 F 04/12/19 09:49 Pulse Rate 81 04/12/19 09:49 Respiratory Rate 18 04/12/19 09:49 Blood Pressure 130/86 04/12/19 09:49 O2 Sat by Pulse Oximetry (%) Laboratory Last Values WBC 7.9 K/mm3 (4.0-10.0) 04/10/19 11:00 RBC 4.04 M/mm3 (4.00-5.60) 04/10/19 11:00 Hgb 12.7 GM/dL (11.7-16.9) 04/10/19 11:00 Hct 38.0 % (35.4-49) 04/10/19 11:00 MCV 94.1 fl (80-96) 04/10/19 11:00 MCH 31.4 pg (25.7-33.7) 04/10/19 11:00 MCHC 33.4 g/dl (32.0-35.9) 04/10/19 11:00 RDW 15.9 % (11.9-15.9) 04/10/19 11:00 Plt Count 305 K/MM3 (134-434) D 04/10/19 11:00 MPV 9.0 fl (7.5-11.1) 04/10/19 11:00 Sodium 140 mmol/L (136-145) 04/10/19 11:00 Potassium 4.4 mmol/L (3.5-5.1) 04/10/19 11:00 Chloride 105 mmol/L (98-107) 04/10/19 11:00 Carbon Dioxide 27 mmol/L (21-32) 04/10/19 11:00 Anion Gap 9 MMOL/L (8-16) 04/10/19 11:00 BUN 9.2 mg/dL (7-18) 04/10/19 11:00 Creatinine 0.7 mg/dL (0.55-1.3) 04/10/19 11:00 Est GFR (CKD-EPI)AfAm 119.72 04/10/19 11:00 Est GFR (CKD-EPI)NonAf 103.30 04/10/19 11:00 Random Glucose 106 mg/dL (74-106) 04/10/19 11:00 Calcium 8.9 mg/dL (8.5-10.1) 04/10/19 11:00 Total Bilirubin 1.0 mg/dL (0.2-1) 04/10/19 11:00 AST 28 U/L (15-37) 04/10/19 11:00 ALT 71 U/L (13-61) H 04/10/19 11:00 Alkaline Phosphatase 87 U/L (45-117) 04/10/19 11:00 Total Protein 7.7 g/dl (6.4-8.2) 04/10/19 11:00 Albumin 3.9 g/dl (3.4-5.0) 04/10/19 11:00 RPR Titer Nonreactive (NONREACTIVE) 04/10/19 11:00 lab noted Assessment: 04/12/19 12:48 alcohol withdrawal sx Plan: continue librium detox regimen
[2019-04-12] MEDS: MELATONIN 5 MG TABLETS PO PRN (22:16)
[2019-04-12] MEDS: THIAMINE HCL 100 MG TABLET (FP) PO SCH (22:16)
[2019-04-13] MEDS ORDERED: chlordiazePOXIDE HCL 10 MG CAPSULE PO PRN
[2019-04-13] MEDS: METHADONE HCL 10 MG TABLET PO SCH (05:59)
[2019-04-13] MEDS: chlordiazePOXIDE HCL 10 MG CAPSULE PO SCH ×4 (06:00→22:25)
[2019-04-13] MEDS: PRENATAL VITAMINS W/ FOLIC ACID TABLET (FP) PO SCH (10:26)
[2019-04-13] MEDS: NICOTINE 21 MG/24 HOURS TOPICAL PATCH TD SCH (10:26)
--- NOTE | 2019-04-13 12:16 | PN ---
[facility] CIWA - CIWA Score Nausea/Vomitin-No Nausea/No Vomiting Muscle Tremors: 2 Anxiety: 2 Agitation: 2 Paroxysmal Sweats: 1-Minimal Palms Moist Orientation: 0-Oriented Tacttile Disturbances: 1-Very Mild Itch/Numbness Auditory Disturbances: 0-None Visual Disturbances: 0-None Headache: 0-None Present CIWA-Ar Total Score: 8 S Progress Note (SOAP) Subjective: doing well with librium detox regimen ate breakfast resting on bed comfortably limited conversation with staff Objective: 04/13/19 12:17 Vital Signs Temperature 98.1 F 04/13/19 09:05 Pulse Rate 72 04/13/19 09:05 Respiratory Rate 18 04/13/19 09:05 Blood Pressure 104/71 04/13/19 09:05 O2 Sat by Pulse Oximetry (%) Laboratory Last Values WBC 7.9 K/mm3 (4.0-10.0) 04/10/19 11:00 RBC 4.04 M/mm3 (4.00-5.60) 04/10/19 11:00 Hgb 12.7 GM/dL (11.7-16.9) 04/10/19 11:00 Hct 38.0 % (35.4-49) 04/10/19 11:00 MCV 94.1 fl (80-96) 04/10/19 11:00 MCH 31.4 pg (25.7-33.7) 04/10/19 11:00 MCHC 33.4 g/dl (32.0-35.9) 04/10/19 11:00 RDW 15.9 % (11.9-15.9) 04/10/19 11:00 Plt Count 305 K/MM3 (134-434) D 04/10/19 11:00 MPV 9.0 fl (7.5-11.1) 04/10/19 11:00 Sodium 140 mmol/L (136-145) 04/10/19 11:00 Potassium 4.4 mmol/L (3.5-5.1) 04/10/19 11:00 Chloride 105 mmol/L (98-107) 04/10/19 11:00 Carbon Dioxide 27 mmol/L (21-32) 04/10/19 11:00 Anion Gap 9 MMOL/L (8-16) 04/10/19 11:00 BUN 9.2 mg/dL (7-18) 04/10/19 11:00 Creatinine 0.7 mg/dL (0.55-1.3) 04/10/19 11:00 Est GFR (CKD-EPI)AfAm 119.72 04/10/19 11:00 Est GFR (CKD-EPI)NonAf 103.30 04/10/19 11:00 Random Glucose 106 mg/dL (74-106) 04/10/19 11:00 Calcium 8.9 mg/dL (8.5-10.1) 04/10/19 11:00 Total Bilirubin 1.0 mg/dL (0.2-1) 04/10/19 11:00 AST 28 U/L (15-37) 04/10/19 11:00 ALT 71 U/L (13-61) H 04/10/19 11:00 Alkaline Phosphatase 87 U/L (45-117) 04/10/19 11:00 Total Protein 7.7 g/dl (6.4-8.2) 04/10/19 11:00 Albumin 3.9 g/dl (3.4-5.0) 04/10/19 11:00 RPR Titer Nonreactive (NONREACTIVE) 04/10/19 11:00 TB (QFT) Incubation (.) 04/10/19 11:00 TB Test (QFT) Nil 0.01 IU/mL (.) 04/10/19 11:00 TB Test (QFT) Mitogen 3.72 IU/mL (.) 04/10/19 11:00 TB Test (QFT) Antigen 0.01 IU/mL (.) 04/10/19 11:00 TB Test (QFT) Negative (Negative) 04/10/19 11:00 TB Positive Criteria (.) 04/10/19 11:00 lab noted Assessment: 04/13/19 12:17 alcohol withdrawal sx Plan: continue librium detox regimen
[2019-04-13 16:26] LABS: PH,URINE 6.5 (5.0-8.0); URINE APPEARANCE CLEAR; URINE BILIRUBIN NEGATIVE (NEGATIVE); URINE COLOR YELLOW; URINE GLUCOSE (UA) NEGATIVE (NEGATIVE); URINE KETONE NEGATIVE (NEGATIVE); URINE LEUK ESTERASE NEGATIVE (NEGATIVE); URINE NITRITE NEGATIVE (NEGATIVE); URINE PROTEIN NEGATIVE (NEGATIVE); URINE UROBILINOGEN 0.2 mg/dL (0.2-1.0)
[2019-04-13] MEDS: THIAMINE HCL 100 MG TABLET (FP) PO SCH (22:25)
[2019-04-13] MEDS: MELATONIN 5 MG TABLETS PO PRN (22:26)
[2019-04-14] MEDS: METHADONE HCL 10 MG TABLET PO SCH (05:22)
[2019-04-14] MEDS: chlordiazePOXIDE HCL 10 MG CAPSULE PO SCH ×2 (05:22→17:21)
[2019-04-14] MEDS: NICOTINE 21 MG/24 HOURS TOPICAL PATCH TD SCH (10:38)
[2019-04-14] MEDS: PRENATAL VITAMINS W/ FOLIC ACID TABLET (FP) PO SCH (10:38)
[2019-04-14] MEDS: IBUPROFEN 400 MG TABLET (FP) PO PRN (11:14)
--- NOTE | 2019-04-14 16:34 | PN ---
[facility] CIWA - CIWA Score Nausea/Vomitin-No Nausea/No Vomiting Muscle Tremors: None Anxiety: 4-Mod. Anxious/Guarded Agitation: 1-Slight > Activity Paroxysmal Sweats: No Perspiration Orientation: 2-Disoriented Date<2 days Tacttile Disturbances: 0-None Auditory Disturbances: 0-None Visual Disturbances: 1-Very Mild Sensitivity Headache: 0-None Present CIWA-Ar Total Score: 8 BHS Progress Note (SOAP) Subjective: Poor Appetite, Anxious, Fatigue. Objective: PATIENT A & O X 2 (UNCERTAIN ABOUT CURRENT DAY/ DATE). PATIENT OBSERVED AMBULATING ON DETOX UNIT UNASSISTED. IN NO ACUTE DISTRESS. 04/14/19 16:33 Vital Signs Temperature 98.3 F 04/14/19 09:26 Pulse Rate 72 04/14/19 09:26 Respiratory Rate 20 04/14/19 09:26 Blood Pressure 119/76 04/14/19 09:26 O2 Sat by Pulse Oximetry (%) Laboratory Tests 04/10/19 04/10/19 04/10/19 11:00 11:00 11:00 WBC 7.9 RBC 4.04 Hgb 12.7 Hct 38.0 MCV 94.1 MCH 31.4 MCHC 33.4 RDW 15.9 Plt Count 305 D MPV 9.0 Sodium 140 Potassium 4.4 Chloride 105 Carbon Dioxide 27 Anion Gap 9 BUN 9.2 Creatinine 0.7 Est GFR (CKD-EPI)AfAm 119.72 Est GFR (CKD-EPI)NonAf 103.30 Random Glucose 106 Calcium 8.9 Total Bilirubin 1.0 AST 28 ALT 71 H Alkaline Phosphatase 87 Total Protein 7.7 Albumin 3.9 Urine Color Urine Appearance Urine pH Ur Specific [place] Urine Protein Urine Glucose (UA) Urine Ketones Urine Blood Urine Nitrite Urine Bilirubin Urine Urobilinogen Ur Leukocyte Esterase RPR Titer TB (QFT) Incubation TB Test (QFT) Nil 0.01 TB Test (QFT) Mitogen 3.72 TB Test (QFT) Antigen 0.01 TB Test (QFT) Negative TB Positive Criteria 04/10/19 04/13/19 11:00 14:20 WBC RBC Hgb Hct MCV MCH MCHC RDW Plt Count MPV Sodium Potassium Chloride Carbon Dioxide Anion Gap BUN Creatinine Est GFR (CKD-EPI)AfAm Est GFR (CKD-EPI)NonAf Random Glucose Calcium Total Bilirubin AST ALT Alkaline Phosphatase Total Protein Albumin Urine Color Yellow Urine Appearance Clear Urine pH 6.5 D Ur Specific [place] 1.013 Urine Protein Negative Urine Glucose (UA) Negative Urine Ketones Negative Urine Blood Negative Urine Nitrite Negative Urine Bilirubin Negative Urine Urobilinogen 0.2 Ur Leukocyte Esterase Negative RPR Titer Nonreactive TB (QFT) Incubation TB Test (QFT) Nil TB Test (QFT) Mitogen TB Test (QFT) Antigen TB Test (QFT) TB Positive Criteria LABS NOTED. Assessment: 04/14/19 16:33 WITHDRAWAL SYMPTOMS. ELEVATED ALT LEVEL. Plan: CONTINUE DETOX. PATIENT SCHEDULED FOR D/C FROM DETOX UNIT TOMORROW.
[2019-04-14] MEDS: THIAMINE HCL 100 MG TABLET (FP) PO SCH (21:17)
[2019-04-14] MEDS: MELATONIN 5 MG TABLETS PO PRN (21:18)
[2019-04-14] MEDS: ACETAMINOPHEN 325 MG TABLET (FP) PO PRN (21:56)
[2019-04-15] MEDS ORDERED: chlordiazePOXIDE HCL 10 MG CAPSULE PO ONE (05:00)
[2019-04-15] MEDS: METHADONE HCL 10 MG TABLET PO SCH (05:25)
[2019-04-15 09:15] VITALS: BP 131/91; PULSE 95; TEMP 98
[2019-04-15] MEDS: NICOTINE 21 MG/24 HOURS TOPICAL PATCH TD SCH (10:21)
[2019-04-15] MEDS: PRENATAL VITAMINS W/ FOLIC ACID TABLET (FP) PO SCH (10:21)
[2019-04-15] MEDS: IBUPROFEN 400 MG TABLET (FP) PO PRN (11:21)
--- NOTE | 2019-04-15 13:54 | DS ---
[facility] Detox Discharge Summary Admission Date: 04/10/19 Discharge Date: 04/15/19 - History Present History: Alcohol Dependence, Opioid Dependence, MMTP Additional Comments: PATIENT GOING TO [facility] ([facility]) FOR AFTERCARE. PATIENT WAS DISCHARGED FROM DETOX UNIT TO BE TAKEN OVER TO REHAB UNIT IN STABLE MEDICAL CONDITION. Pertinent Past History: HTN, Depression, M.M.T.P., History Of Bipolar Disorder, History Of Alcohol- related seizure, Hypercholesterolemia, Nicotine Dependence, Elevated ALT Level. - Physical Exam Results Vital Signs: Vital Signs Temperature 98.0 F 04/15/19 09:13 Pulse Rate 95 H 04/15/19 09:13 Respiratory Rate 20 04/15/19 09:13 Blood Pressure 131/91 04/15/19 09:13 O2 Sat by Pulse Oximetry (%) Pertinent Admission Physical Exam Findings: WITHDRAWAL SYMPTOMS. Laboratory Tests 04/10/19 04/10/19 04/10/19 11:00 11:00 11:00 WBC 7.9 RBC 4.04 Hgb 12.7 Hct 38.0 MCV 94.1 MCH 31.4 MCHC 33.4 RDW 15.9 Plt Count 305 D MPV 9.0 Sodium 140 Potassium 4.4 Chloride 105 Carbon Dioxide 27 Anion Gap 9 BUN 9.2 Creatinine 0.7 Est GFR (CKD-EPI)AfAm 119.72 Est GFR (CKD-EPI)NonAf 103.30 Random Glucose 106 Calcium 8.9 Total Bilirubin 1.0 AST 28 ALT 71 H Alkaline Phosphatase 87 Total Protein 7.7 Albumin 3.9 Urine Color Urine Appearance Urine pH Ur Specific [place] Urine Protein Urine Glucose (UA) Urine Ketones Urine Blood Urine Nitrite Urine Bilirubin Urine Urobilinogen Ur Leukocyte Esterase RPR Titer TB (QFT) Incubation TB Test (QFT) Nil 0.01 TB Test (QFT) Mitogen 3.72 TB Test (QFT) Antigen 0.01 TB Test (QFT) Negative TB Positive Criteria 04/10/19 04/13/19 11:00 14:20 WBC RBC Hgb Hct MCV MCH MCHC RDW Plt Count MPV Sodium Potassium Chloride Carbon Dioxide Anion Gap BUN Creatinine Est GFR (CKD-EPI)AfAm Est GFR (CKD-EPI)NonAf Random Glucose Calcium Total Bilirubin AST ALT Alkaline Phosphatase Total Protein Albumin Urine Color Yellow Urine Appearance Clear Urine pH 6.5 D Ur Specific [place] 1.013 Urine Protein Negative Urine Glucose (UA) Negative Urine Ketones Negative Urine Blood Negative Urine Nitrite Negative Urine Bilirubin Negative Urine Urobilinogen 0.2 Ur Leukocyte Esterase Negative RPR Titer Nonreactive TB (QFT) Incubation TB Test (QFT) Nil TB Test (QFT) Mitogen TB Test (QFT) Antigen TB Test (QFT) TB Positive Criteria LABS NOTED. - Treatment Hospital Course: Detox Protocol Followed, Detoxed Safely, Responded well, Discharged Condition Good, Rehab Referral Accepted Patient has Accepted a Rehab Referral to: [facility] ([place], [place]). - Medication Discharge Medications: Ambulatory Orders NK [No Known Home Medication] 12/24/18 - Diagnosis (1) Alcohol dependence with uncomplicated withdrawal Status: Acute (2) Alcohol related seizure Status: Acute (3) Bipolar disorder Status: Acute Qualifiers: Active/Remission status: remission status unspecified Qualified Code(s): F31.9 - Bipolar disorder, unspecified (4) HTN (hypertension) Status: Chronic Qualifiers: Hypertension type: essential hypertension Qualified Code(s): I10 - Essential (primary) hypertension (5) Methadone maintenance therapy patient Status: Chronic (6) Nicotine dependence Status: Chronic Qualifiers: Nicotine product type: cigarettes Substance use status: uncomplicated Qualified Code(s): F17.210 - Nicotine dependence, cigarettes, uncomplicated (7) Alcohol-induced mood disorder Status: Suspected - AMA Did Patient Leave Against Medical Advice: No [facility] CIWA - CIWA Score Nausea/Vomitin-No Nausea/No Vomiting Muscle Tremors: None Anxiety: 4-Mod. Anxious/Guarded Agitation: 1-Slight > Activity Paroxysmal Sweats: No Perspiration Orientation: 0-Oriented Tacttile Disturbances: 0-None Auditory Disturbances: 0-None Visual Disturbances: 0-None Headache: 0-None Present CIWA-Ar Total Score: 5
== END 2019-04-15 11:46 | disposition other institution (70) | DRG 773 ==
LOC: YASAS 09:33 → Y3N 12:15
PROVIDERS: ADMIT Surgery; ATTEND Surgery
PROC: HZ2ZZZZ Detoxification Services for Substance Abuse Treatment (ICD-10-PCS; principal; 2019-04-10)
DX: F10.230 Alcohol dependence with withdrawal, uncomplicated (principal); F10.24 Alcohol dependence with alcohol-induced mood disorder; F11.20 Opioid dependence, uncomplicated; F17.210 Nicotine dependence, cigarettes, uncomplicated; F31.9 Bipolar disorder, unspecified; I10 Essential (primary) hypertension; R74.0 Nonspecific elevation of levels of transaminase and lactic acid dehydrogenase [LDH]; E78.5 Hyperlipidemia, unspecified; H91.93 Unspecified hearing loss, bilateral; E66.9 Obesity, unspecified; Z68.36 Body mass index [BMI] 36.0-36.9, adult; Z91.14 Patient's other noncompliance with medication regimen; Z88.0 Allergy status to penicillin; Z86.69 Personal history of other diseases of the nervous system and sense organs; Z59.0 Homelessness
CPT/HCPCS: 36415; 80053; 81003; 85027; 86480; 86593

== ENCOUNTER 2019-04-15 11:49 | Inpatient (IN) | payer OTHER ==
[2019-04-15] MEDS ORDERED: MENTHOL/PHENOL 1 EACH UD MM PRN (13:59)
[2019-04-15] MEDS ORDERED: P-EPHED 60MG/TRIPROLIDI 2.5MG TABLET PO PRN (13:59)
[2019-04-15] MEDS ORDERED: guaiFENesin 200 MG/10 ML 10 ML UNIT-DOSE CUPS PO PRN (13:59)
[2019-04-15] MEDS ORDERED: MAG HYDROX/AL HYDROX/SIMETH 30 ML UNIT-DOSE CUP PO PRN (13:59)
[2019-04-15] MEDS ORDERED: LOPERAMIDE HCL 2 MG CAPSULE PO PRN (13:59)
[2019-04-15] MEDS ORDERED: MAGNESIUM HYDROX 2400MG/30ML ORAL SUSPENSION 30 ML CUP PO PRN (13:59)
[2019-04-15] MEDS ORDERED: MAGNESIUM CITRATE 300 ML BOTTLE PO PRN (13:59)
--- NOTE | 2019-04-15 14:00 | HP ---
[facility] Rehab Assess/Revision - Admission History Admitted to Rehab from: [facility] Date of Admission to Rehab: 04/15/2019 - Vital signs Vital Signs: NOTED; STABLE. - Findings Detox History & Physical reviewed: Yes Concur with findings: Yes Comments/Additional Findings: PATIENT'S MEDICAL / MEDICATION HISTORY REVIEWED PRIOR TO DISCHARGE FROM DETOX UNIT. PATIENT WAS DISCHARGED FROM DETOX UNIT TO BE TAKEN OVER TO REHAB UNIT IN STABLE MEDICAL CONDITION. Inpatient Rehab Admission - Rehab Decision to Admit Inpatient rehab admission?: Yes - Initial Determination Are CD services needed?: Yes Free of communicable disease: Yes Not in need of hospitalization: Yes - Rehab Admission Criteria Previous failed treatment: Yes Poor recovery environment: Yes Comorbidities: Yes Lacks judgement: Yes Patient is meeting Inpatient Rehab admission criteria:: Yes
[2019-04-15] MEDS: ACETAMINOPHEN 325 MG TABLET (FP) PO PRN (18:52)
[2019-04-15] MEDS: THIAMINE HCL 100 MG TABLET (FP) PO SCH (21:45)
[2019-04-16] MEDS: METHADONE HCL 10 MG TABLET PO SCH (07:00)
[2019-04-16] MEDS: PRENATAL VITAMINS W/ FOLIC ACID TABLET (FP) PO SCH (10:45)
[2019-04-16] MEDS: NICOTINE 21 MG/24 HOURS TOPICAL PATCH TD SCH (10:45)
[2019-04-16] MEDS: ACETAMINOPHEN 325 MG TABLET (FP) PO PRN (12:42)
--- NOTE | 2019-04-16 15:54 | PN ---
BHS Progress Note Note: Pt c/o of ear pain L ear. R ear deaf. Pt states has a long h/o ear pain and infections. Pt is homeless and so has inconsistent f/u with ENT. O: Vital Signs - 24 hr 04/16/19 04/16/19 04/16/19 00:30 03:30 06:15 Temperature 98 F Pulse Rate 87 Respiratory 18 18 20 Rate Blood Pressure 141/90 L ear with TM perf and erythema R TM with TM perf and abnormal looking ear drum a/o Chronic otitis media: treatment with ear drops. Pt does not have fever or other systemic sx. Can consider po antibiotics if not better with ear drops.
[2019-04-16] MEDS: NEOMYCIN/POLYMYXN/HC OTIC SUSPENSION 10 ML BOTTLE AU SCH ×3 (17:23→23:54)
[2019-04-16] MEDS: THIAMINE HCL 100 MG TABLET (FP) PO SCH (21:04)
[2019-04-16] MEDS: MELATONIN 5 MG TABLETS PO PRN (21:04)
[2019-04-17] MEDS: METHADONE HCL 10 MG TABLET PO SCH (06:20)
[2019-04-17] MEDS: NEOMYCIN/POLYMYXN/HC OTIC SUSPENSION 10 ML BOTTLE AU SCH ×4 (06:21→23:37)
[2019-04-17] MEDS: NICOTINE 21 MG/24 HOURS TOPICAL PATCH TD SCH (10:03)
[2019-04-17] MEDS: PRENATAL VITAMINS W/ FOLIC ACID TABLET (FP) PO SCH (10:03)
[2019-04-17] MEDS: IBUPROFEN 400 MG TABLET (FP) PO PRN (10:05)
[2019-04-17] MEDS: THIAMINE HCL 100 MG TABLET (FP) PO SCH (21:33)
[2019-04-17] MEDS: MELATONIN 5 MG TABLETS PO PRN (21:33)
[2019-04-18] MEDS: METHADONE HCL 10 MG TABLET PO SCH (06:11)
[2019-04-18] MEDS: NEOMYCIN/POLYMYXN/HC OTIC SUSPENSION 10 ML BOTTLE AU SCH ×4 (06:12→23:31)
[2019-04-18] MEDS: NICOTINE 21 MG/24 HOURS TOPICAL PATCH TD SCH (09:20)
[2019-04-18] MEDS: PRENATAL VITAMINS W/ FOLIC ACID TABLET (FP) PO SCH (09:20)
[2019-04-18] MEDS: IBUPROFEN 400 MG TABLET (FP) PO PRN (10:01)
[2019-04-18] MEDS: ACETAMINOPHEN 325 MG TABLET (FP) PO PRN (15:51)
[2019-04-18] MEDS: THIAMINE HCL 100 MG TABLET (FP) PO SCH (21:08)
[2019-04-19] MEDS: METHADONE HCL 10 MG TABLET PO SCH (06:40)
[2019-04-19] MEDS: NEOMYCIN/POLYMYXN/HC OTIC SUSPENSION 10 ML BOTTLE AU SCH ×4 (06:44→23:23)
[2019-04-19] MEDS: NICOTINE 21 MG/24 HOURS TOPICAL PATCH TD SCH (09:48)
[2019-04-19] MEDS: PRENATAL VITAMINS W/ FOLIC ACID TABLET (FP) PO SCH (09:48)
[2019-04-19] MEDS: IBUPROFEN 400 MG TABLET (FP) PO PRN (09:48)
[2019-04-19] MEDS: MELATONIN 5 MG TABLETS PO PRN (21:32)
[2019-04-19] MEDS: THIAMINE HCL 100 MG TABLET (FP) PO SCH (21:32)
[2019-04-20] MEDS: METHADONE HCL 10 MG TABLET PO SCH (06:15)
[2019-04-20] MEDS: NEOMYCIN/POLYMYXN/HC OTIC SUSPENSION 10 ML BOTTLE AU SCH ×5 (06:16→21:58)
[2019-04-20] MEDS: PRENATAL VITAMINS W/ FOLIC ACID TABLET (FP) PO SCH (10:09)
[2019-04-20] MEDS: NICOTINE 21 MG/24 HOURS TOPICAL PATCH TD SCH (10:10)
[2019-04-20] MEDS: THIAMINE HCL 100 MG TABLET (FP) PO SCH (21:58)
[2019-04-21] MEDS: METHADONE HCL 10 MG TABLET PO SCH (05:58)
[2019-04-21] MEDS: PRENATAL VITAMINS W/ FOLIC ACID TABLET (FP) PO SCH (10:10)
[2019-04-21] MEDS: NEOMYCIN/POLYMYXN/HC OTIC SUSPENSION 10 ML BOTTLE AU SCH ×4 (10:10→21:29)
[2019-04-21] MEDS: NICOTINE 21 MG/24 HOURS TOPICAL PATCH TD SCH (10:11)
[2019-04-21] MEDS: MELATONIN 5 MG TABLETS PO PRN (21:29)
[2019-04-21] MEDS: THIAMINE HCL 100 MG TABLET (FP) PO SCH (21:29)
[2019-04-22] MEDS: PRENATAL VITAMINS W/ FOLIC ACID TABLET (FP) PO SCH (09:39)
[2019-04-22] MEDS: NEOMYCIN/POLYMYXN/HC OTIC SUSPENSION 10 ML BOTTLE AU SCH ×5 (09:40→21:03)
[2019-04-22] MEDS: NICOTINE 21 MG/24 HOURS TOPICAL PATCH TD SCH (10:34)
[2019-04-22] MEDS ORDERED: METHADONE HCL 10 MG TABLET PO ONE (14:38)
[2019-04-22] MEDS: IBUPROFEN 400 MG TABLET (FP) PO PRN (20:07)
[2019-04-22] MEDS: MELATONIN 5 MG TABLETS PO PRN (21:03)
[2019-04-22] MEDS: THIAMINE HCL 100 MG TABLET (FP) PO SCH (21:03)
[2019-04-23] MEDS: METHADONE HCL 10 MG TABLET PO SCH (06:12)
[2019-04-23] MEDS: NICOTINE 21 MG/24 HOURS TOPICAL PATCH TD SCH (10:23)
[2019-04-23] MEDS: PRENATAL VITAMINS W/ FOLIC ACID TABLET (FP) PO SCH (10:23)
[2019-04-23] MEDS: NEOMYCIN/POLYMYXN/HC OTIC SUSPENSION 10 ML BOTTLE AU SCH ×4 (10:24→21:26)
[2019-04-23] MEDS: THIAMINE HCL 100 MG TABLET (FP) PO SCH (21:25)
[2019-04-23] MEDS: MELATONIN 5 MG TABLETS PO PRN (21:25)
[2019-04-24] MEDS: METHADONE HCL 10 MG TABLET PO SCH (06:17)
[2019-04-24] MEDS: NEOMYCIN/POLYMYXN/HC OTIC SUSPENSION 10 ML BOTTLE AU SCH ×4 (10:25→21:13)
[2019-04-24] MEDS: PRENATAL VITAMINS W/ FOLIC ACID TABLET (FP) PO SCH (10:25)
[2019-04-24] MEDS: NICOTINE 21 MG/24 HOURS TOPICAL PATCH TD SCH (10:26)
[2019-04-24] MEDS ORDERED: PT OWN MED DRAWER 7, Y5N ONE (10:34)
[2019-04-24] MEDS: THIAMINE HCL 100 MG TABLET (FP) PO SCH (21:13)
[2019-04-24] MEDS: MELATONIN 5 MG TABLETS PO PRN (21:13)
[2019-04-25] MEDS: METHADONE HCL 10 MG TABLET PO SCH (06:21)
[2019-04-25] MEDS: PRENATAL VITAMINS W/ FOLIC ACID TABLET (FP) PO SCH (10:31)
[2019-04-25] MEDS: NEOMYCIN/POLYMYXN/HC OTIC SUSPENSION 10 ML BOTTLE AU SCH ×4 (10:32→21:35)
[2019-04-25] MEDS: NICOTINE 21 MG/24 HOURS TOPICAL PATCH TD SCH (10:32)
[2019-04-25] MEDS: THIAMINE HCL 100 MG TABLET (FP) PO SCH (21:34)
[2019-04-25] MEDS: MELATONIN 5 MG TABLETS PO PRN (21:35)
[2019-04-25] MEDS: IBUPROFEN 400 MG TABLET (FP) PO PRN (21:54)
[2019-04-26] MEDS: METHADONE HCL 10 MG TABLET PO SCH (06:27)
[2019-04-26] MEDS: PRENATAL VITAMINS W/ FOLIC ACID TABLET (FP) PO SCH (09:10)
[2019-04-26] MEDS: IBUPROFEN 400 MG TABLET (FP) PO PRN (09:10)
[2019-04-26] MEDS: NEOMYCIN/POLYMYXN/HC OTIC SUSPENSION 10 ML BOTTLE AU SCH ×4 (09:11→21:08)
[2019-04-26] MEDS: NICOTINE 21 MG/24 HOURS TOPICAL PATCH TD SCH (09:11)
[2019-04-26] MEDS: MELATONIN 5 MG TABLETS PO PRN (21:07)
[2019-04-26] MEDS: THIAMINE HCL 100 MG TABLET (FP) PO SCH (21:07)
[2019-04-27] MEDS: METHADONE HCL 10 MG TABLET PO SCH (06:15)
[2019-04-27] MEDS: NICOTINE 21 MG/24 HOURS TOPICAL PATCH TD SCH (09:37)
[2019-04-27] MEDS: PRENATAL VITAMINS W/ FOLIC ACID TABLET (FP) PO SCH (09:37)
[2019-04-27] MEDS: NEOMYCIN/POLYMYXN/HC OTIC SUSPENSION 10 ML BOTTLE AU SCH (09:37)
--- NOTE | 2019-04-27 13:06 | PN ---
S Progress Note Note: Patient continues to have left ear discomfort. Denies fever, sore throat and nasal discharge. Has hx of chronic OM. Currently on Neomycin ear drops. Vital Signs Temperature 97.6 F 04/27/19 06:00 Pulse Rate 53 L 04/27/19 06:00 Respiratory Rate 20 04/27/19 06:00 Blood Pressure 139/82 04/27/19 06:00 O2 Sat by Pulse Oximetry (%) PE alert and oriented x 3 skin warm and dry +perrla eoms intact bl +deafness to right ear left ear canal with non-obstructing yellow cerumen, TM intact-mild redness car s1s2 resp cta bl A/P Chronic OM Cerumen Will continue treatment add debrox gtts patient advised to f/u with ent after d/c
[2019-04-27] MEDS: CARBAMIDE PEROXIDE 6.5% OTIC 15 ML BOTTLE AU SCH ×3 (15:03→21:09)
[2019-04-27] MEDS: IBUPROFEN 400 MG TABLET (FP) PO PRN (15:43)
[2019-04-27] MEDS ORDERED: PT OWN MED DRAWER 7, Y5N ONE (16:36)
[2019-04-27] MEDS: THIAMINE HCL 100 MG TABLET (FP) PO SCH (21:09)
[2019-04-27] MEDS: MELATONIN 5 MG TABLETS PO PRN (21:09)
[2019-04-28] MEDS: METHADONE HCL 10 MG TABLET PO SCH (06:16)
[2019-04-28] MEDS: PRENATAL VITAMINS W/ FOLIC ACID TABLET (FP) PO SCH (10:08)
[2019-04-28] MEDS: CARBAMIDE PEROXIDE 6.5% OTIC 15 ML BOTTLE AU SCH ×4 (10:09→21:28)
[2019-04-28] MEDS: NICOTINE 21 MG/24 HOURS TOPICAL PATCH TD SCH (10:10)
[2019-04-28] MEDS: ACETAMINOPHEN 325 MG TABLET (FP) PO PRN (13:05)
[2019-04-28] MEDS: MELATONIN 5 MG TABLETS PO PRN (21:27)
[2019-04-28] MEDS: THIAMINE HCL 100 MG TABLET (FP) PO SCH (21:27)
[2019-04-29] MEDS: METHADONE HCL 10 MG TABLET PO SCH (06:12)
[2019-04-29 06:58] VITALS: TEMP 97.6
[2019-04-29] MEDS: CARBAMIDE PEROXIDE 6.5% OTIC 15 ML BOTTLE AU SCH ×4 (10:13→21:11)
[2019-04-29] MEDS: PRENATAL VITAMINS W/ FOLIC ACID TABLET (FP) PO SCH (10:13)
[2019-04-29] MEDS: NICOTINE 21 MG/24 HOURS TOPICAL PATCH TD SCH (10:13)
[2019-04-29] MEDS: IBUPROFEN 400 MG TABLET (FP) PO PRN (11:13)
[2019-04-29] MEDS: THIAMINE HCL 100 MG TABLET (FP) PO SCH (21:11)
[2019-04-29] MEDS: MELATONIN 5 MG TABLETS PO PRN (21:11)
[2019-04-30] MEDS: METHADONE HCL 10 MG TABLET PO SCH (06:08)
[2019-04-30] MEDS: CARBAMIDE PEROXIDE 6.5% OTIC 15 ML BOTTLE AU SCH ×4 (10:38→21:55)
[2019-04-30] MEDS: PRENATAL VITAMINS W/ FOLIC ACID TABLET (FP) PO SCH (10:38)
[2019-04-30] MEDS: NICOTINE 21 MG/24 HOURS TOPICAL PATCH TD SCH (10:39)
[2019-04-30] MEDS: ACETAMINOPHEN 325 MG TABLET (FP) PO PRN (12:57)
[2019-04-30] MEDS ORDERED: hydrOXYzine PAMOATE 25 MG CAPSULE (FP) PO PRN (13:32)
[2019-04-30] MEDS: MELATONIN 5 MG TABLETS PO PRN (21:55)
[2019-04-30] MEDS: THIAMINE HCL 100 MG TABLET (FP) PO SCH (21:55)
[2019-05-01] MEDS: METHADONE HCL 10 MG TABLET PO SCH (06:01)
[2019-05-01 07:04] VITALS: BP 148/83; PULSE 61
[2019-05-01] MEDS: PRENATAL VITAMINS W/ FOLIC ACID TABLET (FP) PO SCH (09:12)
[2019-05-01] MEDS: CARBAMIDE PEROXIDE 6.5% OTIC 15 ML BOTTLE AU SCH (09:14)
--- NOTE | 2019-05-01 09:57 | DS ---
[facility] Rehab Discharge Summary - [facility] Rehab Discharge Summary Admission Date: 04/15/19 Discharge Date: 05/01/19 - History Present History: Alcohol dependence, MMTP - Discharge Physical Exam Vital Signs: Vital Signs Temperature 97.6 F 05/01/19 07:03 Pulse Rate 61 05/01/19 07:03 Respiratory Rate 18 05/01/19 07:03 Blood Pressure 148/83 05/01/19 07:03 O2 Sat by Pulse Oximetry (%) Pertinent Admission Physical Exam Findings: ROS: denies chest pain, sob, dizziness, etoh cravings, shakes and night sweats PE: alert and oriented x 3 skin warm and dry +perrla eoms intact bl car s1s2 resp cta bl ext full rom, amb ad su, no tremors - Treatment Discharge Condition: Discharge condition good Hospital Course: Patient attended all groups, states he accomplished all rehab goals and aftercare arranged with [facility] for 05/02/19. Patient also referred to [facility] as he is homeless. Patient d/c medically stable and denies SI/HI. - Medication Discharge Medications: Ambulatory Orders NK [No Known Home Medication] 12/24/18 - Medication-Assisted Treatment (MAT) Medication-Assisted Treatment (MAT): Yes MAT Follow-up Referral: [facility] - Discharge Instructions Diet, activity, other medical instructions: Diet:as tolerated, reg Activity: as rain Other medical instructions: follow up with pcp as recommended - Follow-up Referral Minutes to complete discharge: 30 - AMA Did Patient Leave Against Medical Advice: No
== END 2019-05-01 09:25 | disposition home or self-care (01) | DRG 772 ==
LOC: YASAS 11:49 → Y3W 11:50
PROVIDERS: ADMIT Neuromusculoskeletal Medicine & OMM; ATTEND Neuromusculoskeletal Medicine & OMM
PROC: HZ42ZZZ Group Counseling for Substance Abuse Treatment, Cognitive-Behavioral (ICD-10-PCS; principal; 2019-04-15)
DX: F10.20 Alcohol dependence, uncomplicated (principal); F11.20 Opioid dependence, uncomplicated; H66.93 Otitis media, unspecified, bilateral; H91.91 Unspecified hearing loss, right ear; Z88.0 Allergy status to penicillin; Z59.0 Homelessness

== ENCOUNTER 2019-07-18 14:07 | Inpatient (IN) | payer OTHER ==
[2019-07-18 17:22] VITALS: BMI 35.2
--- NOTE | 2019-07-18 20:30 | HP ---
CIWA Score Nausea/Vomitin Muscle Tremors: 3 Anxiety: 2 Agitation: 2 Paroxysmal Sweats: 3 Orientation: 0-Oriented Tacttile Disturbances: 2-Mild Itch/Numbness/Burn Auditory Disturbances: 2-Mild Harshness/Frighten Visual Disturbances: 2-Mild Sensitivity Headache: 2-Mild CIWA-Ar Total Score: 20 - Admission Criteria OASAS Guidelines: Admission for Medically Managed Detox: Requires at least one of the followin. CIWA greater than 12 2. Seizures within the past 24 hours 3. Delirium tremens within the past 24 hours 4. Hallucinations within the past 24 hours 5. Acute intervention needed for co occurring medical disorder 6. Acute intervention needed for co occurring psychiatric disorder 7. Severe withdrawal that cannot be handled at a lower level of care (continued vomiting, continued diarrhea, abnormal vital signs) requiring intravenous medication and/or fluids 8. Admitting History and Physical - Smoking History Smoking history: Current every day smoker Have you smoked in the past 12 months: Yes Aproximately how many cigarettes per day: 10 - Alcohol/Substance Use Hx Alcohol Use: Yes Admission ROS BHS - HPI Chief Complaint: DEPENDENT ON ETOH ONLY Allergies/Adverse Reactions: Allergies Allergy/AdvReac Type Severity Reaction Status Date / Time Penicillins Allergy Severe Rash Verified 05/08/19 20:57 History of Present Illness: THE PT. IS REQUESTING ADMISSION TO THE DETOX UNIT AND CAME FOR MEDICAL CLEARANCE Exam Limitations: No Limitations - Ebola screening Have you traveled outside of the country in the last 21 days: No Have you had contact with anyone from an Ebola affected area: No Do you have a fever: No - Review of Systems Constitutional: See HPI, Malaise, Weakness EENT: reports: See HPI Respiratory: reports: See HPI Cardiac: reports: See HPI, Edema GI: reports: See HPI, Nausea, Abdominal cramping : reports: No Symptoms Reported, See HPI Musculoskeletal: reports: See HPI, Muscle Pain, Muscle Weakness Integumentary: reports: See HPI Neuro: reports: See HPI, Headache, Tremors, Weakness Hematology: reports: See HPI Psychiatric: reports: Judgement Intact, Orientated x3, Anxious, Depressed Patient History - Patient Medical History Hx Anemia: No Hx Asthma: No Hx Chronic Obstructive Pulmonary Disease (COPD): No Hx Cancer: No Hx Cardiac Disorders: No Hx Congestive Heart Failure: No Hx Hypertension: Yes Hx Hypercholesterolemia: Yes (no med) Hx Pacemaker: No HX Cerebrovascular Accident: No Hx Seizures: No Hx Dementia: No Hx Diabetes: No Hx Gastrointestinal Disorders: No Hx Liver Disease: No Hx Genitourinary Disorders: No Hx Sexually Transmitted Disorders: No Hx Renal Disease (ESRD): No Hx Thyroid Disease: No Hx Human Immunodeficiency Virus (HIV): No (09/02 negative) Hx Hepatitis C: No Hx Suicide Attempt: No Hx Bipolar Disorder: Yes (non compliance) Hx Schizophrenia: No Other Medical History: ANXIETY DISORDER - Patient Surgical History Past Surgical History: Yes Hx Neurologic Surgery: No Hx Cataract Extraction: No Hx Cardiac Surgery: No Hx Lung Surgery: No Hx Breast Surgery: No Hx Breast Biopsy: No Hx Abdominal Surgery: No Hx Appendectomy: No Hx Cholecystectomy: No Hx Genitourinary Surgery: No Hx Section: No Hx Orthopedic Surgery: No Other Surgical History: multiple surgeries on both ears Anesthesia Reaction: No - PPD History Date: 02/14/18 Results: 0 mm - Smoking Cessation Smoking history: Current every day smoker Have you smoked in the past 12 months: Yes Aproximately how many cigarettes per day: 10 Cigars Per Day: 0 Hx Chewing Tobacco Use: No Initiated information on smoking cessation: Yes 'Breaking Loose' booklet given: 07/18/19 - Substance & Tx. History Hx Alcohol Use: Yes Hx Substance Use: No Substance Use Type: Alcohol Hx Substance Use Treatment: Yes - Substances abused Alcohol Substance route: Oral Frequency: Daily Amount used: 1 six pack of 16 oz beers Age of first use: 13 Date of last use: 07/18/19 Admission Physical Exam BHS - Vital Signs Vital Signs: Vital Signs - 24 hr 07/18/19 17:09 Temperature 99.4 F Pulse Rate 70 Respiratory 20 Rate Blood Pressure 139/90 - Physical General Appearance: Yes: No Apparent Distress, Nourished, Appropriately Dressed , Obese, Tremorous, Sweating, Anxious HEENTM: Yes: Hearing grossly Normal, Normocephalic, Normal Voice, MONIKA, Pharynx Normal Respiratory: Yes: Chest Non-Tender, Lungs Clear, Normal Breath Sounds, No Respiratory Distress, No Accessory Muscle Use Neck: Yes: No masses,lesions,Nodules, Supple, Trachea in good position Breast: Yes: Axillae without masses, No masses Cardiology: Yes: Regular Rhythm, Regular Rate, S1, S2, Tachycardia Abdominal: Yes: Normal Bowel Sounds, Non Tender, Soft, Distended Back: Yes: Normal Inspection Musculoskeletal: Yes: full range of Motion, Gait Steady, Pelvis Stable, Muscle Pain, Muscle weakness Extremities: Yes: Normal Capillary Refill, Normal Range of Motion, Non-Tender, Tremors, Swelling Neurological: Yes: energy administrator II-XII NML intact, Fully Oriented, Alert, Motor Strength 5/5, Normal Response Integumentary: Yes: Normal Color, Warm, Moist Lymphatic: Yes: Within Normal Limits - Diagnostic (1) Anxiety Current Visit: Yes Status: Chronic (2) Alcohol dependence with uncomplicated withdrawal Current Visit: No Status: Chronic (3) Bipolar disorder Current Visit: No Status: Chronic Qualifiers: Active/Remission status: remission status unspecified Qualified Code(s): F31.9 - Bipolar disorder, unspecified (4) HTN (hypertension) Current Visit: No Status: Chronic Qualifiers: Hypertension type: essential hypertension Qualified Code(s): I10 - Essential (primary) hypertension (5) Methadone maintenance therapy patient Current Visit: No Status: Chronic Comment: pending verification. last dose received today with 30mg. (6) Nicotine dependence Current Visit: No Status: Chronic Qualifiers: Nicotine product type: cigarettes Substance use status: uncomplicated Qualified Code(s): F17.210 - Nicotine dependence, cigarettes, uncomplicated Cleared for Admission S - Detox or Rehab [facility] Level of Care: Medically Supervised Detox Regimen/Protocol: Librium Breathalyzer - Breathalyzer Breathalyzer: 0.090 Urine Drug Screen - Test Device Lot number: [id number] Expiration date: 04/13/21 - Control Is test valid?: Yes - Results Drug screen NEGATIVE: No Urine drug screen results: MTD-Methadone Inpatient Rehab Admission - Rehab Decision to Admit Inpatient rehab admission?: No
[2019-07-18] MEDS ORDERED: IBUPROFEN 400 MG TABLET (FP) PO PRN (20:34)
[2019-07-18] MEDS ORDERED: MENTHOL/PHENOL 1 EACH UD MM PRN (20:34)
[2019-07-18] MEDS ORDERED: chlordiazePOXIDE HCL 10 MG CAPSULE PO PRN (20:34)
[2019-07-18] MEDS ORDERED: NICOTINE POLACRILEX 2 MG GUM BUC PRN (20:34)
[2019-07-18] MEDS ORDERED: METHOCARBAMOL 500 MG TABLET PO PRN (20:34)
[2019-07-18] MEDS ORDERED: BISMUTH SUBSALICYLATE 524 MG/30 ML UD PO PRN (20:34)
[2019-07-18] MEDS ORDERED: chlordiazePOXIDE HCL 25 MG CAPSULE PO ONE (20:34)
[2019-07-18] MEDS ORDERED: MAGNESIUM HYDROX 2400MG/30ML ORAL SUSPENSION 30 ML CUP PO PRN (20:34)
[2019-07-18] MEDS ORDERED: MELATONIN 5 MG TABLETS PO PRN (20:34)
[2019-07-18] MEDS ORDERED: MAGNESIUM CITRATE 300 ML BOTTLE PO PRN (20:34)
[2019-07-18] MEDS ORDERED: MAG HYDROX/AL HYDROX/SIMETH 30 ML UNIT-DOSE CUP PO PRN (20:34)
[2019-07-18] MEDS ORDERED: ACETAMINOPHEN 325 MG TABLET (FP) PO PRN ×2 (20:34)
[2019-07-18] MEDS: HYDROCHLOROTHIAZIDE 25 MG TABLET (FP) PO SCH (21:46)
[2019-07-18] MEDS: chlordiazePOXIDE HCL 25 MG CAPSULE PO SCH (21:47)
[2019-07-18] MEDS: THIAMINE HCL 100 MG TABLET (FP) PO SCH (21:48)
[2019-07-18] MEDS: hydrOXYzine PAMOATE 25 MG CAPSULE (FP) PO PRN (21:48)
[2019-07-19] MEDS: chlordiazePOXIDE HCL 25 MG CAPSULE PO SCH ×3 (06:48→22:41)
[2019-07-19] MEDS: HYDROCHLOROTHIAZIDE 25 MG TABLET (FP) PO SCH (10:35)
[2019-07-19] MEDS: PRENATAL VITAMINS W/ FOLIC ACID TABLET (FP) PO SCH (10:35)
[2019-07-19] MEDS: NICOTINE 14 MG/24 HOURS TOPICAL PATCH TD SCH (10:35)
[2019-07-19 13:41] LABS: HEMATOCRIT 41.7 % (35.4-49); HEMOGLOBIN 13.9 GM/dL (11.7-16.9); MCH 31.6 pg (25.7-33.7); MCHC 33.3 g/dl (32.0-35.9); MEAN CELL VOLUME 94.9 fl (80-96); MEAN PLT VOLUME 9.8 fl (7.5-11.1); PLATELET COUNT 212 K/MM3 (134-434); RDW 14.3 % (11.9-15.9); WHITE BLOOD COUNT 6.8 K/mm3 (4.0-10.0)
[2019-07-19 13:56] LABS: ALBUMIN 3.7 g/dl (3.4-5.0); BLOOD UREA NITROGEN 10.2 mg/dL (7-18); CREATININE 0.8 mg/dL (0.55-1.3); POTASSIUM 3.7 mmol/L (3.5-5.1)
--- NOTE | 2019-07-19 17:30 | PN ---
[facility] CIWA - CIWA Score Nausea/Vomitin-Mild Nausea/No Vomiting Muscle Tremors: 4-Moderate,w/Arms Extend Anxiety: 4-Mod. Anxious/Guarded Agitation: 3 Paroxysmal Sweats: 3 Orientation: 0-Oriented Tacttile Disturbances: 0-None Auditory Disturbances: 0-None Visual Disturbances: 0-None Headache: 0-None Present CIWA-Ar Total Score: 15 BHS Progress Note (SOAP) Subjective: Asleep, aroused easily, refused to speak with underwriter solicitation director Objective: 07/19/19 17:25 Last Vital Signs Temp Pulse Resp BP Pulse Ox 98.1 F 67 18 118/75 07/19/19 17:17 07/19/19 17:17 07/19/19 17:17 07/19/19 17:17 Laboratory Tests 07/19/19 07/19/19 07/19/19 07:30 07:30 07:30 WBC 6.8 RBC 4.40 Hgb 13.9 Hct 41.7 MCV 94.9 MCH 31.6 MCHC 33.3 RDW 14.3 D Plt Count 212 D MPV 9.8 Sodium 138 Potassium 3.7 Chloride 103 Carbon Dioxide 27 Anion Gap 8 BUN 10.2 Creatinine 0.8 Est GFR (CKD-EPI)AfAm 112.53 Est GFR (CKD-EPI)NonAf 97.10 Random Glucose 117 H Calcium 9.0 Total Bilirubin 1.0 AST 79 H ALT 145 H Alkaline Phosphatase 123 H Total Protein 7.0 Albumin 3.7 RPR Titer Nonreactive Labs reviewed: serum glucose high, LFTs high Assessment: 07/19/19 17:27 Withdrawal sxs Noted with hyperglycemia and elevated LFTs Plan: Continue detox Encouraged PO water intake Hyperglycemia: denies dm, could be r/t withdrawal sxs, repeat fasting glucose and send A1c Elevated LFTs: most likely due to alcoholism, repeat AST, ALT, Alk phos
[2019-07-19] MEDS: THIAMINE HCL 100 MG TABLET (FP) PO SCH (22:40)
[2019-07-20] MEDS: chlordiazePOXIDE 5 MG CAPSULE PO SCH ×3 (06:54→21:58)
[2019-07-20 10:05] LABS: ALK PHOS 114 U/L (45-117); GLUCOSE,FASTING 103 mg/dL (74-106); SGOT/AST 41 U/L (15-37); SGPT/ALT 110 U/L (13-61)
[2019-07-20] MEDS: PRENATAL VITAMINS W/ FOLIC ACID TABLET (FP) PO SCH (10:17)
[2019-07-20] MEDS: HYDROCHLOROTHIAZIDE 25 MG TABLET (FP) PO SCH (10:17)
[2019-07-20] MEDS: NICOTINE 14 MG/24 HOURS TOPICAL PATCH TD SCH (10:18)
--- NOTE | 2019-07-20 12:22 | PN ---
[facility] CIWA - CIWA Score Nausea/Vomitin-Mild Nausea/No Vomiting Muscle Tremors: 2 Anxiety: 1-Mildly Anxious Agitation: 1-Slight > Activity Paroxysmal Sweats: No Perspiration Orientation: 0-Oriented Tacttile Disturbances: 1-Very Mild Itch/Numbness Auditory Disturbances: 0-None Visual Disturbances: 0-None Headache: 1-Very Mild CIWA-Ar Total Score: 7 S Progress Note (SOAP) Subjective: alert,irritable,anxious,interrupted sleep,painin the body and back Objective: 07/20/19 12:19 Vital Signs Temperature 98.0 F 07/20/19 09:25 Pulse Rate 56 L 07/20/19 09:25 Respiratory Rate 19 07/20/19 09:25 Blood Pressure 105/60 07/20/19 09:25 O2 Sat by Pulse Oximetry (%) Laboratory Last Values WBC 6.8 K/mm3 (4.0-10.0) 07/19/19 07:30 RBC 4.40 M/mm3 (4.00-5.60) 07/19/19 07:30 Hgb 13.9 GM/dL (11.7-16.9) 07/19/19 07:30 Hct 41.7 % (35.4-49) 07/19/19 07:30 MCV 94.9 fl (80-96) 07/19/19 07:30 MCH 31.6 pg (25.7-33.7) 07/19/19 07:30 MCHC 33.3 g/dl (32.0-35.9) 07/19/19 07:30 RDW 14.3 % (11.9-15.9) D 07/19/19 07:30 Plt Count 212 K/MM3 (134-434) D 07/19/19 07:30 MPV 9.8 fl (7.5-11.1) 07/19/19 07:30 Sodium 138 mmol/L (136-145) 07/19/19 07:30 Potassium 3.7 mmol/L (3.5-5.1) 07/19/19 07:30 Chloride 103 mmol/L (98-107) 07/19/19 07:30 Carbon Dioxide 27 mmol/L (21-32) 07/19/19 07:30 Anion Gap 8 MMOL/L (8-16) 07/19/19 07:30 BUN 10.2 mg/dL (7-18) 07/19/19 07:30 Creatinine 0.8 mg/dL (0.55-1.3) 07/19/19 07:30 Est GFR (CKD-EPI)AfAm 112.53 07/19/19 07:30 Est GFR (CKD-EPI)NonAf 97.10 07/19/19 07:30 Random Glucose 117 mg/dL (74-106) H 07/19/19 07:30 Fasting Glucose 103 mg/dL (74-106) 07/20/19 08:15 Hemoglobin A1c % 5.1 % (4.2-6.3) 07/20/19 08:15 Calcium 9.0 mg/dL (8.5-10.1) 07/19/19 07:30 Total Bilirubin 1.0 mg/dL (0.2-1) 07/19/19 07:30 AST 41 U/L (15-37) H 07/20/19 08:15 ALT 110 U/L (13-61) H 07/20/19 08:15 Alkaline Phosphatase 114 U/L (45-117) 07/20/19 08:15 Total Protein 7.0 g/dl (6.4-8.2) 07/19/19 07:30 Albumin 3.7 g/dl (3.4-5.0) 07/19/19 07:30 RPR Titer Nonreactive (NONREACTIVE) 07/19/19 07:30 07/20/19 12:20 hb a1c 5.1 fasting glucose 103 07/20/19 12:21 Assessment: 07/20/19 12:21 withdrawal symptom Plan: continue detox librium regimen,will give methadone maintenance if verify by the program
[2019-07-20] MEDS ORDERED: METHADONE HCL 10 MG TABLET PO ONE (12:31)
--- NOTE | 2019-07-20 12:37 | PN ---
BHS Progress Note Note: patient methadone maintenance verification 30 mgs/day,verified ,reagan give methadone 30 mgs po mariam as maintenance as schedule
[2019-07-20] MEDS: THIAMINE HCL 100 MG TABLET (FP) PO SCH (22:15)
[2019-07-21] MEDS ORDERED: chlordiazePOXIDE HCL 10 MG CAPSULE PO PRN
[2019-07-21] MEDS: METHADONE HCL 10 MG TABLET PO SCH (06:23)
[2019-07-21] MEDS: chlordiazePOXIDE HCL 10 MG CAPSULE PO SCH ×3 (06:23→21:10)
--- NOTE | 2019-07-21 09:21 | PN ---
S CIWA - CIWA Score Nausea/Vomitin-Mild Nausea/No Vomiting Muscle Tremors: 2 Anxiety: 1-Mildly Anxious Agitation: 1-Slight > Activity Paroxysmal Sweats: No Perspiration Orientation: 0-Oriented Tacttile Disturbances: 0-None Auditory Disturbances: 0-None Visual Disturbances: 0-None Headache: 1-Very Mild CIWA-Ar Total Score: 6 BHS Progress Note (SOAP) Subjective: admitted for alcohol detox, on MAT methadone. Doing well today, wants to go to rehab O: Vital Signs - 24 hr 07/20/19 07/20/19 07/20/19 09:25 17:01 17:05 Temperature 98.0 F 100 F H 100 F H Pulse Rate 56 L 98 H 98 H Respiratory 19 17 17 Rate Blood Pressure 105/60 138/76 138/76 07/20/19 07/21/19 07/21/19 21:22 00:30 03:30 Temperature 97.9 F Pulse Rate 93 H Respiratory 18 18 18 Rate Blood Pressure 129/86 07/21/19 06:26 Temperature 97.9 F Pulse Rate 63 Respiratory 18 Rate Blood Pressure 137/86 Laboratory Tests 07/19/19 07/19/19 07/19/19 07:30 07:30 07:30 WBC 6.8 RBC 4.40 Hgb 13.9 Hct 41.7 MCV 94.9 MCH 31.6 MCHC 33.3 RDW 14.3 D Plt Count 212 D MPV 9.8 Sodium 138 Potassium 3.7 Chloride 103 Carbon Dioxide 27 Anion Gap 8 BUN 10.2 Creatinine 0.8 Est GFR (CKD-EPI)AfAm 112.53 Est GFR (CKD-EPI)NonAf 97.10 Random Glucose 117 H Fasting Glucose Hemoglobin A1c % Calcium 9.0 Total Bilirubin 1.0 AST 79 H ALT 145 H Alkaline Phosphatase 123 H Total Protein 7.0 Albumin 3.7 RPR Titer Nonreactive 07/20/19 07/20/19 08:15 08:15 WBC RBC Hgb Hct MCV MCH MCHC RDW Plt Count MPV Sodium Potassium Chloride Carbon Dioxide Anion Gap BUN Creatinine Est GFR (CKD-EPI)AfAm Est GFR (CKD-EPI)NonAf Random Glucose Fasting Glucose 103 Hemoglobin A1c % 5.1 Calcium Total Bilirubin AST 41 H ALT 110 H Alkaline Phosphatase 114 Total Protein Albumin RPR Titer increased liver enzymes, coming down on repeat testing a/p: AUD- continue detox d/c tomorrow anticipated, pt would like to go to detox continue MAT methadone
[2019-07-21] MEDS: NICOTINE 14 MG/24 HOURS TOPICAL PATCH TD SCH (09:22)
[2019-07-21] MEDS: HYDROCHLOROTHIAZIDE 25 MG TABLET (FP) PO SCH (09:22)
[2019-07-21] MEDS: PRENATAL VITAMINS W/ FOLIC ACID TABLET (FP) PO SCH (09:22)
[2019-07-21] MEDS: hydrOXYzine PAMOATE 25 MG CAPSULE (FP) PO PRN (17:37)
[2019-07-21] MEDS: THIAMINE HCL 100 MG TABLET (FP) PO SCH (22:10)
[2019-07-22] MEDS ORDERED: chlordiazePOXIDE HCL 10 MG CAPSULE PO ONE (05:00)
[2019-07-22] MEDS: METHADONE HCL 10 MG TABLET PO SCH (05:48)
[2019-07-22 10:04] VITALS: BP 112/77; PULSE 84; TEMP 98.4
[2019-07-22] MEDS: HYDROCHLOROTHIAZIDE 25 MG TABLET (FP) PO SCH (10:09)
[2019-07-22] MEDS: PRENATAL VITAMINS W/ FOLIC ACID TABLET (FP) PO SCH (10:09)
[2019-07-22] MEDS: NICOTINE 14 MG/24 HOURS TOPICAL PATCH TD SCH (10:10)
== END 2019-07-22 13:15 | disposition home or self-care (01) | DRG 773 ==
LOC: YASAS 14:07 → Y6N 21:16
PROVIDERS: ADMIT Allergy & Immunology; ATTEND Allergy & Immunology
PROC: HZ2ZZZZ Detoxification Services for Substance Abuse Treatment (ICD-10-PCS; principal; 2019-07-18)
DX: F10.230 Alcohol dependence with withdrawal, uncomplicated (principal); F11.20 Opioid dependence, uncomplicated; F17.210 Nicotine dependence, cigarettes, uncomplicated; F31.9 Bipolar disorder, unspecified; F41.9 Anxiety disorder, unspecified; I10 Essential (primary) hypertension; E78.00 Pure hypercholesterolemia, unspecified; R73.9 Hyperglycemia, unspecified; R94.5 Abnormal results of liver function studies; Z88.0 Allergy status to penicillin; Z59.0 Homelessness
CPT/HCPCS: 36415; 80053; 82947; 83036; 84075; 84450; 84460; 85027; 86593

== ENCOUNTER 2019-08-11 17:47 | Inpatient (IN) | payer OTHER ==
[2019-08-11 19:12] VITALS: BMI 33.4
--- NOTE | 2019-08-11 20:31 | HP ---
CIWA Score - Admission Criteria OASAS Guidelines: Admission for Medically Managed Detox: Requires at least one of the followin. CIWA greater than 12 2. Seizures within the past 24 hours 3. Delirium tremens within the past 24 hours 4. Hallucinations within the past 24 hours 5. Acute intervention needed for co occurring medical disorder 6. Acute intervention needed for co occurring psychiatric disorder 7. Severe withdrawal that cannot be handled at a lower level of care (continued vomiting, continued diarrhea, abnormal vital signs) requiring intravenous medication and/or fluids 8. Admitting History and Physical - Smoking History Smoking history: Current every day smoker Have you smoked in the past 12 months: Yes Aproximately how many cigarettes per day: 10 - Alcohol/Substance Use Hx Alcohol Use: Yes Admission ROS S - HPI Chief Complaint: Seeking admission to Rehab., on methadone maintenance therapy with [facility] Allergies/Adverse Reactions: Allergies Allergy/AdvReac Type Severity Reaction Status Date / Time Penicillins Allergy Severe Rash Verified 08/11/19 19:12 History of Present Illness: 59 years old male with a long history of alcohol dependence is seeking admission to Rehab. f Patient has been multiple admissions to [facility]. Patient has medical history of hypertension, hyperlipidemia, hard of hearing (right ear) , alcohol related seizure and psych. history of bipolar disorder and depression. . He denies suicidal ideation at this time. He is on Methadone 30mg tablet oral daily with [facility] MMTP. Dose is yet to be confirmed by the nurse. Exam Limitations: No Limitations - Ebola screening Have you traveled outside of the country in the last 21 days: No Have you had contact with anyone from an Ebola affected area: No Do you have a fever: No - Review of Systems Constitutional: No Symptoms Reported EENT: reports: No Symptoms Reported Respiratory: reports: No Symptoms reported Cardiac: reports: No Symptoms Reported GI: reports: No Symptoms Reported : reports: No Symptoms Reported Musculoskeletal: reports: No Symptoms Reported Integumentary: reports: No Symptoms Reported Neuro: reports: No Symptoms reported Endocrine: reports: No Symptoms Reported Hematology: reports: No Symptoms Reported Psychiatric: reports: No Sypmtoms Reported, Mood/Affect Appropiate, Orientated x3 Other Systems: Reviewed and Negative Patient History - Patient Medical History Hx Anemia: No Hx Asthma: No Hx Chronic Obstructive Pulmonary Disease (COPD): No Hx Cancer: No Hx Cardiac Disorders: No Hx Congestive Heart Failure: No Hx Hypertension: Yes Hx Hypercholesterolemia: Yes (no med) Hx Pacemaker: No HX Cerebrovascular Accident: No Hx Seizures: No Hx Dementia: No Hx Diabetes: No Hx Gastrointestinal Disorders: No Hx Liver Disease: No Hx Genitourinary Disorders: No Hx Sexually Transmitted Disorders: No Hx Renal Disease (ESRD): No Hx Thyroid Disease: No Hx Human Immunodeficiency Virus (HIV): No (09/02 negative) Hx Hepatitis C: No Hx Depression: Yes Hx Suicide Attempt: No Hx Bipolar Disorder: Yes (non compliance) Hx Schizophrenia: No - Patient Surgical History Past Surgical History: Yes Hx Neurologic Surgery: No Hx Cataract Extraction: No Hx Cardiac Surgery: No Hx Lung Surgery: No Hx Breast Surgery: No Hx Breast Biopsy: No Hx Abdominal Surgery: No Hx Appendectomy: No Hx Cholecystectomy: No Hx Genitourinary Surgery: No Hx Section: No Hx Orthopedic Surgery: No Other Surgical History: multiple surgeries on both ears Anesthesia Reaction: No - PPD History Previous Implant?: Yes Documented Results: Negative w/proof Implanted On Prior [facility] Admission?: Yes Date: 02/14/18 Results: 0 mm PPD to be Administered?: Yes - Reproductive History Patient is a Female of Child Bearing Age (11 -55 yrs old): No (male) - Smoking Cessation Smoking history: Current every day smoker Have you smoked in the past 12 months: Yes Aproximately how many cigarettes per day: 10 Cigars Per Day: 0 Hx Chewing Tobacco Use: No Initiated information on smoking cessation: Yes 'Breaking Loose' booklet given: 08/11/19 - Substance & Tx. History Hx Alcohol Use: Yes Hx Substance Use: Yes Substance Use Type: Alcohol, Heroin, Prescribed Hx Substance Use Treatment: Yes ([facility]) - Substances abused Alcohol Substance route: Oral Frequency: 3-6 times per week Amount used: 6 P[employer] Age of first use: 13 Date of last use: 08/10/19 Admission Physical Exam BHS - Vital Signs Vital Signs: Vital Signs - 24 hr 08/11/19 08/11/19 18:48 19:21 Temperature 98.2 F 98.2 F Pulse Rate 92 H 92 H Respiratory 18 18 Rate Blood Pressure 146/91 146/91 - Physical General Appearance: Yes: Within Normal Limits HEENTM: Yes: Within Normal Limits, Normal ENT Inspection, Normal Voice Respiratory: Yes: Lungs Clear, Normal Breath Sounds, No Respiratory Distress Neck: Yes: Within Normal Limits Breast: Yes: Breast Exam Deferred Cardiology: Yes: Tachycardia Abdominal: Yes: Normal Bowel Sounds, Soft Genitourinary: Yes: Within Normal Limits Back: Yes: Normal Inspection Musculoskeletal: Yes: Within Normal Limits Extremities: Yes: Normal Inspection, Other (left leg edema. Patient reports that his lower extremities is unchanged from previous admissions. Denies pain or discomfort.) Neurological: Yes: Within Normal Limits, Alert, Normal Mood/Affect Integumentary: Yes: Warm Lymphatic: Yes: Within Normal Limits - Diagnostic (1) Hyperlipidemia Current Visit: Yes Status: Chronic Qualifiers: Hyperlipidemia type: unspecified Qualified Code(s): E78.5 - Hyperlipidemia , unspecified (2) Alcohol related seizure Current Visit: No Status: Chronic (3) Anxiety Current Visit: Yes Status: Chronic (4) Bipolar disorder Current Visit: Yes Status: Chronic Qualifiers: Active/Remission status: remission status unspecified Qualified Code(s): F31.9 - Bipolar disorder, unspecified (5) [place] (hard of hearing) Current Visit: Yes Status: Chronic Qualifiers: Hearing loss type: unspecified Laterality: right Qualified Code(s): H91.91 - Unspecified hearing loss, right ear (6) HTN (hypertension) Current Visit: Yes Status: Chronic Qualifiers: Hypertension type: unspecified Qualified Code(s): I10 - Essential (primary ) hypertension (7) History of bipolar disorder Current Visit: Yes Status: Chronic (8) Methadone maintenance therapy patient Current Visit: Yes Status: Chronic Comment: pending verification. last dose received today with 30mg. (9) Nicotine dependence Current Visit: Yes Status: Chronic Qualifiers: Nicotine product type: cigarettes Substance use status: uncomplicated Qualified Code(s): F17.210 - Nicotine dependence, cigarettes, uncomplicated (10) Opioid dependence on agonist therapy Current Visit: Yes Status: Chronic (11) History of depression Current Visit: Yes Status: Suspected Cleared for Admission BHS - Detox or Rehab S Level of Care: Observation Bed Claeared for Rehab Admission: Yes Breathalyzer - Breathalyzer Breathalyzer: 0 Urine Drug Screen - Test Device Lot number: [id number] Expiration date: 02/11/21 - Control Is test valid?: Yes - Results Drug screen NEGATIVE: No Urine drug screen results: MOP-Opiates, MTD-Methadone, BZO-Benzodiazepines Inpatient Rehab Admission - Rehab Decision to Admit Inpatient rehab admission?: Yes - Initial Determination Are CD services needed?: No Free of communicable disease: Yes Not in need of hospitalization: Yes - Rehab Admission Criteria Previous failed treatment: Yes Poor recovery environment: Yes Comorbidities: Yes Lacks judgement: No Patient is meeting Inpatient Rehab admission criteria:: Yes
[2019-08-11] MEDS ORDERED: guaiFENesin 200 MG/10 ML 10 ML UNIT-DOSE CUPS PO PRN (20:59)
[2019-08-11] MEDS ORDERED: MENTHOL/PHENOL 1 EACH UD MM PRN (20:59)
[2019-08-11] MEDS ORDERED: NICOTINE POLACRILEX 2 MG GUM BC PRN (20:59)
[2019-08-11] MEDS ORDERED: IBUPROFEN 400 MG TABLET (FP) PO PRN (20:59)
[2019-08-11] MEDS ORDERED: LOPERAMIDE HCL 2 MG CAPSULE PO PRN (20:59)
[2019-08-11] MEDS ORDERED: ACETAMINOPHEN 325 MG TABLET (FP) PO PRN (20:59)
[2019-08-11] MEDS ORDERED: MAGNESIUM CITRATE 300 ML BOTTLE PO PRN (20:59)
[2019-08-11] MEDS ORDERED: MAGNESIUM HYDROX 2400MG/30ML ORAL SUSPENSION 30 ML CUP PO PRN (20:59)
[2019-08-11] MEDS ORDERED: P-EPHED 60MG/TRIPROLIDI 2.5MG TABLET PO PRN (20:59)
[2019-08-11] MEDS ORDERED: cloNIDine HCL 0.1 MG TABLET PO ONE (21:02)
[2019-08-11] MEDS ORDERED: TUBERCULIN PPD 5 TU/0.1ML VIAL ID ONE (23:19)
[2019-08-11] MEDS: THIAMINE HCL 100 MG TABLET (FP) PO SCH (23:24)
[2019-08-11] MEDS: MELATONIN 5 MG TABLETS PO PRN (23:24)
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
[2019-08-12] MEDS ORDERED: METHADONE HCL 10 MG TABLET PO ONE (09:26)
[2019-08-12] MEDS: NICOTINE 14 MG/24 HOURS TOPICAL PATCH TD SCH (10:14)
[2019-08-12] MEDS: PRENATAL VITAMINS W/ FOLIC ACID TABLET (FP) PO SCH (10:14)
--- NOTE | 2019-08-12 11:23 | EKG ---
Test Reason : Blood Pressure : / mmHG Vent. Rate : 078 BPM Atrial Rate : 078 BPM P-R Int : 140 ms QRS Dur : 130 ms QT Int : 412 ms P-R-T Axes : 065 059 055 degrees QTc Int : 469 ms POOR DATA QUALITY, INTERPRETATION MAY BE ADVERSELY AFFECTED NORMAL SINUS RHYTHM RIGHT BUNDLE BRANCH BLOCK ABNORMAL ECG WHEN COMPARED WITH ECG OF 12-FEB-2018 16:53, NO SIGNIFICANT CHANGE WAS FOUND Confirmed by Alexandr Marie MD ([id number]) on 08/12/2019 11:23:19 AM Referred By: KENZIE Confirmed By:Alexandr Marie MD
[2019-08-12 12:37] LABS: PH,URINE 6.5 (5.0-8.0); URINE APPEARANCE CLEAR; URINE BILIRUBIN NEGATIVE (NEGATIVE); URINE COLOR YELLOW; URINE GLUCOSE (UA) NEGATIVE (NEGATIVE); URINE KETONE NEGATIVE (NEGATIVE); URINE LEUK ESTERASE NEGATIVE (NEGATIVE); URINE NITRITE NEGATIVE (NEGATIVE); URINE PROTEIN NEGATIVE (NEGATIVE)
[2019-08-12] MEDS: THIAMINE HCL 100 MG TABLET (FP) PO SCH (21:17)
[2019-08-12] MEDS: MELATONIN 5 MG TABLETS PO PRN (21:18)
[2019-08-13] MEDS: METHADONE HCL 10 MG TABLET PO SCH (06:14)
[2019-08-13] MEDS: NICOTINE 14 MG/24 HOURS TOPICAL PATCH TD SCH (10:11)
[2019-08-13] MEDS: PRENATAL VITAMINS W/ FOLIC ACID TABLET (FP) PO SCH (10:11)
[2019-08-13 12:31] LABS: ALBUMIN 3.5 g/dl (3.4-5.0); BILIRUBIN,TOTAL 0.7 mg/dL (0.2-1); BLOOD UREA NITROGEN 11.6 mg/dL (7-18); CALCIUM 8.9 mg/dL (8.5-10.1); CREATININE 0.7 mg/dL (0.55-1.3); POTASSIUM 4.1 mmol/L (3.5-5.1)
[2019-08-13 12:34] LABS: HEMOGLOBIN 13.8 GM/dL (11.7-16.9); MCHC 32.8 g/dl (32.0-35.9); MEAN CELL VOLUME 94.4 fl (80-96); MEAN PLT VOLUME 9.3 fl (7.5-11.1); PLATELET COUNT 267 K/MM3 (134-434); RBC 4.44 M/mm3 (4.00-5.60); RDW 14.5 % (11.9-15.9); WHITE BLOOD COUNT 6.8 K/mm3 (4.0-10.0)
[2019-08-13] MEDS: THIAMINE HCL 100 MG TABLET (FP) PO SCH (21:18)
[2019-08-13] MEDS: MELATONIN 5 MG TABLETS PO PRN (21:19)
[2019-08-14] MEDS: METHADONE HCL 10 MG TABLET PO SCH (06:40)
[2019-08-14] MEDS: NICOTINE 14 MG/24 HOURS TOPICAL PATCH TD SCH (10:19)
[2019-08-14] MEDS: PRENATAL VITAMINS W/ FOLIC ACID TABLET (FP) PO SCH (10:19)
[2019-08-14] MEDS: THIAMINE HCL 100 MG TABLET (FP) PO SCH (21:17)
[2019-08-14] MEDS: MELATONIN 5 MG TABLETS PO PRN (21:17)
[2019-08-15] MEDS: METHADONE HCL 10 MG TABLET PO SCH (06:26)
[2019-08-15] MEDS: PRENATAL VITAMINS W/ FOLIC ACID TABLET (FP) PO SCH (09:48)
[2019-08-15] MEDS: NICOTINE 14 MG/24 HOURS TOPICAL PATCH TD SCH (09:49)
[2019-08-15] MEDS: THIAMINE HCL 100 MG TABLET (FP) PO SCH (21:27)
[2019-08-15] MEDS: MELATONIN 5 MG TABLETS PO PRN (21:27)
[2019-08-16] MEDS: METHADONE HCL 10 MG TABLET PO SCH (06:17)
[2019-08-16] MEDS: NICOTINE 14 MG/24 HOURS TOPICAL PATCH TD SCH (10:08)
[2019-08-16] MEDS: PRENATAL VITAMINS W/ FOLIC ACID TABLET (FP) PO SCH (10:08)
[2019-08-16] MEDS: THIAMINE HCL 100 MG TABLET (FP) PO SCH (21:12)
[2019-08-16] MEDS: MELATONIN 5 MG TABLETS PO PRN (21:12)
[2019-08-17] MEDS: METHADONE HCL 10 MG TABLET PO SCH (06:11)
[2019-08-17] MEDS: PRENATAL VITAMINS W/ FOLIC ACID TABLET (FP) PO SCH (10:26)
[2019-08-17] MEDS: NICOTINE 14 MG/24 HOURS TOPICAL PATCH TD SCH (10:26)
[2019-08-17] MEDS: hydrOXYzine PAMOATE 25 MG CAPSULE (FP) PO PRN (17:05)
[2019-08-17] MEDS: THIAMINE HCL 100 MG TABLET (FP) PO SCH (21:17)
[2019-08-17] MEDS: MELATONIN 5 MG TABLETS PO PRN (21:17)
[2019-08-18] MEDS: METHADONE HCL 10 MG TABLET PO SCH (06:34)
[2019-08-18] MEDS: PRENATAL VITAMINS W/ FOLIC ACID TABLET (FP) PO SCH (10:59)
[2019-08-18] MEDS: NICOTINE 14 MG/24 HOURS TOPICAL PATCH TD SCH (10:59)
[2019-08-18] MEDS: hydrOXYzine PAMOATE 25 MG CAPSULE (FP) PO PRN (21:16)
[2019-08-18] MEDS: THIAMINE HCL 100 MG TABLET (FP) PO SCH (21:16)
[2019-08-18] MEDS: MELATONIN 5 MG TABLETS PO PRN (21:16)
[2019-08-19] MEDS: METHADONE HCL 10 MG TABLET PO SCH (06:24)
[2019-08-19] MEDS: NICOTINE 14 MG/24 HOURS TOPICAL PATCH TD SCH (10:19)
[2019-08-19] MEDS: PRENATAL VITAMINS W/ FOLIC ACID TABLET (FP) PO SCH (10:19)
[2019-08-19] MEDS: hydrOXYzine PAMOATE 25 MG CAPSULE (FP) PO PRN (10:21)
[2019-08-19] MEDS: MELATONIN 5 MG TABLETS PO PRN (21:29)
[2019-08-19] MEDS: THIAMINE HCL 100 MG TABLET (FP) PO SCH (21:29)
[2019-08-20] MEDS: METHADONE HCL 10 MG TABLET PO SCH (06:51)
[2019-08-20] MEDS: PRENATAL VITAMINS W/ FOLIC ACID TABLET (FP) PO SCH (11:13)
[2019-08-20] MEDS: NICOTINE 14 MG/24 HOURS TOPICAL PATCH TD SCH (11:13)
--- NOTE | 2019-08-20 11:41 | PN ---
[facility] Progress Note Note: Pt is a 59 y/o male with a hx of CELIA-alcohol and on MMTP-H.E.L.P with Methadone 30 mg po daily admitted to rehab on 08/11/19 through [facility]. PMHx:HTN,HLD, deaf in Right Ear. Psych Hx:Bipolar d/o and Anxiety. Pt reports he has a doctor in his MMTP but no regular primary care doctor. Reports he is not taking any medication at this time for HTN or HLD. Pt reports he is homeless. Vital Signs - 24 hr 08/20/19 08/20/19 08/20/19 00:30 03:30 07:13 Temperature 96.7 F L Pulse Rate 56 L Respiratory 18 18 18 Rate Blood Pressure 142/82 Laboratory Tests 08/12/19 08/13/19 08/13/19 10:10 08:05 08:05 WBC 6.8 RBC 4.44 Hgb 13.8 Hct 42.0 MCV 94.4 MCH 31.0 MCHC 32.8 RDW 14.5 Plt Count 267 D MPV 9.3 Sodium 138 Potassium 4.1 Chloride 102 Carbon Dioxide 30 Anion Gap 6 L BUN 11.6 Creatinine 0.7 Est GFR (CKD-EPI)AfAm 118.88 Est GFR (CKD-EPI)NonAf 102.57 Random Glucose 88 Calcium 8.9 Total Bilirubin 0.7 AST 35 ALT 85 H Alkaline Phosphatase 81 Total Protein 7.0 Albumin 3.5 Urine Color Yellow Urine Appearance Clear Urine pH 6.5 Ur Specific [place] 1.014 Urine Protein Negative Urine Glucose (UA) Negative Urine Ketones Negative Urine Blood Negative Urine Nitrite Negative Urine Bilirubin Negative Urine Urobilinogen 1.0 Ur Leukocyte Esterase Negative RPR Titer 08/13/19 08:05 WBC RBC Hgb Hct MCV MCH MCHC RDW Plt Count MPV Sodium Potassium Chloride Carbon Dioxide Anion Gap BUN Creatinine Est GFR (CKD-EPI)AfAm Est GFR (CKD-EPI)NonAf Random Glucose Calcium Total Bilirubin AST ALT Alkaline Phosphatase Total Protein Albumin Urine Color Urine Appearance Urine pH Ur Specific [place] Urine Protein Urine Glucose (UA) Urine Ketones Urine Blood Urine Nitrite Urine Bilirubin Urine Urobilinogen Ur Leukocyte Esterase RPR Titer Nonreactive Alert o x 3,denies s/h/i nad oob ambulating with steady gait extremities/skin:no edema;varicose veins, [place]. LE > RE;;skin intact. A/P CELIA MMTP Pt new Rehab pt Maintain safety monitor BP increase po fluids labd reviewed follow up with counselor for CD aftercare planning.
[2019-08-20] MEDS: THIAMINE HCL 100 MG TABLET (FP) PO SCH (21:13)
[2019-08-20] MEDS: MELATONIN 5 MG TABLETS PO PRN (21:13)
[2019-08-20] MEDS: hydrOXYzine PAMOATE 25 MG CAPSULE (FP) PO PRN (21:13)
[2019-08-21] MEDS: METHADONE HCL 10 MG TABLET PO SCH (07:05)
[2019-08-21] MEDS: PRENATAL VITAMINS W/ FOLIC ACID TABLET (FP) PO SCH (10:13)
[2019-08-21] MEDS: NICOTINE 14 MG/24 HOURS TOPICAL PATCH TD SCH (10:14)
--- NOTE | 2019-08-21 11:39 | PN ---
[facility] Progress Note Note: Patient requests to see psychiatrist in order to get medication for anxiety. When informed that he has Vistaril 25 mg po Q 6 hrs prn ordered for that purpose , he said that he is not sure if he has been getting it. In any case, he requests an increase in dosage and frequency of that medication. Therefore, Vistaril dosage is changed to 50 mg po Q 4hrs prn
[2019-08-21] MEDS: THIAMINE HCL 100 MG TABLET (FP) PO SCH (21:41)
[2019-08-21] MEDS: MELATONIN 5 MG TABLETS PO PRN (21:41)
[2019-08-22] MEDS: METHADONE HCL 10 MG TABLET PO SCH (06:40)
[2019-08-22] MEDS: PRENATAL VITAMINS W/ FOLIC ACID TABLET (FP) PO SCH (10:00)
[2019-08-22] MEDS: hydrOXYzine PAMOATE 50 MG CAPSULE (FP) PO PRN ×2 (10:00→21:18)
[2019-08-22] MEDS: NICOTINE 14 MG/24 HOURS TOPICAL PATCH TD SCH (10:01)
[2019-08-22] MEDS: THIAMINE HCL 100 MG TABLET (FP) PO SCH (21:18)
[2019-08-22] MEDS: MELATONIN 5 MG TABLETS PO PRN (21:18)
[2019-08-23] MEDS: METHADONE HCL 10 MG TABLET PO SCH (06:30)
[2019-08-23] MEDS: PRENATAL VITAMINS W/ FOLIC ACID TABLET (FP) PO SCH (10:23)
[2019-08-23] MEDS: hydrOXYzine PAMOATE 50 MG CAPSULE (FP) PO PRN ×2 (10:24→17:47)
[2019-08-23] MEDS: NICOTINE 14 MG/24 HOURS TOPICAL PATCH TD SCH (10:24)
[2019-08-23] MEDS: THIAMINE HCL 100 MG TABLET (FP) PO SCH (21:49)
[2019-08-24] MEDS: METHADONE HCL 10 MG TABLET PO SCH (06:09)
[2019-08-24] MEDS: NICOTINE 14 MG/24 HOURS TOPICAL PATCH TD SCH (10:04)
[2019-08-24] MEDS: hydrOXYzine PAMOATE 50 MG CAPSULE (FP) PO PRN ×2 (10:04→17:53)
[2019-08-24] MEDS: PRENATAL VITAMINS W/ FOLIC ACID TABLET (FP) PO SCH (10:04)
--- NOTE | 2019-08-24 14:00 | PN ---
S Progress Note Note: pt c/o anal pain and burning on BM. Reports ?Hemorrhoids. Pt also c/o rash on left thigh. Vital Signs - 24 hr 08/24/19 08/24/19 08/24/19 00:30 03:30 06:25 Temperature 98.3 F Pulse Rate 65 Respiratory 18 18 20 Rate Blood Pressure 115/72 Laboratory Tests 08/12/19 08/13/19 08/13/19 10:10 08:05 08:05 WBC 6.8 RBC 4.44 Hgb 13.8 Hct 42.0 MCV 94.4 MCH 31.0 MCHC 32.8 RDW 14.5 Plt Count 267 D MPV 9.3 Sodium 138 Potassium 4.1 Chloride 102 Carbon Dioxide 30 Anion Gap 6 L BUN 11.6 Creatinine 0.7 Est GFR (CKD-EPI)AfAm 118.88 Est GFR (CKD-EPI)NonAf 102.57 Random Glucose 88 Calcium 8.9 Total Bilirubin 0.7 AST 35 ALT 85 H Alkaline Phosphatase 81 Total Protein 7.0 Albumin 3.5 Urine Color Yellow Urine Appearance Clear Urine pH 6.5 Ur Specific [place] 1.014 Urine Protein Negative Urine Glucose (UA) Negative Urine Ketones Negative Urine Blood Negative Urine Nitrite Negative Urine Bilirubin Negative Urine Urobilinogen 1.0 Ur Leukocyte Esterase Negative RPR Titer 08/13/19 08:05 WBC RBC Hgb Hct MCV MCH MCHC RDW Plt Count MPV Sodium Potassium Chloride Carbon Dioxide Anion Gap BUN Creatinine Est GFR (CKD-EPI)AfAm Est GFR (CKD-EPI)NonAf Random Glucose Calcium Total Bilirubin AST ALT Alkaline Phosphatase Total Protein Albumin Urine Color Urine Appearance Urine pH Ur Specific [place] Urine Protein Urine Glucose (UA) Urine Ketones Urine Blood Urine Nitrite Urine Bilirubin Urine Urobilinogen Ur Leukocyte Esterase RPR Titer Nonreactive Alert o x 3 nad oob ambulating with steady gait skin:small area of dry,papular rash on left thigh. A/P eczema Hx Hemorrhoids (per pt's verbal hx) Hydrocortisone cream 1% as directed Anusol HC cream as directed.
[2019-08-24] MEDS: HYDROCORTISONE 1% TOPICAL CREAM 30 GM TUBE TP SCH (15:14)
[2019-08-24] MEDS: HYDROCORTISONE 2.5% TOPICAL CREAM 30 GM TUBE PR SCH (21:07)
[2019-08-24] MEDS: MELATONIN 5 MG TABLETS PO PRN (21:07)
[2019-08-24] MEDS: THIAMINE HCL 100 MG TABLET (FP) PO SCH (21:07)
[2019-08-25] MEDS: METHADONE HCL 10 MG TABLET PO SCH (06:21)
[2019-08-25] MEDS: PRENATAL VITAMINS W/ FOLIC ACID TABLET (FP) PO SCH (09:56)
[2019-08-25] MEDS: HYDROCORTISONE 1% TOPICAL CREAM 30 GM TUBE TP SCH (09:57)
[2019-08-25] MEDS: NICOTINE 14 MG/24 HOURS TOPICAL PATCH TD SCH (09:57)
[2019-08-25] MEDS: hydrOXYzine PAMOATE 50 MG CAPSULE (FP) PO PRN (19:02)
[2019-08-25] MEDS: HYDROCORTISONE 2.5% TOPICAL CREAM 30 GM TUBE PR SCH (21:20)
[2019-08-25] MEDS: MELATONIN 5 MG TABLETS PO PRN (21:20)
[2019-08-25] MEDS: THIAMINE HCL 100 MG TABLET (FP) PO SCH (21:20)
[2019-08-26] MEDS: METHADONE HCL 10 MG TABLET PO SCH (06:08)
[2019-08-26] MEDS: PRENATAL VITAMINS W/ FOLIC ACID TABLET (FP) PO SCH (10:05)
[2019-08-26] MEDS: NICOTINE 14 MG/24 HOURS TOPICAL PATCH TD SCH (10:05)
[2019-08-26] MEDS: HYDROCORTISONE 1% TOPICAL CREAM 30 GM TUBE TP SCH (10:05)
[2019-08-26] MEDS: hydrOXYzine PAMOATE 50 MG CAPSULE (FP) PO PRN (10:06)
[2019-08-26] MEDS: HYDROCORTISONE 2.5% TOPICAL CREAM 30 GM TUBE PR SCH (21:13)
[2019-08-26] MEDS: THIAMINE HCL 100 MG TABLET (FP) PO SCH (21:13)
[2019-08-26] MEDS: MELATONIN 5 MG TABLETS PO PRN (21:14)
[2019-08-27] MEDS: METHADONE HCL 10 MG TABLET PO SCH (06:10)
[2019-08-27] MEDS: hydrOXYzine PAMOATE 50 MG CAPSULE (FP) PO PRN ×2 (09:56→21:28)
[2019-08-27] MEDS: PRENATAL VITAMINS W/ FOLIC ACID TABLET (FP) PO SCH (09:56)
[2019-08-27] MEDS: NICOTINE 14 MG/24 HOURS TOPICAL PATCH TD SCH (09:57)
[2019-08-27] MEDS: HYDROCORTISONE 1% TOPICAL CREAM 30 GM TUBE TP SCH (10:06)
[2019-08-27] MEDS: HYDROCORTISONE 2.5% TOPICAL CREAM 30 GM TUBE PR SCH (21:29)
[2019-08-27] MEDS: THIAMINE HCL 100 MG TABLET (FP) PO SCH (21:29)
[2019-08-28] MEDS: METHADONE HCL 10 MG TABLET PO SCH (06:24)
[2019-08-28] MEDS: hydrOXYzine PAMOATE 50 MG CAPSULE (FP) PO PRN (10:13)
[2019-08-28] MEDS: PRENATAL VITAMINS W/ FOLIC ACID TABLET (FP) PO SCH (10:13)
[2019-08-28] MEDS: NICOTINE 14 MG/24 HOURS TOPICAL PATCH TD SCH (10:14)
[2019-08-28] MEDS: HYDROCORTISONE 1% TOPICAL CREAM 30 GM TUBE TP SCH (10:14)
[2019-08-28] MEDS: MELATONIN 5 MG TABLETS PO PRN (21:08)
[2019-08-28] MEDS: HYDROCORTISONE 2.5% TOPICAL CREAM 30 GM TUBE PR SCH (21:08)
[2019-08-28] MEDS: THIAMINE HCL 100 MG TABLET (FP) PO SCH (21:08)
[2019-08-29] MEDS: METHADONE HCL 10 MG TABLET PO SCH (06:32)
[2019-08-29] MEDS: PRENATAL VITAMINS W/ FOLIC ACID TABLET (FP) PO SCH (10:09)
[2019-08-29] MEDS: HYDROCORTISONE 1% TOPICAL CREAM 30 GM TUBE TP SCH (10:10)
[2019-08-29] MEDS: NICOTINE 14 MG/24 HOURS TOPICAL PATCH TD SCH (10:10)
[2019-08-29] MEDS: hydrOXYzine PAMOATE 50 MG CAPSULE (FP) PO PRN (10:11)
[2019-08-29] MEDS: THIAMINE HCL 100 MG TABLET (FP) PO SCH (21:14)
[2019-08-29] MEDS: HYDROCORTISONE 2.5% TOPICAL CREAM 30 GM TUBE PR SCH (21:14)
[2019-08-29] MEDS: MELATONIN 5 MG TABLETS PO PRN (21:14)
[2019-08-30] MEDS: METHADONE HCL 10 MG TABLET PO SCH (06:18)
[2019-08-30] MEDS: PRENATAL VITAMINS W/ FOLIC ACID TABLET (FP) PO SCH (09:39)
[2019-08-30] MEDS: HYDROCORTISONE 1% TOPICAL CREAM 30 GM TUBE TP SCH (09:41)
[2019-08-30] MEDS: NICOTINE 14 MG/24 HOURS TOPICAL PATCH TD SCH (09:41)
[2019-08-30] MEDS: hydrOXYzine PAMOATE 50 MG CAPSULE (FP) PO PRN (09:41)
[2019-08-30] MEDS: MELATONIN 5 MG TABLETS PO PRN (21:05)
[2019-08-30] MEDS: HYDROCORTISONE 2.5% TOPICAL CREAM 30 GM TUBE PR SCH (21:06)
[2019-08-30] MEDS: THIAMINE HCL 100 MG TABLET (FP) PO SCH (21:06)
[2019-08-31] MEDS: METHADONE HCL 10 MG TABLET PO SCH ×2 (06:15→06:16)
[2019-08-31] MEDS: PRENATAL VITAMINS W/ FOLIC ACID TABLET (FP) PO SCH (09:30)
[2019-08-31] MEDS: hydrOXYzine PAMOATE 50 MG CAPSULE (FP) PO PRN (09:30)
[2019-08-31] MEDS: NICOTINE 14 MG/24 HOURS TOPICAL PATCH TD SCH (09:31)
[2019-08-31] MEDS: HYDROCORTISONE 1% TOPICAL CREAM 30 GM TUBE TP SCH (09:32)
[2019-08-31] MEDS: HYDROCORTISONE 2.5% TOPICAL CREAM 30 GM TUBE PR SCH (21:38)
[2019-08-31] MEDS: THIAMINE HCL 100 MG TABLET (FP) PO SCH (21:38)
[2019-09-01] MEDS: METHADONE HCL 10 MG TABLET PO SCH (06:45)
[2019-09-01] MEDS: PRENATAL VITAMINS W/ FOLIC ACID TABLET (FP) PO SCH (10:11)
[2019-09-01] MEDS: NICOTINE 14 MG/24 HOURS TOPICAL PATCH TD SCH (10:11)
[2019-09-01] MEDS: HYDROCORTISONE 1% TOPICAL CREAM 30 GM TUBE TP SCH (10:11)
[2019-09-01] MEDS: hydrOXYzine PAMOATE 50 MG CAPSULE (FP) PO PRN (10:12)
[2019-09-01] MEDS: HYDROCORTISONE 2.5% TOPICAL CREAM 30 GM TUBE PR SCH (22:22)
[2019-09-01] MEDS: THIAMINE HCL 100 MG TABLET (FP) PO SCH (22:23)
[2019-09-02] MEDS: METHADONE HCL 10 MG TABLET PO SCH (06:52)
[2019-09-02] MEDS: HYDROCORTISONE 1% TOPICAL CREAM 30 GM TUBE TP SCH (10:14)
[2019-09-02] MEDS: NICOTINE 14 MG/24 HOURS TOPICAL PATCH TD SCH (10:15)
[2019-09-02] MEDS: PRENATAL VITAMINS W/ FOLIC ACID TABLET (FP) PO SCH (10:15)
[2019-09-02] MEDS: hydrOXYzine PAMOATE 50 MG CAPSULE (FP) PO PRN (10:15)
[2019-09-02] MEDS: MAG HYDROX/AL HYDROX/SIMETH 30 ML UNIT-DOSE CUP PO PRN (21:59)
[2019-09-02] MEDS: HYDROCORTISONE 2.5% TOPICAL CREAM 30 GM TUBE PR SCH (21:59)
[2019-09-02] MEDS: MELATONIN 5 MG TABLETS PO PRN (21:59)
[2019-09-02] MEDS: THIAMINE HCL 100 MG TABLET (FP) PO SCH (21:59)
[2019-09-03] MEDS: METHADONE HCL 10 MG TABLET PO SCH (06:14)
[2019-09-03] MEDS: hydrOXYzine PAMOATE 50 MG CAPSULE (FP) PO PRN (10:02)
[2019-09-03] MEDS: NICOTINE 14 MG/24 HOURS TOPICAL PATCH TD SCH (10:02)
[2019-09-03] MEDS: HYDROCORTISONE 1% TOPICAL CREAM 30 GM TUBE TP SCH (10:02)
[2019-09-03] MEDS: PRENATAL VITAMINS W/ FOLIC ACID TABLET (FP) PO SCH (10:02)
[2019-09-03] MEDS: THIAMINE HCL 100 MG TABLET (FP) PO SCH (21:13)
[2019-09-03] MEDS: MELATONIN 5 MG TABLETS PO PRN (21:13)
[2019-09-03] MEDS: HYDROCORTISONE 2.5% TOPICAL CREAM 30 GM TUBE PR SCH (21:14)
[2019-09-03] MEDS: MAG HYDROX/AL HYDROX/SIMETH 30 ML UNIT-DOSE CUP PO PRN (23:44)
[2019-09-04] MEDS: METHADONE HCL 10 MG TABLET PO SCH (06:36)
[2019-09-04] MEDS: PRENATAL VITAMINS W/ FOLIC ACID TABLET (FP) PO SCH (10:08)
[2019-09-04] MEDS: HYDROCORTISONE 1% TOPICAL CREAM 30 GM TUBE TP SCH (10:08)
[2019-09-04] MEDS: NICOTINE 14 MG/24 HOURS TOPICAL PATCH TD SCH (10:08)
[2019-09-04] MEDS: hydrOXYzine PAMOATE 50 MG CAPSULE (FP) PO PRN (10:08)
[2019-09-04] MEDS: THIAMINE HCL 100 MG TABLET (FP) PO SCH (22:03)
[2019-09-04] MEDS: HYDROCORTISONE 2.5% TOPICAL CREAM 30 GM TUBE PR SCH (22:03)
[2019-09-05] MEDS: METHADONE HCL 10 MG TABLET PO SCH (06:09)
[2019-09-05] MEDS: HYDROCORTISONE 1% TOPICAL CREAM 30 GM TUBE TP SCH (09:54)
[2019-09-05] MEDS: NICOTINE 14 MG/24 HOURS TOPICAL PATCH TD SCH (09:54)
[2019-09-05] MEDS: hydrOXYzine PAMOATE 50 MG CAPSULE (FP) PO PRN (09:54)
[2019-09-05] MEDS: PRENATAL VITAMINS W/ FOLIC ACID TABLET (FP) PO SCH (09:54)
[2019-09-05] MEDS: HYDROCORTISONE 2.5% TOPICAL CREAM 30 GM TUBE PR SCH (21:29)
[2019-09-05] MEDS: THIAMINE HCL 100 MG TABLET (FP) PO SCH (21:30)
[2019-09-05] MEDS: MELATONIN 5 MG TABLETS PO PRN (21:30)
[2019-09-05] MEDS: MAG HYDROX/AL HYDROX/SIMETH 30 ML UNIT-DOSE CUP PO PRN (22:00)
[2019-09-06] MEDS: METHADONE HCL 10 MG TABLET PO SCH (06:16)
[2019-09-06] MEDS: hydrOXYzine PAMOATE 50 MG CAPSULE (FP) PO PRN (09:35)
[2019-09-06] MEDS: PRENATAL VITAMINS W/ FOLIC ACID TABLET (FP) PO SCH (09:36)
[2019-09-06] MEDS: NICOTINE 14 MG/24 HOURS TOPICAL PATCH TD SCH (09:36)
[2019-09-06] MEDS: HYDROCORTISONE 1% TOPICAL CREAM 30 GM TUBE TP SCH (09:36)
[2019-09-06] MEDS: HYDROCORTISONE 2.5% TOPICAL CREAM 30 GM TUBE PR SCH (21:32)
[2019-09-06] MEDS: MELATONIN 5 MG TABLETS PO PRN (21:33)
[2019-09-06] MEDS: THIAMINE HCL 100 MG TABLET (FP) PO SCH (21:33)
[2019-09-07] MEDS: METHADONE HCL 10 MG TABLET PO SCH (06:30)
[2019-09-07 07:15] VITALS: BP 122/87; PULSE 61; TEMP 97.6
[2019-09-07] MEDS: HYDROCORTISONE 1% TOPICAL CREAM 30 GM TUBE TP SCH (11:13)
[2019-09-07] MEDS: NICOTINE 14 MG/24 HOURS TOPICAL PATCH TD SCH (11:13)
[2019-09-07] MEDS: PRENATAL VITAMINS W/ FOLIC ACID TABLET (FP) PO SCH (11:14)
--- NOTE | 2019-09-07 11:56 | DS ---
[facility] Rehab Discharge Summary - [facility] Rehab Discharge Summary Admission Date: 08/11/19 Discharge Date: 09/07/19 - History Present History: Alcohol dependence, MMTP Additional Comments: Pt is a 59 y/o male with a hx of CELIA on MMTP-H.E.L.P admitted to rehab . Pt met with his counselor Ms Samy Xiongn and has been referred to aftercare to follow up. Pt reports he has primary care with Dr. Mary at his program. Pertinent Past History: HTN(no meds) HLD(no meds) Deaf in Right Ear Bipolar Disorder Anxiety Disorder - Discharge Physical Exam Vital Signs: Vital Signs Temperature 97.6 F 09/07/19 07:14 Pulse Rate 61 09/07/19 07:14 Respiratory Rate 18 09/07/19 07:14 Blood Pressure 122/87 09/07/19 07:14 O2 Sat by Pulse Oximetry (%) Alert o x 3,denies s/h/i nad oob ambulating with steady gait cardiac:s1 s2,rrr lungs:cta,cayetano. abdomen:+bs,soft,nt,++fatty extremities/skin:no edema;Varicose veins-bilateral LE > RE; skin intact Pertinent Admission Physical Exam Findings: Laboratory Tests 08/12/19 08/13/19 08/13/19 10:10 08:05 08:05 WBC 6.8 RBC 4.44 Hgb 13.8 Hct 42.0 MCV 94.4 MCH 31.0 MCHC 32.8 RDW 14.5 Plt Count 267 D MPV 9.3 Sodium 138 Potassium 4.1 Chloride 102 Carbon Dioxide 30 Anion Gap 6 L BUN 11.6 Creatinine 0.7 Est GFR (CKD-EPI)AfAm 118.88 Est GFR (CKD-EPI)NonAf 102.57 Random Glucose 88 Calcium 8.9 Total Bilirubin 0.7 AST 35 ALT 85 H Alkaline Phosphatase 81 Total Protein 7.0 Albumin 3.5 Urine Color Yellow Urine Appearance Clear Urine pH 6.5 Ur Specific [place] 1.014 Urine Protein Negative Urine Glucose (UA) Negative Urine Ketones Negative Urine Blood Negative Urine Nitrite Negative Urine Bilirubin Negative Urine Urobilinogen 1.0 Ur Leukocyte Esterase Negative RPR Titer 08/13/19 08:05 WBC RBC Hgb Hct MCV MCH MCHC RDW Plt Count MPV Sodium Potassium Chloride Carbon Dioxide Anion Gap BUN Creatinine Est GFR (CKD-EPI)AfAm Est GFR (CKD-EPI)NonAf Random Glucose Calcium Total Bilirubin AST ALT Alkaline Phosphatase Total Protein Albumin Urine Color Urine Appearance Urine pH Ur Specific [place] Urine Protein Urine Glucose (UA) Urine Ketones Urine Blood Urine Nitrite Urine Bilirubin Urine Urobilinogen Ur Leukocyte Esterase RPR Titer Nonreactive - Treatment Discharge Condition: Discharge condition good Hospital Course: Rehabilitated safely Responded well CD aftercare referral accepted Pt participated in groups and individual sessions while in treatment. - Medication Discharge Medications: Ambulatory Orders NK [No Known Home Medication] 07/18/19 - Medication-Assisted Treatment (MAT) Medication-Assisted Treatment (MAT): No - Discharge Instructions Diet, activity, other medical instructions: Diet: Activity: Other medical instructions: - Diagnosis (1) Alcohol dependence Status: Chronic Qualifiers: Substance use status: uncomplicated Qualified Code(s): F10.20 - Alcohol dependence, uncomplicated (2) [place] (hard of hearing) Status: Chronic Qualifiers: Hearing loss type: unspecified Laterality: right Qualified Code(s): H91.91 - Unspecified hearing loss, right ear (3) HTN (hypertension) Status: Chronic Qualifiers: Hypertension type: unspecified Qualified Code(s): I10 - Essential (primary ) hypertension (4) Hyperlipidemia Status: Chronic Qualifiers: Hyperlipidemia type: unspecified Qualified Code(s): E78.5 - Hyperlipidemia , unspecified (5) Methadone maintenance therapy patient Status: Chronic (6) Varicose vein of leg Status: Acute Qualifiers: Varicose vein complication: asymptomatic Laterality: bilateral Qualified Code(s): I83.93 - Asymptomatic varicose veins of bilateral lower extremities - Follow-up Referral Minutes to complete discharge: 20 - AMA Did Patient Leave Against Medical Advice: No
== END 2019-09-07 10:43 | disposition home or self-care (01) | DRG 772 ==
LOC: YASAS 17:47 → Y5N 21:11
PROVIDERS: ADMIT Allergy & Immunology; ATTEND Allergy & Immunology
PROC: HZ42ZZZ Group Counseling for Substance Abuse Treatment, Cognitive-Behavioral (ICD-10-PCS; principal; 2019-08-11)
DX: F10.20 Alcohol dependence, uncomplicated (principal); F11.20 Opioid dependence, uncomplicated; F17.210 Nicotine dependence, cigarettes, uncomplicated; F10.282 Alcohol dependence with alcohol-induced sleep disorder; F19.24 Other psychoactive substance dependence with psychoactive substance-induced mood disorder; F31.9 Bipolar disorder, unspecified; F41.9 Anxiety disorder, unspecified; I10 Essential (primary) hypertension; E78.5 Hyperlipidemia, unspecified; L30.9 Dermatitis, unspecified; K62.89 Other specified diseases of anus and rectum; K64.9 Unspecified hemorrhoids; I83.93 Asymptomatic varicose veins of bilateral lower extremities; H91.91 Unspecified hearing loss, right ear; Z62.810 Personal history of physical and sexual abuse in childhood; Z90.49 Acquired absence of other specified parts of digestive tract; Z86.69 Personal history of other diseases of the nervous system and sense organs; Z88.0 Allergy status to penicillin; Z59.0 Homelessness
CPT/HCPCS: 36415; 80053; 81003; 85027; 86593; 93005; 93010; J0735

== ENCOUNTER 2022-01-23 19:36 | Inpatient (IN) | payer OTHER ==
[2022-01-23 21:08] VITALS: BMI 28.1
[2022-01-23] MEDS ORDERED: NICOTINE 10 MG CARTRIDGE (INHALER) IH PRN (22:44)
[2022-01-23] MEDS ORDERED: MAG HYDROX/AL HYDROX/SIMETH 30 ML UNIT-DOSE CUP PO PRN (22:44)
[2022-01-23] MEDS ORDERED: BENZOCAINE/MENTHOL (CHLORASEPTIC ) LOZENGE MM PRN (22:44)
[2022-01-23] MEDS ORDERED: METHOCARBAMOL 500 MG TABLET PO PRN (22:44)
[2022-01-23] MEDS ORDERED: ACETAMINOPHEN 325 MG TABLET (FP) PO PRN ×2 (22:44)
[2022-01-23] MEDS ORDERED: IBUPROFEN 400 MG TABLET (FP) PO PRN (22:44)
[2022-01-23] MEDS ORDERED: LOPERAMIDE HCL 2 MG CAPSULE PO PRN (22:44)
[2022-01-23] MEDS ORDERED: IBUPROFEN 600 MG TABLET (FP) PO PRN (22:44)
[2022-01-23] MEDS ORDERED: ONDANSETRON *ODT* 4 MG TABLET SL PRN (22:44)
[2022-01-23] MEDS ORDERED: MAGNESIUM HYDROX 2400MG/30ML ORAL SUSPENSION 30 ML CUP PO PRN (22:44)
[2022-01-23] MEDS ORDERED: MAGNESIUM CITRATE 300 ML BOTTLE PO PRN (22:44)
[2022-01-23] MEDS ORDERED: DICYCLOMINE HCL 10 MG CAPSULE PO PRN (22:44)
[2022-01-23] MEDS ORDERED: BISMUTH SUBSALICYLATE 524 MG/30 ML PO PRN (22:44)
[2022-01-24] MEDS: chlordiazePOXIDE HCL 25 MG CAPSULE PO SCH ×5 (01:24→23:06)
[2022-01-24] MEDS: PRENATAL VITAMINS W/ FOLIC ACID TABLET (FP) PO SCH (10:40)
[2022-01-24] MEDS: NICOTINE 14 MG/24 HOURS TOPICAL PATCH TD SCH (10:40)
[2022-01-24] MEDS: methaDONE HCL 10 MG TABLET PO SCH (10:41)
[2022-01-24 11:09] LABS: HEMATOCRIT 39.6 % (35.4-49); HEMOGLOBIN 13.3 GM/dL (11.7-16.9); MCH 34.5 pg (25.7-33.7); MCHC 33.6 g/dl (32.0-35.9); MEAN CELL VOLUME 102.5 fl (80-96); MEAN PLT VOLUME 8.8 fl (7.5-11.1); PLATELET COUNT 243 10^3/uL (134-434); RBC 3.86 M/mm3 (4.00-5.60); RDW 13.2 % (11.9-15.9)
[2022-01-24 13:11] LABS: ALBUMIN 3.6 g/dl (3.4-5.0); BLOOD UREA NITROGEN 13.7 mg/dL (7-18); CALCIUM 8.8 mg/dL (8.5-10.1)
[2022-01-24 13:13] LABS: CREATININE 0.7 mg/dL (0.55-1.3)
[2022-01-24 13:16] LABS: BILIRUBIN,TOTAL 0.9 mg/dL (0.2-1); TOT PROT 7.1 g/dl (6.4-8.2)
[2022-01-24] MEDS: chlordiazePOXIDE HCL 25 MG CAPSULE PO PRN ×2 (13:39→21:07)
[2022-01-24] MEDS: hydrOXYzine PAMOATE 25 MG CAPSULE (FP) PO PRN (21:07)
[2022-01-24] MEDS ORDERED: THIAMINE HCL 100 MG TABLET (FP) PO SCH (22:00)
[2022-01-24] MEDS ORDERED: MELATONIN 5 MG TABLETS PO SCH (22:00)
[2022-01-25] MEDS: chlordiazePOXIDE HCL 25 MG CAPSULE PO SCH ×2 (05:19→10:20)
[2022-01-25] MEDS: methaDONE HCL 10 MG TABLET PO SCH (05:20)
[2022-01-25] MEDS: NICOTINE 14 MG/24 HOURS TOPICAL PATCH TD SCH (10:19)
[2022-01-25] MEDS: PRENATAL VITAMINS W/ FOLIC ACID TABLET (FP) PO SCH (10:20)
[2022-01-25] MEDS: hydrOXYzine PAMOATE 25 MG CAPSULE (FP) PO PRN (12:39)
[2022-01-25] MEDS: chlordiazePOXIDE HCL 25 MG CAPSULE PO PRN (13:27)
[2022-01-25 14:24] VITALS: BP 154/85; PULSE 77; TEMP 97.3
[2022-01-26] MEDS ORDERED: chlordiazePOXIDE HCL 10 MG CAPSULE PO PRN
[2022-01-26] MEDS ORDERED: chlordiazePOXIDE HCL 10 MG CAPSULE PO SCH (05:00)
[2022-01-27] MEDS ORDERED: chlordiazePOXIDE HCL 10 MG CAPSULE PO SCH (05:00)
[2022-01-28] MEDS ORDERED: chlordiazePOXIDE HCL 10 MG CAPSULE PO ONE (05:00)
== END 2022-01-25 05:10 | disposition left against medical advice (07) | DRG 770 ==
LOC: YASAS 19:36 → Y6N 23:23
PROVIDERS: ADMIT Allergy & Immunology; ATTEND Surgery
PROC: HZ2ZZZZ Detoxification Services for Substance Abuse Treatment (ICD-10-PCS; principal; 2022-01-23)
DX: F10.230 Alcohol dependence with withdrawal, uncomplicated (principal); F11.20 Opioid dependence, uncomplicated; F17.210 Nicotine dependence, cigarettes, uncomplicated; F19.282 Other psychoactive substance dependence with psychoactive substance-induced sleep disorder; F19.280 Other psychoactive substance dependence with psychoactive substance-induced anxiety disorder; F19.24 Other psychoactive substance dependence with psychoactive substance-induced mood disorder; F31.9 Bipolar disorder, unspecified; F41.9 Anxiety disorder, unspecified; I10 Essential (primary) hypertension; E78.5 Hyperlipidemia, unspecified; Z59.00 Homelessness unspecified; Z56.0 Unemployment, unspecified; Z88.0 Allergy status to penicillin
CPT/HCPCS: 36415; 80053; 82140; 85027; 86780; C9803-CS; U0003; U0005

== ENCOUNTER 2024-03-29 08:46 | Inpatient (IN) | payer OTHER ==
[2024-03-29 09:49] VITALS: BMI 29.7
[2024-03-29] MEDS ORDERED: MAGNESIUM HYDROX 2400MG/30ML ORAL SUSPENSION 30 ML CUP PO PRN (11:37)
[2024-03-29] MEDS ORDERED: BENZOCAINE/MENTHOL (CHLORASEPTIC ) LOZENGE MM PRN (11:37)
[2024-03-29] MEDS ORDERED: guaiFENesin 600 MG TABLET.ER (FP) PO PRN (11:37)
[2024-03-29] MEDS ORDERED: BENZONATATE 200 MG CAPSULE PO PRN (11:37)
[2024-03-29] MEDS ORDERED: NALOXONE (NARCAN) HCL 4 MG/0.1 ML SPRAY NS PRN (11:37)
[2024-03-29] MEDS ORDERED: MAG HYDROX/AL HYDROX/SIMETH 30 ML UNIT-DOSE CUP PO PRN (11:37)
[2024-03-29] MEDS ORDERED: ACETAMINOPHEN 325 MG TABLET (FP) PO PRN (11:37)
[2024-03-29] MEDS ORDERED: IBUPROFEN 600 MG TABLET (FP) PO PRN (11:37)
[2024-03-29] MEDS ORDERED: NICOTINE POLACRILEX 2 MG GUM BUC PRN (11:37)
[2024-03-29] MEDS ORDERED: ONDANSETRON *ODT* 4 MG TABLET SL PRN (11:37)
[2024-03-29] MEDS ORDERED: NALOXONE HCL 0.4 MG/ML VIAL IM PRN (11:37)
[2024-03-29] MEDS ORDERED: POLYETHYLENE GLYCOL (HEALTHYLAX) 3350 17 GM PACKET PO PRN (11:37)
[2024-03-29] MEDS ORDERED: IBUPROFEN 400 MG TABLET (FP) PO PRN (11:37)
[2024-03-29] MEDS ORDERED: BISMUTH SUBSALICYLATE 524 MG/30 ML PO PRN (11:37)
[2024-03-29] MEDS ORDERED: LOPERAMIDE HCL 2 MG CAPSULE PO PRN (11:37)
[2024-03-29] MEDS ORDERED: methaDONE HCL 10 MG TABLET (FOR DETOX USE ONLY) ONE (12:25)
[2024-03-29] MEDS: methaDONE HCL 10 MG TABLET PO ONE (12:32)
[2024-03-29] MEDS: chlordiazePOXIDE HCL 25 MG CAPSULE PO PRN (13:01)
[2024-03-29] MEDS: chlordiazePOXIDE HCL 25 MG CAPSULE PO SCH (17:39)
[2024-03-29] MEDS: THIAMINE 100 MG TABLET PO SCH (22:10)
[2024-03-29] MEDS: MELATONIN 5 MG TABLETS PO SCH (22:10)
[2024-03-30 06:39] VITALS: RESP 16
[2024-03-30 09:52] VITALS: BP 137/60; PULSE 54; TEMP 97.3
[2024-03-30] MEDS: PRENATAL VITAMINS W/ FOLIC ACID TABLET (FP) PO SCH (10:54)
[2024-03-30] MEDS: NICOTINE 14 MG/24 HOURS TOPICAL PATCH TD SCH (10:54)
[2024-03-30 11:39] LABS: CHLORIDE 106 mmol/L (98-107); SODIUM 140 mmol/L (136-145)
[2024-03-30 11:41] LABS: HEMATOCRIT 39.5 % (35.4-49); HEMOGLOBIN 13.2 GM/dL (11.7-16.9); MCH 34.9 pg (25.7-33.7); MCHC 33.5 g/dl (32.0-35.9); MEAN CELL VOLUME 104.1 fl (80-96); PLATELET COUNT 179 10^3/uL (134-434); RBC 3.79 M/mm3 (4.00-5.60); RDW 12.9 % (11.9-15.9); WHITE BLOOD COUNT 4.9 K/mm3 (4.0-10.0)
[2024-03-30 11:42] LABS: CALCIUM 9.1 mg/dL (8.5-10.1)
[2024-03-30 11:43] LABS: ALBUMIN 3.4 g/dl (3.4-5.0); ANION GAP 8 mmol/L (4-13); BLOOD UREA NITROGEN 11.8 mg/dL (7-18); CO2 26 mmol/L (21-32); GLUCOSE,RANDOM 146 mg/dL (74-106)
[2024-03-30] MEDS ORDERED: methaDONE HCL 10 MG TABLET PO SCH (11:45)
[2024-03-30 11:46] LABS: CREATININE 0.7 mg/dL (0.55-1.3); SGOT/AST 54 U/L (15-37); SGPT/ALT 80 U/L (13-61)
[2024-03-30 11:48] LABS: BILIRUBIN,TOTAL 1.2 mg/dL (0.2-1); TOT PROT 6.8 g/dl (6.4-8.2)
[2024-03-30] MEDS: methaDONE 40 MG, methaDONE 10 MG PO SCH (11:48)
[2024-03-30 11:49] LABS: ALK PHOS 128 U/L (45-117)
[2024-03-30] MEDS ORDERED: traZODone HCL 50 MG TABLET (FP) PO SCH (22:00)
[2024-03-31] MEDS ORDERED: chlordiazePOXIDE HCL 25 MG CAPSULE PO SCH (05:00)
[2024-04-01] MEDS ORDERED: chlordiazePOXIDE HCL 10 MG CAPSULE PO PRN
[2024-04-01] MEDS ORDERED: chlordiazePOXIDE HCL 10 MG CAPSULE PO SCH (05:00)
[2024-04-02] MEDS ORDERED: chlordiazePOXIDE HCL 10 MG CAPSULE PO SCH (05:00)
[2024-04-03] MEDS ORDERED: chlordiazePOXIDE HCL 10 MG CAPSULE PO ONE (05:00)
== END 2024-03-30 12:14 | disposition left against medical advice (07) | DRG 770 ==
LOC: YASAS 08:46 → Y6N 12:24
PROVIDERS: ADMIT Allergy & Immunology; ATTEND Surgery
PROC: HZ2ZZZZ Detoxification Services for Substance Abuse Treatment (ICD-10-PCS; principal; 2024-03-29)
DX: F10.230 Alcohol dependence with withdrawal, uncomplicated (principal); F11.20 Opioid dependence, uncomplicated; F17.210 Nicotine dependence, cigarettes, uncomplicated; F31.9 Bipolar disorder, unspecified; F10.282 Alcohol dependence with alcohol-induced sleep disorder; F10.280 Alcohol dependence with alcohol-induced anxiety disorder; E78.5 Hyperlipidemia, unspecified; I10 Essential (primary) hypertension; Z62.810 Personal history of physical and sexual abuse in childhood; Z63.8 Other specified problems related to primary support group
CPT/HCPCS: 36415; 80053; 80305; 80307; 85027; 86780; 93005; 93010